=== PATIENT | female | born 1945 | race Caucasian/White ===

== ENCOUNTER → 2018-03-07 15:51 | Outpatient (CLI) | payer MEDICARE, OTHER, SELFPAY ==
[2018-03-07 14:45] VITALS: BMI 32.1
[2018-03-07 17:21] LABS: Absolute Lymphocyte Count 1.38 X10^3/ul (0.83-4.51); Absolute Neutrophil Count 4.4 X10^3/uL (2.0-7.7); Basophil# 0.01 X10^3/uL; Basophil% 0.2 % (0-1); Eosinophil# 0.13 X10^3/uL; Eosinophils% 2.1 % (0-5); Hematocrit 42.9 % (37-47); Hemoglobin 14.1 g/dl (12.0-15.0); Lymphocyte # 1.38 X10^3/ul (4.0); Lymphocyte % 21.8 % (19-41); Mean Corp Hgb Conc 32.9 g/gl (32-36); Mean Corpuscular Hgb 27.4 pg (27.0-32.0); Mean Corpuscular Volume 83.5 fL (81-99); Mean Platelet Vol. 10.7 fl (6.2-12.0); Monocyte# 0.43 X10^3/uL; Monocyte% 6.8 % (0-10); Neutrophil # 4.38 X10^3/uL (2.7-7.7); Neutrophil % 68.9 % (47-70); Platelet Count 173 K/mm3 (150-450); RBC Distribution Width CV 14.8 % (11.6-14.6); RBC Distribution Width SD 44.1 fl (35.1-43.9); Red Blood Count 5.14 M/mm3 (4.2-5.4); White Blood Count 6.3 K/mm3 (4.4-11.0)
[2018-03-07 17:41] LABS: BNP,B-Type NATRIURETIC PEPTIDE 130.1 pg/mL (0-100)
[2018-03-07 17:43] LABS: Anion Gap 6 (5-15); BUN 15 mg/dL (7-18); BUN/Creat Ratio 22.2 RATIO (10-20); Chloride 105 mmol/L (98-107); Cholesterol 192 mg/dL (200); Creatinine, Serum 0.68 mg/dL (0.55-1.02); EST Glomerular Filtration Rate 91 mL/min (>60); Est Glom Filt Rate - Afr Amer 110 mL/min (>60); Glucose 87 mg/dL (74-106); High Density Lipoprotein 54 mg/dL; Sodium Level 140 mmol/L (136-145); Thyroid Stim Hormone (TSH) 1.69 uIU/mL (0.358-3.74); Triglycerides 135 mg/dL; Very Low Density Lipoprotein 27 mg/dL (5-40)
[2018-03-07 17:46] LABS: POSITIVE COUNT NO; POSITIVE DIFFERENTIAL NO; POSITIVE MORPHOLOGY NO
[2018-03-10 11:57] LABS: Vitamin D 1,25-Dihydroxy 74.9 pg/mL (19.9-79.3)
--- OUTSIDE RECORDS SUMMARY | 2018-05-03 08:55 | XMS RPT_ITS ---
:1945 Author Organization [facility] Care Team Providers Name Role Phone GANTA, OLIVE Referring Unavailable GANTA, OLIVE Attending Unavailable NICK LOVE Referring Unavailable GANTA, OLIVE Referring Unavailable GANTA, OLIVE Referring Unavailable GANTA, OLIVE Attending Unavailable GANTA, OLIVE Referring Unavailable SAMMY BEJARANO ([facility]) Attending Unavailable GANTA, OLIVE Referring Unavailable FRANCESCO FERNÁNDEZ ([facility]) Attending Unavailable GANTA, OLIVE Referring Unavailable FRANCESCO FERNÁNDEZ ([facility]) Referring Unavailable Pippa Momin Attending Unavailable Josie Magana Attending Unavailable Ganta, Olive Referring Unavailable Josie Magana Attending Unavailable Josie Magana Referring Unavailable Ganta, Olive Primary Care Unavailable Josie Magana Attending Unavailable Josie Magana Referring Unavailable Ganta, Olive Primary Care Unavailable PROBLEMS PROBLEMS DATE TYPE CONDITION / CODE ATTENDING STATUS SOURCE 03/07/2018 Unknown R06.09 - Other forms Parag Magana of dyspnea / Josie Astudillo [facility] R06.09(ICD-10) Hospital Repository 03/07/2018 Unknown I25.10 - [place] Active [facility] Atherosclerotic heart Josie Astudillo [facility] disease of [facility] coronary artery Repository without angina pectoris / I25.10(ICD-10) 03/07/2018 Unknown I10 - Essential [place] Active [facility] (primary) [facility] hypertension / Hospital I10(ICD-10) Repository 03/07/2018 Unknown E78.5 - [place], Active [facility] Hyperlipidemia, Josie [facility] unspecified / Hospital E78.5(ICD-10) Repository 03/07/2018 Unknown R53.83 - Other Mag[place], Active [facility] fatigue / [facility] R53.83(ICD-10) Hospital Repository 03/07/2018 Unknown E55.9 - Vitamin D [place], Active [facility] deficiency, Josie [facility] unspecified / Hospital E55.9(ICD-10) Repository 03/07/2018 Unknown R06.00 - Dyspnea, [place], Active [facility] unspecified / [facility] R06.00(ICD-10) Hospital Repository 07/01/2017 Active Hypothyroidism, NA Active [facility] unspecified / [facility] E03.9(ICD-10) [place] Repository 11/01/2017 Active Other fatigue / NA Active [facility] R53.83(ICD-10) [facility] [place] Repository 04/29/2017 Active Encounter for NA Active [facility] screening mammogram [facility] for malignant [place] neoplasm of breast / Repository Z12.31(ICD-10) 04/27/2017 Active Bradycardia, NA Active [facility] unspecified / [facility] R00.1(ICD-10) [place] Repository 04/27/2017 Active Vitamin D deficiency, NA Active [facility] unspecified / [facility] E55.9(ICD-10) [place] Repository 04/27/2017 Active Other muscle spasm / NA Active [facility] M62.838(ICD-10) [facility] [place] Repository 04/20/2017 Active 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 72-year-old lady with a history of coronary artery disease, and shortness of breath. Patient status post coronary bypass surgery. Resting EKG demonstrates sinus bradycardia with a rate of 54 bpm normal intervals are noted resting blood pressure 170/80 mmHg. 0.4 mg of regadenoson was infused per usual protocol followed by rapid intravenous saline flush injection continuous EKG monitoring was performed. The patient maintained sinus rhythm throughout the recording. The maximum heart rate attained was 89 bpm which was 60% of maximum predicted heart rate the maximum workload was 1 metabolic equivalent. The resting blood pressure 170/80 with a final blood pressure 156/70 mmHg. Myocardial perfusion protocol. 10.8 mCi of technetium 99m sestamibi was injected at rest. 0.4 mg of regadenoson was infused per usual protocol peak infusion 30.1 mCi of technetium 99m sestamibi was injected stress images were obtained stress and rest images were reconstructed and compared in the short axis vertical long horizontal long axis. Gated images were also obtained Perfusion SPECT analysis: Review of the stress images demonstrate normal uptake of tracer noted in all areas of the myocardium the resting images similarly demonstrate normal uptake of tracer noted in all areas of the myocardium. No areas of reversibility are noted suggest ischemia no previous infarct is noted. Gated SPECT analysis: The gated ejection fraction is noted to be 74%. Conclusion: Normal pharmacologic myocardial perfusion stress test. Preserved ejection fraction. 03/15/181730 <Electronically signed by Nicholas Umana MD> Date Nicholas Umana MD CC: Olive Joyner MD; Josie Magana Date Dictated: 03/15/181727 Date Transcribed: 03/15/181727 Hostel Manager: CO Signed CARDIOLOGY VISIT Observed: 03/09/2018 Status: F Source: LI REPORT 7:31 AM [facility] REPOSITORY [facility] [address] [place] [address]. [address] [place] [address] OFFICE VISIT Date of Service: 03/07/18 MR#: [id number] Acct: [id number] Name: JOSELYN RODRIGUEZ Rep #: [id number] : 1945 Provider: Josie Magana Age/Sex: 72/F Location: [facility] Status: Signed HPI HPI Details: JOSELYN RODRIGUEZ, is a 72 F who presents to the office today for an urgent appointment. She does have a history of coronary artery disease with bypass surgery. She had an SOARES to the LAD, SVG to the first diagonal and second branches. She sts that she has had worsening SOB over the last month. She sts that she was SOB during the summer months but feels that it has gotten worse. She feels that this is similar to what she had when she had her bypass. She does have some heaviness. She does not have any chest pain. She does not feel stressed. She does have increase in fatigue. She also noted increase in leg fatigue with walking or doing steps. She does occasionally have palpitations. She does have positional dizziness. She does not have any edema. 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: No Accompanied by: None Is patient in pain?: No Allergies acetaminophen [From Tylenol] Allergy (Verified 03/07/18 14:51) Unknown codeine Allergy (Verified 03/07/18 14:51) Unknown progesterone Allergy (Verified 03/07/18 14:51) Unknown trazodone Allergy (Verified 03/07/18 14:51) Unknown Medications Levothyroxine [Synthroid] 75 mcg PO DAILY 04/23/15 [History Confirmed 03/07/18] Montelukast [Singulair] 10 mg PO DAILY 04/23/15 [History Confirmed 03/07/18] Multivit with Calcium,Iron,Min [Multiple Vitamins For Women] 1 ea PO DAILY 04/23/15 [History Confirmed 03/07/18] Omeprazole [Prilosec] 20 mg PO DAILY 04/23/15 [History Confirmed 03/07/18] albuterol sulfate HFA 90 mcg/actuation aerosol inhaler 2 puff INHALATION Q6H 05/17/17 [History Confirmed 03/07/18] aspirin 81 mg tablet,delayed release 81 mg PO QDAY 05/17/17 [History Confirmed 03/07/18] metoprolol succinate ER 50 mg tablet,extended release 24 hr 50 mg PO QDAY 08/15/17 [History Confirmed 03/07/18] sertraline 50 mg tablet 50 mg PO BID tab 08/15/17 [History Confirmed 03/07/18] zolpidem 5 mg tablet 5 mg PO QDAY tab 08/15/17 [History Confirmed 03/07/18] simvastatin 40 mg tablet 40 mg PO QHS #90 tab 11/30/17 [Rx Confirmed 03/07/18] Ejection fraction %: 55 to 59 PFSH Medical History Depression (Chronic) Asthma (Chronic) Hypothyroidism (Chronic) Hyperlipidemia (Chronic) Hypertension (Chronic) Atherosclerotic heart disease of morongo coronary artery without angina pectoris (Chronic) 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) Body mass index (BMI) of 32.0-32.9 in adult (Chronic) Carotid artery disease (Chronic) COPD (chronic obstructive pulmonary disease) (Chronic) EARL (obstructive sleep apnea) (Chronic) LEOS (dyspnea on exertion) (Chronic) Surgical History History of cholecystectomy (Chronic) Presence of aortocoronary bypass graft (Chronic) History of appendectomy (Resolved) History of hernia repair (Resolved) History of hysterectomy (Resolved) Family History Mother CAD (coronary artery disease) CVA (cerebral vascular accident) Father , Age 44 COPD (chronic obstructive pulmonary disease) Social History Smoking Status: Former smoker pack-years: 10 how long ago did patient quit smokin years ago second hand exposure: No alcohol intake: never substance use type: does not use caffeine: Yes Type: carbonated beverages Number of servings: 2 what type of physical activity do you participate in: none ROS Const Const: Positive for weakness and fatigue; negative for fever(s) or headache(s) Eyes Eyes: Negative for blind spots, loss of peripheral vision or transient loss of vision ENT ENT: Negative for headache(s), dizziness, tinnitus or Nosebleed/epistaxis Cardio Chest Pain: Yes Palpitations: Yes Edema: None Muscle aches with walking: Bilateral Resp Respiratory: Positive for SOB with activity and SOB at rest; negative for SOB orthopnea\SOB lying down or Cough GI GI: Negative nausea, vomiting, heartburn or vomiting blood/hematemesis : Negative for hematuria Musc Musc: Negative for muscle aches/ myalgia Neuro Neuro: Positive for weakness; negative for headache(s), dizziness, near syncope, syncope, lightheadedness or orthostatic symptoms Kamron Hematologic/Lymphatic: Negative for easy bleeding Endo Endo: Positive for fatigue Cardiology Exam Const Appearance: cooperative, no acute distress and well developed Orientation: alert, awake and oriented x3 Head Head: normocephalic and atraumatic Mouth: moist mucous membranes Eyes General: appearance normal, both eyes and all related structures Conjunctivae: conjunctivae normal Pupils: PERRL EOM: EOM intact bilaterally Neck Neck: normal visual inspection, no lymphadenopathy and no JVD Carotids: Negative bruit Neck Mass: Negative Neck mass Chest Chest inspection: normal inspection of the chest and symmetric chest movement Auscultation: Bilateral: Clear to Auscultation Cardio Palpation: normal PMI Rate: regular rate Rhythm: regular rhythm Heart sounds: S1 normal and S2 normal; negative rub, gallop or murmur GI GI: normal to inspection, soft, no hepatosplenomegaly and bowel sounds present; negative tender Neuro General: alert, awake, oriented x3, CN's II-XI intact bilaterally and moves all extremities Extremities Pulses: Normal: Right Posterior Tibial Pulse, Left Posterior Tibial Pulse, Right Radial Pulse, Left Radial Pulse Lower Extremity Edema: None: Bilateral Psych Psychological: normal affect Supplemental Info Heart cath 2016 demonstrated 1. Angiographically normal left main coronary artery. 2. Left anterior descending artery, which is noted to be totally occluded. 3. Left circumflex artery with no high-grade stenosis. 4. Dominant right coronary artery with [id number] disease. 5. Saphenous vein graft to the diagonal vessel, 1 and 2, which appeared to be patent. 6. Saphenous vein graft per second diagonal vessel, which is patent. 7. Left internal mammary artery to left anterior descending artery, which is patent with a large thoracic branch noted. 8. Preserved ejection fraction. Assessment AND Plan 1. Atherosclerosis of morongo coronary artery of morongo heart without angina pectoris I25.10 Plan - MIN [place] Patient does not have any symptoms of angina however she does have worsening shortness of breath. She has not needed to use any nitroglycerin. With to obtain a stress test to further evaluate this. She does not feel that she could walk on a treadmill. We will do a medication stress test. Orders Orders: 2. Essential hypertension I10 Plan - MIN [place] Blood pressure is slightly elevated today. Prior to making adjustments of medications would like her to continue to monitor this over the next few weeks. We will make adjustments if need be at her follow-up. Orders Orders: 3. Pure hypercholesterolemia E78.00; E78.0 Plan - MIN [place] Patient is due to have her lipids checked. Will obtain these in the near future and adjust accordingly. 4. LEOS (dyspnea on exertion) R06.09 Plan - MIN [place] With patient's worsening shortness of breath will obtain labs and stress test to further evaluate. Orders Orders: 5. Fatigue, unspecified type R53.83 Plan - MIN [place] We will obtain labs to further evaluate. Orders Orders: Plan Detail Other Orders Orders: Additional Comments - MIN [place] Would like to follow-up with patient closely. She will follow- up after her labs and stress test. The above patient was discussed with Dr. Umana, he agrees with plan of care. Thank you for allowing us to participate in patient's plan of care, if you have any questions please do not hesitate to call. This note was generated using a voice recognition system and there may be incorrect words, spelling or punctuation errors that were not noted when reviewing the office note prior to saving. 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 transplanted heart: morongo heart Essential hypertension I10 Hypertension type: essential hypertension Pure hypercholesterolemia E78.00; E78.0 Hyperlipidemia type: pure hypercholesterolemia LEOS (dyspnea on exertion) R06.09 Fatigue, unspecified type R53.83 Fatigue type: unspecified Coding Level of Care Code Off vis,est,level 4 Diagnoses Atherosclerosis of morongo coronary artery of morongo heart without angina pectoris I25.10 [place] vs. transplanted heart: morongo heart Essential hypertension I10 Hypertension type: essential hypertension Pure hypercholesterolemia E78.00; E78.0 Hyperlipidemia type: pure hypercholesterolemia LEOS (dyspnea on exertion) R06.09 Fatigue, unspecified type R53.83 Fatigue type: unspecified 03/07/18 1540 <Electronically signed by Josie Magana PA> Date Josie COPELAND 03/09/18 0731<Electronically signed by Nicholas Umana MD> Cosigner Signature: Date (if applicable) Nicholas Umana MD CC: Olive Joyner MD BNP,B-TYPE NATRIURETIC Collected: 03/07/2018 Status: F Source: LI PEPTIDE 4:06 PM [facility] REPOSITORY TYPE CODE TESTS RESULT OUT OF RANGE REFERENCE UNITS LAB L503.6620 0-100 pg/mL High B-TYPE 130.1 LORIE PEP Performed By: #### L503.6620 #### [facility] [address] [place], [address] BASIC METABOLIC Collected: 03/07/2018 Status: F Source: [place] PROFILE (BMP) 4:06 PM [facility] REPOSITORY TYPE CODE TESTS RESULT OUT OF RANGE REFERENCE UNITS LAB L501.0100 74-106 mg/dL Normal GLU 87 Result Comment: Please note revised GLUCOSE reference range effective 2017. LAB L501.1000 7-18 mg/dL Normal BUN 15 LAB L501.1100 0.55-1.02 mg/dL Normal CREAT,SERUM 0.68 Result Comment: The validity of the calculated GFR AND GFRAA in patients over 70 years has not been determined. Clinical correlation is essential. LAB L501.1110 >60 mL/min Normal EST GFR 91 Result Comment: Non- GFR Calc LAB L501.1115 >60 mL/min Normal EST GFR - AA 110 Result Comment: GFR Calc LAB L501.1300 10-20 RATIO High BUN/CRE 22.2 LAB L501.2200 8.5-10.1 mg/dL CA Normal 9.0 LAB L501.5300 136-145 mmol/L NA Normal 140 LAB L501.5600 3.5-5.1 mmol/L K Normal 4.0 LAB L501.5900 98-107 mmol/L CL Normal 105 LAB L501.6100 21.0-32.0 mmol/L Normal CO2 29.0 LAB L501.6200 5-15 Normal GAP 6 Performed By: #### L500.2500, L500.4100, L501.9520 #### [facility] [address] [place], [place], [id number] LIPID PROFILE Collected: 03/07/2018 Status: F Source: LI 4:06 PM [facility] REPOSITORY TYPE CODE TESTS RESULT OUT OF RANGE REFERENCE UNITS LAB L501.4900 200 mg/dL Normal CHOL 192 Result Comment: <200 mg/dL Desirable 200-240 mg/dL Borderline >240 mg/dL High Risk LAB L501.5000 mg/dL Normal TRIG 135 Result Comment: The drugs N-Acetylcysteine and Metamizole may falsely depress this assay. Serum Triglycerides Reference Interval Normal <150 mg/dL Borderline high 150 - 199 mg/dL High 200 - 499 mg/dL Very High > or = 500 mg/dL LAB L501.6400 mg/dL Normal HDL 54 Result Comment: The drugs N-Acetylcysteine and Metamizole may falsely depress this assay. Reference Range HDL <40 mg/dL Low HDL Cholesterol HDL >or= 60 mg/dL High HDL Cholesterol LAB L501.6500 0-130 mg/dL Normal LDL 111 LAB L501.6600 5-40 mg/dL Normal VLDL 27 Performed By: #### L500.2500, L500.4100, L501.9520 #### [facility] [address] [place], [place], [id number] THYROID STIM HORMONE Collected: 03/07/2018 Status: F Source: LI (TSH) 4:06 PM [facility] REPOSITORY TYPE CODE TESTS RESULT OUT OF RANGE REFERENCE UNITS LAB L501.9520 0.358-3.74 uIU/mL Normal TSH 1.69 Performed By: #### L500.2500, L500.4100, L501.9520 #### [facility] [address] [facility] [place], [place], [id number] CBC W/DIFF, AUTOMATED Collected: 03/07/2018 Status: F Source: LI 4:06 PM [facility] REPOSITORY TYPE CODE TESTS RESULT OUT OF RANGE REFERENCE UNITS LAB L100.1000 4.4-11.0 K/mm3 Normal WBC 6.3 LAB L100.1200 4.2-5.4 M/mm3 Normal RBC 5.14 LAB L100.1300 12.0-15.0 g/dl Normal HGB 14.1 LAB L100.1400 37-47 % Normal HCT 42.9 LAB L100.1500 81-99 fL Normal MCV 83.5 LAB L100.1600 27.0-32.0 pg Normal MCH 27.4 LAB L100.1700 32-36 g/gl Normal MCHC 32.9 LAB L100.1810 11.6-14.6 % High RDW CV 14.8 LAB L100.1820 35.1-43.9 fl High RDW SD 44.1 LAB L100.1900 150-450 K/mm3 Normal PLT 173 LAB L100.2000 6.2-12.0 fl Normal MPV 10.7 LAB L100.2100 47-70 % Normal NEUT% 68.9 LAB L100.2200 19-41 % Normal LY% 21.8 LAB L100.2300 0-10 % Normal MONO% 6.8 LAB L100.2400 0-5 % Normal EO% 2.1 LAB L100.2500 0-1 % Normal BASO% 0.2 LAB L100.2550 0.0-0.9 % Normal IM GRAN % 0.200 Result Comment: IG% - Immature Granulocytes (promyelocytes, myelocytes and metamyelocytes) > 1% indicates that a LEFT SHIFT is Present. LAB L100.2620 2.0-7.7 X10 3/uL Normal Absolute Neut 4.4 LAB L100.2720 0.83-4.51 X10 3/ul Normal Absolute Lymph 1.38 Performed By: #### L100.0100 #### [facility] [place], [address] VITAMIN D 1,25-DIHYDROXY Collected: 03/07/2018 Status: F Source: LI 4:06 PM [facility] REPOSITORY TYPE CODE TESTS RESULT OUT OF RANGE REFERENCE UNITS LAB L3300.0960 19.9-79.3 pg/mL Normal VITD 1,25 74.9 36265 Result Comment: Performed at: - [facility] [address] [id number] Supervisor Braiding: Lissett López MD, Phone: [phone] Performed By: #### L3300.0960 #### [facility] (refer to report for specific site) refer to report for address and phone number 12 LEAD EKG PERFORMED Observed: 03/07/2018 Status: F Source: LI BY [facility] 3:21 PM [facility] REPOSITORY [facility] [address] [place] [address] 12 Lead EKG performed by [facility] 03/07/18 1520 MR#: [id number] Acct: [id number] Name: JOSELYN RODRIGUEZ Rep #: [id number] : 1945 72 From: Josie COPELAND Attending Dr: Josie Magana Status: DEP AMB Ordering Dr: Josie Magana Date: 03/07/18 [place] [facility] [place] C Admitted: [facility]/12 Lead EKG performed by [facility] ECG Report Interpretation Sinus Bradycardia -First degree A-V block Oksana = 226- Nonspecific T-abnormality. ABNORMAL Electronically signed on 03/15/2018 at 16:45 by Nicholas Umana Software Version [id number] 03/15/18 1651 Date Josie COPELAND CC: Olive Joyner MD Date Dictated: 03/07/181519 Date Transcribed: 03/07/181519 Hostel Manager: USAMA Signed TSH Collected: 11/01/2017 Status: F Source: [place] 11:23 AM [facility] TYPE CODE TESTS RESULT OUT OF RANGE REFERENCE UNITS LAB TSH 0.400-5.500 uU/mL TSH 1.090 Performed By: #### TSH, VITD #### [facility] [address] [place], [place] [address] VITAMIN D 25 HYDROXY Collected: 11/01/2017 Status: F Source: [place] 11:23 AM [facility] REPOSITORY TYPE CODE TESTS RESULT OUT OF REFERENCE UNITS RANGE LAB VITD 31.0-80.0 ng/mL Low Vitamin D 25 21.9 Hydroxy Result Comment: Classification of 25 [place] Vitamin D status: Insufficiency/Moderate Deficiency: < or = 30 ng/mL Sufficiency/Optimal Levels: 31 to 80 ng/mL Toxicity: > 100 ng/mL Test performed by chemiluminescent immunoassay. Performed By: #### TSH, VITD #### [facility] [address] [place], [place] [address] PROGRESS Observed: 11/01/2017 Status: COMPLETED Source: [place] 10:17 AM [facility] REPOSITORY HNO ID: [id number] Author: Francesco Fernández Service: (none) Author Type: Nurse Practitioner Type: Progress Notes Filed: 11/01/2017 11:16 AM Note Text: CC: Patient presents with: Recheck: BP follow up HPI Joselyn Rodriguez is a 72 year old female who presents today for BP follow up. HTN: Ms. Rodriguez indicates that she is feeling well and denies any symptoms referable to elevated blood pressure. Specifically denies headache, chest pain, palpitations, dyspnea and peripheral edema. Patient denies any side effects of her medication(s) and is compliant with their regimen. She does not check BP's generally. Joselyn gets minimal exercise. She watches her diet for sodium, low fat and low cholesterol most of the time. She does enjoy her potato chips and she does eat outside of the house at least once per day, usually lunch. Last 3 Encounter BP Readings: Date: BP: 11/01/2017 136/82 10/18/2017 153/67[BP SOLEDAD AVERAGE[ 07/01/2017 158/74 Her only complaint today is worsening fatigue. States she takes Ambien for sleep at night which helps her fall asleep, but then she will get up in the morning and be ready for a nap shortly after waking. Positive hx of EARL, had Cpap but was unable to tolerate. Notes current exacerbation of depression as she continues to mourn the loss of her 13 year old dog whom she lost in June, however she indicates she is slowing doing better. REVIEW OF SYSTEMS General: no fevers, no chills, no night sweats, no recurrent infections, no change in appetite, and no significant changes in weight HEENT: no frequent or significant headaches, no changes in hearing, no visual changes, no nose bleeds, no sinus or nasal problems Neck: no lumps, no pain and no swelling Respiratory: no shortness of breath, no hemoptysis, Intermittent cough and wheezing with asthma exacerbations Cardiovascular: no chest pain, no chest pressure, no palpitations and Positive for: intermittent LLE edema Musculoskeletal: Negative for joint pain or swelling, back pain or muscle pain- Right hip pain resolved Neurologic: No headache, weakness, numbness, tingling, neck stiffness, tremor, vertigo, dizziness, memory loss, syncope. PAST MEDICAL HISTORY Diagnosis Date - Coronary artery disease - Cough - Depression - Depressive disorder, not elsewhere classified - Diarrhea - GERD (gastroesophageal reflux disease) - Hypertension - Snoring - Unspecified asthma(493.90) - Unspecified asthma(493.90) - Unspecified hypothyroidism Hypothyroidism PAST SURGICAL HISTORY Procedure Laterality Date - ANORECTAL MYOMECTOMY 01/02/1971 Myomectomy - CABG (3) VEIN GRAFTS AND ARTERIAL GRAFT(S) 2009 - COLONOSCOP W/ OR W/O [facility] SPEC 03/15/2006 Colonoscopy - HEART SURGERY HX - HYSTERECTOMY HX - LAP CHOLECYSTECT/CHOLANGIOGRAPHY 06/08/05 - PULMONARY FUNCTION TEST 09/24/2004 - REPAIR ING HERNIA,5+Y/O,REDUCIBL Left 05/01/1980 Hernia repair, inguinal - TONSILLECTOMY AND ADENOIDECTOMY HX ALLERGIES Levaquin [Levofloxacin]; Codeine; Niacin; Progesterone; Trazadone [Other]; Tylenol [Acetaminophen] MEDICATIONS sertraline (ZOLOFT) 100 mg tablet Take 2 tablets by mouth once daily. omeprazole (PRILOSEC) 20 mg capsule take 1 capsule by mouth once daily metoprolol tartrate, short acting, (LOPRESSOR) 25 mg tablet Take 1 tablet by mouth twice daily. zolpidem (AMBIEN) 5 mg tablet Take 1 tablet by mouth at bedtime as needed for up to 30 days. busPIRone (BUSPAR) 5 mg tablet Take 1 tablet by mouth three times daily. isosorbide mononitrate ER (IMDUR) 30 mg 24 hr tablet Take 1 tablet by mouth once daily. metoprolol succinate ER (TOPROL XL) 25 mg 24 hr tablet Take 1 tablet by mouth once daily. levothyroxine (SYNTHROID) 75 mcg tablet take 1 tablet by mouth once daily montelukast (SINGULAIR) 10 mg tablet take 1 tablet by mouth at bedtime hydroCHLOROthiazide (HYDRODIURIL, ESIDRIX) 12.5 mg tablet Take 12.5 mg by mouth once daily. Pt unsure of dosage lisinopril (ZESTRIL, PRINIVIL) 5 mg tablet Take 5 mg by mouth once daily. Pt unsure of dosage ergocalciferol, vitamin D2, (DRISDOL) 50,000 unit capsule take 1 capsule by mouth every week ON MONDAYS albuterol HFA (PROAIR HFA) 90 mcg/actuation inhaler Inhale 2 Puffs as instructed every 6 hours as needed. simvastatin (ZOCOR) 40 mg tablet Take 1 tablet by mouth daily at bedtime. aspirin, enteric coated 325 mg ORAL EC tablet Take 1/2 tablet daily. FAMILY HISTORY Problem Relation Age of Onset - Coronary Artery Disease Mother cabg x 4 - Stroke Mother - COPD Father - depression [OTHER] Brother - Stroke Maternal Grandfather - Heart Paternal Grandfather MS - Allergies Sister Social History Substance Use Topics - Smoking status: Former Smoker Packs/day: 0.50 Years: 18.00 Types: Cigarettes Quit date: 01/25/1981 - Smokeless tobacco: Never Used - Alcohol use Yes Comment: occassionally a glass of white wine PHYSICAL EXAM BP 136/82 Pulse (!) 56 Temp 37 ?C (98.6 ?F) (Temporal Artery) Resp 16 Wt 78.5 kg (173 lb) SpO2 97% BMI 32.16 kg/m? General Appearance: well appearing, in no acute distress, alert Pysch: mood and affect broad and appropriate Skin: Skin color, texture, turgor normal for age; Head: normocephalic, atraumatic Eyes: conjunctiva pink and moist, no icterus, sclera white, non-injected Lungs: Lungs clear to auscultation. No wheezing, rhonchi, rales Heart: RRR without murmur, gallop, or rubs. No ectopy Bilateral Lower Extremities: No deformities, edema, skin discoloration, clubbing or cyanosis. Good capillary refill. , Pulses: 2+ BLOOD PRESSURE CONTROLLED due on 1963 PNEUMOVAX AGE 65 AND OVER WITH 5YR LOOKBACK(1) due on 01/19/2012 DTAP,TDAP,TD(1 - Tdap) due on 06/23/2013 COLORECTAL CANCER SCREENING,SEE MODIFIER due on 03/15/2016 STATIN MED ADHERENCE due on 11/09/2017 INFLUENZA(1) due on 12/10/2017 LDL CHOLESTEROL due on 04/20/2018 MAMMOGRAM due on 04/29/2018 ANNUAL PCP TEAM CHRONIC DISEASE VISIT due on 07/01/2018 DIABETES SCREEN due on 04/20/2020 LIPID SCREEN due on 04/20/2022 BONE DENSITY Completed ADULT PREVNAR-13 Completed HEPATITIS C SCREENING Completed ASSESSMENT/PLAN: 1. Hypertension, unspecified type - ICD9: 401.9, ICD10: I10 (primary diagnosis) - good control - Continue current medication(s) - Encouraged dietary sodium restriction/DASH diet - Recommended regular aerobic exercise. - Recheck in 6 months, sooner should new symptoms or problems arise. - Goal of BP <140/90 - Recommended no refined sugar, low refined starch, healthy oil intake (olive oil), healthy protein (fish) along the lines of the Mediterranean diet. 2. Acquired hypothyroidism - ICD9: 244.9, ICD10: E03.9 - Instructed patient on importance of taking on an empty stomach either first thing in the morning or at bedtime. - check TSH today d/t increased fatigue - Follow up in 6 months - TSH BLD 3. Fatigue, unspecified type - ICD9: 780.79, ICD10: R53.83 - Consider inadequate synthroid dosing vs recurrence of vitamin D deficiency vs EARL vs situational depression vs medication side effects - Recommend dividing Zoloft dosing AM and PM, check Vitamin D and TSH today - Consider consult to sleep medicine for further evaluation/recommendations for EARL - VITAMIN D 25 HYDROXY 4. Vitamin D deficiency - ICD9: 268.9, ICD10: E55.9 - VITAMIN D 25 HYDROXY Francesco Fernández APRN.ZANJERO Prescription instructions reviewed with patient as applicable. Potential red flag symptoms discussed with the patient. Reviewed appropriate action plan to take if red flag symptoms occur. Patient agreeable to treatment plan. CNOV Observed: 11/01/2017 Status: COMPLETED Source: [place] 10:00 AM [facility] Office Visit ([facility]) JOSELYN RODRIGUEZ ([id number]) 1945 F Date Time Provider Department 11/01/17 10:00 AM FRANCESCO FERNÁNDEZ (ZANJERO) IN[facility] During your visit today, we recorded the following information about you: Temperature Pulse Respiration Blood pressure 98.6 degrees 56/minute 16/minute 136/82 Weight 78.5 kg Francesco Fernández APRN.CNP 11/01/2017 11:16 AM Signed CC: Patient presents with: Recheck: BP follow up HPI Joselyn Rodriguez is a 72 year old female who presents today for BP follow up. HTN: Ms. Rodriguez indicates that she is feeling well and denies any symptoms referable to elevated blood pressure. Specifically denies headache, chest pain, palpitations, dyspnea and peripheral edema. Patient denies any side effects of her medication(s) and is compliant with their regimen. She does not check BP's generally. Joselyn gets minimal exercise. She watches her diet for sodium, low fat and low cholesterol most of the time. She does enjoy her potato chips and she does eat outside of the house at least once per day, usually lunch. Last 3 Encounter BP Readings: Date: BP: 11/01/2017 136/82 10/18/2017 153/67[BP SOLED[facility] AVERAGE[ 07/01/2017 158/74 Her only complaint today is worsening fatigue. States she takes Ambien for sleep at night which helps her fall asleep, but then she will get up in the morning and be ready for a nap shortly after waking. Positive hx of EARL, had Cpap but was unable to tolerate. Notes current exacerbation of depression as she continues to mourn the loss of her 13 year old dog whom she lost in June, however she indicates she is slowing doing better. REVIEW OF SYSTEMS General: no fevers, no chills, no night sweats, no recurrent infections, no change in appetite, and no significant changes in weight HEENT: no frequent or significant headaches, no changes in hearing, no visual changes, no nose bleeds, no sinus or nasal problems Neck: no lumps, no pain and no swelling Respiratory: no shortness of breath, no hemoptysis, Intermittent cough and wheezing with asthma exacerbations Cardiovascular: no chest pain, no chest pressure, no palpitations and Positive for: intermittent LLE edema Musculoskeletal: Negative for joint pain or swelling, back pain or muscle pain- Right hip pain resolved Neurologic: No headache, weakness, numbness, tingling, neck stiffness, tremor, vertigo, dizziness, memory loss, syncope. PAST MEDICAL HISTORY Diagnosis Date - Coronary artery disease - Cough - Depression - Depressive disorder, not elsewhere classified - Diarrhea - GERD (gastroesophageal reflux disease) - Hypertension - Snoring - Unspecified asthma(493.90) - Unspecified asthma(493.90) - Unspecified hypothyroidism Hypothyroidism PAST SURGICAL HISTORY Procedure Laterality Date - ANORECTAL MYOMECTOMY 01/02/1971 Myomectomy - CABG (3) VEIN GRAFTS AND ARTERIAL GRAFT(S) 2009 - COLONOSCOP W/ OR W/O BRSH SPEC 03/15/2006 Colonoscopy - HEART SURGERY HX - HYSTERECTOMY HX - LAP CHOLECYSTECT/CHOLANGIOGRAPHY 06/08/05 - PULMONARY FUNCTION TEST 09/24/2004 - REPAIR ING HERNIA,5+Y/O,REDUCIBL Left 05/01/1980 Hernia repair, inguinal - TONSILLECTOMY AND ADENOIDECTOMY HX ALLERGIES Levaquin [Levofloxacin]; Codeine; Niacin; Progesterone; Trazadone [Other]; Tylenol [Acetaminophen] MEDICATIONS sertraline (ZOLOFT) 100 mg tablet Take 2 tablets by mouth once daily. omeprazole (PRILOSEC) 20 mg capsule take 1 capsule by mouth once daily metoprolol tartrate, short acting, (LOPRESSOR) 25 mg tablet Take 1 tablet by mouth twice daily. zolpidem (AMBIEN) 5 mg tablet Take 1 tablet by mouth at bedtime as needed for up to 30 days. busPIRone (BUSPAR) 5 mg tablet Take 1 tablet by mouth three times daily. isosorbide mononitrate ER (IMDUR) 30 mg 24 hr tablet Take 1 tablet by mouth once daily. metoprolol succinate ER (TOPROL XL) 25 mg 24 hr tablet Take 1 tablet by mouth once daily. levothyroxine (SYNTHROID) 75 mcg tablet take 1 tablet by mouth once daily montelukast (SINGULAIR) 10 mg tablet take 1 tablet by mouth at bedtime hydroCHLOROthiazide (HYDRODIURIL, ESIDRIX) 12.5 mg tablet Take 12.5 mg by mouth once daily. Pt unsure of dosage lisinopril (ZESTRIL, PRINIVIL) 5 mg tablet Take 5 mg by mouth once daily. Pt unsure of dosage ergocalciferol, vitamin D2, (DRISDOL) 50,000 unit capsule take 1 capsule by mouth every week ON MONDAYS albuterol HFA (PROAIR HFA) 90 mcg/actuation inhaler Inhale 2 Puffs as instructed every 6 hours as needed. simvastatin (ZOCOR) 40 mg tablet Take 1 tablet by mouth daily at bedtime. aspirin, enteric coated 325 mg ORAL EC tablet Take 1/2 tablet daily. FAMILY HISTORY Problem Relation Age of Onset - Coronary Artery Disease Mother cabg x 4 - Stroke Mother - COPD Father - depression [OTHER] Brother - Stroke Maternal Grandfather - Heart Paternal Grandfather MS - Allergies Sister Social History Substance Use Topics - Smoking status: Former Smoker Packs/day: 0.50 Years: 18.00 Types: Cigarettes Quit date: 01/25/1981 - Smokeless tobacco: Never Used - Alcohol use Yes Comment: occassionally a glass of white wine PHYSICAL EXAM BP 136/82 Pulse (!) 56 Temp 37 ?C (98.6 ?F) (Temporal Artery) Resp 16 Wt 78.5 kg (173 lb) SpO2 97% BMI 32.16 kg/m? General Appearance: well appearing, in no acute distress, alert Pysch: mood and affect broad and appropriate Skin: Skin color, texture, turgor normal for age; Head: normocephalic, atraumatic Eyes: conjunctiva pink and moist, no icterus, sclera white, non-injected Lungs: Lungs clear to auscultation. No wheezing, rhonchi, rales Heart: RRR without murmur, gallop, or rubs. No ectopy Bilateral Lower Extremities: No deformities, edema, skin discoloration, clubbing or cyanosis. Good capillary refill. , Pulses: 2+ BLOOD PRESSURE CONTROLLED due on 1963 PNEUMOVAX AGE 65 AND OVER WITH 5YR LOOKBACK(1) due on 01/19/2012 DTAP,TDAP,TD(1 - Tdap) due on 06/23/2013 COLORECTAL CANCER SCREENING,SEE MODIFIER due on 03/15/2016 STATIN MED ADHERENCE due on 11/09/2017 INFLUENZA(1) due on 12/10/2017 LDL CHOLESTEROL due on 04/20/2018 MAMMOGRAM due on 04/29/2018 ANNUAL PCP TEAM CHRONIC DISEASE VISIT due on 07/01/2018 DIABETES SCREEN due on 04/20/2020 LIPID SCREEN due on 04/20/2022 BONE DENSITY Completed ADULT PREVNAR-13 Completed HEPATITIS C SCREENING Completed ASSESSMENT/PLAN: 1. Hypertension, unspecified type - ICD9: 401.9, ICD10: I10 (primary diagnosis) - good control - Continue current medication(s) - Encouraged dietary sodium restriction/DASH diet - Recommended regular aerobic exercise. - Recheck in 6 months, sooner should new symptoms or problems arise. - Goal of BP <140/90 - Recommended no refined sugar, low refined starch, healthy oil intake (olive oil), healthy protein (fish) along the lines of the Mediterranean diet. 2. Acquired hypothyroidism - ICD9: 244.9, ICD10: E03.9 - Instructed patient on importance of taking on an empty stomach either first thing in the morning or at bedtime. - check TSH today d/t increased fatigue - Follow up in 6 months - TSH BLD 3. Fatigue, unspecified type - ICD9: 780.79, ICD10: R53.83 - Consider inadequate synthroid dosing vs recurrence of vitamin D deficiency vs EARL vs situational depression vs medication side effects - Recommend dividing Zoloft dosing AM and PM, check Vitamin D and TSH today - Consider consult to sleep medicine for further evaluation/recommendations for EARL - VITAMIN D 25 HYDROXY 4. Vitamin D deficiency - ICD9: 268.9, ICD10: E55.9 - VITAMIN D 25 HYDROXY Francesco Fernández APRN.SARKIS Prescription instructions reviewed with patient as applicable. Potential red flag symptoms discussed with the patient. Reviewed appropriate action plan to take if red flag symptoms occur. Patient agreeable to treatment plan. Francesco Fernández APRN.SARKIS 11/01/2017 10:50 AM Signed Okay to divide Zoloft dosing, once in the AM and once before bed to help with fatigue. Will recheck thyroid and vitamin D. Referring Provider: OLIVE JOYNER [[id number]] Allergies As of Date: 11/01/2017 Noted Allergy Reaction LEVAQUIN (LEVOFLOXACIN) 07/27/2005 7 - Swelling CODEINE 01/25/2005 9 - Itching NIACIN 05/05/2010 8 - GI Upset Comments: dyspepsia PROGESTERONE 01/25/2005 Comments: photosensative trazadone [Other] 01/25/2005 2 - Rash TYLENOL (ACETAMINOPHEN) 08/23/2005 8 - GI Upset Date Reviewed: 11/01/2017 Reviewed by: Sri Manuel Ma - Fully Assessed Reason for Visit: Recheck [92] Cmt: BP follow up Primary Visit Diagnosis:Hypertension, unspecified type [I10] Other Visit Diagnoses:Acquired hypothyroidism [E03.9] Fatigue, unspecified type [R53.83] Vitamin D deficiency [E55.9] Order(s):sertraline (ZOLOFT) 100 mg tabletTake 2 tablets by mouth once daily.Disp: 60 tabletRfl: 11 levothyroxine (SYNTHROID) 75 mcg tabletTake 1 tablet by mouth once daily.Disp: 90 tabletRfl: 11 TSH BLD [SQTSH] Order #: [id number] FUTURE VITAMIN D 25 HYDROXY [SQVITD] Order #: [id number] FUTURE Prescriptions as of 11/01/2017 Sig: SERTRALINE 100 MG TABLET Take 2 tablets by mouth once * LEVOTHYROXINE 75 MCG TABLET Take 1 tablet by mouth once d* OMEPRAZOLE 20 MG CAPSULE,MO* take 1 capsule by mouth once * METOPROLOL TARTRATE 25 MG TAB* Take 1 tablet by mouth twice * ZOLPIDEM 5 MG TABLET Take 1 tablet by mouth at bed* BUSPIRONE 5 MG TABLET Take 1 tablet by mouth three * Patient not taking: Reported on 10/18/2017 ISOSORBIDE MONONITRATE ER 30 * Take 1 tablet by mouth once d* METOPROLOL SUCCINATE ER 25 MG* Take 1 tablet by mouth once d* Patient not taking: Reported on 10/18/2017 MONTELUKAST 10 MG TABLET take 1 tablet by mouth at bed* HYDROCHLOROTHIAZIDE 12.5 MG T* Take 12.5 mg by mouth once da* LISINOPRIL 5 MG TABLET Take 5 mg by mouth once daily* ERGOCALCIFEROL (VITAMIN D2) 5* take 1 capsule by mouth every* Patient not taking: Reported on 10/18/2017 ALBUTEROL SULFATE HFA 90 MCG/* Inhale 2 Puffs as instructed * SIMVASTATIN 40 MG TABLET Take 1 tablet by mouth daily * * ASPIRIN 325 MG TABLET,DELAYED* Take 1/2 tablet daily. Problem List As Of Date 11/01/2017 Noted Resolved Episode of recurrent major depressive disorder * Acquired hypothyroidism [E03.9] More... ASTHMA UNSPECIFIED [J45.909] CHOLELITH W CHOLECYS NEC [K80.10] INVALID FOR* Diarrhea [R19.7] INVALID FOR*08/09/2014 INT HEMORRHOID W/O COMPL [K64.8] INVALID FOR* EXT HEMORRHOID W/O COMPL [K64.4] INVALID FOR* SEBORRHEIC KERATOSIS INFLAMED [L82.0] INVALID FOR* NEVUS BACK///BENIGN KERLINE SKIN TRUNK [D23.5] INVALID FOR* SEBORRHEIC KERATOSIS NOS [L82.1] INVALID FOR* SOLAR LENGINES///DYSCHROMIA OTHER [L81.9] INVALID FOR* CHR SOLAR SKIN DAMAGE NOS [L57.8] INVALID FOR* Mixed hyperlipidemia [E78.2] INVALID FOR* ASHD (arteriosclerotic heart disease) [I25.10] INVALID FOR* Chest pain [R07.9] INVALID FOR* S/P CABG (coronary artery bypass graft) [Z95.1] INVALID FOR* Class: Chronic Hx of CABG [Z95.1] INVALID FOR* Hypertension [I10] INVALID FOR* More... Dyspnea [R06.00] INVALID FOR* CAD (coronary artery disease) [I25.10] INVALID FOR* More... Insomnia [G47.00] INVALID FOR* Left tennis elbow [M77.12] INVALID FOR* Other instructions from your clinician: Okay to divide Zoloft dosing, once in the AM and once before bed to help with fatigue. Will recheck thyroid and vitamin D. Prescriptions ordered this encounter Disp Refills Start End SERTRALINE 100 MG TABLET 60 t* 11 11/01/2017 Route: ORAL Sig: Take 2 tablets by mouth once daily. LEVOTHYROXINE 75 MCG TABLET 90 t* 11 11/01/2017 Route: ORAL Sig: Take 1 tablet by mouth once daily. Medications Discontinued During This Encounter sertraline (ZOLOFT) 100 mg tablet 60 t* 0 10/31/2017 11/01/2017 Route: ORAL Sig: Take 2 tablets by mouth once daily. Disc: Reason for discontinue is not on file. levothyroxine (SYNTHROID) 75 mcg tab* 90 t* 1 11/17/2016 11/01/2017 Sig: take 1 tablet by mouth once daily Disc: Reason for discontinue is not on file. Encounter Status:Closed by FRANCESCO FERNÁNDEZ CNP on 11/01/17 PROGRESS Observed: 10/18/2017 Status: COMPLETED Source: [place] 11:54 AM [facility] RE[facility] HNO ID: [id number] Author: Sammy Bonner) [place] Service: (none) Author Type: Nurse Practitioner Type: Progress Notes Filed: 10/18/2017 2:11 PM Note Text: 10/18/2017 Patient presents with: Medication Follow-up SUBJECTIVE: This is a 72 year old that is here today for refill for ambian. She states that she has been on it since 1999. She has worked with psychologists and psychiatrists in the past because a lot of the reason seems to be mind racing at night not allowing her to sleep. She has tried multiple times to stop it and she is up the entire night with maybe a dozing off in the middle for a short time. She tries to do relaxing things, she gets out of the bed if she cannot sleep and tried to come back later, she does not watch TV in bed. She denies any negative SE. She states that she has been really struggling with the loss of her dog and caring for her brother. She lost her dog back in June. She does not have any children, so he was like a child to her. He was about 13 years old and he had kidney failure. She states that she does well if she keeps herself busy, but when she is home, it is difficult. She feels better when she is around other dogs and has tried to discuss this with her , but he is struggling with the idea of getting another dog because of the idea of getting attached and losing another one. She states that she has seen her psychiatrist and psychologist since the loss, but they told her that this is an understandable cause for an increase in the depression and did not think she should be followed closer. She states that it had been a few months since she saw them. She feels that the medications kept her stable until this point, so she does not really want to do anything new or make any changes. Her brother is mentally ill and has the mentality of a 13 year old. He has a history of alcohol abuse and marijuana use. She is his the only family local to help care for him. He has been in and out of his own apartments and nursing homes. He is currently in a care home and when he went there, the decision was that he would stay there this time. He is allowed to leave and lately she has been getting phone calls in the middle of the night saying that he never came back and he is not returning the lighters. This is causing her a lot of increased stress and she is not sure what else that she can do. She denies SI or HI. She enjoys knitting, spending time with family, being outdoors, and watching TV. She does admit to pain in right hip for several months, no injury, aleve helps. She is agreeable to scheduling a follow up appointment to discuss this matter. She is requesting that she receive some consistency in providers, she states that she has seen several people since Dr. Hardin retired and she feels that this increases her stress level as well. She feels that it may have contributed to her high BP today. She is taking medications as prescribed. She denies any STOREY, CP, SOB, weakness, lightheadedness, dizziness, vision changes. PAST MEDICAL HISTORY Diagnosis Date - Coronary artery disease - Cough - Depression - Depressive disorder, not elsewhere classified - Diarrhea - GERD (gastroesophageal reflux disease) - Hypertension - Snoring - Unspecified asthma(493.90) - Unspecified asthma(493.90) - Unspecified hypothyroidism Hypothyroidism ALLERGIES Levaquin [Levofloxacin]; Codeine; Niacin; Progesterone; Trazadone [Other]; Tylenol [Acetaminophen] MEDICATIONS Current Outpatient Prescriptions: metoprolol tartrate, short acting, (LOPRESSOR) 25 mg tablet Take 1 tablet by mouth twice daily. sertraline (ZOLOFT) 100 mg tablet Take 2 tablets by mouth once daily. levothyroxine (SYNTHROID) 75 mcg tablet take 1 tablet by mouth once daily omeprazole (PRILOSEC) 20 mg capsule Take 1 capsule by mouth once daily. montelukast (SINGULAIR) 10 mg tablet take 1 tablet by mouth at bedtime albuterol HFA (PROAIR HFA) 90 mcg/actuation inhaler Inhale 2 Puffs as instructed every 6 hours as needed. simvastatin (ZOCOR) 40 mg tablet Take 1 tablet by mouth daily at bedtime. aspirin, enteric coated 325 mg ORAL EC tablet Take 1/2 tablet daily. zolpidem (AMBIEN) 5 mg tablet Take 1 tablet by mouth at bedtime as needed for up to 30 days. busPIRone (BUSPAR) 5 mg tablet Take 1 tablet by mouth three times daily. (Patient not taking: Reported on 10/18/2017 ) isosorbide mononitrate ER (IMDUR) 30 mg 24 hr tablet Take 1 tablet by mouth once daily. metoprolol succinate ER (TOPROL XL) 25 mg 24 hr tablet Take 1 tablet by mouth once daily. (Patient not taking: Reported on 10/18/2017 ) hydroCHLOROthiazide (HYDRODIURIL, ESIDRIX) 12.5 mg tablet Take 12.5 mg by mouth once daily. Pt unsure of dosage lisinopril (ZESTRIL, PRINIVIL) 5 mg tablet Take 5 mg by mouth once daily. Pt unsure of dosage ergocalciferol, vitamin D2, (DRISDOL) 50,000 unit capsule take 1 capsule by mouth every week ON MONDAYS (Patient not taking: Reported on 10/18/2017) No current facility-administered medications for this visit. Medications and allergies reviewed by this provider. SOCIAL HISTORY Social History Marital status: Spouse name: Margret Years of education: Number of children: Occupational History Occupation Employer Comment retired [employer] Social History Main Topics Smoking status: Former Smoker Packs/day: 0.50 Years: 18.00 Types: Cigarettes Quit date: 01/25/1981 Smokeless tobacco: Never Used Alcohol use: Yes Comment: occassionally a glass of white wine Drug use: No Sexual activity: Yes Partners with: Male Other Topics Concern No BLOOD TRANSFUSIONS No CAFFEINE No OCCUPATIONAL EXPOSURE No HOBBY HAZARD No SLEEP CONCERN No STRESS CONCERN No WEIGHT CONCERN No DIET No BACK CARE No EXERCISE No BIKE HELMET No SEAT BELT No SELF EXAMS No REVIEW OF SYSTEMS see HPI OBJECTIVE: BP 153/67 (BP Site: Left Arm, BP Position: Sitting, BP Cuff Size: Large Adult) Pulse (!) 48 Temp 37.1 ?C (98.8 ?F) (Right Tympanic) Resp 16 Wt 79.4 kg (175 lb 1.9 oz) SpO2 97% BMI 32.55 kg/m? . Vital signs reviewed by this provider. PHYSICAL EXAMINATION: General appearance: Well appearing, alert, in no acute distress, well-hydrated, well nourished. Tearful. Skin: Skin color, texture, turgor normal, no suspicious rashes or lesions Lungs: Lungs clear to auscultation. No wheezing, rhonchi, rales Heart: RRR without murmur, gallop, or rubs. No ectopy Extremities: No deformities, edema, skin discoloration, clubbing or cyanosis. Good capillary refill. , Pulses: 2+ Neuro: Gait normal. Negative findings: speech normal, mental status intact Appearance: well dressed well groomed, tense posture, cooperative and pleasant Behavior: good eye contact Speech: fluent and coherent Mood: depressed and tearful Affect: appropriate Perceptions: none Thought process: goal directed Thought Content: normal Intelligence level: normal Insight: good Judgment: good ASSESSMENT/PLAN: 1. Depression, unspecified depression type - ICD9: 311, ICD10: F32.9 (primary diagnosis) - continue current medications - encouraged to do things that are enjoyable - encouraged to follow up with psychiatry and psychology - follow up in 2 weeks with Kieran Fernández or Dr. Joyner and encouraged to schedule follow ups in advance in order to continue with the consistent care 2. Other insomnia - ICD9: 780.52, ICD10: G47.09 - continue good sleep hygeine - ZOLPIDEM 5 MG TABLET - May want to consider referral to Dr. Roper for sleep psychiatry - recommend follow up with Dr. Joyner in 2-3 months 3. Hypertension, unspecified type - ICD9: 401.9, ICD10: I10 - poor control - Continue current medication(s) - Encouraged dietary sodium restriction/DASH diet - Recommended regular aerobic exercise. - Recommend home blood pressure monitoring, to bring results in on next visit - Recheck in 2 weeks, sooner should new symptoms or problems arise. ER if any red flag symptoms. - Reviewed risks of HTN and principles of treatment - Goal of BP <140/90 - Recommended no refined sugar, low refined starch, healthy oil intake (olive oil), healthy protein (fish) along the lines of the Mediterranean diet. Sammy Bejarano APRN.SARKIS The majority of the visit was spent counseling and/or coordinating care for the patient. Rqqm-ex-uern time was 30 minutes. [facility] checked and [facility]. All prescriptions have been APPROPRIATELY filled. No suspicious activity was identified. 10/18/2017 by Sammy Bejarano APRN.CNP PROGRESS Observed: 10/18/2017 Status: COMPLETED Source: [place] 10:51 AM [facility] HNO ID: [id number] Author: Jessica Segovia Ma Service: (none) Author Type: (none) Type: Progress Notes Filed: 10/18/2017 12:20 PM Note Text: BP Manual readin/76 Pulse: 57 LEFT arm LARGE cuff BP Soledad Average: 153/67 Pulse: 48 LEFT arm LARGE cuff 1. 146/70 Pulse: 49 2. 156/67 Pulse: 48 3. 139/69 Pulse: 48 4. 160/67 Pulse: 48 5. 152/62 Pulse: 47 6. 158/70 Pulse: 47 BP SOLEDAD AVERAGE: 153/67 Pulse: 48 CNOV Observed: 10/18/2017 Status: COMPLETED Source: [place] 10:20 AM [facility] Office Visit (FAMPWS) JOSELYN RODRIGUEZ ([id number]) 1945 F Date Time Provider Department 10/18/17 10:20 AM SAMMY BEJARANO (SARKIS) FAMPWS During your visit today, we recorded the following information about you: Temperature Pulse Respiration Blood pressure 98.8 degrees 48/minute 16/minute 153/67 Weight 79.4 kg Jessica Segovia Ma 10/18/2017 12:20 PM Signed BP Manual readin/76 Pulse: 57 LEFT arm LARGE cuff BP Soledad Average: 153/67 Pulse: 48 LEFT arm LARGE cuff 1. 146/70 Pulse: 49 2. 156/67 Pulse: 48 3. 139/69 Pulse: 48 4. 160/67 Pulse: 48 5. 152/62 Pulse: 47 6. 158/70 Pulse: 47 BP SOLEDAD AVERAGE: 153/ Pulse: 48 Sammy Bejarano APRN.ZANJERO 10/18/2017 2:11 PM Addendum 10/18/2017 Patient presents with: Medication Follow-up SUBJECTIVE: This is a 72 year old that is here today for refill for ambian. She states that she has been on it since 1999. She has worked with psychologists and psychiatrists in the past because a lot of the reason seems to be mind racing at night not allowing her to sleep. She has tried multiple times to stop it and she is up the entire night with maybe a dozing off in the middle for a short time. She tries to do relaxing things, she gets out of the bed if she cannot sleep and tried to come back later, she does not watch TV in bed. She denies any negative SE. She states that she has been really struggling with the loss of her dog and caring for her brother. She lost her dog back in June. She does not have any children, so he was like a child to her. He was about 13 years old and he had kidney failure. She states that she does well if she keeps herself busy, but when she is home, it is difficult. She feels better when she is around other dogs and has tried to discuss this with her , but he is struggling with the idea of getting another dog because of the idea of getting attached and losing another one. She states that she has seen her psychiatrist and psychologist since the loss, but they told her that this is an understandable cause for an increase in the depression and did not think she should be followed closer. She states that it had been a few months since she saw them. She feels that the medications kept her stable until this point, so she does not really want to do anything new or make any changes. Her brother is mentally ill and has the mentality of a 13 year old. He has a history of alcohol abuse and marijuana use. She is his the only family local to help care for him. He has been in and out of his own apartments and nursing homes. He is currently in a care home and when he went there, the decision was that he would stay there this time. He is allowed to leave and lately she has been getting phone calls in the middle of the night saying that he never came back and he is not returning the lighters. This is causing her a lot of increased stress and she is not sure what else that she can do. She denies SI or HI. She enjoys knitting, spending time with family, being outdoors, and watching TV. She does admit to pain in right hip for several months, no injury, aleve helps. She is agreeable to scheduling a follow up appointment to discuss this matter. She is requesting that she receive some consistency in providers, she states that she has seen several people since Dr. Hardin retired and she feels that this increases her stress level as well. She feels that it may have contributed to her high BP today. She is taking medications as prescribed. She denies any STOREY, CP, SOB, weakness, lightheadedness, dizziness, vision changes. PAST MEDICAL HISTORY Diagnosis Date - Coronary artery disease - Cough - Depression - Depressive disorder, not elsewhere classified - Diarrhea - GERD (gastroesophageal reflux disease) - Hypertension - Snoring - Unspecified asthma(493.90) - Unspecified asthma(493.90) - Unspecified hypothyroidism Hypothyroidism ALLERGIES Levaquin [Levofloxacin]; Codeine; Niacin; Progesterone; Trazadone [Other]; Tylenol [Acetaminophen] MEDICATIONS Current Outpatient Prescriptions: metoprolol tartrate, short acting, (LOPRESSOR) 25 mg tablet Take 1 tablet by mouth twice daily. sertraline (ZOLOFT) 100 mg tablet Take 2 tablets by mouth once daily. levothyroxine (SYNTHROID) 75 mcg tablet take 1 tablet by mouth once daily omeprazole (PRILOSEC) 20 mg capsule Take 1 capsule by mouth once daily. montelukast (SINGULAIR) 10 mg tablet take 1 tablet by mouth at bedtime albuterol HFA (PROAIR HFA) 90 mcg/actuation inhaler Inhale 2 Puffs as instructed every 6 hours as needed. simvastatin (ZOCOR) 40 mg tablet Take 1 tablet by mouth daily at bedtime. aspirin, enteric coated 325 mg ORAL EC tablet Take 1/2 tablet daily. zolpidem (AMBIEN) 5 mg tablet Take 1 tablet by mouth at bedtime as needed for up to 30 days. busPIRone (BUSPAR) 5 mg tablet Take 1 tablet by mouth three times daily. (Patient not taking: Reported on 10/18/2017 ) isosorbide mononitrate ER (IMDUR) 30 mg 24 hr tablet Take 1 tablet by mouth once daily. metoprolol succinate ER (TOPROL XL) 25 mg 24 hr tablet Take 1 tablet by mouth once daily. (Patient not taking: Reported on 10/18/2017 ) hydroCHLOROthiazide (HYDRODIURIL, ESIDRIX) 12.5 mg tablet Take 12.5 mg by mouth once daily. Pt unsure of dosage lisinopril (ZESTRIL, PRINIVIL) 5 mg tablet Take 5 mg by mouth once daily. Pt unsure of dosage ergocalciferol, vitamin D2, (DRISDOL) 50,000 unit capsule take 1 capsule by mouth every week ON MONDAYS (Patient not taking: Reported on 10/18/2017) No current facility-administered medications for this visit. Medications and allergies reviewed by this provider. SOCIAL HISTORY Social History Marital status: Spouse name: Margret Years of education: Number of children: Occupational History Occupation Employer Comment retired [employer] Social History Main Topics Smoking status: Former Smoker Packs/day: 0.50 Years: 18.00 Types: Cigarettes Quit date: 01/25/1981 Smokeless tobacco: Never Used Alcohol use: Yes Comment: occassionally a glass of white wine Drug use: No Sexual activity: Yes Partners with: Male Other Topics Concern No BLOOD TRANSFUSIONS No CAFFEINE No OCCUPATIONAL EXPOSURE No HOBBY HAZARD No SLEEP CONCERN No STRESS CONCERN No WEIGHT CONCERN No DIET No BACK CARE No EXERCISE No BIKE HELMET No SEAT BELT No SELF EXAMS No REVIEW OF SYSTEMS see HPI OBJECTIVE: BP 153/67 (BP Site: Left Arm, BP Position: Sitting, BP Cuff Size: Large Adult) Pulse (!) 48 Temp 37.1 ?C (98.8 ?F) (Right Tympanic) Resp 16 Wt 79.4 kg (175 lb 1.9 oz) SpO2 97% BMI 32.55 kg/m? . Vital signs reviewed by this provider. PHYSICAL EXAMINATION: General appearance: Well appearing, alert, in no acute distress, well-hydrated, well nourished. Tearful. Skin: Skin color, texture, turgor normal, no suspicious rashes or lesions Lungs: Lungs clear to auscultation. No wheezing, rhonchi, rales Heart: RRR without murmur, gallop, or rubs. No ectopy Extremities: No deformities, edema, skin discoloration, clubbing or cyanosis. Good capillary refill. , Pulses: 2+ Neuro: Gait normal. Negative findings: speech normal, mental status intact Appearance: well dressed well groomed, tense posture, cooperative and pleasant Behavior: good eye contact Speech: fluent and coherent Mood: depressed and tearful Affect: appropriate Perceptions: none Thought process: goal directed Thought Content: normal Intelligence level: normal Insight: good Judgment: good ASSESSMENT/PLAN: 1. Depression, unspecified depression type - ICD9: 311, ICD10: F32.9 (primary diagnosis) - continue current medications - encouraged to do things that are enjoyable - encouraged to follow up with psychiatry and psychology - follow up in 2 weeks with Kieran Fernández or Dr. Joyner and encouraged to schedule follow ups in advance in order to continue with the consistent care 2. Other insomnia - ICD9: 780.52, ICD10: G47.09 - continue good sleep hygeine - ZOLPIDEM 5 MG TABLET - May want to consider referral to Dr. Roper for sleep psychiatry - recommend follow up with Dr. Joyner in 2-3 months 3. Hypertension, unspecified type - ICD9: 401.9, ICD10: I10 - poor control - Continue current medication(s) - Encouraged dietary sodium restriction/DASH diet - Recommended regular aerobic exercise. - Recommend home blood pressure monitoring, to bring results in on next visit - Recheck in 2 weeks, sooner should new symptoms or problems arise. ER if any red flag symptoms. - Reviewed risks of HTN and principles of treatment - Goal of BP <140/90 - Recommended no refined sugar, low refined starch, healthy oil intake (olive oil), healthy protein (fish) along the lines of the Mediterranean diet. Sammy Bejarano APRN.ZANJERO The majority of the visit was spent counseling and/or coordinating care for the patient. [id number]-vk-eusd time was 30 minutes. PDMP website checked and validated. All prescriptions have been APPROPRIATELY filled. No suspicious activity was identified. 10/18/2017 by Sammy Bejarano APRN.ZANJERO Referring Provider: OLIVE JOYNER [[id number]] Allergies As of Date: 10/18/2017 Noted Allergy Reaction LEVAQUIN (LEVOFLOXACIN) 07/27/2005 7 - Swelling CODEINE 01/25/2005 9 - Itching NIACIN 05/05/2010 8 - GI Upset Comments: dyspepsia PROGESTERONE 01/25/2005 Comments: photosensative trazadone [Other] 01/25/2005 2 - Rash TYLENOL (ACETAMINOPHEN) 08/23/2005 8 - GI Upset Date Reviewed: 10/18/2017 Reviewed by: Jessica Segovia Ma - Fully Assessed Reason for Visit: Medication Follow-up [270] Primary Visit Diagnosis:Depression, unspecified depression type [F32.9] Other Visit Diagnoses:Other insomnia [G47.09] Hypertension, unspecified type [I10] Order(s):zolpidem (AMBIEN) 5 mg tabletTake 1 tablet by mouth at bedtime as needed for up to 30 days.Disp: 30 tabletRfl: 1 Prescriptions as of 10/18/2017 Sig: METOPROLOL TARTRATE 25 MG TAB* Take 1 tablet by mouth twice * SERTRALINE 100 MG TABLET Take 2 tablets by mouth once * LEVOTHYROXINE 75 MCG TABLET take 1 tablet by mouth once d* OMEPRAZOLE 20 MG CAPSULE,MO* Take 1 capsule by mouth once * MONTELUKAST 10 MG TABLET take 1 tablet by mouth at bed* ALBUTEROL SULFATE HFA 90 MCG/* Inhale 2 Puffs as instructed * SIMVASTATIN 40 MG TABLET Take 1 tablet by mouth daily * * ASPIRIN 325 MG TABLET,DELAYED* Take 1/2 tablet daily. ZOLPIDEM 5 MG TABLET Take 1 tablet by mouth at bed* BUSPIRONE 5 MG TABLET Take 1 tablet by mouth three * Patient not taking: Reported on 10/18/2017 ISOSORBIDE MONONITRATE ER 30 * Take 1 tablet by mouth once d* METOPROLOL SUCCINATE ER 25 MG* Take 1 tablet by mouth once d* Patient not taking: Reported on 10/18/2017 HYDROCHLOROTHIAZIDE 12.5 MG T* Take 12.5 mg by mouth once da* LISINOPRIL 5 MG TABLET Take 5 mg by mouth once daily* ERGOCALCIFEROL (VITAMIN D2) 5* take 1 capsule by mouth every* Patient not taking: Reported on 10/18/2017 Problem List As Of Date 10/18/2017 Noted Resolved Episode of recurrent major depressive disorder * Acquired hypothyroidism [E03.9] More... ASTHMA UNSPECIFIED [J45.909] CHOLELITH W CHOLECYS NEC [K80.10] INVALID FOR* Diarrhea [R19.7] INVALID FOR*08/09/2014 INT HEMORRHOID W/O COMPL [K64.8] INVALID FOR* EXT HEMORRHOID W/O COMPL [K64.4] INVALID FOR* SEBORRHEIC KERATOSIS INFLAMED [L82.0] INVALID FOR* NEVUS BACK///BENIGN KERLINE SKIN TRUNK [D23.5] INVALID FOR* SEBORRHEIC KERATOSIS NOS [L82.1] INVALID FOR* SOLAR LENGINES///DYSCHROMIA OTHER [L81.9] INVALID FOR* CHR SOLAR SKIN DAMAGE NOS [L57.8] INVALID FOR* Mixed hyperlipidemia [E78.2] INVALID FOR* ASHD (arteriosclerotic heart disease) [I25.10] INVALID FOR* Chest pain [R07.9] INVALID FOR* S/P CABG (coronary artery bypass graft) [Z95.1] INVALID FOR* Class: Chronic Hx of CABG [Z95.1] INVALID FOR* Hypertension [I10] INVALID FOR* More... Dyspnea [R06.00] INVALID FOR* CAD (coronary artery disease) [I25.10] INVALID FOR* More... Insomnia [G47.00] INVALID FOR* Left tennis elbow [M77.12] INVALID FOR* Prescriptions ordered this encounter Disp Refills Start End ZOLPIDEM 5 MG TABLET 30 t* 1 10/18/2017 11/17/2017 Class: Print RX Route: ORAL Sig: Take 1 tablet by mouth at bedtime as needed for up to 30 days. Medications Discontinued During This Encounter zolpidem (AMBIEN) 5 mg tablet 7 ta* 0 10/11/2017 10/18/2017 Class: Print RX Route: ORAL Sig: Take 1 tablet by mouth at bedtime as needed for up to 7 days. Disc: Reason for discontinue is not on file. Disposition: Return in about 2 weeks (around 11/01/2017) for hip pain and mood. Follow-up and Disposition History Recorded Encounter Status:Closed by SAMMY BEJARANO on 10/18/17 CNCO Observed: 08/25/2017 Status: COMPLETED Source: [place] 12:00 AM [facility] RE[facility] Letter Text Joselyn Rodriguez [facility] [address] 08/25/2017 [facility] #: [id number] Dear , Due to a change in the provider's schedule it has been necessary to reschedule your Appointment. Your original appointment was scheduled for 10/03/2017 at 10:40 AM with Olive Joyner M.D. Your new appointment is now scheduled on 10/11/2017 at 10:00 AM with Francesco Fernández. If this new appointment is not convenient for you, please contact our office at [phone]. Thank you for choosing the [facility] as your Healthcare Provider . Sincerely, Internal Medicine Appointment Office PROGRESS Observed: 07/01/2017 Status: COMPLETED Source: [place] 11:17 AM [facility] HNO ID: [id number] Author: Olive Joyner Service: (none) Author Type: Physician Type: Progress Notes Filed: 07/01/2017 5:19 PM Note Text: Reason for Visit Patient presents with: 2 month F/U Joselyn Rodriguez is a 72 year old female who presents here today for Above Complaints.. Health Maintenance PNEUMOVAX AGE 65 AND OVER WITH 5YR LOOKBACK(1) COLORECTAL CANCER SCREENING,SEE MODIFIER INFLUENZA(1) HPI Patient notes she has been through a lot this month. Her brother is mentally and physically ill, her dog is dying, they had it for 12 years. is not doing too well She tends to be bradycardic and notes severe fatigue not clear if her bradycardia is contributing to it, I had reduced the metoprolol but with all the stress she has not noted an issue. She is going to see lamp assembler in the near future. Sleeping well with the ambien lipids are normal, reviewed test results with patient Who takes medications regularly and has no side effects. No problem-specific Assessment AND Plan notes found for this encounter. PAST MEDICAL HISTORY Diagnosis Date - Coronary artery disease - Cough - Depression - Depressive disorder, not elsewhere classified - Diarrhea - GERD (gastroesophageal reflux disease) - Hypertension - Snoring - Unspecified asthma(493.90) - Unspecified asthma(493.90) - Unspecified hypothyroidism Hypothyroidism PAST SURGICAL HISTORY Procedure Laterality Date - ANORECTAL MYOMECTOMY 01/02/1971 Myomectomy - CABG (3) VEIN GRAFTS AND ARTERIAL GRAFT(S) 2009 - COLONOSCOP W/ OR W/O BRSH SPEC 03/15/2006 Colonoscopy - HEART SURGERY HX - HYSTERECTOMY HX - LAP CHOLECYSTECT/CHOLANGIOGRAPHY 06/08/05 - PULMONARY FUNCTION TEST 09/24/2004 - REPAIR ING HERNIA,5+Y/O,REDUCIBL Left 05/01/1980 Hernia repair, inguinal - TONSILLECTOMY AND ADENOIDECTOMY HX FAMILY HISTORY Problem Relation Age of Onset - Coronary Artery Disease Mother cabg x 4 - Stroke Mother - COPD Father - depression [OTHER] Brother - Stroke Maternal Grandfather - Heart Paternal Grandfather MS - Allergies Sister Social History Substance Use Topics - Smoking status: Former Smoker Packs/day: 0.50 Years: 18.00 Types: Cigarettes Quit date: 01/25/1981 - Smokeless tobacco: Never Used - Alcohol use Yes Comment: occassionally a glass of white wine Past medical history, appointments, medications, allergies reviewed. Pertinent Lab/Diagnostic Studies are reviewed and discussed today Current Outpatient Prescriptions: - zolpidem (AMBIEN) 5 mg tablet - isosorbide mononitrate ER (IMDUR) 30 mg 24 hr tablet - metoprolol succinate ER (TOPROL XL) 25 mg 24 hr tablet - sertraline (ZOLOFT) 100 mg tablet - levothyroxine (SYNTHROID) 75 mcg tablet - omeprazole (PRILOSEC) 20 mg capsule - montelukast (SINGULAIR) 10 mg tablet - hydroCHLOROthiazide (HYDRODIURIL, ESIDRIX) 12.5 mg tablet - lisinopril (ZESTRIL, PRINIVIL) 5 mg tablet - ergocalciferol, vitamin D2, (DRISDOL) 50,000 unit capsule - albuterol HFA (PROAIR HFA) 90 mcg/actuation inhaler - simvastatin (ZOCOR) 40 mg tablet - aspirin, enteric coated 325 mg ORAL EC tablet Review of Systems CONSTITUTIONAL: No fevers, chills night sweats, unintended weight loss CARDIOVASCULAR: No chest pain, dyspnea, palpitations, orthopnea, PND, ankle edema. PULM: No dyspnea, unexplained cough. GI: No dysphagia/odynophagia, problematic reflux, constipation, diarrhea, changes in stool habits, hematochezia, melena. : No new urinary complaints, including dysuria, gross hematuria or pyuria. NEURO: No new balance problems, peripheral weakness/paresthesias or numbness of concern. Physical Exam BP 148/68 (BP Site: Left Arm, BP Position: Sitting, BP Cuff Size: Regular Adult) Pulse 60 Resp 16 Wt 78 kg (172 lb) SpO2 98% BMI 31.97 kg/m2 General appearance: Well appearing, alert, in no acute distress, well nourished. Skin: Skin color, texture, turgor normal, no suspicious rashes or lesions Head: Normocephalic, no masses, lesions, tenderness or abnormalities Eyes: Anicteric sclera. Pupils are equally round and reactive to light. Extraocular movements are intact. Lungs: Lungs clear to auscultation. No wheezing, rhonchi, rales Heart: RRR without murmur, gallop, or rubs. ASSESSMENT/PLAN: 1. Stress and adjustment reaction - ICD9: 309.89, ICD10: F43.29 (primary diagnosis) She cried for a while in the office She has a psychologist and a psychiatrist. Patient involved in shared decision making for management of her medical issues. History and medications reviewed. Epic updated as needed Refills taken care of and meds adjusted as indicated after reviewed history, exam and labs. Health Maintenance reviewed. Updated record and/or ordered tests as recorded. She seems to have caregiver stress 2. Moderate episode of recurrent major depressive disorder (HCC) - ICD9: 296.32, ICD10: F33.1 Cont the zoloft add the buspar 3. S/P CABG (coronary artery bypass graft) - ICD9: V45.81, ICD10: Z95.1 Stable , see hpi 4. Other fatigue - ICD9: 780.79, ICD10: R53.83 Unclear etiology Overwhelming stress likely related 5. Mixed hyperlipidemia - ICD9: 272.2, ICD10: E78.2 - good control - Continue current medication. OLIVE JOYNER MD CNOV Observed: 07/01/2017 Status: COMPLETED Source: [place] 10:40 AM [facility] Office Visit (INTMWS) JOSELYN RODRIGUEZ ([id number]) 1945 F Date Time Provider Department 07/01/17 10:40 AM OLIVE JOYNER INTMWS During your visit today, we recorded the following information about you: Pulse Respiration Blood pressure Weight 60/minute 16/minute 158/74 78 kg OLIVE JOYNER MD 07/01/2017 5:19 PM Signed Reason for Visit Patient presents with: 2 month F/U Joselyn Rodriguez is a 72 year old female who presents here today for Above Complaints.. Health Maintenance PNEUMOVAX AGE 65 AND OVER WITH 5YR LOOKBACK(1) COLORECTAL CANCER SCREENING,SEE MODIFIER INFLUENZA(1) HPI Patient notes she has been through a lot this month. Her brother is mentally and physically ill, her dog is dying, they had it for 12 years. is not doing too well She tends to be bradycardic and notes severe fatigue not clear if her bradycardia is contributing to it, I had reduced the metoprolol but with all the stress she has not noted an issue. She is going to see lamp assembler in the near future. Sleeping well with the ambien lipids are normal, reviewed test results with patient Who takes medications regularly and has no side effects. No problem-specific Assessment ANDamp; Plan notes found for this encounter. PAST MEDICAL HISTORY Diagnosis Date - Coronary artery disease - Cough - Depression - Depressive disorder, not elsewhere classified - Diarrhea - GERD (gastroesophageal reflux disease) - Hypertension - Snoring - Unspecified asthma(493.90) - Unspecified asthma(493.90) - Unspecified hypothyroidism Hypothyroidism PAST SURGICAL HISTORY Procedure Laterality Date - ANORECTAL MYOMECTOMY 01/02/1971 Myomectomy - CABG (3) VEIN GRAFTS ANDamp; ARTERIAL GRAFT(S) 2009 - COLONOSCOP W/ OR W/O BRSH SPEC 03/15/2006 Colonoscopy - HEART SURGERY HX - HYSTERECTOMY HX - LAP CHOLECYSTECT/CHOLANGIOGRAPHY 06/08/05 - PULMONARY FUNCTION TEST 09/24/2004 - REPAIR ING HERNIA,5+Y/O,REDUCIBL Left 05/01/1980 Hernia repair, inguinal - TONSILLECTOMY AND ADENOIDECTOMY HX FAMILY HISTORY Problem Relation Age of Onset - Coronary Artery Disease Mother cabg x 4 - Stroke Mother - COPD Father - depression [OTHER] Brother - Stroke Maternal Grandfather - Heart Paternal Grandfather MS - Allergies Sister Social History Substance Use Topics - Smoking status: Former Smoker Packs/day: 0.50 Years: 18.00 Types: Cigarettes Quit date: 01/25/1981 - Smokeless tobacco: Never Used - Alcohol use Yes Comment: occassionally a glass of white wine Past medical history, appointments, medications, allergies reviewed. Pertinent Lab/Diagnostic Studies are reviewed and discussed today Current Outpatient Prescriptions: - zolpidem (AMBIEN) 5 mg tablet - isosorbide mononitrate ER (IMDUR) 30 mg 24 hr tablet - metoprolol succinate ER (TOPROL XL) 25 mg 24 hr tablet - sertraline (ZOLOFT) 100 mg tablet - levothyroxine (SYNTHROID) 75 mcg tablet - omeprazole (PRILOSEC) 20 mg capsule - montelukast (SINGULAIR) 10 mg tablet - hydroCHLOROthiazide (HYDRODIURIL, ESIDRIX) 12.5 mg tablet - lisinopril (ZESTRIL, PRINIVIL) 5 mg tablet - ergocalciferol, vitamin D2, (DRISDOL) 50,000 unit capsule - albuterol HFA (PROAIR HFA) 90 mcg/actuation inhaler - simvastatin (ZOCOR) 40 mg tablet - aspirin, enteric coated 325 mg ORAL EC tablet Review of Systems CONSTITUTIONAL: No fevers, chills night sweats, unintended weight loss CARDIOVASCULAR: No chest pain, dyspnea, palpitations, orthopnea, PND, ankle edema. PULM: No dyspnea, unexplained cough. GI: No dysphagia/odynophagia, problematic reflux, constipation, diarrhea, changes in stool habits, hematochezia, melena. : No new urinary complaints, including dysuria, gross hematuria or pyuria. NEURO: No new balance problems, peripheral weakness/paresthesias or numbness of concern. Physical Exam BP 148/68 (BP Site: Left Arm, BP Position: Sitting, BP Cuff Size: Regular Adult) Pulse 60 Resp 16 Wt 78 kg (172 lb) SpO2 98% BMI 31.97 kg/m2 General appearance: Well appearing, alert, in no acute distress, well nourished. Skin: Skin color, texture, turgor normal, no suspicious rashes or lesions Head: Normocephalic, no masses, lesions, tenderness or abnormalities Eyes: Anicteric sclera. Pupils are equally round and reactive to light. Extraocular movements are intact. Lungs: Lungs clear to auscultation. No wheezing, rhonchi, rales Heart: RRR without murmur, gallop, or rubs. ASSESSMENT/PLAN: 1. Stress and adjustment reaction - ICD9: 309.89, ICD10: F43.29 (primary diagnosis) She cried for a while in the office She has a psychologist and a psychiatrist. Patient involved in shared decision making for management of her medical issues. History and medications reviewed. Epic updated as needed Refills taken care of and meds adjusted as indicated after reviewed history, exam and labs. Health Maintenance reviewed. Updated record and/or ordered tests as recorded. She seems to have caregiver stress 2. Moderate episode of recurrent major depressive disorder (HCC) - ICD9: 296.32, ICD10: F33.1 Cont the zoloft add the buspar 3. S/P CABG (coronary artery bypass graft) - ICD9: V45.81, ICD10: Z95.1 Stable , see hpi 4. Other fatigue - ICD9: 780.79, ICD10: R53.83 Unclear etiology Overwhelming stress likely related 5. Mixed hyperlipidemia - ICD9: 272.2, ICD10: E78.2 - good control - Continue current medication. OLIVE JOYNER MD Referring Provider: OLIVE JOYNER [[id number]] Allergies As of Date: 07/01/2017 Noted Allergy Reaction LEVAQUIN (LEVOFLOXACIN) 07/27/2005 7 - Swelling CODEINE 01/25/2005 9 - Itching NIACIN 05/05/2010 8 - GI Upset Comments: dyspepsia PROGESTERONE 01/25/2005 Comments: photosensative TYLENOL (ACETAMINOPHEN) 08/23/2005 8 - GI Upset trazadone [Other] 01/25/2005 2 - Rash Date Reviewed: 07/01/2017 Reviewed by: Jessica Segovia Ma - Fully Assessed Reason for Visit: 2 month F/U [Other] Primary Visit Diagnosis:Stress and adjustment reaction [F43.29] Other Visit Diagnoses:Moderate episode of recurrent major depressive disorder (HCC) [F33.1] S/P CABG (coronary artery bypass graft) [Z95.1] Other fatigue [R53.83] Mixed hyperlipidemia [E78.2] Acquired hypothyroidism [E03.9] Order(s):busPIRone (BUSPAR) 5 mg tabletTake 1 tablet by mouth three times daily.Disp: 90 tabletRfl: 0 Prescriptions as of 07/01/2017 Sig: ZOLPIDEM 5 MG TABLET Take 1 tablet by mouth at bed* ISOSORBIDE MONONITRATE ER 30 * Take 1 tablet by mouth once d* METOPROLOL SUCCINATE ER 25 MG* Take 1 tablet by mouth once d* SERTRALINE 100 MG TABLET take 2 tablets by mouth daily LEVOTHYROXINE 75 MCG TABLET take 1 tablet by mouth once d* OMEPRAZOLE 20 MG CAPSULE,MO* Take 1 capsule by mouth once * MONTELUKAST 10 MG TABLET take 1 tablet by mouth at bed* HYDROCHLOROTHIAZIDE 12.5 MG T* Take 12.5 mg by mouth once da* LISINOPRIL 5 MG TABLET Take 5 mg by mouth once daily* ERGOCALCIFEROL (VITAMIN D2) 5* take 1 capsule by mouth every* ALBUTEROL SULFATE HFA 90 MCG/* Inhale 2 Puffs as instructed * SIMVASTATIN 40 MG TABLET Take 1 tablet by mouth daily * * ASPIRIN 325 MG TABLET,DELAYED* Take 1/2 tablet daily. BUSPIRONE 5 MG TABLET Take 1 tablet by mouth three * Medication notes this encounter ERGOCALCIFEROL (VITAMIN D2) 50,000 UNIT CAPSULE >> Jessica Segovia Ma 07/01/2017 10:50 AM >> JESSICA SEGOVIA MA TueJul 01, 2017 10:50 AM Not taking - unsure if script ran out Problem List As Of Date 07/01/2017 Noted Resolved Episode of recurrent major depressive disorder * Acquired hypothyroidism [E03.9] More... ASTHMA UNSPECIFIED [J45.909] CHOLELITH W CHOLECYS NEC [K80.10] INVALID FOR* Diarrhea [R19.7] INVALID FOR*08/09/2014 INT HEMORRHOID W/O COMPL [K64.8] INVALID FOR* EXT HEMORRHOID W/O COMPL [K64.4] INVALID FOR* SEBORRHEIC KERATOSIS INFLAMED [L82.0] INVALID FOR* NEVUS BACK///BENIGN KERLINE SKIN TRUNK [D23.5] INVALID FOR* SEBORRHEIC KERATOSIS NOS [L82.1] INVALID FOR* SOLAR LENGINES///DYSCHROMIA OTHER [L81.9] INVALID FOR* CHR SOLAR SKIN DAMAGE NOS [L57.8] INVALID FOR* Mixed hyperlipidemia [E78.2] INVALID FOR* ASHD (arteriosclerotic heart disease) [I25.10] INVALID FOR* Chest pain [R07.9] INVALID FOR* S/P CABG (coronary artery bypass graft) [Z95.1] INVALID FOR* Class: Chronic Hx of CABG [Z95.1] INVALID FOR* Hypertension [I10] INVALID FOR* More... Dyspnea [R06.00] INVALID FOR* CAD (coronary artery disease) [I25.10] INVALID FOR* More... Insomnia [G47.00] INVALID FOR* Left tennis elbow [M77.12] INVALID FOR* Prescriptions ordered this encounter Disp Refills Start End BUSPIRONE 5 MG TABLET 90 t* 0 07/01/2017 Route: ORAL Sig: Take 1 tablet by mouth three times daily. Encounter Status:Closed by OLIVE JOYNER MD on 07/01/17 [facility] Observed: 04/29/2017 Status: COMPLETED Source: [place] 4:01 PM [facility] REPOSITORY HNO ID: [id number] Author: Mammography Coordinator Service: (none) Author Type: Physician Type: Letter Filed: 05/02/2017 11:34 PM Note Text: April 29, 2017 PID: [id number] Joselyn Rodriguez [address] [place] [address] Dear Ms. Rodriguez, We are pleased to inform you that the results of your recent breast imaging exam on 04/29/2017 are normal. Early detection of cancer is very important. We also understand recommendations regarding breast cancer screening are controversial. Please discuss with your primary care provider which strategy is best for you and whether a mammogram is right for you. Your imaging studies and report will be kept on file at [facility] as part of your permanent medical record and are available for your continuing care. Thank you for allowing us to help in meeting your health care needs. Sincerely, Dr. Gilmore Interpreting Radiologist [facility] (Normal over 40) [facility] SCREENING Observed: 04/29/2017 Status: F Source: [place] 10:53 AM [facility] RE[facility] * * *Final Report* * * DATE OF EXAM: Apr 29 2017 10:53AM [facility] 0581 - [facility] SCREENING / PROCEDURE REASON: Encounter for screening mammogram for malignant neoplasm of breast * * * * Physician Interpretation * * * * RESULT: #[id number] - CY SCREENING BILATERAL DIGITAL SCREENING MAMMOGRAM WITH CAD: 04/29/2017 HISTORY: Screening Mammogram - patient reports NO breast symptoms /priors available for comparison. RESULT: TECHNIQUE: The study was acquired using full field digital technology and interpreted from soft copy. Current study was also evaluated with a Computer Aided Detection (CAD). Comparison is made to exams dated: 09/05/2014 mammogram - [facility], 08/19/2014 mammogram - [facility], and 03/15/2013 mammogram. There are scattered fibroglandular elements in both breasts. No significant masses, calcifications, or other findings are seen in either breast. There has been no significant interval change. IMPRESSION: NEGATIVE There is no mammographic evidence of malignancy.A 1 year screening mammogram is recommended. Eyal aviles/alessandro:04/29/2017 16:01:30 Real Estate Assessor: Ashly FIGUEROA(R)(M), [facility] letter sent: Normal over 40 Mammogram BI-RADS: 1 Negative Hostel Manager: Alessandro Transcribe Date/Time: Apr 29 2017 9:56A Dictated by: EYAL GILMORE MD This examination was interpreted and the report reviewed and electronically signed by: EYAL GILMORE MD on Apr 29 2017 4:01PM EST [id number] PROGRESS Observed: 04/29/2017 Status: COMPLETED Source: [place] 10:22 AM [facility] RE[facility] HNO ID: [id number] Author: Saba Figueroa Service: (none) Author Type: (none) Type: Progress Notes Filed: 04/29/2017 10:23 AM Note Text: Radiology Service Progress Note PATIENT NAME: Joselyn Rodriguez DATE OF SERVICE: April 29, 2017 TIME: 10:23 AM PATIENT IDENTITY VERIFICATION COMPLETED USING TWO (2) METHODS: Patient confirmed name verbally and Date of . PATIENT GENDER DATA: Female. status: : No status: NO. PATIENT RELEVANT IMPLANT DATA REVIEWED: Not Applicable RADIOLOGY DEPARTMENT: [facility] DATA: Not applicable SIGNED BY: Saba Martínez Rt April 29, 2017 10:23 AM MAGNESIUM Collected: 04/27/2017 Status: F Source: [place] 10:51 AM [facility] REPOSITORY TYPE CODE TESTS RESULT OUT OF REFERENCE UNITS RANGE LAB MG 1.7-2.3 mg/dL Magnesium 2.2 Performed By: #### MG1, TSH, 125VTD #### [facility] [employer] [address] [place], [place] [address] TSH Collected: 04/27/2017 Status: F Source: [place] 10:51 AM [facility] RE[facility] TYPE CODE TESTS RESULT OUT OF RANGE REFERENCE UNITS LAB TSH 0.400-5.500 uU/mL TSH 1.600 Performed By: #### MG1, TSH, 125VTD #### [facility] [employer] [address] [place], [place] [address] VITD, 1,25 DIHYDROXY Collected: 04/27/2017 Status: F Source: [place] 10:51 AM [facility] RE[facility] TYPE CODE TESTS RESULT OUT OF REFERENCE UNITS RANGE LAB 125D2 pg/mL 1,25 Dihydroxy VitD2 32.2 LAB 125D3 pg/mL 1,25 Dihydroxy VitD3 12.9 LAB [id number] 15.0-60.0 pg/mL Vit D,1,25 DiOH 45.1 Result Comment: This test was developed and its performance characteristics determined by [facility]'s [facility]ology [facility] Laboratory Medicine [place] [facility]). It has not been cleared or approved by the FDA. [facility] is regulated under CLIA as qualified to perform high-complexity testing. This test is used for clinical purposes. It should not be regarded as investigational or for research. Performed By: #### MG1, TSH, 125VTD #### [facility] [employer] [address] [place], [place] [address] PROGRESS Observed: 04/27/2017 Status: COMPLETED Source: [place] 9:46 AM [facility] REPOSITORY HNO ID: [id number] Author: Olive Joyner Service: (none) Author Type: Physician Type: Progress Notes Filed: 04/27/2017 11:56 AM Note Text: Reason for Visit Patient presents with: Establish Care: transfer care from Joselyn Rodriguez is a 71 year old female who presents here today for Above Complaints.. Health Maintenance PNEUMOVAX AGE 65 AND OVER WITH 5YR LOOKBACK(1) MAMMOGRAM COLORECTAL CANCER SCREENING,SEE MODIFIER INFLUENZA(1) HPI Has been tired and sob for 3 months, she notes that since she is on the toprol at 50. She just came from [place] where her brother in law was very sick, she was helping with her sister there to take care of him. She has been pushing her self to do things although she is very tired. CAD (coronary artery disease) She had SOARES, to the LAD, SVG to the first Diagnonal, and 2nd diagnonal braches- 2009, She had a repeat cath which for continued SOB, had a stress test which again was negative Hypertension BP is well controlled on current regimen of medicines which is tolerated well. No significant side effects Depression is well controlled on zoloft Gained weight has bradycardia, we need to check for thyroid PAST MEDICAL HISTORY Diagnosis Date - Coronary artery disease - Cough - Depression - Depressive disorder, not elsewhere classified - Diarrhea - GERD (gastroesophageal reflux disease) - Hypertension - Snoring - Unspecified asthma(493.90) - Unspecified asthma(493.90) - Unspecified hypothyroidism Hypothyroidism PAST SURGICAL HISTORY Procedure Laterality Date - ANORECTAL MYOMECTOMY 01/02/1971 Myomectomy - CABG (3) VEIN GRAFTS AND ARTERIAL GRAFT(S) 2009 - COLONOSCOP W/ OR W/O BRSH SPEC 03/15/2006 Colonoscopy - HEART SURGERY HX - HYSTERECTOMY HX - LAP CHOLECYSTECT/CHOLANGIOGRAPHY 06/08/05 - PULMONARY FUNCTION TEST 09/24/2004 - REPAIR ING HERNIA,5+Y/O,REDUCIBL Left 05/01/1980 Hernia repair, inguinal - TONSILLECTOMY AND ADENOIDECTOMY HX FAMILY HISTORY Problem Relation Age of Onset - Coronary Artery Disease Mother cabg x 4 - Stroke Mother - COPD Father - depression [OTHER] Brother - Stroke Maternal Grandfather - Heart Paternal Grandfather MS - Allergies Sister Social History Substance Use Topics - Smoking status: Former Smoker Packs/day: 0.50 Years: 18.00 Types: Cigarettes Quit date: 01/25/1981 - Smokeless tobacco: Never Used - Alcohol use Yes Comment: occassionally a glass of white wine Past medical history, appointments, medications, allergies reviewed. Pertinent Lab/Diagnostic Studies are reviewed and discussed today Current Outpatient Prescriptions: - zolpidem (AMBIEN) 5 mg tablet - sertraline (ZOLOFT) 100 mg tablet - levothyroxine (SYNTHROID) 75 mcg tablet - omeprazole (PRILOSEC) 20 mg capsule - montelukast (SINGULAIR) 10 mg tablet - ergocalciferol, vitamin D2, (DRISDOL) 50,000 unit capsule - simvastatin (ZOCOR) 40 mg tablet - aspirin, enteric coated 325 mg ORAL EC tablet - isosorbide mononitrate ER (IMDUR) 30 mg 24 hr tablet - metoprolol succinate ER (TOPROL XL) 25 mg 24 hr tablet - hydroCHLOROthiazide (HYDRODIURIL, ESIDRIX) 12.5 mg tablet - lisinopril (ZESTRIL, PRINIVIL) 5 mg tablet - albuterol HFA (PROAIR HFA) 90 mcg/actuation inhaler Review of Systems CONSTITUTIONAL: No fevers, chills night sweats, unintended weight loss CARDIOVASCULAR: No chest pain, dyspnea, palpitations, orthopnea, PND, ankle edema. PULM: No dyspnea, unexplained cough. GI: No dysphagia/odynophagia, problematic reflux, constipation, diarrhea, changes in stool habits, hematochezia, melena. : No new urinary complaints, including dysuria, gross hematuria or pyuria. NEURO: No new balance problems, peripheral weakness/paresthesias or numbness of concern. Physical Exam BP 126/72 (BP Site: Left Arm, BP Position: Sitting, BP Cuff Size: Regular Adult) Pulse (!) 50 Resp 12 Ht 156.2 cm (5' 1.5) Wt 77.6 kg (171 lb) SpO2 96% BMI 31.79 kg/m2 General appearance: patient was lying on the examining table... well nourished. Skin: Skin color, texture, turgor normal, no suspicious rashes or lesions Head: Normocephalic, no masses, lesions, tenderness or abnormalities Eyes: Anicteric sclera. Pupils are equally round and reactive to light. Extraocular movements are intact. Lungs: Lungs clear to auscultation. No wheezing, rhonchi, rales Heart: RRR without murmur, gallop, or rubs. Extremities: No deformities, edema, skin discoloration, clubbing or cyanosis. Good capillary refill. ASSESSMENT/PLAN: 1. Bradycardia - ICD9: 427.89, ICD10: R00.1 (primary diagnosis) Patient has first degree AV block. And bradycardia, she is getting her blood work done. - METOPROLOL SUCCINATE ER 25 MG TABLET,EXTENDED RELEASE 24 HR - ECG COMPLETE W INTERPRETATION - TSH BLD 2. Coronary artery disease involving other coronary artery bypass graft without angina pectoris - ICD9: 414.05, ICD10: I25.810 Stable with no chest pain but her sob is getting worse 3. Hypertension, unspecified type - ICD9: 401.9, ICD10: I10 - good control - Recommended regular aerobic exercise. - Recommend home blood pressure monitoring, to bring results in on next visit - Goal of BP <130/80 4. Vitamin D deficiency - ICD9: 268.9, ICD10: E55.9 - VITAMIN D1 25-DIHYDR 5. Muscle spasm - ICD9: 728.85, ICD10: M62.838 - MAGNESIUM BLD 6. Encounter for screening mammogram for breast cancer - ICD9: V76.12, ICD10: Z12.31 - Encouraged monthly BSE - Follow up for annual exam in one year. - CY SCREENING 7. Other fatigue - ICD9: 780.79, ICD10: R53.83 Check thyroid 8. First degree AV block - ICD9: 426.11, ICD10: I44.0 Faxing over her ekg to her lamp assembler to review as this is new for us as compared to 2010 and I dont have a newer ekg to compare this to. Spent more than 40 mins with the patient MD KENDAL WHITLOCK Observed: 04/27/2017 Status: COMPLETED Source: [place] 9:20 AM [facility] REPOSITORY Office Visit (INT[facility]WS) JOSELYN RODRIGUEZ ([id number]) 1945 F Date Time Provider Department 04/27/17 9:20 AM OLIVE JOYNER During your visit today, we recorded the following information about you: Pulse Respiration Blood pressure Weight 50/minute 12/minute 126/72 77.6 kg Height 1.562 m OLIVE JOYNER MD 04/27/2017 11:56 AM Signed Reason for Visit Patient presents with: Establish Care: transfer care from Joselyn Rodriguez is a 71 year old female who presents here today for Above Complaints.. Health Maintenance PNEUMOVAX AGE 65 AND OVER WITH 5YR LOOKBACK(1) MAMMOGRAM COLORECTAL CANCER SCREENING,SEE MODIFIER INFLUENZA(1) HPI Has been tired and sob for 3 months, she notes that since she is on the toprol at 50. She just came from [place] where her brother in law was very sick, she was helping with her sister there to take care of him. She has been pushing her self to do things although she is very tired. CAD (coronary artery disease) She had SOARES, to the LAD, SVG to the first Diagnonal, and 2nd diagnonal brach- 2009, She had a repeat cath which for continued SOB, had a stress test which again was negative Hypertension BP is well controlled on current regimen of medicines which is tolerated well. No significant side effects Depression is well controlled on zoloft Gained weight has bradycardia, we need to check for thyroid PAST MEDICAL HISTORY Diagnosis Date - Coronary artery disease - Cough - Depression - Depressive disorder, not elsewhere classified - Diarrhea - GERD (gastroesophageal reflux disease) - Hypertension - Snoring - Unspecified asthma(493.90) - Unspecified asthma(493.90) - Unspecified hypothyroidism Hypothyroidism PAST SURGICAL HISTORY Procedure Laterality Date - ANORECTAL MYOMECTOMY 01/02/1971 Myomectomy - CABG (3) VEIN GRAFTS ANDamp; ARTERIAL GRAFT(S) 2009 - COLONOSCOP W/ OR W/O BRSH SPEC 03/15/2006 Colonoscopy - HEART SURGERY HX - HYSTERECTOMY HX - LAP CHOLECYSTECT/CHOLANGIOGRAPHY 06/08/05 - PULMONARY FUNCTION TEST 09/24/2004 - REPAIR ING HERNIA,5+Y/O,REDUCIBL Left 05/01/1980 Hernia repair, inguinal - TONSILLECTOMY AND ADENOIDECTOMY HX FAMILY HISTORY Problem Relation Age of Onset - Coronary Artery Disease Mother cabg x 4 - Stroke Mother - COPD Father - depression [OTHER] Brother - Stroke Maternal Grandfather - Heart Paternal Grandfather MS - Allergies Sister Social History Substance Use Topics - Smoking status: Former Smoker Packs/day: 0.50 Years: 18.00 Types: Cigarettes Quit date: 01/25/1981 - Smokeless tobacco: Never Used - Alcohol use Yes Comment: occassionally a glass of white wine Past medical history, appointments, medications, allergies reviewed. Pertinent Lab/Diagnostic Studies are reviewed and discussed today Current Outpatient Prescriptions: - zolpidem (AMBIEN) 5 mg tablet - sertraline (ZOLOFT) 100 mg tablet - levothyroxine (SYNTHROID) 75 mcg tablet - omeprazole (PRILOSEC) 20 mg capsule - montelukast (SINGULAIR) 10 mg tablet - ergocalciferol, vitamin D2, (DRISDOL) 50,000 unit capsule - simvastatin (ZOCOR) 40 mg tablet - aspirin, enteric coated 325 mg ORAL EC tablet - isosorbide mononitrate ER (IMDUR) 30 mg 24 hr tablet - metoprolol succinate ER (TOPROL XL) 25 mg 24 hr tablet - hydroCHLOROthiazide (HYDRODIURIL, ESIDRIX) 12.5 mg tablet - lisinopril (ZESTRIL, PRINIVIL) 5 mg tablet - albuterol HFA (PROAIR HFA) 90 mcg/actuation inhaler Review of Systems CONSTITUTIONAL: No fevers, chills night sweats, unintended weight loss CARDIOVASCULAR: No chest pain, dyspnea, palpitations, orthopnea, PND, ankle edema. PULM: No dyspnea, unexplained cough. GI: No dysphagia/odynophagia, problematic reflux, constipation, diarrhea, changes in stool habits, hematochezia, melena. : No new urinary complaints, including dysuria, gross hematuria or pyuria. NEURO: No new balance problems, peripheral weakness/paresthesias or numbness of concern. Physical Exam BP 126/72 (BP Site: Left Arm, BP Position: Sitting, BP Cuff Size: Regular Adult) Pulse (!) 50 Resp 12 Ht 156.2 cm (5' 1.5ANDquot;) Wt 77.6 kg (171 lb) SpO2 96% BMI 31.79 kg/m2 General appearance: patient was lying on the examining table... well nourished. Skin: Skin color, texture, turgor normal, no suspicious rashes or lesions Head: Normocephalic, no masses, lesions, tenderness or abnormalities Eyes: Anicteric sclera. Pupils are equally round and reactive to light. Extraocular movements are intact. Lungs: Lungs clear to auscultation. No wheezing, rhonchi, rales Heart: RRR without murmur, gallop, or rubs. Extremities: No deformities, edema, skin discoloration, clubbing or cyanosis. Good capillary refill. ASSESSMENT/PLAN: 1. Bradycardia - ICD9: 427.89, ICD10: R00.1 (primary diagnosis) Patient has first degree AV block. And bradycardia, she is getting her blood work done. - METOPROLOL SUCCINATE ER 25 MG TABLET,EXTENDED RELEASE 24 HR - ECG COMPLETE W INTERPRETATION - TSH BLD 2. Coronary artery disease involving other coronary artery bypass graft without angina pectoris - ICD9: 414.05, ICD10: I25.810 Stable with no chest pain but her sob is getting worse 3. Hypertension, unspecified type - ICD9: 401.9, ICD10: I10 - good control - Recommended regular aerobic exercise. - Recommend home blood pressure monitoring, to bring results in on next visit - Goal of BP ANDlt;130/80 4. Vitamin D deficiency - ICD9: 268.9, ICD10: E55.9 - VITAMIN D1 25-DIHYDR 5. Muscle spasm - ICD9: 728.85, ICD10: M62.838 - MAGNESIUM BLD 6. Encounter for screening mammogram for breast cancer - ICD9: V76.12, ICD10: Z12.31 - Encouraged monthly BSE - Follow up for annual exam in one year. - CY SCREENING 7. Other fatigue - ICD9: 780.79, ICD10: R53.83 Check thyroid 8. First degree AV block - ICD9: 426.11, ICD10: I44.0 Faxing over her ekg to her lamp assembler to review as this is new for us as compared to 2010 and I dont have a newer ekg to compare this to. Spent more than 40 mins with the patient MD OLIVE WHITLOCK MD 04/27/2017 9:58 AM Written She had SOARES, to the LAD, SVG to the first Diagnonal, and 2nd diagnonal braches- 2009, She had a repeat cath which for continued SOB, had a stress test which again was negative OLIVE JOYNER MD 04/27/2017 9:58 AM Written BP is well controlled on current regimen of medicines which is tolerated well. No significant side effects Referring Provider: NICK LOVE [[id number]] Allergies As of Date: 04/27/2017 Noted Allergy Reaction LEVAQUIN (LEVOFLOXACIN) 07/27/2005 7 - Swelling CODEINE 01/25/2005 9 - Itching NIACIN 05/05/2010 8 - GI Upset Comments: dyspepsia PROGESTERONE 01/25/2005 Comments: photosensative TYLENOL (ACETAMINOPHEN) 08/23/2005 8 - GI Upset trazadone [Other] 01/25/2005 2 - Rash Date Reviewed: 04/27/2017 Reviewed by: Bridgett Watts LPN - Fully Assessed Reason for Visit: Establish Care [42] Cmt: transfer care from Primary Visit Diagnosis:Bradycardia [R00.1] Other Visit Diagnoses:Coronary artery disease involving other coronary artery bypass graft without angina pectoris [I25.810] Hypertension, unspecified type [I10] Vitamin D deficiency [E55.9] Muscle spasm [M62.838] Encounter for screening mammogram for breast cancer [Z12.31] Other fatigue [R53.83] First degree AV block [I44.0] Order(s):metoprolol succinate ER (TOPROL XL) 25 mg 24 hr tabletTake 1 tablet by mouth once daily.Disp: 30 tabletRfl: 2 ECG COMPLETE W INTERPRETATION [ECG01] Order #: [id number] FUTURE TSH BLD [SQTSH] Order #: [id number] FUTURE VITAMIN D1 25-DIHYDR [VELLD474] Order #: [id number] FUTURE MAGNESIUM BLD [SQMG1] Order #: [id number] FUTURE CY SCREENING [[id number]] Order #: [id number] FUTURE Prescriptions as of 04/27/2017 Sig: ZOLPIDEM 5 MG TABLET Take 1 tablet by mouth at bed* SERTRALINE 100 MG TABLET take 2 tablets by mouth daily LEVOTHYROXINE 75 MCG TABLET take 1 tablet by mouth once d* OMEPRAZOLE 20 MG CAPSULE,MO* Take 1 capsule by mouth once * MONTELUKAST 10 MG TABLET take 1 tablet by mouth at bed* ERGOCALCIFEROL (VITAMIN D2) 5* take 1 capsule by mouth every* SIMVASTATIN 40 MG TABLET Take 1 tablet by mouth daily * * ASPIRIN 325 MG TABLET,DELAYED* Take 1/2 tablet daily. ISOSORBIDE MONONITRATE ER 30 * Take 1 tablet by mouth once d* METOPROLOL SUCCINATE ER 25 MG* Take 1 tablet by mouth once d* HYDROCHLOROTHIAZIDE 12.5 MG T* Take 12.5 mg by mouth once da* LISINOPRIL 5 MG TABLET Take 5 mg by mouth once daily* ALBUTEROL SULFATE HFA 90 MCG/* Inhale 2 Puffs as instructed * Problem List As Of Date 04/27/2017 Noted Resolved DEPRESSIVE DISORDER NEC [F32.9] HYPOTHYROIDISM NOS [E03.9] More... ASTHMA UNSPECIFIED [J45.909] CHOLELITH W CHOLECYS NEC [K80.10] INVALID FOR* Diarrhea [R19.7] INVALID FOR*08/09/2014 INT HEMORRHOID W/O COMPL [K64.8] INVALID FOR* EXT HEMORRHOID W/O COMPL [K64.4] INVALID FOR* SEBORRHEIC KERATOSIS INFLAMED [L82.0] INVALID FOR* NEVUS BACK///BENIGN KERLINE SKIN TRUNK [D23.5] INVALID FOR* SEBORRHEIC KERATOSIS NOS [L82.1] INVALID FOR* SOLAR LENGINES///DYSCHROMIA OTHER [L81.9] INVALID FOR* CHR SOLAR SKIN DAMAGE NOS [L57.8] INVALID FOR* HYPERLIPIDEMIA NEC/NOS [E78.5] INVALID FOR* ASHD (arteriosclerotic heart disease) [I25.10] INVALID FOR* Chest pain [R07.9] INVALID FOR* CABG (coronary artery bypass graft) INVALID FOR* Class: Chronic Hx of CABG [Z95.1] INVALID FOR* Hypertension [I10] INVALID FOR* More... Dyspnea [R06.00] INVALID FOR* CAD (coronary artery disease) [I25.10] INVALID FOR* More... Insomnia [G47.00] INVALID FOR* Left tennis elbow [M77.12] INVALID FOR* Prescriptions ordered this encounter Disp Refills Start End METOPROLOL SUCCINATE ER 25 MG TABLET* 30 t* 2 04/27/2017 Route: ORAL Sig: Take 1 tablet by mouth once daily. Medications Discontinued During This Encounter metoprolol succinate ER (TOPROL XL) * 30 t* 04/27/2017 04/27/2017 Class: Historical Med Route: ORAL Sig: Take 1 tablet by mouth once daily. Disc: Reason for discontinue is not on file. Encounter Status:Closed by OLIVE JONYER MD on 04/27/17 BASIC METABOLIC PANL Collected: 04/20/2017 Status: F Source: [place] 1:03 PM [facility] RE[facility] TYPE CODE TESTS RESULT OUT OF REFERENCE UNITS RANGE LAB GLU 74-99 mg/dL Glucose 98 Result Comment: The [place] [employer] (ADA) provides guidance for cutoff values for fasting glucose and random glucose. The ADA defines fasting as no caloric intake for at least 8 hours. Fas ting plasma glucose results between 100 to 125 mg/dL indicate increased risk for diabetes (prediabetes). Fasting plasma glucose results greater than or equal to 126 mg/dL meet the criteria for diagnosis of diabetes. In the absence of unequivocal hyperglycemia, results should be confirmed by repeat testing. In a patient with classic symptoms of hyperglycemia or hyperglycemic crisis, random plasma glucose results greater than or equal to 200 mg/dL meet the criteria for diagnosis of diabetes. Reference: Standards of Medical Care in Diabetes 2016, [place] [employer]. Diabetes Care. 2016.39(Suppl 1). LAB BUN 7-21 mg/dL BUN 18 LAB CRET 0.58-0.96 mg/dL Creatinine 0.72 LAB NA 136-144 mmol/L Sodium 144 LAB K 3.7-5.1 mmol/L Potassium 4.6 LAB CL 97-105 mmol/L Chloride High 108 LAB CO2 22-30 mmol/L CO2 24 LAB AGAP 9-18 mmol/L Anion Gap 12 LAB CA 8.5-10.2 mg/dL Calcium, Total 8.8 LAB GFRAA eGFR- Amer. >60 LAB GFRNAA . eGFR-All Other Races >60 Result Comment: eGFR (Estimated GFR) Units of measure: mL/min/1.73 meters squared eGFR is derived from the reexpressed MDRD Study equation using the following parameters: serum creatinine, age, gender and race. The creatinine assay has been calibrated to be traceable to IDIL. An eGFR <60 mL/min/1.73m2 for >3 months is consistent with chronic kidney disease. Refer to KDOQI guidelines for clinical interpretation. In patients with unstable renal function, e.g. those with acute kidney injury, the eGFR may not accurately reflect actual GFR. Performed By: #### BMP, LIPB #### [facility] [employer] [address] [place], [place] [address] LIPID PANEL, BASIC Collected: 04/20/2017 Status: F Source: [place] 1:03 PM [facility] REPOS[facility]ORY TYPE CODE TESTS RESULT OUT OF REFERENCE UNITS RANGE LAB TRIGLY 30-149 mg/dL Triglyceride 115 LAB CHOL 100-199 mg/dL Cholesterol 190 LAB HDL >55 mg/dL Low HDL-Cholesterol 55 LAB VLDL 6-40 mg/dL VLDL Cholesterol 23 LAB LDL 60-129 mg/dL LDL-Cholesterol 112 LAB FT hrs Fasting Time 14 LAB TCHDL 1.00-5.00 TC:HDL Ratio 3.45 LAB LDLHDL 0.50-3.55 LDL:HDL Ratio 2.04 LAB NONHDL 90-159 mg/dL Non HDL Cholesterol 135 Performed By: #### BMP, LIPB #### [facility] [employer] [address] [place], [place] [address] CNPTOUTREACH Observed: 04/12/2017 Status: COMPLETED Source: [place] 12:00 AM [facility] REPOSIT[facility] Patient Outreach ([facility]) JOSELYN RODRIGUEZ ([id number]) 1945 F Date Time Provider Department 04/12/17 [facility] During your visit today, we recorded the following information about you: Allergies As of Date: 04/12/2017 Noted Allergy Reaction LEVAQUIN (LEVOFLOXACIN) 07/27/2005 7 - Swelling CODEINE 01/25/2005 9 - Itching NIACIN 05/05/2010 8 - GI Upset Comments: dyspepsia PROGESTERONE 01/25/2005 Comments: photosensative TYLENOL (ACETAMINOPHEN) 08/23/2005 8 - GI Upset trazadone [Other] 01/25/2005 2 - Rash Date Reviewed: 07/12/2016 Reviewed by: Ranjan ZhengRn) JEFFERY Jaimes - Fully Assessed Visit Diagnosis:Medication management [Z79.899] Order(s):BASIC METABOLIC PNL [SQBMP] Order #: [id number] FUTURE LIPID PANEL BASIC [SQLIPB] Order #: [id number] FUTURE Prescriptions as of 04/12/2017 Sig: X ZOLPIDEM 5 MG TABLET Take 1 tablet by mouth at bed* SERTRALINE 100 MG TABLET take 2 tablets by mouth daily LEVOTHYROXINE 75 MCG TABLET take 1 tablet by mouth once d* OMEPRAZOLE 20 MG CAPSULE,MO* Take 1 capsule by mouth once * MONTELUKAST 10 MG TABLET take 1 tablet by mouth at bed* HYDROCHLOROTHIAZIDE 12.5 MG T* Take 12.5 mg by mouth once da* LISINOPRIL 5 MG TABLET Take 5 mg by mouth once daily* ERGOCALCIFEROL (VITAMIN D2) 5* take 1 capsule by mouth every* ALBUTEROL SULFATE HFA 90 MCG/* Inhale 2 Puffs as instructed * SIMVASTATIN 40 MG TABLET Take 1 tablet by mouth daily * * ASPIRIN 325 MG TABLET,DELAYED* Take 1/2 tablet daily. Problem List As Of Date 04/12/2017 Noted Resolved DEPRESSIVE DISORDER NEC [F32.9] HYPOTHYROIDISM NOS [E03.9] More... ASTHMA UNSPECIFIED [J45.909] CHOLELITH W CHOLECYS NEC [K80.10] INVALID FOR* Diarrhea [R19.7] INVALID FOR*08/09/2014 INT HEMORRHOID W/O COMPL [K64.8] INVALID FOR* EXT HEMORRHOID W/O COMPL [K64.4] INVALID FOR* SEBORRHEIC KERATOSIS INFLAMED [L82.0] INVALID FOR* NEVUS BACK///BENIGN KERLINE SKIN TRUNK [D23.5] INVALID FOR* SEBORRHEIC KERATOSIS NOS [L82.1] INVALID FOR* SOLAR LENGINES///DYSCHROMIA OTHER [L81.9] INVALID FOR* CHR SOLAR SKIN DAMAGE NOS [L57.8] INVALID FOR* HYPERLIPIDEMIA NEC/NOS [E78.5] INVALID FOR* ASHD (arteriosclerotic heart disease) [I25.10] INVALID FOR* Chest pain [R07.9] INVALID FOR* CABG (coronary artery bypass graft) INVALID FOR* Class: Chronic Hx of CABG [Z95.1] INVALID FOR* Hypertension [I10] INVALID FOR* More... Dyspnea [R06.00] INVALID FOR* CAD (coronary artery disease) [I25.10] INVALID FOR* More... Insomnia [G47.00] INVALID FOR* Left tennis elbow [M77.12] INVALID FOR* Encounter Status:Closed by [employer], PRODUSER on 05/29/17 ALLERGIES ALLERGIES DATE TYPE / CODE NAME / CODE REACTION SEVERITY SOURCE Drug progesterone/F0060 Unknown Unknown [place] [facility] Allergy/989485782( 15733(RXNORM) [facility] Repository Drug codeine/[id number] Unknown Unknown [place] [facility] Allergy/491364707( (RXNORM) [facility] Repository Drug acetaminophen/F006 Unknown Unknown [place] Allergy/306829351( 000923(RXNORM) [facility] Hospital Repository Drug trazodone/[id number] Unknown Unknown [place] Allergy/562985402( 10(RXNORM) [facility] Hospital Repository DRUG NIACIN GI UPSET [place] 1 INGREDI/595196120( [facility] SNOMED [facility]) [place] Repository DRUG ACETAMINOPHEN GI UPSET [place] INGREDI/110883282( [facility] Main SNOMED CT) [place] Repository DRUG LEVOFLOXACIN SWELLING [place] 6 INGREDI/148960417( [facility] Main SNOMED CT) [place] Repository DRUG CODEINE ITCHING [place] INGREDI/211281298( [facility] Main SNOMED CT) [place] Repository DRUG PROGESTERONE [place] INGREDI/658448593( [facility] Main SNOMED CT) [place] Repository 10/17/200 Miscellaneous OTHER RASH [place] [facility] Allergy/782513902( Clinic Main SNOMED [facility]) [place] Repository ENCOUNTERS ENCOUNTERS ADMIT/DISCHARGE ACCOUNT ADMITTING ENCOUNTER LOCATION SOURCE NUMBER CLASS 03/15/2018 [id number] Ambulatory [facility] ing:[facility] Repository 03/07/2018 [id number] Ambulatory [facility] ing:LAB Repository 03/07/2018/03/07/20 [id number] Ambulatory [facility]:B [place] [facility] Repository 11/01/2017/11/02/19 [id number] Ambulatory [address] Repository 11/01/2017/11/03/19 [id number] Ambulatory [address] Repository 10/18/2017/10/20/19 [id number] Ambulatory [address] Repository 08/15/2017 [id number] Ambulatory BMSBuilding:[place] Repository 07/01/2017/07/02/19 [id number] Ambulatory [address] Repository 04/29/2017/04/29/19 [id number] Ambulatory [address] Repository 04/27/2017/04/27/19 [id number] Ambulatory [address] Repository 04/27/2017/04/27/19 [id number] Ambulatory [address] Repository 04/20/2017 [id number] Ambulatory [facility] Repository PAYERS PAYERS ENCOUNTER GUARANTOR PAYER SUBSCRIBER SOURCE 03/15/2018 MARGRET Mckeon Primary JOSELYN A Li [id number] OIL Insurance:MEDICARE LEACHDOB: [facility] [place], [place] A BPolicy Number: [id number] [address]Csq: [id number] Repository Date:2018-03-07 () 03/15/2018 Secondary JOSELYN A [place] Insurance:HUMANA LEACHDOB: [facility] [id number] Hospital Number: Repository [id number] Date:0747-98-01PT [address] [address]ZV: 03/15/2018 Tertiary NOT GIVENUNK Li Insurance:SELF PAY [facility] Number: Effective Repository Date:2018-03-07 03/07/2018 MARGRET Mckeon Primary JOSELYN A [place] [id number] OIL Insurance:MEDICARE LEACHDOB: [facility], PART A BPolicy Number: [id number] Valley Hospital [address]Cuc: [id number] Repository Date:2018-03-07 () 03/07/2018 Secondary JOSELYN A Li Insurance:HUMANA LEACHDOB: [facility] [id number] Hospital Number: Repository [id number] Date:[id number] [address] [address]LN: 03/07/2018 Tertiary NOT GIVENUNK [place] Insurance:SELF PAY [facility] Number: Effective Repository Date:2018-03-07 03/07/2018 Margret Mckeon Primary JOSELYN A Li [id number] Oil Insurance:MEDICARE LEACHDOB: [facility], PART A BPolicy Number: [id number] Valley Hospital [address]Vqp: [id number] Repository Date:2018-03-07 () 03/07/2018 Secondary JOSELYN A [place] Insurance:HUMANA LEACHDOB: [facility] [id number] Hospital Number: Repository [id number] Date:0104-93-79ZM [address] [place] [address]XM: 03/07/2018 Tertiary NOT GIVENUNK [place] Insurance:SELF PAY [facility] Number: Effective Repository Date:2018-03-07 08/15/2017 Margret Mckeon Primary JOSELYN A [place] [id number] Oil Insurance:MEDICARE LEACHDOB: [facility], PART A BPolicy Number: [id number] Valley Hospital [address]Zsr: [id number] Repository Date:2017-08-15 (HP) 08/15/2017 Secondary NOT GIVENUNK [place] Insurance:SELF PAY [facility] Number: Effective Repository Date:2017-08-15
== END ==
PROVIDERS: Family Provider Internal Medicine; PCP Internal Medicine; Referring Provider Physician Assistant Medical; Visit Provider Physician Assistant Medical
DX: E78.5 Hyperlipidemia, unspecified (principal); E55.9 Vitamin D deficiency, unspecified; I25.10 Atherosclerotic heart disease of native coronary artery without angina pectoris; I10 Essential (primary) hypertension; R06.09 Other forms of dyspnea; R53.83 Other fatigue
CPT/HCPCS: 36415; 80048; 80061; 82652; 83880; 84443; 85025

== ENCOUNTER → 2018-03-15 06:17 | Outpatient (CLI) | payer MEDICARE, OTHER, SELFPAY ==
[2018-03-07 14:45] VITALS: BMI 32.1
--- NOTE | 2018-03-15 17:28 | STRESSREP ---
Stress Test Report Pharmacologic myocardial perfusion stress test. 72-year-old lady with a history of coronary artery disease, and shortness of breath. Patient status post coronary bypass surgery. Resting EKG demonstrates sinus bradycardia with a rate of 54 bpm normal intervals are noted resting blood pressure 170/80 mmHg. 0.4 mg of regadenoson was infused per usual protocol followed by rapid intravenous saline flush injection continuous EKG monitoring was performed. The patient maintained sinus rhythm throughout the recording. The maximum heart rate attained was 89 bpm which was 60% of maximum predicted heart rate the maximum workload was 1 metabolic equivalent. The resting blood pressure 170/80 with a final blood pressure 156/70 mmHg. Myocardial perfusion protocol. 10.8 mCi of technetium 99m sestamibi was injected at rest. 0.4 mg of regadenoson was infused per usual protocol peak infusion 30.1 mCi of technetium 99m sestamibi was injected stress images were obtained stress and rest images were reconstructed and compared in the short axis vertical long horizontal long axis. Gated images were also obtained Perfusion SPECT analysis: Review of the stress images demonstrate normal uptake of tracer noted in all areas of the myocardium the resting images similarly demonstrate normal uptake of tracer noted in all areas of the myocardium. No areas of reversibility are noted suggest ischemia no previous infarct is noted. Gated SPECT analysis: The gated ejection fraction is noted to be 74%. Conclusion: Normal pharmacologic myocardial perfusion stress test. Preserved ejection fraction.
== END ==
PROVIDERS: Family Provider Internal Medicine; PCP Internal Medicine; Referring Provider Physician Assistant Medical; Visit Provider Physician Assistant Medical
DX: I25.10 Atherosclerotic heart disease of native coronary artery without angina pectoris (principal); I10 Essential (primary) hypertension; E78.5 Hyperlipidemia, unspecified; R06.09 Other forms of dyspnea; R53.83 Other fatigue
CPT/HCPCS: 78452; 93017; A9500; A4216; J2785

== ENCOUNTER 2019-01-13 19:29 | Inpatient (IN) | payer MEDICARE, OTHER, SELFPAY ==
[2018-08-30 10:02] VITALS: BMI 31.9
[2019-01-13] VITALS (14 sets, daily range): BP systolic 107–248; BP diastolic 64–88; PULSE 59–65; RESP 14–18; TEMP 36.6–37; O2SAT 96–100; BMI 33.3; BMI 32.3
--- NOTE | 2019-01-13 19:48 | EKG12_ITS ---
Test Reason : AM EKG Blood Pressure : / mmHG Vent. Rate : 055 BPM Atrial Rate : 055 BPM P-R Int : 252 ms QRS Dur : 084 ms QT Int : 478 ms P-R-T Axes : 062 027 110 degrees QTc Int : 457 ms Sinus bradycardia with 1st degree A-V block Left ventricular hypertrophy T- wave abnormality:consider LVH repolarization variant, medication effect, metabolic effet, myocardi al ischemia Abnormal ECG Confirmed by BRITTNEE THOMPSON, ONI ([id number]), restaurant expeditor ROSETTE NORIEGA ([id number]) on 01/17/2019 2:01:42 PM Referred By: DR OTOOLE Confirmed By:ONI BEAULIEU MD
--- NOTE | 2019-01-13 19:51 | RAD_ITS ---
STUDY: X-RAY CHEST REASON FOR EXAM: Female, 73 years old. Chest pain TECHNIQUE: Frontal view of the chest COMPARISON: 04/22/2015 FINDINGS: The lungs are clear. There are no pleural effusions. There is no pneumothorax. The heart is normal in size. The patient is status post sternotomy. The visualized osseous structures are within normal limits. RAD/Chest 1 View (Portable) IMPRESSION: No acute thoracic pathology. Electronically Signed: Adrian Barbour, at 20:20 EDT Tel , Service support ,
--- NOTE | 2019-01-13 19:53 | ED.DCSUM_ITS ---
History of Present Illness Chief Complaint: Chest Pain Informant: Patient Onset: Today Context: Sudden Onset Narrative: Patient is a 73-year-old female with history of hypertension, coronary artery disease?status post CABG x3 presenting with chest pain. Patient states she is been feeling unwell for the past few days and had some diarrhea. Today while she was waiting outside to be seated at [employer] she started feeling worse and then threw up. Shortly after throwing up she had chest pain. Patient states it is in her epigastric/sternal region and radiates to her back. The pain was quite intense so she came to the emergency room. Patient states she took her normal afternoon medications. She denies any associated diaphoresis with this. She states this feels different than when she had her CABG 9 years ago. Patient states she had a normal cardiac catheterization 2 years ago. Her clay grinder is Dr. Champion. Patient denies any other complaints at this time. She states the pain has been constant since it started. She denies any numbness or tingling in her extremities. She denies any abdominal pain. Past Medical History - Allergies and Home Meds Allergies/Adverse Reactions: Allergies acetaminophen [From Tylenol] Allergy (Verified 01/13/19 19:33) Unknown codeine Allergy (Verified 01/13/19 19:33) Unknown progesterone Allergy (Verified 01/13/19 19:33) Unknown trazodone Allergy (Verified 01/13/19 19:33) Unknown Prior records reviewed: Yes Past Medical History: - - Coronary artery disease, hypertension, hypothyroid, depression, COPD, EARL Surgical History: cholecystectomy, coronary bypass surgery Smoking Status: Former smoker Review of Systems All systems negative except as indicated General: Reports: Malaise Cardiovascular: Reports: Chest pain Gastrointestinal: Reports: Nausea, Vomiting Physical Exam Vital Signs/Narrative: Vital Signs Temp Pulse Resp BP Pulse Ox 01/13/19 19:30 98.6 F 65 14 248/88 H 98 01/13/19 19:29 64 Inital Vital Signs reviewed: Yes General: Well nourished, Well developed, No Acute Distress Head: Normocephalic, Atraumatic Eyes: Perrl, EOMI ENT: Moist mucous membranes, No rhinorrhea Neck: Supple, Nontender Cardiovascular: Regular rate, Regular rhythm, No murmurs, - - Equal pulses in all 4 extremities Respiratory: No distress, CTA bilaterally, Chest nontender, - - Crepitus not present in the chest wall Abdomen: Soft, Nontender, Nondistended, Normal bowel sounds Back: Nontender, Normal Inspection Extremities: Nontender, No edema Skin: Normal color, No rash Neurological: Alert, Oriented x3, Cranial nerves II-XII grossly intact, Normal Strength, Normal Sensation Psychological: Normal affect, Normal Mood Diagnostic/Tx/Re-eval Chest X-Ray - ED: 1 View, Read by ED Physician, Read by Radiologist, No Acute Disease Clinical Impression(s) from Imaging Studies Chest X-Ray 01/13/19 19:51 IMPRESSION: No acute thoracic pathology. Electronically Signed: Adrian Barbour at 20:20 EDT Tel , Service support , Chest CTA 01/13/19 20:40 IMPRESSION: Normal CTA chest examination, without a demonstrated pulmonary embolism or arterial dissection. No acute chest disease. Electronically Signed: Julio Vinson MD at 21:42 EDT , Service support , Laboratory Data 01/13/19 01/13/19 19:35 19:35 WBC 8.4 RBC 5.71 H Hgb 15.0 Hct 48.7 H MCV 85.3 MCH 26.3 L MCHC 30.8 L RDW Std Deviation 43.4 RDW Coeff of Elva 14.0 Plt Count 178 MPV 10.6 Immature Gran % (Auto) 0.400 Neut % (Auto) 74.6 H Lymph % (Auto) 16.5 L [place] % (Auto) 6.7 Eos % (Auto) 1.4 Baso % (Auto) 0.4 Absolute Neuts (auto) 6.3 Absolute Lymphs (auto) 1.39 Nucleated RBC % 0 Sodium 142 Potassium 3.8 Chloride 105 Carbon Dioxide 30.0 Anion Gap 7 BUN 14 Creatinine 0.85 Estim Creat Clear Calc 44.48 Est GFR (MDRD) Af Amer 84 Est GFR (MDRD) Non-Af 69 BUN/Creatinine Ratio 16.4 Glucose 95 Calcium 9.4 Troponin I 0.133 H - Rhythm Strip Rhythm Strip: Sinus Rhythm Rate: 65 Ectopy: None - EKG Initial EKG Interpretation: Sinus Rhythm, - - Sinus rhythm with first-degree AV block rate of 65 ID interval 230 QRS 78 QT/QTc 408/424 Normal axis T wave inversion in aVL which is more pronounced when compared to prior EKG from November 2010 Questionable l 0.[address] depression in aVF and V5-no reciprocal changes Follow-up EKG Interpretation: Sinus Bradycardia, - - Sinus bradycardia at a rate of 59 First- degree AV block with ID interval 240 Normal intervals No other change compared to prior EKG - Medical Decision Making She is evaluated for sudden onset of chest pain. It did start just after an episode of forceful retching. She is not having chest wall crepitus. Chest x- ray does not show any acute pathology. The pain is radiate to her back. Patient is given a full dose aspirin in the emergency room. She is then given lingual nitroglycerin x3. Patient's pain goes from a a 10 to a 5. On arrival patient's initial blood pressure was 248 systolic, on reevaluation it is now between 170-150 systolic. Patient is ordered Nitropaste. Her troponin is elevated. Patient does not have dynamic EKG changes consistent with a STEMI. I did discuss the case with cardiology on-call, Dr. Kim. He recommends giving the patient 300 mg of Plavix, 1 mg/kg Lovenox subcu twice daily as well as switching her to a nitro drip. This is ordered. Patient has a CTA of her chest ordered because of the radiation of pain to her back. This does not showed acute dissection or other Acute pathology. Patient is admitted to the hospitalist service for further cardiac evaluation. She has multiple risk factors including history of coronary artery disease and prior CABG. She is agreeable with this plan and stable at time of disposition. After the nitro drip patient's pain has improved to a 3 out of 10. ED Disposition - Plan for ED Patient: Disposition: Acute Care Hospital [facility] Diagnosis: Non-STEMI (non-ST elevated myocardial infarction)
[2019-01-13] MEDS: Aspirin 81 MG TAB.CHEW 324 MG PO (20:03)
[2019-01-13] MEDS: Nitroglycerin SL (ED/IMG/CATH) 0.4 MG TABLET SUBLINGUAL ×3 (20:03→20:15)
[2019-01-13 20:08] LABS: Absolute Lymphocyte Count 1.39 X10^3/uL (0.83-4.51); Absolute Neutrophil Count 6.3 X10^3/uL (2.0-7.7); Basophil# 0.03 X10^3/uL; Basophil% 0.4 % (0-1); Eosinophil# 0.12 X10^3/uL; Eosinophils% 1.4 % (0-5); Hematocrit 48.7 % (37-47); Lymphocyte # 1.39 X10^3/ul (4.0); Lymphocyte % 16.5 % (19-41); Mean Corp Hgb Conc 30.8 g/dL (32-36); Mean Corpuscular Hgb 26.3 pg (27.0-32.0); Mean Corpuscular Volume 85.3 fL (81-99); Mean Platelet Vol. 10.6 fl (6.2-12.0); Monocyte# 0.56 X10^3/uL; Monocyte% 6.7 % (0-10); NRBC Flagged by Analyzer 0 % (0-5); Neutrophil # 6.27 X10^3/uL (2.7-7.7); Neutrophil % 74.6 % (47-70); Platelet Count 178 K/mm3 (150-450); RBC Distribution Width SD 43.4 fl (35.1-43.9); Red Blood Count 5.71 M/mm3 (4.2-5.4); White Blood Count 8.4 K/mm3 (4.4-11.0)
[2019-01-13 20:13] LABS: Anion Gap 7 (5-15); BUN 14 mg/dL (7-18); BUN/Creat Ratio 16.4 RATIO (10-20); Calcium,Total 9.4 mg/dL (8.5-10.1); Chloride 105 mmol/L (98-107); Creatinine, Serum 0.85 mg/dL (0.55-1.02); EST Glomerular Filtration Rate 69 mL/min (>60); Est Glom Filt Rate - Afr Amer 84 mL/min (>60); Estimated Creatinine Clearance 44.48 ml/min; Glucose 95 mg/dL (74-106); Potassium 3.8 mmol/L (3.5-5.1); Sodium Level 142 mmol/L (136-145)
--- NOTE | 2019-01-13 20:40 | CT_ITS ---
STUDY: CTA CHEST REASON FOR EXAM: Female, 73 years old. Chest pain. LOOKING FOR DISSECTION RADIATION DOSAGE (If Supplied By Facility): CTDIvol = ( 10.91 ) mGy, DLP = ( 385.64 ) mGycm TECHNIQUE: The examination was performed with the intravenous administration of IV 100mL Isovue-370 100ML. Post-processing of the angiographic images was performed, with multiplanar reformation and 3D reconstruction. Individualized dose optimization techniques were used for this CT. COMPARISON: None. FINDINGS: Normal enhancement of the main pulmonary artery and right and left pulmonary arteries. Normal enhancement of the bilateral peripheral pulmonary arteries. There is no demonstrated pulmonary embolism. There is atherosclerotic calcification of the aortic arch with tortuosity. There is no demonstrated aortic dissection. Sternal cerclage wires and vascular clips are present from a prior sternotomy and coronary artery bypass graft procedure (CABG). Normal mediastinum. Normal hilar regions. Normal visualized trachea and bronchi. The lungs are well expanded. Normal pulmonary parenchyma. Normal pleura. Normal chest wall structures. Normal osseous structures. Normal visualized upper abdomen. CT/CTA Chest W/WO Contrast IMPRESSION: Normal CTA chest examination, without a demonstrated pulmonary embolism or arterial dissection. No acute chest disease. Electronically Signed: Julio Vinson MD at 21:42 EDT , Service support ,
--- NOTE | 2019-01-13 20:42 | EKG12_ITS ---
Test Reason : AM EKG Blood Pressure : / mmHG Vent. Rate : 064 BPM Atrial Rate : 064 BPM P-R Int : 246 ms QRS Dur : 082 ms QT Int : 440 ms P-R-T Axes : 059 028 112 degrees QTc Int : 453 ms Sinus rhythm with 1st degree A-V block Left ventricular hypertrophy ST/T wave abnormality: consider LVH Repolarization Variant; medication efffect, metabolism effect; my ocardial ischemia Abnormal ECG Confirmed by BRITTNEE THOMPSON, ONI ([id number]), purchasing expeditor ROSETTE NORIEGA ([id number]) on 01/17/2019 2:39:09 PM Referred By: DR GARCIA Confirmed By:ONI BEAULIEU MD
[2019-01-13] MEDS: Nitroglycerin Oint 1 INCH PACKET 0.5 INCH TRANSDERM. (20:58)
--- NOTE | 2019-01-13 21:53 | PCM.HP.STD ---
Problem List (1) Non-STEMI (non-ST elevated myocardial infarction) Status: Acute History of Present Illness Date of Admission: 01/13/19 Chief Complaint: CHEST PAIN The patient is a 73 year old F with a significant history of hypertension; GERD and depression; CAD status post three-vessel CAB with excruciating progressively worsening substernal chest pain radiated to her back. Her symptoms started 1 hour before presentation. Her symptoms started while getting ready to eat at [employer]. Associated with her symptoms is nausea and vomiting. She ended up not eating at [employer]. Her pain radiates to her back. Also she has an uncomfortable feeling in her right jaw. Her symptom was progressively getting worse. She denies any ameliorating or aggravating factors. At the emergency department she was started on nitroglycerin drip that help with her pain. Emergency department doctor discussed the case with coil strapper in. And patient was started on nitroglycerin drip as above. Also cardiology wanted patient to be on therapeutic dose of Lovenox twice daily and Plavix. Her troponin was found to be elevated and EKG showed ST depressions in lead V1 and V2 that was changed from previous. Two years ago she had a clean cath with Dr. pinon Past Medical History Past Medical History (Chronic Problems): Chronic Problems (Last Reviewed 01/14/19 @ 03:04 by Henrry Driver MD) History of cholecystectomy (Chronic) Depression (Chronic) Asthma (Chronic) Hypothyroidism (Chronic) Hyperlipidemia (Chronic) Hypertension (Chronic) Atherosclerotic heart disease of [place] coronary artery without angina pectoris (Chronic) Presence of aortocoronary bypass graft (Chronic) January 2010 CABG X 3 vessels: SOARES to LAD, SVG to first and second DX branches of the LAD Other alf (current) drug therapy (Chronic) Body mass index (BMI) of 32.0-32.9 in adult (Chronic) Carotid artery disease (Chronic) COPD (chronic obstructive pulmonary disease) (Chronic) EARL (obstructive sleep apnea) (Chronic) LEOS (dyspnea on exertion) (Chronic) Medical History: Medical History (Last Reviewed 01/14/19 @ 03:04 by Henrry Driver MD) Depression (Chronic) F32.9 Asthma (Chronic) J45.909 Hypothyroidism (Chronic) E03.9 Hyperlipidemia (Chronic) E78.5 Hypertension (Chronic) I10 Atherosclerotic heart disease of [place] coronary artery without angina pectoris (Chronic) I25.10 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 (Chronic) Z79.899 Body mass index (BMI) of 32.0-32.9 in adult (Chronic) Z68.32 Carotid artery disease (Chronic) I77.9 COPD (chronic obstructive pulmonary disease) (Chronic) J44.9 EARL (obstructive sleep apnea) (Chronic) G47.33 LEOS (dyspnea on exertion) (Chronic) R06.09 Allergies acetaminophen [From Tylenol] Allergy (Verified 01/13/19 19:33) Unknown codeine Allergy (Verified 01/13/19 19:33) Unknown progesterone Allergy (Verified 01/13/19:33) Unknown trazodone Allergy (Verified 01/13/19 19:33) Unknown Home Medications: Ambulatory Orders Medication Instructions Recorded Levothyroxine [Synthroid] 75 mcg PO DAILY 04/23/15 Montelukast [Singulair] 10 mg PO DAILY 04/23/15 Multivit with Calcium,Iron,Min 1 ea PO DAILY 04/23/15 [Multiple Vitamins For Women] Omeprazole [Prilosec] 20 mg PO DAILY 04/23/15 aspirin 81 mg tablet,delayed 81 mg PO QDAY 05/17/17 release sertraline 50 mg tablet 100 mg PO BID tab 08/15/17 zolpidem 5 mg tablet 5 mg PO QDAY tab 08/15/17 lisinopril 10 mg tablet 10 mg PO DAILY #90 tab 08/03/18 simvastatin 40 mg tablet 40 mg PO QHS #90 tab 08/30/18 Surgical History: Surgical History (Last Reviewed 01/14/19 @ 03:04 by Henrry Driver MD) History of cholecystectomy (Chronic) Z98.890, Z90.49 Presence of aortocoronary bypass graft (Chronic) Z95.09 January 2010 CABG X 3 vessels: SOARES to LAD, SVG to first and second DX branches of the LAD History of appendectomy Z90.49 History of hernia repair Z98.890, Z87.19 History of hysterectomy Z90.710 Surgical History: cholecystectomy, coronary bypass surgery Lives: Spouse/ Significant Other Smoking Status: Former smoker Alcohol: Occasional - *Family History Maternal Family History: Family History (Last Reviewed 01/14/19 @ 03:05 by Henrry Driver MD) Mother CAD (coronary artery disease) CVA (cerebral vascular accident) Father COPD (chronic obstructive pulmonary disease) Review of Systems Constitutional: Denies: Chills, Fever, Weight Change HEENT: Denies: Head Aches, Sinus Congestion, Sinus Drainage Cardiovascular: Reports: Chest Pain. Denies: Palpitations Respiratory: Denies: Cough, Shortness of breath at rest, Sputum production Gastrointestinal: Reports: Nausea, Vomiting. Denies: Abdominal Pain Genitourinary: Denies: Dysuria Musculoskeletal: Reports: Back Pain. Denies: Joint Pain, Joint Tenderness Skin: Denies: Rash, Wounds Neurological: Denies: Numbness, Tingling, Focal weakness Psychiatric: Denies: Anxiety, Depression, Homicidal Ideations, Suicidal Ideations Hematologic/ Lymphatic: Denies: Easy Bruising, Easy Bleeding VTE Information - Inpt Only VTE Present on Admission: No VTE Mechan Device Prophylaxis: None VTE Pharm Prophylaxis ordered?: No Reason prophylaxis not ordered:: Treatment Not Indicated - Therapeutic Lovenox for non-STEMI. Patient Problems: Active and Suspected Problems (Last Reviewed 01/14/19 @ 03:04 by Henrry Driver MD) Non-STEMI (non-ST elevated myocardial infarction) (Acute) - Physical Exam General: Alert, Oriented x3, Cooperative HEENT: Atraumatic, PERRLA, EOMI, Normocephalic Neck: Supple, No JVD, Negative Carotid Bruits Lungs: Clear to auscultation, Normal air movement Cardiovascular: Regular rate, No murmurs Abdomen: Bowel Sounds Present, Soft, Non Tender Extremities: No edema, Capillary Refill Less than 3 Seconds Skin: No rashes, No breakdown Musculoskeletal: No Tenderness to Palpation of Joints or Extremities Neurological: Cranial nerves II-XII grossly intact Psych/Mental Status: Normal Affect, Appropriate Vital Signs Temp Pulse Resp BP Pulse Ox 98.6 F 60 14 157/70 H 99 01/13/19 19:30 01/13/19 21:00 01/13/19 21:00 01/13/19 21:00 01/13/19 21:00 Oxygen Flow Rate (L/min) 2 Oxygen Delivery Method Nasal Cannula Weight: 80 kg Body Mass Index (BMI) 33.3 Laboratory Tests Past 24 Hrs 01/13/19 01/13/19 19:35 19:35 WBC 8.4 RBC 5.71 H Hgb 15.0 Hct 48.7 H MCV 85.3 MCH 26.3 L MCHC 30.8 L RDW Std Deviation 43.4 RDW Coeff of Elva 14.0 Plt Count 178 MPV 10.6 Immature Gran % (Auto) 0.400 Neut % (Auto) 74.6 H Lymph % (Auto) 16.5 L [place] % (Auto) 6.7 Eos % (Auto) 1.4 Baso % (Auto) 0.4 Absolute Neuts (auto) 6.3 Absolute Lymphs (auto) 1.39 Nucleated RBC % 0 Sodium 142 Potassium 3.8 Chloride 105 Carbon Dioxide 30.0 Anion Gap 7 BUN 14 Creatinine 0.85 Estim Creat Clear Calc 44.48 Est GFR (MDRD) Af Amer 84 Est GFR (MDRD) Non-Af 69 BUN/Creatinine Ratio 16.4 Glucose 95 Calcium 9.4 Troponin I 0.133 H Assessment/Plan All Active Problems (Last Reviewed 01/14/19 @ 03:04 by Henrry Driver MD) Non-STEMI (non-ST elevated myocardial infarction) (Acute) The patient is a 73 year old F with a significant history of hypertension; GERD and depression; CAD status post three-vessel CAB with excruciating progressively worsening substernal chest pain; elevated troponin and EKG changes consistent with non-ST elevation MT. NSTEMI Place on a monitored bed and step down at PCU Because patient reported chest pain radiates to her back CTPA was done. CTPA was unremarkable. EKG independently reviewed confirms sinus rhythm with T wave inversion in leads V1 and V2. Review of old records show that this is a new change. On home ASA 81 mg p.o. daily; continued Nitroglycerin patch was placed at the emergency department and later patient was started on nitroglycerin drip. Blood per coil strapper recommendations detailed by emergency department doctor will continue patient on nitroglycerin drip. We will continue patient on Plavix. Patient received first loading dose at the emergency department. We will continue patient on therapeutic Lovenox twice daily patient received first Lovenox dose in the emergency department. Morphine as needed for pain We will check lipid panel. Statin: Home simvastatin. Will change to atorvastatin. Serial cardiac enzymes. First enzyme was elevated at the emergency department. Serial cardiac enzymes aspirin noted to be rising. Stat EKG as needed for chest pain Vidalpril continued Cardiology consult. Hypertension On presentation blood pressure was not within goal Patient will be started on nitroglycerin drip because of NSTEMI. Continue home lisinopril. Trend blood pressure and adjust blood pressure medications. Hypothyroidism resume Synthroid continued GERD Prilosec continue Depression/anxiety Sertraline continued DVT prophylaxis Not indicated since patient is receiving therapeutic dose of Lovenox for her NSTEM Code Visit Inpatient E&M: 23366 Init Hosp L3
[2019-01-13] MEDS: Clopidogrel Bisulfate 300 MG Tablet PO (21:54)
[2019-01-13] MEDS: Enoxaparin 80 MG/0.8 ML Syringe SC (21:54)
[2019-01-13] MEDS: Nitroglycerin Infusion 250 ML 3 MG CONT INF (21:54)
--- NOTE | 2019-01-13 23:32 | EKG12_ITS ---
Test Reason : CP Blood Pressure : / mmHG Vent. Rate : 059 BPM Atrial Rate : 059 BPM P-R Int : 244 ms QRS Dur : 086 ms QT Int : 444 ms P-R-T Axes : 042 033 102 degrees QTc Int : 439 ms Sinus bradycardia with 1st degree A-V block Left ventricular hypertrophy T-wave abnormality: conside LVH repolarization variant; medication effect, metabolic effect, myocardi al ischemia Abnormal ECG Confirmed by BRITTNEE THOMPSON, ONI ([id number]), tape editor ROSETTE NORIEGA ([id number]) on 01/17/2019 2:05:45 PM Referred By: DR OTOOLE Confirmed By:ONI BEAULIEU MD
--- NOTE | 2019-01-13 23:34 | NURSING ---
PATIENT COMPLAINING OF CHEST PAIN, STATES 3/10, RESPIRATORY IN ROOM GETTING EKG AT THIS TIME.
[2019-01-14] VITALS (33 sets, daily range): BP systolic 100–159; BP diastolic 43–87; PULSE 54–72; RESP 12–18; TEMP 36.6–37.6; O2SAT 94–100
[2019-01-14] MEDS: Atorvastatin Calcium 40 MG Tablet PO (00:14)
[2019-01-14] MEDS: Zolpidem Tartrate 5 MG Tablet PO ×2 (00:14→20:50)
[2019-01-14] MEDS: Ibuprofen 400 MG Tablet PO (03:34)
[2019-01-14] MEDS: 0.9% NaCl Peripheral Flush Adult/Peds IV ×6 (03:48→21:35)
[2019-01-14] MEDS: Ondansetron 4 MG/2 ML Vial IV (03:48)
[2019-01-14] MEDS: Morphine 2 MG/ML Syringe IV ×4 (03:55→20:51)
--- NOTE | 2019-01-14 05:55 | EKG12_ITS ---
Test Reason : CP Blood Pressure : / mmHG Vent. Rate : 065 BPM Atrial Rate : 065 BPM P-R Int : 230 ms QRS Dur : 078 ms QT Int : 408 ms P-R-T Axes : 079 022 095 degrees QTc Int : 424 ms Sinus rhythm with 1st degree A-V block Left ventricular hypertrophy with repolarization abnormality Abnormal ECG Confirmed by PANKAJ THOMPSON, POORNIMA ([id number]), copy editor SONNY DUMONT ([id number]) on 01/24/2019 9:17:26 A M Referred By: GEMMA Confirmed By:ROLF LIRA MD
[2019-01-14] MEDS: Levothyroxine 75 MCG Tablet PO (06:05)
--- NOTE | 2019-01-14 07:56 | PCM.PN.HOSP ---
Patient Problems: Active and Suspected Problems (Last Reviewed 01/14/19 @ 03:04 by Henrry Driver MD) Non-STEMI (non-ST elevated myocardial infarction) (Acute) Non-STEMI (non-ST elevated myocardial infarction) (Acute) Subjective: Patient was seen and examined. Denied any more chest pain. Has mild headache. Denies dizziness or palpitation. No acute events overnight. Vitals/I&O's: Vital Signs Temp Pulse Resp BP Pulse Ox 98 F 60 14 114/57 L 98 01/14/19 06:00 01/14/19 07:05 01/14/19 07:00 01/14/19 07:00 01/14/19 07:40 Oxygen Flow Rate (L/min) 2 Oxygen Delivery Method Nasal Cannula Weight: 77.6 kg Body Mass Index (BMI) 32.3 Intake and Output for Last 24 Hours 01/12/19 01/13/19 01/14/19 23:59 23:59 23:59 Intake Total 9.10 / 9.10 66.00 / 66.00 Balance 9.10 / 9.10 66.00 / 66.00 General: Alert, Oriented x3, Cooperative, No apparent distress HEENT: Atraumatic, PERRLA, EOMI, Normocephalic Oral: Moist Mucosa Neck: Supple Lungs: Clear to auscultation, Normal air movement Cardiovascular: Regular rate, Regular Rhythm, Normal S1, Normal S2, No murmurs Abdomen: Bowel Sounds Present, Soft, Non Tender, Non-Distended, No Hepato-splenomegaly Extremities: No edema Skin: No rashes, No breakdown Musculoskeletal: No Tenderness to Palpation of Joints or Extremities Lymphatic: No Cervical, Supraclavicular, or Inguinal Adenopathy Neurological: Cranial nerves II-XII grossly intact, Neuro grossly intact Psych/Mental Status: Normal Affect, Appropriate Laboratory Results 01/13/19 19:35: WBC 8.4, RBC 5.71 H, Hgb 15.0, Hct 48.7 H, MCV 85.3, MCH 26.3 L, MCHC 30.8 L, RDW Std Deviation 43.4, RDW Coeff of Elva 14.0, Plt Count 178, MPV 10.6, Immature Gran % (Auto) 0.400, Neut % (Auto) 74.6 H, Lymph % (Auto) 16.5 L, [place] % (Auto) 6.7, Eos % (Auto) 1.4, Baso % (Auto) 0.4, Absolute Neuts (auto) 6.3, Absolute Lymphs (auto) 1.39, Nucleated RBC % 0 01/13/19 19:35: Sodium 142, Potassium 3.8, Chloride 105, Carbon Dioxide 30.0, Anion Gap 7, BUN 14, Creatinine 0.85, Estim Creat Clear Calc 44.48, Est GFR (MDRD) Af Amer 84, Est GFR (MDRD) Non-Af 69, BUN/Creatinine Ratio 16.4, Glucose 95, Calcium 9.4, Troponin I 0.133 H 01/13/19 23:51: Troponin I 2.320 H* 01/14/19 03:00: Triglycerides Pending, Cholesterol Pending, LDL Cholesterol Pending, VLDL Cholesterol Pending, HDL Cholesterol Pending 01/14/19 03:00: Troponin I Pending 01/14/19 05:27: Troponin I Pending Current Medications Aspirin (Ecotrin) 81 mg PO DAILY@0800 [facility] Atorvastatin Calcium (Lipitor) 40 mg PO QHS [facility] Last Admin: 01/14/19 00:14 Dose: 40 mg Documented by: Clopidogrel Bisulfate (Plavix) 75 mg PO DAILY [facility] Dextrose (D50w Syringe) 0 gm IV X1 PRN; Protocol PRN Reason: Hypoglycemia Enoxaparin Sodium (Lovenox) 80 mg SC Q12 [facility] Glucagon () 1 mg IM .X1 PRN PRN Reason: Hypoglycemia Nitroglycerin/Dextrose () 250 mls @ 3 mls/hr CONT INF .[id number] [facility]; Protocol Last Titration: 01/14/19 07:00 Dose: 15 mcg/min, 9 mls/hr Documented by: Sodium Chloride () 250 mls @ 15 mls/hr IV .[id number] PRN PRN Reason: SALINE FLUSH Ibuprofen (Motrin) 400 mg PO X1 ONE Stop: 01/14/19 03:06 Last Admin: 01/14/19 03:34 Dose: 400 mg Documented by: Levothyroxine Sodium (Synthroid) 75 mcg PO DAILY@0600 [facility] Last Admin: 01/14/19 06:05 Dose: 75 mcg Documented by: Lisinopril (Zestril) 10 mg PO DAILY [facility] Montelukast Sodium (Singulair) 10 mg PO DAILY LANIE Morphine Sulfate () 2 mg IV Q3H PRN PRN PRN Reason: Severe Pain (-01/18) Last Admin: 01/14/19 03:55 Dose: 2 mg Documented by: Multivitamins/Minerals (Multivitamin With Minerals) 1 tablet PO DAILYCM LANIE Ondansetron HCl (Zofran) 4 mg IV Q8H PRN PRN PRN Reason: NAUSEA/VOMITING Last Admin: 01/14/19 03:48 Dose: 4 mg Documented by: Pantoprazole Sodium (Protonix) 20 mg PO DAILY LANIE Sertraline HCl (Zoloft) 100 mg PO BID LANIE Sodium Chloride () 5 - 15 ml IV UD PRN PRN Reason: SALINE FLUSH Last Admin: 01/14/19 03:56 Dose: 15 ml Documented by: Zolpidem Tartrate (Ambien (Generic)) 5 mg PO HS LANIE Last Admin: 01/14/19 00:14 Dose: 5 mg Documented by: Medical Necessity - Tobacco Use Smoking Status: Former smoker Assessment/Plan All Active Problems (Last Reviewed 01/14/19 @ 03:04 by Henrry Driver MD) Non-STEMI (non-ST elevated myocardial infarction) (Acute) Non-STEMI (non-ST elevated myocardial infarction) (Acute) 83-year-old female with past medical history of hypertension, CAD status post CABG was admitted with chest pain and found to be in NSTEMI 1. Acute NSTEMI, SHENG 5, score in a patient with CAD status post CABG history, EKG shows no acute ST changes Troponins appear to be trending down, continue nitro drip On Aspirin, Plavix, statin, lisinopril 2. Hypertension, controlled, continue home lisinopril 3. Anxiety/depression, Zoloft 4. Hypothyroidism, on Synthroid 5. GERD on PPI 6. DVT PPx- Lovenox SC Code Visit Inpatient E&M: 92231 Subs Hosp L2
[2019-01-14 07:57] LABS: Cholesterol 167 mg/dL (200); High Density Lipoprotein 49 mg/dL; Triglycerides 178 mg/dL; Very Low Density Lipoprotein 36 mg/dL (5-40)
--- NOTE | 2019-01-14 08:08 | ECHOD_ITS ---
Reason For Study: CP Procedure This was a 2D Doppler, Color Flow transthoracic echocardiogram. Exam performed portable in patient room. Left Ventricle Normal size and thickness. The estimated ejection fraction is 65 %. Stage 1 diastolic dysfunction. No regional wall motion abnormalities noted. Right Ventricle Normal size and thickness. Normal systolic function. Atria Normal left atrium. Normal right atrium. Normal atrial septum. Mitral Valve The mitral valve is structurally normal. No prolapse or stenosis seen. Trivial mitral valve insufficiency. Tricuspid Valve Normal tricuspid valve. Trivial tricuspid valve insufficiency. Unable to estimate RV systolic pressure due to insufficient tricuspid regurgitant envelope. Aortic Valve Normal aortic valve. Trisinus/trileaflet aortic valve. Pulmonic Valve Normal pulmonic valve. Great Vessels Normal aortic root. Normal arch. Normal inferior vena cava. Inferior vena cava collapse with sniff. Pericardium/Pleural No pericardial effusion. MMode/2D Measurements & Calculations LVIDd: 4.5 cm IVSd: 1.3 cm LA dimension: 3.8 cm LVIDs: 2.6 cm LVPWd: 1.00 cm FS: 42.1 % LAV(MOD-bp): 54.4 ml LA A4 area: 18.4 cm2 RA A4 area: 12.3 cm2 LAV(MOD-bp) Indexed: 30.8 ml/m2 LAV(MOD-sp2): 51.9 ml LAV(MOD-sp4): 54.3 ml Time Measurements MV dec time: 0.31 sec Doppler Measurements & Calculations MV E max matt: 102.7 cm/sec Lat Peak E' Matt: 10.1 cm/sec Med Peak E' Matt: 5.9 cm/sec MV A max matt: 97.2 cm/sec E/E' lat: 10.1 E/E' med: 17.5 MV E/A: 1.1 MV V2 max: 98.2 cm/sec MV P1/2t max matt: 96.3 cm/sec Ao V2 max: 158.9 cm/sec MV max P.9 mmHg MV P1/2t: 104.8 msec Ao max P.1 mmHg MV V2 mean: 59.3 cm/sec MV dec slope: 269.1 cm/sec2 Ao V2 mean: 103.8 cm/sec MV mean P.6 mmHg MVA(P1/2t): 2.1 cm2 Ao mean P.9 mmHg MV V2 VTI: 37.7 cm Ao V2 VTI: 29.9 cm LV V1 max: 115.9 cm/sec PA V2 max: 102.1 cm/sec LV V1 max P.4 mmHg LV V1 mean P.6 mmHg LV V1 mean: 75.0 cm/sec LV V1 VTI: 24.0 cm Interpretation Summary The estimated ejection fraction is 65 %. Stage 1 diastolic dysfunction. Trivial mitral valve insufficiency. Trivial tricuspid valve insufficiency. Unable to estimate RV systolic pressure due to insufficient tricuspid regurgitant envelope. Comapred to echo report dated 11/04/2014, LV function has increased from 55% to 65% and MR/TR have gone from mild to trivial. Ordering Physician: Matt Kim Referring Physician: Olive Julien Performed By: Sebastian Martel RCS
--- NOTE | 2019-01-14 08:29 | OT ---
Provided handout of BUE TE For pt to perform while in hospital and upon dc to maintain BUE strength. Pt demo and verbalizes understanding of education.
[2019-01-14] MEDS: Aspirin E.C. 81 MG Tablet PO (08:51)
[2019-01-14] MEDS: Enoxaparin 80 MG/0.8 ML Syringe SC ×2 (08:51→20:51)
[2019-01-14] MEDS: Montelukast 10 MG Tablet PO (08:52)
[2019-01-14] MEDS: Lisinopril 10 MG Tablet PO (08:52)
[2019-01-14] MEDS: Multivitamins,Ther W-Minerals Tablet 1 TABLET PO (08:52)
[2019-01-14] MEDS: Pantoprazole Sodium 20 MG Tablet PO (08:52)
[2019-01-14] MEDS: Clopidogrel Bisulfate 75 MG Tablet PO (08:52)
[2019-01-14] MEDS: Sertraline 100 MG Tablet PO ×2 (08:52→20:51)
--- NOTE | 2019-01-14 09:20 | PCM.CONS.C ---
Problem List (1) Non-STEMI (non-ST elevated myocardial infarction) Status: Acute (2) Hyperlipidemia Status: Chronic Qualifiers: Hyperlipidemia type: pure hypercholesterolemia Qualified Code(s): E78.00 - Pure hypercholesterolemia, unspecified; E78.0 - Pure hypercholesterolemia (3) Hypertension Status: Chronic Qualifiers: Hypertension type: essential hypertension Qualified Code(s): I10 - Essential (primary) hypertension (4) Atherosclerotic heart disease of [place] coronary artery without angina pectoris Status: Chronic Qualifiers: [place] vs. transplanted heart: [place] heart Qualified Code(s): I25.10 - Atherosclerotic heart disease of [place] coronary artery without angina pectoris (5) Presence of aortocoronary bypass graft Status: Chronic Comment: January 2010 CABG X 3 vessels: SOARES to LAD, SVG to first and second DX branches of the LAD (6) LEOS (dyspnea on exertion) Status: Chronic (7) Non-STEMI (non-ST elevated myocardial infarction) Status: Acute Reason for Consult Date of Consultation: 01/14/19 Reason for Consultation: Unstable angina, dyspnea on exertion, non-STEMI, abnormal EKG, hypertension, hyperlipidemia History of Present Illness: The patient is a 73 year old F, patient of Dr. Umana's, nondiabetic, previous smoker who quit around 40 years ago after a [id number]-rgfm smoking history, with alleged asthma versus COPD, hypertension, coronary artery disease status post three-vessel bypass surgery by Dr. Marte at [facility] in 2009. At that time she received a SOARES to the LAD, and a sequential saphenous vein graft to the diagonal branches. Repeat catheterization in 2016 here was to hospital but Dr. Umana demonstrated widely patent SOARES to her LAD, and saphenous vein graft to diagonal 1 and diagonal #2. At that time she had about a 40% mid left circumflex stenosis, and a 60% distal posterior lateral branch stenosis of her non-bypassed dominant right coronary artery. LV function was normal. The patient denies any recent stress test or changes to her medications. She reports that over the last month she has had progressively worsening fatigue, tiredness, dyspnea on exertion and shortness of breath with less and less activity. Last evening around 6 PM the patient and her went to a local [employer], but before they could be seated the patient became profoundly nauseated and had to throw up in the bushes outside the restaurant. Subsequent to that she developed severe substernal chest achiness, and came to [facility] ER. In the ER an EKG was performed which showed normal sinus rhythm/sinus bradycardia with new anterolateral T wave inversion and ST segment depression. Her blood pressure was quite elevated at 248/80, and she was given 3 sublingual nitroglycerin and nitroglycerin paste was applied. Her initial troponin was 0.133, and increased to maximum of 2.32 and is trending downwards. She has had no further chest pain overnight. She denies any changes to her medications, running out of her medications, or omissions of her medications. She denied any recent exertional anginal symptoms, fevers, chills. On further history her chest pain was described as a severe ache, which radiated to her back, and up into her right upper jaw area with associated shortness of breath and dyspnea. She is uncertain whether this was similar to her previous angina prior to her bypass surgery. She is currently resting comfortably. The patient was treated with baby aspirin, loaded with 300 mg of Plavix, placed on subcu Lovenox, and placed on nitroglycerin drip. Her blood pressure has normalized and she is had no further anginal symptoms. [] Past Medical History Allergies/Adverse Reactions: Allergies acetaminophen [From Tylenol] Allergy (Verified 01/13/19 19:33) Unknown codeine Allergy (Verified 01/13/19 19:33) Unknown progesterone Allergy (Verified 01/13/19 19:33) Unknown trazodone Allergy (Verified 01/13/19 19:33) Unknown Home Medications: Ambulatory Orders Medication Instructions Recorded Levothyroxine [Synthroid] 75 mcg PO DAILY 04/23/15 Montelukast [Singulair] 10 mg PO DAILY 04/23/15 Multivit with Calcium,Iron,Min 1 ea PO DAILY 04/23/15 [Multiple Vitamins For Women] Omeprazole [Prilosec] 20 mg PO DAILY 04/23/15 aspirin 81 mg tablet,delayed 81 mg PO QDAY 05/17/17 release sertraline 50 mg tablet 100 mg PO BID tab 08/15/17 zolpidem 5 mg tablet 5 mg PO QDAY tab 08/15/17 lisinopril 10 mg tablet 10 mg PO DAILY #90 tab 08/03/18 simvastatin 40 mg tablet 40 mg PO QHS #90 tab 08/30/18 Past Medical History (Chronic Problems): Chronic Problems (Last Reviewed 01/14/19 @ 03:04 by Henrry Driver MD) History of cholecystectomy (Chronic) Depression (Chronic) Asthma (Chronic) Hypothyroidism (Chronic) Hyperlipidemia (Chronic) Hypertension (Chronic) Atherosclerotic heart disease of [place] coronary artery without angina pectoris (Chronic) Presence of aortocoronary bypass graft (Chronic) January 2010 CABG X 3 vessels: SOARES to LAD, SVG to first and second DX branches of the LAD Other usp (current) drug therapy (Chronic) Body mass index (BMI) of 32.0-32.9 in adult (Chronic) Carotid artery disease (Chronic) COPD (chronic obstructive pulmonary disease) (Chronic) EARL (obstructive sleep apnea) (Chronic) LEOS (dyspnea on exertion) (Chronic) Surgical History: cholecystectomy, coronary bypass surgery - *Family History Maternal Family History: Family History (Last Reviewed 01/14/19 @ 03:05 by Henrry Driver MD) Mother CAD (coronary artery disease) CVA (cerebral vascular accident) Father COPD (chronic obstructive pulmonary disease) Lives: Spouse/ Significant Other Smoking Status: Former smoker Alcohol: Occasional Review of Systems - Review of Systems General: Denies: Fever, Night Sweats, Fatigue Cardiovascular: Reports: Chest Discomfort, Chest Discomfort at Rest, Chest Tightness, Chest Heaviness, Shortness of Breath, Shortness of Breath at Rest. Denies: Orthopnea, PND, Peripheral Edema, Palpitations, Lightheadedness, Dizziness, Near Syncope, Syncope Respiratory: Denies: Cough, Sputum Production, Hemoptysis Gastrointestinal: Denies: Hematemesis, Hematochezia, Melena Genitourinary: Denies: Dysuria, Hematuria Skin: Denies: Rash Subjectve: Patient resting comfortably, no acute acute distress, no chest pain. Telemetry negative. Objective: Vital Signs Temp Pulse Resp BP Pulse Ox 98 F 61 16 126/64 H 96 01/14/19 06:00 01/14/19 08:00 01/14/19 08:00 01/14/19 08:00 01/14/19 08:00 Oxygen Flow Rate (L/min) 2 Oxygen Delivery Method Nasal Cannula Weight: 171 lb 1.259 oz Body Mass Index (BMI) 32.3 Intake and Output for Last 24 Hours 01/12/19 01/13/19 01/14/19 23:59 23:59 23:59 Intake Total 9.10 / 9.10 75.00 / 75.00 Balance 9.10 / 9.10 75.00 / 75.00 General: Awake, Alert, Oriented x 3 HEENT: PERRL, EOMI, Sclera Non Icteric Neck: Supple, Good ROM, No Lymph Node Enlargement Lungs: Clear to auscultation Cardiovascular: Regular Rhythm, Normal S1, Normal S2, No Murmurs, No Rubs, No Gallops Vascular: No Carotid Bruits, Normal Femoral Pulses, Normal Radial Pulses, Normal Dorsalis Pedal Pulse, Normal Posterior Tibial Pulses Abdomen: Bowel Sounds Present, Soft, Non Tender, No HSM, No Organomegaly Extremities: No Cyanosis, No Clubbing, No edema Neurological: No Focal Motor or Sensory Deficit 01/13/19 19:35: WBC 8.4, RBC 5.71 H, Hgb 15.0, Hct 48.7 H, MCV 85.3, MCH 26.3 L, MCHC 30.8 L, Plt Count 178, MPV 10.6, Immature Gran % (Auto) 0.400, Neut % (Auto) 74.6 H, Lymph % (Auto) 16.5 L, Holt % (Auto) 6.7, Eos % (Auto) 1.4, Baso % (Auto) 0.4, Absolute Neuts (auto) 6.3, Nucleated RBC % 0 01/13/19 19:35: Sodium 142, Potassium 3.8, Chloride 105, Carbon Dioxide 30.0, Anion Gap 7, BUN 14, Creatinine 0.85, Est GFR (MDRD) Af Amer 84, Est GFR (MDRD) Non-Af 69, BUN/Creatinine Ratio 16.4, Glucose 95, Calcium 9.4, Troponin I 0.133 H 01/13/19 23:51: Troponin I 2.320 H* 01/14/19 03:00: Triglycerides 178, Cholesterol 167, LDL Cholesterol 82, VLDL Cholesterol 36, HDL Cholesterol 49 01/14/19 03:00: Troponin I 1.730 H* 01/14/19 05:27: Troponin I 1.290 H* Rhythm: EKG: EKG this morning showed normal sinus rhythm with resolution of the anterolateral T wave inversion and ST segment changes. ECHO: Pending Stress Test: Cardiac Cath: Pending PCI: CT Surgery: Holter monitor: EPS: PPM: CXR: Chest CT Scan: Assessment/Plan 1. Coronary artery disease: The patient presents with a combination of hypertensive emergency, chest pain, nausea, vomiting, dynamic EKG changes consistent with lateral ischemia, abnormal troponins superimposed on known coronary disease and previous bypass surgery approximately 9 years ago. At this point I recommend continuing the patient on baby aspirin 81 mg a day, Plavix 75 mg daily, IV nitroglycerin to avoid recurrent hypertensive induced anginal symptoms, subcu Lovenox per protocol and that she undergo a 2D echo with Doppler to document her LV function particularly of the inferolateral wall. In addition I recommend that she have a relook coronary angiogram and define her coronary anatomy and check the patency of her bypass grafts. I reviewed the films this morning prior to seeing the patient, and believe she may have had progression of her coronary disease in her left circumflex and/or her middle part of her posterior lateral branch. The risks/benefits of the procedure were thoroughly explained the patient including specific attention to lack of on-site surgical back-up, and informed consent was obtained. 2. Hyperlipidemia: Her LDL and HDL cholesterol are fairly well-controlled but not completely optimized. Her LDL is 82 and HDL is 49. Recommend increasing her Lipitor to 80 mg p.o. daily. 3. Hypertension: Patient states that her blood pressure is fairly well controlled and she just saw her PCP on Tuesday and was told that her blood pressure was in the 120s. Nonetheless the patient came in with significant hypertension which may have exacerbated her condition. Recommend increasing her lisinopril to 20 mg p.o. daily. She is not on beta-blockers but is bradycardic so would hold on beta-blockers at this time. 4. Hypothyroidism: Recommend obtaining a TSH and T4 if not already done so. 5. Thank you very much for the opportunity to participate in the cardiac care of the patient. Consultation time took place between 830 and 9 AM. Code Visit Inpatient E&M: 77857 Init Hosp L2
[2019-01-14 10:21] LABS: T4 Total, Thyroxin 9.1 ug/dL (4.8-13.9)
[2019-01-14 10:22] LABS: Thyroid Stim Hormone (TSH) 1.07 uIU/mL (0.358-3.74)
[2019-01-14] MEDS: Lisinopril 20 MG Tablet PO (11:42)
[2019-01-14] MEDS: Atorvastatin Calcium 80 MG Tablet PO (20:53)
[2019-01-15] VITALS (44 sets, daily range): BP systolic 102–157; BP diastolic 33–97; PULSE 57–86; RESP 12–17; TEMP 36.6–37.7; O2SAT 92–100; BMI 32.3
[2019-01-15] MEDS: Nitroglycerin Infusion 250 ML 9 MG CONT INF (02:14)
[2019-01-15 05:16] LABS: Hemoglobin 11.7 g/dL (12.0-15.0); Mean Corpuscular Volume 85.4 fL (81-99)
[2019-01-15 05:29] LABS: International Normalized Ratio 1.2; Prothrombin Time (Protime)PT. 14.5 SECONDS (11.7-14.9)
[2019-01-15 05:32] LABS: Hematocrit 37.3 % (37-47); Mean Corp Hgb Conc 31.4 g/dL (32-36); Mean Corpuscular Hgb 26.8 pg (27.0-32.0); RBC Distribution Width CV 14.3 % (11.6-14.6); RBC Distribution Width SD 44.9 fl (35.1-43.9); Red Blood Count 4.37 M/mm3 (4.2-5.4)
[2019-01-15 05:33] LABS: Mean Platelet Vol. 10.3 fl (6.2-12.0); POSITIVE COUNT NO; Platelet Count 140 K/mm3 (150-450)
[2019-01-15 05:36] LABS: Anion Gap 8 (5-15); BUN 15 mg/dL (7-18); BUN/Creat Ratio 19.7 RATIO (10-20); Calcium,Total 8.3 mg/dL (8.5-10.1); Chloride 107 mmol/L (98-107); Creatinine, Serum 0.76 mg/dL (0.55-1.02); EST Glomerular Filtration Rate 79 mL/min (>60); Est Glom Filt Rate - Afr Amer 96 mL/min (>60); Estimated Creatinine Clearance 37.81 ml/min; Glucose 106 mg/dL (74-106); Potassium 3.9 mmol/L (3.5-5.1); Sodium Level 142 mmol/L (136-145)
--- NOTE | 2019-01-15 05:55 | EKG12_ITS ---
Test Reason : REPEAT CP Blood Pressure : / mmHG Vent. Rate : 059 BPM Atrial Rate : 059 BPM P-R Int : 240 ms QRS Dur : 078 ms QT Int : 446 ms P-R-T Axes : 058 025 100 degrees QTc Int : 441 ms Sinus bradycardia with 1st degree A-V block Left ventricular hypertrophy with repolarization abnormality Abnormal ECG Confirmed by PANKAJ THOMPSON, POORNIMA ([id number]), map editor SONNY DUMONT ([id number]) on 01/24/2019 9:17:48 A M Referred By: LISHA Confirmed By:ROLF LIRA MD
[2019-01-15] MEDS: Levothyroxine 75 MCG Tablet PO (06:20)
[2019-01-15] MEDS: Aspirin E.C. 81 MG Tablet PO (06:20)
[2019-01-15] MEDS: Lisinopril 20 MG Tablet PO ×2 (06:20→21:25)
[2019-01-15] MEDS: 0.9% Normal Saline 1,000 ML 15 ML IV (06:21)
[2019-01-15] MEDS: Clopidogrel Bisulfate 75 MG Tablet PO (06:21)
[2019-01-15] MEDS: DiphenhydrAMINE 25 MG Capsule 50 MG PO (09:07)
--- NOTE | 2019-01-15 10:27 | NURSING ---
dr bloom asks that the nitro drip currently infusing at 15 mcg/min infuse for at least 6 hours from now 1030 to ensure groin healing
[2019-01-15 10:36] LABS: ACT Activated Clotting Time 213 sec (74-137)
--- NOTE | 2019-01-15 10:51 | CL.I_ITS ---
Patient Name: NERIS MCGOVERN Study Date: 01/15/2019 Performing: Matt Kim MD Ht: 61 inches 155 cm : 1945 Wt: 172.2 lbs 78 kg Age: 73 Gender: female BSA: 1.77 PROCEDURE(S) PERFORMED HA47-LPT/COR/LV/CABG UG12-ANG W OR WO PTCA, SINGLE CORONARY ARTERY CLINICAL PROFILE AND CO-MORBIDITIES Patient presents with NSTEMI for urgent cardiac cath Indications: ACS > 24 hrs, New Onset Angina <= 2 months, Stable Known CAD Heart Failure: None Stress/Imaging Stress/Image Study Performed: No Angina Classification Anginal Classification w/in 2 Weeks: CCS III CAD Presentations: Unstable angina. Non-STEMI. Symptom onset Date/Time: 01/13/2019 Time Not Avail able Comorbidities/Risk Factors: Hypertension Dyslipidemia Diabetes Mellitus: Diabetes Therapy: Oral Prior CABG CONCLUSIONS Double vessel CAD of the LAD, PL branch of RCA (unbypassed). Normal LV size, wall motion,and systolic function Non obstructive coronary arteries Successful PTCA/CRUZITO proximal 2nd RPL branch of RCA with a 2.5 x 16 Promus Synergy, post dilated with a 2.5 x 8 NC Balloon throughout, 75%-->0%, no dissection. Pt had identical anginal symptoms during ba lloon/stent deployment which resolved after PCI. RECOMMENDATIONS Referred for immediate PCI Highly recommend quitting all tobacco products Follow up with primary finished cigar maker Risk factor modification ASA Indefinitley Plavix for at least 12 months Routine post interventional care Refer for Outpatient Cardiac Rehab Manual sheath removal per protocol Follow up with Dr. Umana Medical management of mid LCX/OM as this appears to be improved over previous cath in 2016, and <50% stenosed. If pt continues to have exertional CP after optimized medical therapy and/or evidence of l ateral ischemia on stress testing, would consider PCI of LCX/OM. Successful Mynx Control of RFA. DESCRIPTION OF PROCEDURE The patient arrived to the procedure lab. The risks and benefits of the procedure as well as a full d escription of our services here and lack of surgical backup were fully explained to the patient and/o r their significant other prior to the catheterization. The Timeout was completed, verifying the price ect patient and procedure. The patient's procedural site was prepped and draped in the usual fashion. Local anesthetic was given subcutaneously to right groin region with Lidocaine 2%. Using a modified Seldinger technique, arterial access was obtained via the right femoral artery, a 4Fr sheath was inse rted. Left Coronary Artery selective angiography was performed in multiple views using a 4 Fr. JL5 c atheter. Right Coronary Artery selective angiography was then performed in multiple views using a 4 F r. 3DRC catheter. Saphenous Vein graft to the DIAG 1 selective angiography was performed in multiple views using a 4 Fr. 3DRC catheter. Saphenous Vein graft to the DIAG 2 selective angiography was performed in multiple views using a 4 Fr. 3DRC catheter. Left internal mammary artery graft to the LAD selective angiography was performed in multiple views using a 4 Fr. 3DRC catheter. Left Ventriculography was performed in SHAIKH projection using a 4 Fr. Pigtail catheter. LV to AO pullba ck pressures were then recordedThe images were reviewed and options discussed. A decision was then ma de to proceed with an Intervention, IVUS or other adjunct procedure. Arterial sheath was exchanged for a 6fr 55cm sheath HS II Guide catheter was inserted and engaged into the RCA. BMW Guide wire was advanced to the RPL. Emerge 2.00x12 Balloon catheter was inserted. PTCA balloon inflated at 10 atms for 30 secs. Angiogram performed post balloon dilatation. Synergy 2. 50x16 Drug Eluting stent was inserted. Angiogram performed post stent deployment. Emerge 2.50x8 Ballo on catheter was inserted. PTCA balloon inflated at 14 atms for 8 secs. PTCA balloon inflated at 15 at ms for 10 secs. PTCA balloon inflated at 14 atms for 9 secs. PTCA balloon inflated at 14 atms for 9 s ecs. Angiogram performed post balloon dilatation. Arterial sheath was exchanged for a 6 Fr Sheath. Co ntrast was injected through the sheath and the Right Iliac and Femoral artery were assessed for possi ble closure device. The arterial sheath was pulled and a Mynx closure device was deployed for hemost asis CORONARY ANGIOGRAPHY DOMINANCE: Right Dominant LEFT HEART ASSESSMENT Left Ventricular Ejection Fraction: by LV Gram 65 % Normal Left Ventricular systolic function LVEDP: 18 mmHg Normal LV wall motion LEFT MAIN: Angiographically normal LEFT ANTERIOR DESCENDING ARTERY: PROX LAD: 85 % Stenosis CIRCUMFLEX ARTERY: MID CIRC: Moderate luminal irregularities up to 50% RIGHT CORONARY ARTERY: PROX RCA: Non-obstructive MID RCA: Non-obstructive DISTAL RCA: Moderate luminal irregularities up to 50% RT PLV: 75 % Stenosis RT PDA: Ostial - Mild luminal irregularities less than 30% GRAFTS: SOARES graft to the LAD is patent with large, unclipped accessory branch Saphenous Vein graft to the 1st Diagonal is patent Saphenous Vein graft to the 2nd Diagonal is patent INTERVENTION INFORMATION LESION SITE: RPL (2nd) Lesion Complexity: Non-High/Non-C, lesion at bifurcation: No, thrombus present: No, lesion length: 16 mm, culprit lesion: Yes Pre Stenosis: 75 % Pre intervention SHENG flow: 3 PROCEDURE: Drug Eluting Stent with pre and post dilatation Post Stenosis: 0 % Post intervention SHENG flow: 3 Lesion Devices: Sierra .014 BMW Parks Straight 190cm Rayshawn Sci EMERGE MR 2.00x12 BALLOON Medtronic 6 Fr HSII 100cm Guide Catheter Rayshawn Sci Synergy MR CRUZITO 2.50x16 Rayshawn Sci NC EMERGE MR 2.50x08 BALLOON COMPLICATIONS No Complications PROCEDURE MEDICATIONS Versed 1 mg IV Versed 1 mg IV Fentanyl 25 mcg IV Oxygen: 2 L/min via nasal cannula Heparin 6000 unit(s) IV 01/15/2019 10:07:40 Nitro glycerin 25mg / 250ml D5W @ 15mcg infusing from PCU 01/15/2019 09:48:28 Nitro 200 mcg IC 01/15/2019 10:08:48 IV Bolus: .9 NaCl 200 ml total 01/15/2019 10:07:47 SUMMARY OF HEMODYNAMIC DATA Time AIR REST ECG 09:45:13 AO 130/42 (73) SA 09:55:40 LV 140/-10, 20 10:05:01 LV 135/-11, 18 10:05:08 LVp 143/-7, 18 10:05:13 AOp 147/46 (83) 10:05:18 Signed By Matt Kim MD On 01/15/2019 10:50:36 Matt Kim MD
[2019-01-15] MEDS: 0.9% Normal Saline 1,000 ML 150 ML IV (11:20)
--- NOTE | 2019-01-15 11:20 | NURSING ---
Arrived from [employer], Nitro drip maintained for BP control per Dr. Kim, Groin site benign, Patient denies CP.
[2019-01-15] MEDS: Carvedilol 3.125 MG TABLET PO ×2 (12:28→21:25)
[2019-01-15] MEDS: Morphine 2 MG/ML Syringe IV (12:55)
--- NOTE | 2019-01-15 14:06 | CRPHASE1_ITS ---
Patient Communication Former Patient:: Phase I PHII Cardiac Rehab Discussed with Patient:: Yes Guide to Cardiac Rehab Given to Patient:: Yes Cardiac Rehab Facility Choice List Given to Patient:: Yes - [facility] Choice Program [facility] CR PHII:: Communication Given to CR, Refer to [facility] Guitar Maker Hand:: Matt Kim PCP:: Olive Julien Phase II Cardiac Rehab:: Yes Sessions:: 36 sessions - 3 days/wk, 12 weeks Phase I Charge:: Level I - Education Risk Factors/Lifestyle Smoking Status: Former smoker Hx Hypertension: Yes Hx Metabolic Disorders: Yes Hx Dyslipidemia: Yes Hx Obesity: Yes Height: 5 ft 1 in Weight:: 171 lb BMI: 32.3 Post-Menopausal: Yes Stress: Recent Family History: Family History (Last Reviewed 01/14/19 @ 03:05 by Henrry Driver MD) Mother CAD (coronary artery disease) CVA (cerebral vascular accident) Father COPD (chronic obstructive pulmonary disease) Family History: COPD, Heart Disease, Stroke Past Cardiac Illness: Coronary Artery Bypass Graft Laboratory Values: Cardiac Rehab Phase I Labs Triglycerides 178 mg/dL (-199) 01/14/19 03:00 Cholesterol 167 mg/dL (200) 01/14/19 03:00 LDL Cholesterol 82 mg/dL (0-130) 01/14/19 03:00 HDL Cholesterol 49 mg/dL (40-) 01/14/19 03:00 Phase I Education Given On:: [place], Nutrition, Antiplatelet medication Issues Affecting Care:: None Knowledge of Condition:: Yes Learning Preferences: Verbal, Written, Audio/Visual, Demonstration Medical/Surgical History VA:: Yes - NSTEMI CAD:: Yes Hypertension:: Yes Dyslipidemia:: Yes Thyroid:: Yes - Hypothyroidism Depression:: Yes Other Medical/Surgical Issues:: EARL CABG: Yes Discharge/Home/Social Eval Marital Status: Patient Lives With:: spouse Cardiac Rehabilitation Info Cardiac Rehabilitation Program Information: Cardiac Rehabilitation is important for patients like you who are recovering from a heart problem. Cardiac rehabilitation programs are recognized as integral to the continued care of the patient with coronary heart disease. The cardiac rehabilitation program is designed to optimize a patient's physical, psychological, and social functioning. Health emergency care attendant work in cardiac rehabilitation programs and assist you with getting the treatments you need to get stronger and healthier - like exercise, healthy eating habits, and medications. Cardiac rehabilitation has been show to help people with heart problems live longer and have better life enjoyment than people who do not go to cardiac rehabilitation. Please contact the Cardiac Rehabilitation Program at [facility] at in two weeks if you have not heard from them.
--- NOTE | 2019-01-15 14:11 | CRPH1.INSTRU ---
General Education CAD and cardiac anatomy and function:: Patient communicates acknowledgment, Needs reinforcement Explanation of diagnoses and procedures:: Patient communicates acknowledgment, Needs reinforcement Sign/Symptoms of SC:: Patient communicates acknowledgment, Needs reinforcement Antiplatelet therapy: Patient communicates acknowledgment, Needs reinforcement Proper use of NTG-SL: Patient communicates acknowledgment, Needs reinforcement Emergency procedures and activation of EMS: Patient communicates acknowledgment, Needs reinforcement Compliance of all prescribed medications: Patient communicates acknowledgment, Needs reinforcement Smoking Patient Nicotine/Smoking Risk Factors Are:: Non-smoker Recommendations Include:: Previous smoker; encourage continued cessation Nicotine/Smoking Response Code:: Patient communicates acknowledgment, Patient returns demonstration Dyslipidemia Patient Dyslipidemia Risk Factors Are:: Total Cholesterol, Triglycerides, HDL, LDL Recommendations Include:: Lipid profile provided, Reviewed NCEP/ATP guidelines, Therapeutic Lifestyle Change dietary guidelines Dyslipidemia Response Code:: Patient communicates acknowledgment, Needs reinforcement Overweight/Obesity Patient Overweight/Obesity Risk Factors Are:: Obesity - > or = 30 Recommendations Include:: Weight loss of 5-10%, Reduced calorie diet, Exercise 5-7 times/week Overweight/Obesity:: Patient communicates acknowledgment, Needs reinforcement Hypertension Recommendations Include:: Maintain BP <130/85, DASH dietary guidelines, Decrease/maintain normal body weight, Moderation of ETOH Hypertension:: Patient communicates acknowledgment, Needs reinforcement Heart Disease Patient Heart Disease Risk Factors Are:: Family history of heart disease < 65 years old, Previous cardiac event Recommendations Include:: Educated family members of their risk, Educated family members of importance of prevention of heart disease Heart Disease Response Code:: Patient communicates acknowledgment, Needs reinforcement Diabetes Patient Diabetes Risk Factors Are:: No documented hx of diabetes Diabetes:: Not instructed Metabolic Syndrome Patient Metabolic Syndrome Risk Factors Are [3 of 5]:: Waist circumference > 35 [female] or 40 [male], High triglyceride >150, Hypertension, Low HDL <40 [male] or < 50 [female] Recommendations Include:: Reinforce compliance to risk factor modifications, Encouraged follow-up with Primary Care Physician Metabolic Syndrome Response Code:: Patient communicates acknowledgment, Needs reinforcement Sedentary Patient Sedentary Risk Factors Are:: Lack of regular exercise Recommendations Include:: Aerobic exercise 5-7 times/week for 20-30 minutes continuously, Benefits of regular exercise, Discussed home walking program, Monitored Outpatient Cardiac Rehab Sedentary Response Code:: Patient communicates acknowledgment, Needs reinforcement Stress Recommendations Include:: Identification of stressors, and assessment of coping skills, Stress management techniques Stress Response Code:: Patient communicates acknowledgment, Needs reinforcement
[2019-01-15] MEDS: Sertraline 100 MG Tablet PO ×2 (14:52→21:25)
[2019-01-15] MEDS: Pantoprazole Sodium 20 MG Tablet PO (14:52)
[2019-01-15] MEDS: Multivitamins,Ther W-Minerals Tablet 1 TABLET PO (14:52)
[2019-01-15] MEDS: Montelukast 10 MG Tablet PO (14:53)
[2019-01-15] MEDS: Naproxen 375 MG Tablet PO (15:15)
--- NOTE | 2019-01-15 15:51 | CASEMGMT ---
RN CM Assessment Introduced role of RN CM to patient.? Patient resting, easily aroused with verbal stimuli. Patient is alert, oriented and able?to participate in RN CM Assessment. ?Care providers, pharmacy, and demographics verified. Presentation: CP. H/o CABG x3 Admit Dx: NSTEMI Re-Admit: No Barriers/Issues: Patient supposed to have hip surgery later this month. Lack of support system as family all live out of town. Patient hoping to get stronger and recover before her 's surgery. PCP: Olive Julien Specialists: Cardio- Dr Umana Preferred Pharmacy: [facility] Insurance: [employer], [email or web address] Commercial Rx Benefit:?Yes, [employer] ?LNOK: Mookie Rodriguez LW/HPOA: Not sure if or what she has done and needs to check at home, denies offered information or services this admission. Aware can come as an Outpatient to complete. Living Arrangements:? Lives with her in a [place] home, [place] is in the basement but has two driveways and can access home from the back with 1 step to enter. ADL?s: Independent with ambulation and ADLs Transportation: Both patient and drive DME: None HHC: Past had a nurse once for Med recon-does not remember agency name SNF: None Goal: Home and does not think will have any needs. Denies any issues/concerns/or questions with DC planning. States after last surgery had Outpatient PT with [facility] and if still feeling weak would like Outpatient PT through [facility]. DC PLAN: Home with possible Outpatient PT. ESTIVEN [place]
--- NOTE | 2019-01-15 19:09 | PN_ITS ---
Patient Problems: Active and Suspected Problems (Last Updated 01/15/19 @ 15:47 by Ashley Dent) Non-STEMI (non-ST elevated myocardial infarction) (Acute 01/14/19) Subjective: The patient is a 73-year-old female with a past medical history of depression, asthma, hypothyroidism, hyperlipidemia, hypertension, CAD, history of CABG x3 vessels in 2009, obesity, carotid artery disease, COPD, EARL and GERD who presented to the ED at [facility] on 01/13/2019 complaining of chest pain. The chest pain started at rest is associated with nausea and vomiting. Had pain in the right jaw and also pain in her back. EKG showed ST segment depression in lead V1 and lead V2 that was new. Troponin was increased at 0.133 and the patient was admitted to a monitored bed on PCU and started on a nitroglycerin infusion and therapeutic Lovenox and she was given a loading dose of Plavix. The troponin peaked at 2.32 then began to decline. She was seen in consultation by Dr. Matt Kim from cardiology recommended an echocardiogram and a cardiac catheterization. Patient was agreeable and she was taken for cardiac catheterization on 01/15/2019. Left main was angiographically normal. The proximal LAD had an 85% stenosis the SOARES graft to the LAD was patent. The mid circumflex artery had 50% stenosis, the proximal RCA was nonobstructive in the mid RCA was nonobstructive. The distal RCA had moderate luminal irregularities up to 50% and the right PLV had a 75% stenosis. Saphenous vein graft to the first diagonal and second diagonal were patent. She had angioplasty of the RPL and a CRUZITO was placed. Post procedure she was sent to the ICU. She denied CP post procedure and her only complaint was back pain. She received 2 mg of morphine sulfate IV which relieved her headache but did not touch her back pain. She normally takes Naprosyn at home and she was given 1 dose of 375 mg. All events of the past 24 hours of been reviewed. BMP is unremarkable today and the CBC shows a mildly decreased platelet count at 140,000 which is likely secondary to Lovenox. The hemoglobin is 11.7, down from 15 at admission and this is likely secondary to hydration. - Physical Exam General: Alert, Oriented x3, Cooperative, No apparent distress, - - Lying flat in bed with a sandbag on her right groin. HEENT: Atraumatic, PERRLA, EOMI, Normocephalic Oral: Moist Mucosa Neck: Supple, No JVD, Negative Carotid Bruits, Trachea Midline Lungs: Clear to auscultation Cardiovascular: Regular rate, Regular Rhythm, Normal S1, Normal S2, No murmurs, No rub noted, No Gallop Abdomen: Bowel Sounds Present, Soft, Non Tender, Non-Distended Extremities: No edema Skin: No rashes Neurological: Cranial nerves II-XII grossly intact, Neuro grossly intact Psych/Mental Status: Appropriate Vital Signs Temp Pulse Resp BP Pulse Ox 98.6 F 66 16 135/41 H 96 01/15/19 16:00 01/15/19 18:00 01/15/19 18:00 01/15/19 18:00 01/15/19 18:00 Oxygen Flow Rate (L/min) 2 Oxygen Delivery Method Room Air Weight: 171 lb Body Mass Index (BMI) 32.3 Intake and Output for Last 24 Hours 01/13/19 01/14/19 01/15/19 23:59 23:59 23:59 Intake Total 9.10 / 9.10 890.00 / 899.00 1715.50 / 1715.50 Output Total 300 / 300 Balance 9.10 / 9.10 890.00 / 899.00 1415.50 / 1415.50 Laboratory Tests Past 24 Hrs 01/15/19 01/15/19 01/15/19 05:04 05:04 05:04 WBC 8.0 RBC 4.37 Hgb 11.7 L Hct 37.3 MCV 85.4 MCH 26.8 L MCHC 31.4 L RDW Std Deviation 44.9 H RDW Coeff of Elva 14.3 Plt Count 140 L MPV 10.3 PT 14.5 INR 1.2 Activated Clotting Time Sodium 142 Potassium 3.9 Chloride 107 Carbon Dioxide 27.0 Anion Gap 8 BUN 15 Creatinine 0.76 Estim Creat Clear Calc 37.81 Est GFR (MDRD) Af Amer 96 Est GFR (MDRD) Non-Af 79 BUN/Creatinine Ratio 19.7 Glucose 106 Calcium 8.3 L 01/15/19 10:24 WBC RBC Hgb Hct MCV MCH MCHC RDW Std Deviation RDW Coeff of Elva Plt Count MPV PT INR Activated Clotting Time 213 H Sodium Potassium Chloride Carbon Dioxide Anion Gap BUN Creatinine Estim Creat Clear Calc Est GFR (MDRD) Af Amer Est GFR (MDRD) Non-Af BUN/Creatinine Ratio Glucose Calcium Medical Necessity - Tobacco Use Smoking Status: Former smoker Assessment/Plan All Active Problems (Last Updated 01/15/19 @ 15:47 by Ashley Dent) Non-STEMI (non-ST elevated myocardial infarction) (Acute 01/14/19) H/O coronary artery bypass surgery (Resolved 01/2010) History of coronary artery stent placement (Resolved 01/15/19) Impressions 1. NSTEMI -continue aspirin, high intensity statin, Coreg, Plavix and lisinopril. Simvastatin was discontinued and the patient has been started on Lipitor 80 mg p.o. nightly. 2. Coronary artery disease with patent SOARES to the LAD and patent saphenous vein graft to diagonal #1 and diagonal #2. Status post PTCA/CRUZITO to the RPL today. 3. Mild thrombocytopenia-suspect secondary to Lovenox 4. Hypertension/anxiety/depression/hypothyroidism/GERD/obesity - continue home medications. Probable DC in the AM if no adverse events overnight Code Visit Inpatient E&M: 89469 Subs Hosp L2
[2019-01-15] MEDS: Atorvastatin Calcium 80 MG Tablet PO (21:25)
[2019-01-15] MEDS: Zolpidem Tartrate 5 MG Tablet PO (21:29)
[2019-01-16] VITALS (12 sets, daily range): BP systolic 112–148; BP diastolic 44–102; PULSE 56–67; RESP 13–18; TEMP 36.4–38.2; O2SAT 92–99
[2019-01-16 04:08] LABS: Hematocrit 37.2 % (37-47); Hemoglobin 11.5 g/dL (12.0-15.0); Mean Corp Hgb Conc 30.9 g/dL (32-36); Mean Corpuscular Hgb 26.4 pg (27.0-32.0); Mean Corpuscular Volume 85.5 fL (81-99); Mean Platelet Vol. 10.9 fl (6.2-12.0); Platelet Count 121 K/mm3 (150-450); RBC Distribution Width CV 14.2 % (11.6-14.6); RBC Distribution Width SD 44.5 fl (35.1-43.9); Red Blood Count 4.35 M/mm3 (4.2-5.4); White Blood Count 7.5 K/mm3 (4.4-11.0)
[2019-01-16 04:22] LABS: ALB/GLOB Ratio 0.9 RATIO (0.9-2.4); AST(SGOT) 17 U/L (15-37); Alanine Aminotransfer ALT/SGPT 23 U/L (13-56); Albumin, Serum 2.9 g/dL (3.2-5.0); Alkaline Phosphatase 66 U/L (45-117); Anion Gap 5 (5-15); BUN 10 mg/dL (7-18); Chloride 110 mmol/L (98-107); Creatinine, Serum 0.66 mg/dL (0.55-1.02); EST Glomerular Filtration Rate 92 mL/min (>60); Est Glom Filt Rate - Afr Amer 112 mL/min (>60); Estimated Creatinine Clearance 37.81 ml/min; Globulin 3.3 g/dL (2.2-4.2); Glucose 97 mg/dL (74-106); Potassium 3.7 mmol/L (3.5-5.1); Protein, Total 6.2 g/dL (6.4-8.2); Sodium Level 145 mmol/L (136-145)
[2019-01-16] MEDS: Levothyroxine 75 MCG Tablet PO (06:59)
--- NOTE | 2019-01-16 07:53 | PCM.PN.BLA ---
Progress Note Patient is scheduled for an office appointment with Dr. Umana on 02/14/2019 at 9:30 AM.
[2019-01-16] MEDS: Sertraline 100 MG Tablet PO (08:12)
[2019-01-16] MEDS: Multivitamins,Ther W-Minerals Tablet 1 TABLET PO (08:12)
[2019-01-16] MEDS: Aspirin E.C. 81 MG Tablet PO (08:13)
[2019-01-16] MEDS: Clopidogrel Bisulfate 75 MG Tablet PO (08:13)
[2019-01-16] MEDS: Carvedilol 3.125 MG TABLET PO (08:13)
[2019-01-16] MEDS: Pantoprazole Sodium 20 MG Tablet PO (08:13)
[2019-01-16] MEDS: Montelukast 10 MG Tablet PO (08:13)
[2019-01-16] MEDS: Lisinopril 20 MG Tablet PO (08:15)
--- NOTE | 2019-01-16 08:55 | PN.CARD_ITS ---
Subjectve: Patient doing very well this morning. No 24-hour events. Chest pain is completely resolved and the patient feels much better. Right groin is clean/ dry/intact without evidence of thrills, bruits or hematoma. There is some slight tenderness but no ecchymosis or hematoma. Telemetry is negative. EKG shows normal sinus rhythm, no acute changes. Hemoglobin and creatinine are within nominal limits. Objective: Vital Signs Temp Pulse Resp BP Pulse Ox 97.6 F L 62 13 133/65 H 99 01/16/19 08:11 01/16/19 08:11 01/16/19 08:11 01/16/19 08:11 01/16/19 08:11 Oxygen Flow Rate (L/min) 2 Oxygen Delivery Method Room Air Weight: 171 lb Body Mass Index (BMI) 32.3 Intake and Output for Last 24 Hours 01/14/19 01/15/19 01/16/19 23:59 23:59 23:59 Intake Total 890.00 / 899.00 1715.50 / 1955.50 360 / 360 Output Total 300 / 300 Balance 890.00 / 899.00 1415.50 / 1655.50 360 / 360 General: Awake, Alert, Oriented x 3 HEENT: PERRL, EOMI, Sclera Non Icteric Neck: Supple, Good ROM, No Lymph Node Enlargement Lungs: Clear to auscultation Cardiovascular: Regular Rhythm, Normal S1, Normal S2, No Murmurs, No Rubs, No Gallops Vascular: No Carotid Bruits, Normal Femoral Pulses, Normal Radial Pulses, Normal Dorsalis Pedal Pulse, Normal Posterior Tibial Pulses Abdomen: Bowel Sounds Present, Soft, Non Tender, No HSM, No Organomegaly Extremities: No Cyanosis, No Clubbing, No edema Neurological: No Focal Motor or Sensory Deficit 01/16/19 03:55: WBC 7.5, RBC 4.35, Hgb 11.5 L, Hct 37.2, MCV 85.5, MCH 26.4 L, MCHC 30.9 L, Plt Count 121 L, MPV 10.9 01/16/19 03:55: Sodium 145, Potassium 3.7, Chloride 110 H, Carbon Dioxide 30.0, Anion Gap 5, BUN 10, Creatinine 0.66, Est GFR (MDRD) Af Amer 112, Est GFR (MDRD) Non-Af 92, BUN/Creatinine Ratio 15.0, Glucose 97, Calcium 8.0 L, Total Bilirubin 0.60 Rhythm: EKG: ECHO: Stress Test: Cardiac Cath: PCI: CT Surgery: Holter monitor: EPS: PPM: CXR: Chest CT Scan: Medical Necessity - Tobacco Use Smoking Status: Former smoker Assessment/Plan 1. Coronary artery disease: The patient presents with a combination of hypertensive emergency, chest pain, nausea, vomiting, dynamic EKG changes consistent with lateral ischemia, abnormal troponins superimposed on known coronary disease and previous bypass surgery approximately 9 years ago. Patient underwent relook coronary angiogram which discovered progression of her proximal posterior lateral branch #2 coronary occlusive disease. Her left circumflex essentially gave way to a small obtuse marginal branch, which had at most a 50% stenosis in it. Patient underwent successful angioplasty and drug- eluting stenting to her posterior lateral branch #2 receiving a 2.5X 16 Promus stent with an excellent result. The patient had identical chest pain symptoms during balloon inflation so this most likely was the culprit artery. No additional angioplasty was performed of her nonobstructive left circumflex/obtuse marginal disease. Her grafts were all patent as well. Overnight she has done very well, and feels much better. Recommend continuing baby aspirin and Plavix for life given the age of her bypass grafts. Should the patient have continued exertional anginal symptoms I have a low threshold for angioplasty of her left circumflex/obtuse marginal but only after evaluation with a stress test. Her graph patient may be discharged home and follow-up with going forward. She will be enrolled in cardiac rehab. 2. Hyperlipidemia: Her LDL and HDL cholesterol are fairly well-controlled but not completely optimized. Her LDL is 82 and HDL is 49. Recommend increasing her Lipitor to 80 mg p.o. daily. P lipids in 6 weeks time. 3. Hypertension: Patient states that her blood pressure is fairly well controlled and she just saw her PCP on Tuesday and was told that her blood pressure was in the 120s. Nonetheless the patient came in with significant hypertension which may have exacerbated her condition. Recommend increasing her lisinopril to 20 mg p.o. daily. She is not on beta-blockers but is bradycardic so would hold on beta-blockers at this time. 4. Hypothyroidism: Recommend obtaining a TSH and T4 if not already done so. 5. Thank you very much for the opportunity to participate in the cardiac care of the patient. Patient may be discharged home. Code Visit Inpatient E&M: 63958 Subs Hosp L2
--- NOTE | 2019-01-16 09:18 | PCM.DC ---
- Discharge Diagnoses Current Active Problems: Current Active and Chronic Problems (Last Updated 01/15/19 @ 15:47 by Ashley Dent) Non-STEMI (non-ST elevated myocardial infarction) (Acute 01/14/19) Essential (primary) hypertension (Chronic) You will use the following diet at home:: Cardiac Your food should be the consistency of: Regular Your liquids should be the consistency of: Regular/Thin Discharge Activity: - - Start a walking program and work up to walking 30 minutes a day. No hills for now, only walk on flat surfaces until cardiac rehab tells you it is OK to increase your activity. May resume sexual activity in: 10-14 days Lifting Restrictions: no more than 5 lbs Call your doctor if your incision/area has: Continuous Slow Oozing, Sudden Increased Bleeding, Increased Pain/ Swelling, Increased Redness, Foul Smelling Discharge, Swelling at the incision site Call your doctor if you observe: Fever of 101 or Higher, Shortness of breath, Dizziness, Fainting spells, Swelling in the ankles, Chest pain Remove Dressing in (days):: 1 - may shower after the bandage is removed on 01/17/19 Instructions: What Is Angina?, Fast-Acting Nitroglycerin Additional Instructions: I faxed your prescriptions to [facility] so they should be ready for you when you get there. Make sure to take all the medications as directed. If you think you are having a reaction to one of the meds DO NOT STOP it.......call the cardiology office and tell them the symptoms you are having and they will tell you what to do. You can take your aspirin any time of the day but should take it about the same time every day. If you develop nausea, vomiting, pain in your stomach or your stool turns black call your PCP or the cardiology office for advice on what to do. I recommend you see your PCP in the next 5-7 days to check your BP and Heart rate and to order lab to check the kidney function, potassium and magnesium. I will send a copy of your discharge summary to Dr. Julien so she will know what happened while you were in the hospital. TAke care of yourself! It was a pleasure meeting you and I would be happy to care for you anytime you are in the hospital. Pending Tests on Discharge: none Allergies/Adverse Reactions: Allergies acetaminophen [From Tylenol] Allergy (Verified 01/13/19 19:33) Unknown codeine Allergy (Verified 01/13/19 19:33) Unknown progesterone Allergy (Verified 01/13/19 19:33) Unknown trazodone Allergy (Verified 01/13/19 19:33) Unknown Medications to take at Discharge Levothyroxine [Synthroid] 75 mcg PO DAILY 04/23/15 Montelukast [Singulair] 10 mg PO DAILY 04/23/15 Multivit with Calcium,Iron,Min [Multiple Vitamins For Women] 1 ea PO DAILY 04/23/15 Omeprazole [Prilosec] 20 mg PO DAILY 04/23/15 aspirin 81 mg tablet,delayed release 81 mg PO QDAY 05/17/17 sertraline 50 mg tablet 100 mg PO BID tab 08/15/17 zolpidem 5 mg tablet 5 mg PO QDAY tab 08/15/17 Atorvastatin Calcium [Lipitor] 80 mg PO QHS #30 tab 01/16/19 Carvedilol [Coreg (Beta Linwood)] 3.125 mg PO BID #60 tab 01/16/19 Clopidogrel Bisulfate [Plavix] 75 mg PO DAILY #30 tab 01/16/19 Lisinopril [Zestril] 20 mg PO BID #60 tab 01/16/19 Nitroglycerin 0.4 mg SL UD PRN #1 bottle 01/16/19 The following prescriptions were given: Carvedilol [Coreg (Beta [place]wood)] 3.125 mg PO BID #60 tab Transmission Status: Pending to [address] Atorvastatin Calcium [Lipitor] 80 mg PO QHS #30 tab Transmission Status: Pending to [address] Nitroglycerin 0.4 mg SL UD PRN #1 bottle PRN Reason: chest pain Transmission Status: Pending to [address] Clopidogrel Bisulfate [Plavix] 75 mg PO DAILY #30 tab Transmission Status: Sent to [address] Lisinopril [Zestril] 20 mg PO BID #60 tab Transmission Status: Sent to [address] Orders to be completed after discharge: Phase II, Outpatient Cardiac Rehab Location: None Selected Primary Care Physician: Olive Julien MD [Primary Care Provider] - Please follow up with your Primary Care Physician in: 5-7 days Test Results: Test results from this visit will be discussed in further detail at your follow-up appointment, if applicable. Please Follow Up With: Nicholas Umana MD When: 02/14 at 0930 Proposed Discharge Date: 01/16/19
--- NOTE | 2019-01-16 09:34 | DS.PCM_ITS ---
Discharge Date and Diagnosis Date of Admission: 01/13/19 Date of Discharge: 01/16/19 - Primary Discharge Diagnosis Active and Suspected Problems (Last Updated 01/15/19 @ 15:47 by Ashley Dent) Non-STEMI (non-ST elevated myocardial infarction) (Acute 01/14/19) History of coronary artery stent placement (Acute 01/15/19) CRUZITO proximal 2nd RPL branch of RCA with a 2.5 x 16 Promus Synergy 01/15/[address] Kim Thrombocytopenia (Acute) - Secondary Discharge Diagnosis Chronic Problems (Last Updated 01/15/19 @ 15:47 by Ashley Dent) Obesity (BMI 30.0-34.9) (Chronic) GERD (gastroesophageal reflux disease) (Chronic) Anxiety and depression (Chronic) Atherosclerotic heart disease of [place] coronary artery without angina pectoris (Chronic) CABG X 3: SOARES to LAD, SVG to D1, SVG-D2 01/2010; CRUZITO proximal 2nd RPL branch of RCA with a 2.5 x 16 Promus Synergy 01/15/19 H/O coronary artery bypass surgery (Chronic 01/2010) CABG X 3: SOARES to LAD, SVG to D1, SVG-D2 01/2010 Essential (primary) hypertension (Chronic) Hyperlipidemia (Chronic) EARL (obstructive sleep apnea) (Chronic) COPD (chronic obstructive pulmonary disease) (Chronic) LEOS (dyspnea on exertion) (Chronic) Hospital Course and Treatment Imaging Results: Clinical Impression(s) from Imaging Studies Chest X-Ray 01/13/19 19:51 IMPRESSION: No acute thoracic pathology. Electronically Signed: Adrian Barbour at 20:20 EDT Tel , Service support , Chest CTA 01/13/19 20:40 IMPRESSION: Normal CTA chest examination, without a demonstrated pulmonary embolism or arterial dissection. No acute chest disease. Electronically Signed: Julio Vinson MD at 21:42 EDT , Service support , Laboratory Results - last 24 hr 01/15/19 01/16/19 01/16/19 10:24 03:55 03:55 WBC 7.5 RBC 4.35 Hgb 11.5 L Hct 37.2 MCV 85.5 MCH 26.4 L MCHC 30.9 L RDW Std Deviation 44.5 H RDW Coeff of Elva 14.2 Plt Count 121 L MPV 10.9 Activated Clotting Time 213 H Sodium 145 Potassium 3.7 Chloride 110 H Carbon Dioxide 30.0 Anion Gap 5 BUN 10 Creatinine 0.66 Estim Creat Clear Calc 37.81 Est GFR (MDRD) Af Amer 112 Est GFR (MDRD) Non-Af 92 BUN/Creatinine Ratio 15.0 Glucose 97 Calcium 8.0 L Magnesium Total Bilirubin 0.60 AST 17 ALT 23 Alkaline Phosphatase 66 Total Protein 6.2 L Albumin 2.9 L Globulin 3.3 Albumin/Globulin Ratio 0.9 01/16/19 03:55 WBC RBC Hgb Hct MCV MCH MCHC RDW Std Deviation RDW Coeff of Elva Plt Count MPV Activated Clotting Time Sodium Potassium Chloride Carbon Dioxide Anion Gap BUN Creatinine Estim Creat Clear Calc Est GFR (MDRD) Af Amer Est GFR (MDRD) Non-Af BUN/Creatinine Ratio Glucose Calcium Magnesium 2.0 Total Bilirubin AST ALT Alkaline Phosphatase Total Protein Albumin Globulin Albumin/[facility]: None Procedures: Cardiac catheterization - CORONARY ANGIOGRAPHY DOMINANCE: Right Dominant LEFT HEART ASSESSMENT Left Ventricular Ejection Fraction: by LV Gram 65 % Normal Left Ventricular systolic function LVEDP: 18 mmHg Normal LV wall motion LEFT MAIN: Angiographically normal LEFT ANTERIOR DESCENDING ARTERY: PROX LAD: 85 % Stenosis CIRCUMFLEX ARTERY: MID CIRC: Moderate luminal irregularities up to 50% RIGHT CORONARY ARTERY: PROX RCA: Non- obstructive MID RCA: Non-obstructive DISTAL RCA: Moderate luminal irregulariti es up to 50% RT PLV: 75 % Stenosis RT PDA: Ostial - Mild luminal irregularities less than 30% GRAFTS: SOARES graft to the LAD is patent with large, unclipped accessory branch Saphenous Vein graft to the 1st Diagonal is patent Saphenous Vein graft to the 2nd Diagonal is patent INTERVENTION INFORMATION LESION SITE: RPL (2nd) Lesion Complexity: Non-High/Non-C, lesion at bifurcation: No, thrombus present: No, lesion length: 16 mm, culprit lesion: Yes Pre Stenosis: 75 % Pre intervention SHENG flow: 3 PROCEDURE: Drug Eluting Stent with pre and post dilatation Post Stenosis: 0 % Post intervention SHENG flow: 3 Lesion Devices: Sierra .014 BMW Alsey Straight 190cm Rayshawn Sci EMERGE MR 2.00x12 BALLOON Medtronic 6 Fr HSII 100cm Guide Catheter Rayshawn Sci Synergy MR CRUZITO 2.50x16 Rayshawn Sci NC EMERGE MR 2.50x08 BALLOON Summary of Care Provided: The patient is a 73-year-old female with a past medical history of depression, asthma, hypothyroidism, hyperlipidemia, hypertension, CAD, history of CABG x3 vessels in 2010, obesity, carotid artery disease, COPD, EARL and GERD who presented to the ED at [facility] on 01/13/2019 complaining of chest pain. The chest pain started at rest is associated with nausea and vomiting. Had pain in the right jaw and also pain in her back. EKG showed ST segment depression in lead V1 and lead V2 that was new. Troponin was increased at 0.133 and the patient was admitted to a monitored bed on PCU and started on a nitroglycerin infusion and therapeutic Lovenox and she was given a loading dose of Plavix. The troponin peaked at 2.32 then began to decline. She was seen in consultation by Dr. Matt Kim from cardiology recommended an echocardiogram and a cardiac catheterization. Patient was agreeable and she was taken for cardiac catheterization on 01/15/2019. Left main was angiographically normal. The proximal LAD had an 85% stenosis the SOARES graft to the LAD was patent. The mid circumflex artery had 50% stenosis, the proximal RCA was nonobstructive in the mid RCA was nonobstructive. The distal RCA had moderate luminal irregularities up to 50% and the right PLV had a 75% stenosis. Saphenous vein graft to the first diagonal and second diagonal were patent. She had angioplasty of the RPL and a CRUZITO was placed. Post procedure she was sent to the ICU. Overnight she had no significant ectopy on telemetry. Denied chest pain the following morning. The right groin was clean/dry/intact without evidence of thrills, bruits or hematoma. KG showed normal sinus rhythm with no acute changes. JING globin was stable at 11.5. She was seen by cardiac rehab and will be enrolled in cardiac rehab. She will follow-up with Dr. Umana on 02/14/2019 at 09 30. She was instructed to follow-up with Dr. Julien in 5 to 7 days. Prescriptions were given for carvedilol 3.125 mg twice daily, atorvastatin 80 mg nightly, sublingual nitroglycerin as needed, Plavix 75 mg daily and lisinopril 20 mg twice daily. PHYSICAL EXAM: GENERAL: alert, oriented X 3, Cooperative, NAD ORAL: moist mucosa, no mucosal lesions NECK: No JVD, supple, trachea midline, negative carotid bruits, trachea midline LUNGS: CTA, symmetric chest expansion HEART: RRR, Normal S1 and S2, no rub, no gallop, no murmur ABDOMEN: soft, NT, ND, BS present, no guarding with palpation EXTREMITIES: no edema, no cyanosis, no calf tenderness SKIN: No rashes, no breakdown NEUROLOGIC: no focal neurologic deficits PSYCH: appropriate, normal affect, pleasant This note was generated with [employer] dictation software. It may contain incorrect words, spelling, and punctuation that were not noted in checking the note before signing. - Physical Exam Vital Signs Temp Pulse Resp BP Pulse Ox 97.6 F L 62 13 133/65 H 99 01/16/19 08:11 01/16/19 08:11 01/16/19 08:11 01/16/19 08:11 01/16/19 08:11 Oxygen Flow Rate (L/min) 2 Oxygen Delivery Method Room Air Weight: 171 lb Body Mass Index (BMI) 32.3 Intake and Output for Last 24 Hours 01/14/19 01/15/19 01/16/19 23:59 23:59 23:59 Intake Total 890.00 / 899.00 1715.50 / 1955.50 360 / 360 Output Total 300 / 300 Balance 890.00 / 899.00 1415.50 / 1655.50 360 / 360 Laboratory Tests Past 24 Hrs 01/15/19 01/16/19 01/16/19 10:24 03:55 03:55 WBC 7.5 RBC 4.35 Hgb 11.5 L Hct 37.2 MCV 85.5 MCH 26.4 L MCHC 30.9 L RDW Std Deviation 44.5 H RDW Coeff of Elva 14.2 Plt Count 121 L MPV 10.9 Activated Clotting Time 213 H Sodium 145 Potassium 3.7 Chloride 110 H Carbon Dioxide 30.0 Anion Gap 5 BUN 10 Creatinine 0.66 Estim Creat Clear Calc 37.81 Est GFR (MDRD) Af Amer 112 Est GFR (MDRD) Non-Af 92 BUN/Creatinine Ratio 15.0 Glucose 97 Calcium 8.0 L Magnesium Total Bilirubin 0.60 AST 17 ALT 23 Alkaline Phosphatase 66 Total Protein 6.2 L Albumin 2.9 L Globulin 3.3 Albumin/Globulin Ratio 0.9 01/16/19 03:55 WBC RBC Hgb Hct MCV MCH MCHC RDW Std Deviation RDW Coeff of Elva Plt Count MPV Activated Clotting Time Sodium Potassium Chloride Carbon Dioxide Anion Gap BUN Creatinine Estim Creat Clear Calc Est GFR (MDRD) Af Amer Est GFR (MDRD) Non-Af BUN/Creatinine Ratio Glucose Calcium Magnesium 2.0 Total Bilirubin AST ALT Alkaline Phosphatase Total Protein Albumin Globulin Albumin/Globulin Ratio Discharge Activity: - - Start a walking program and work up to walking 30 minutes a day. No hills for now, only walk on flat surfaces until cardiac rehab tells you it is OK to increase your activity. May resume sexual activity in: 10-14 days Call your doctor if your incision/area has: Continuous Slow Oozing, Sudden Increased Bleeding, Increased Pain/ Swelling, Increased Redness, Foul Smelling Discharge, Swelling at the incision site Call your doctor if you observe: Fever of 101 or Higher, Shortness of breath, Dizziness, Fainting spells, Swelling in the ankles, Chest pain Remove Dressing in (days):: 1 - may shower after the bandage is removed on 01/17/19 Home Medications: Medications to take at Discharge Levothyroxine [Synthroid] 75 mcg PO DAILY 04/23/15 Montelukast [Singulair] 10 mg PO DAILY 04/23/15 Multivit with Calcium,Iron,Min [Multiple Vitamins For Women] 1 ea PO DAILY 04/23/15 Omeprazole [Prilosec] 20 mg PO DAILY 04/23/15 aspirin 81 mg tablet,delayed release 81 mg PO QDAY 05/17/17 sertraline 50 mg tablet 100 mg PO BID tab 08/15/17 zolpidem 5 mg tablet 5 mg PO QDAY tab 08/15/17 Atorvastatin Calcium [Lipitor] 80 mg PO QHS #30 tab 01/16/19 Carvedilol [Coreg (Beta Linwood)] 3.125 mg PO BID #60 tab 01/16/19 Clopidogrel Bisulfate [Plavix] 75 mg PO DAILY #30 tab 01/16/19 Lisinopril [Zestril] 20 mg PO BID #60 tab 10/08/19 Nitroglycerin 0.4 mg SL UD PRN #1 bottle 01/16/19 Following Prescrptions Were Given to Patient: Carvedilol [Coreg (Beta Linwood)] 3.125 mg PO BID #60 tab Transmission Status: Received by HEENA [address] [place] [address] Atorvastatin Calcium [Lipitor] 80 mg PO QHS #30 tab Transmission Status: Received by ADITYA CHOWDARY[address] [place] [address] Nitroglycerin 0.4 mg SL UD PRN #1 bottle PRN Reason: chest pain Transmission Status: [facility] [place] [address] Clopidogrel Bisulfate [Plavix] 75 mg PO DAILY #30 tab Transmission Status: [facility] [place] [address] Lisinopril [Zestril] 20 mg PO BID #60 tab Transmission Status: [facility] [place] [address] Other Amb Orders: Phase II, Outpatient Cardiac Rehab Location: None Selected Primary Care Physician: Olive Julien MD [Primary Care Provider] - Please follow up with your Primary Care Physician in: 5-7 days Please Follow Up With: Nicholas Umana MD When: 02/14 at 0930 Patient Instructions: What Is Angina?, Fast-Acting Nitroglycerin Medical Necessity - Tobacco Use Smoking Status: Former smoker Tobacco Use: Non-smoker Meaningful Use Info Meaningful Use Diagnoses (Choose all that apply): AMI - AMI Aspirin given w/in 24hrs of arrival?: Yes ASA at discharge?: Yes Statins at discharge?: Yes Munir/ARB at discharge?: Yes Beta Linwood at discharge?: Yes Done w/ Acute PR measure.: Yes Documented LVEF (%): 65 Code Visit Inpatient E&M: 60287 Disch Hosp
--- NOTE | 2019-01-17 16:00 | CASEMGMT ---
Case Management DC F/u Call: DC Date: 01/16/19 DC Diagnosis: Thrombocytopenia (Acute), Non-STEMI (non-ST elevated myocardial infarction) (Acute 01/14/19), History of coronary artery stent placement (Acute 01/15/19), CRUZITO proximal 2nd RPL branch of RCA with a 2.5 x 16 Promus Synergy 01/15/19 DC Disposition: Home Lace/Strata: 02/11 Called patient number listed in demographics, answered. This technical document writer introduced self and role. Patient states that she is doing fine and is tired. States went to a hair appointment today and has been resting. Confirmed is taking her medications and Plavix, denies questions/concerns/ or issues with ACI, medications or f/u. States that her pcp has walk in on Tuesday afternoons and plans to f/u this Tuesday. Confirmed with patient f/u with Dr Umana on 02/14/19. Patient Dtr to come and assist on 01/28/19 as her will have surgery on 01/29/19. Patient states that her bilt thighs are hurting, this technical document writer educated on monitoring closely for any swelling, SOB or s/s and if develops then to seek immediate medical treatment. Thanked patient for receiving care here at [facility] and ended conversation. China Dockery RNCM
== END 2019-01-16 10:40 | disposition home or self-care (01) | DRG 247 ==
LOC: ED 19:58 → PCU 23:39 → ICU 01-15 10:51
PROVIDERS: Internal Medicine Cardiovascular Disease; Admitting Provider Hospitalist; Emergency Provider Emergency Medicine; Family Provider Internal Medicine; PCP Internal Medicine; Visit Provider Internal Medicine
DX: I21.4 Non-ST elevation (NSTEMI) myocardial infarction (principal); I16.1 Hypertensive emergency; I10 Essential (primary) hypertension; E03.9 Hypothyroidism, unspecified; E78.5 Hyperlipidemia, unspecified; K21.9 Gastro-esophageal reflux disease without esophagitis; D69.6 Thrombocytopenia, unspecified; J44.9 Chronic obstructive pulmonary disease, unspecified; Z87.891 Personal history of nicotine dependence; Z79.82 Long term (current) use of aspirin; Z95.1 Presence of aortocoronary bypass graft; F32.9 Major depressive disorder, single episode, unspecified; F41.9 Anxiety disorder, unspecified
CPT/HCPCS: 36415; 71045; 71275; 80048; 80053; 80061; 83735; 84436; 84443; 84484; 85025; 85027; 85347; 85610; 92928; 93005; 93306; 93459; 97162; 97165; 99152; 99153; 99283; C1760; J7030; Q9957; Q9967; A4216; C1725; C1769; C1874; C1887; C1894; C9600; J2405

== ENCOUNTER → 2019-01-23 08:53 | Outpatient (CLI) | payer MEDICARE, OTHER, SELFPAY ==
[2019-01-13 23:03] VITALS: BMI 32.3
[2019-01-15 14:11] VITALS: BMI 32.3
--- NOTE | 2019-01-23 09:20 | PCM.CR.ITP ---
General Information - General Information Admitting Diagnosis: NSTEMI 01/14/2019, PCI W/CORONARY STENT PLACEMENT - Education/Goals Barriers to Learning: Vision Impairment - READING GLASSES Individual Counseling: Initial Assessment: Abnormal Cholesterol Levels, High Blood Pressure Cardiac Rehabilitation Goals: 1. Maintain the individual as the primary focus of care. 2. To improve the patient's quality of life. 3. Identification of cardiac risk factors and provide cardiac risk factor management. 4. Enhance the psychosocial status of the patient. 5. Reconditioning enough to allow the patient to resume customary activities. 6. Control symptoms of cardiac disease Scale for measuring improvement of personal goals: Enter appropriate number in Comments. 2 = Unchanged. 3 = Slightly Better. 4 = Moderate Improvement. 5 = Met my Goal Personal Goals: Initial Assessment: Improve management of stress and emotions, Improve energy level, Participate in home exercise program, Get back to work, or to resume activities faster, Improve knowledge of cardiac disease, Improve muscle strength and endurance, Improve diet and eating habits (eat healthier), Control risk factors (learn risk factor modification) Exercise - Initial Assessment - Visit Date of Eval: 01/23/19 Session #:: 0 - EVALUATION & ASSESSMENT; STARTING CR ON - Stages of Change Stages of Change:: Action - Stress Test EKG: SINUS BRADYCARDIA W/ 1ST DEGREE AV BLOCK - Physician Prescribed Exercise Modalities: Treadmill, Airdyne, NuStep Frequency (days/week): 3x/week for 12 weeks [36 sessions] Duration (Minutes):: 30-45 MIN Intensity: 60-80% age predicted maximum heart rate reserve - ECHO LVEF 65% 01/15/2019 METs - Progression: 0.5-1.0 MET, RPE 11-14 WEEK: 2.5 Target Heart Rate:: 96-124 - Hypertension Do any of the following apply?: Yes, Medication, Diet Resting Blood Pressure:: 132/64 - Intervention Home Exercise/Activity Goal:: Moderate Exercise 30 min/day x 5 days/wk - Education Goals:: Warm-up, RPE GRAY Scale, S/S, Safe Exercise, Self-Monitoring - Exercise Program Goals Exercise Program Goals: Aerobic Activity >30 min Nutrition - Initial Assessment - Program Goals Nutrition Program Goals: LDL <70. Total Cholesterol <200. HDL >45. Triglycerides <150. HgbA1C <7%. BMI <25 - Visit Date of Assessment:: 01/23/19 - Stages of Change Stages of Change:: Action - Lipids Total Cholesterol (mg/dL) Goal = less than 200 mg/dL: 167 - 01/14/2019 HDL Cholesterol (mg/dL) Goal = less than 45 mg/dL: 49 LDL Cholesterol (mg/dL) Goal = less than 70 mg/dL: 82 Triglycerides (mg/dL) Goal = less than 150 mg/dL: 178 - Diabetes Diabetes:: No - Weight Management Height: 5 ft 1 in Weight:: 171 lb Body Fat %:: 32.3 - Intervention Referral to dietitian:: Yes - REFERRED FOR WHY WEIGHT PROGRAM Referral to Diabetic Clinic:: No - Education Gave educational materials for:: Healthy eating Tobacco - Initial Assessment - Program Goals Tobacco Program Goals: Complete smoking cessation. Attend education classes. Improve Knowledge Test score - Stage of Change Stages of Change:: Action - Learning Barriers Learning Barriers: Vision - READING GLASSES, Ready to Learn - Family Support Do you have family support?: Yes - Tobacco Use Tobacco Use: Non-smoker Do you use smokeless tobacco?: No - Intervention Smoking Cessation Referral:: No Individual Education/Counseling:: No Education Schedule Given:: Yes - Education Attended class for:: Treating Heart Disease, How The Heart Works, What it means to have Heart Disease, How Coronary Artery Disease is Diagnosed, Heart Procedures, What Heart Medications Do, Risk Factors & Modifications, Living an Active Life, Nutrition, Emotions & Heart Disease, Stress Management & Relaxation, Sleep Disorders & Heart Disease Psychosocial - Initial Assess - Target Goals Target Goals: Assess presence or absence of depression. Using a valid screening tool, maximizes coping skills. Positive support system - Stages of Change Stages of Change:: Action - Psychosocial Test Tool Used:: HANDS Depression Questionnaire - Intervention PS - Interventions: Yes Attend Stress Management Classes, Yes Uses Stress Management Skills - LEARNED IN [facility], No Referral to Mental Health, No Referral to [facility] Case Management, No Referral to Physician - Education Gave educational materials for:: Coping techniques, Signs & symptoms of depression, Stress management, Relaxation techniques - Patient/Program Goal Preventative Medication(s):: Aspirin, MARILOU inhibitor, Clopidogrel, Beta wolfgang, Statin/lipid - Assistive Devices Assistive Devices:: None Fall Risk Assessed:: Yes Patient Health Questionnaire 30-Day Re-eval Assessment 1. Little interest or pleasure in doing things: Several days 2. Feeling down, depressed, or hopeless: Several days 3. Trouble falling or staying asleep, or sleeping too much: Nearly every day 4. Feeling tired or having little energy: Nearly every day 5. Poor appetite or overeating: Nearly every day 6. Feeling bad about yourself -- or that you are a failure or have let yourself or your family down: More than half the days 7. Trouble concentrating on things, such as reading the newspaper or watching television: Not at all 8. Moving or speaking so slowly that other people could have noticed. Or the opposite - being so fidgety or restless that you have been moving around a lot more than usual: Several days 9. Thoughts that you would be better off , or of hurting yourself in some way: Not at all Total Score: 14 JAYDEN-Q SV Test - Statements CAD is a disease of the arteries in the heart: I Don't Know Examples of risk factors for heart disease: True Angina is chest pain or discomfort: True The benefits of resistance training include: True Eating more meat and dairy products: False Anti-platelet medications such as aspirin are important: True The only effective way to manage stress: False An exercise warm-up slowly increases heart rate: True Prepared, processed foods usually have high sodium: True Depression is common after a heart attack: True The statin medications lower cholesterol: True To control blood pressure, lower the amount of sodium: True If someone gets chest discomfort during walking: False Transfats are partially hydrogenated vegetable oils: True Sleep apnea that is not treated increases the risk: False To control cholesterol, one should become a vegetarian: False Someone knows if he/she is exercising at the right level: True Diabetes cannot be prevented with exercise & health eating: False Stress is a large risk for heart attack: True A diet that can help lower blood pressure is rich in: True - Total Score Total Correct Responses: 19 Self-Efficacy 30-Day Re-eval Assessment We would like to know how confident you are in doing certain activities. Please select your confidence level for:: Select your confidence level for the following using the scale 1-10 where 1 is not at all confident and 10 is totally confident. Your score is the average of all 6 responses. Fatigue: How confident are you that you can keep the fatigue caused by your disease from interfering with the things you want to do? Select Number: 3 Physical Discomfort or Pain: How confident are you that you can keep the physical discomfort or pain of your disease from interfering with the things you want to do? Select Number: 3 Emotional Distress: How confident are you that you can keep the emotional distress caused by your disease from interfering with the things you want to do? Select Number: 5 Other Symptoms or Health Problems: How confident are you that you can keep other symptoms or health problems from interfering with the things you want to do? Select Number: 3 Different Tasks and Activities: How confident are you that you can do the different tasks and activities needed to manage your health condition so as to reduce your need to see a doctor? Select Number: 7 Medication: How confident are you that you can do things other than just taking medication to reduce how much your illness affects your everyday life? Select Number: 7 Total Score:: 4 Nutrition Survey - Nutrition Survey Instructions Scoring Instructions: Scoring is as follows: Yes = 1 points. No = 0 point. Patient score that is >/=12 is considered to be at potential nutritional risk and could benefit from a referral to a registered dietitian. - Nutrition Survey Initial Have you lost >10 lbs over the past 2 months without trying?: No Are you following a special diet at home for diabetes, low fat, or low salt?: Yes Are you interested in meeting with a dietitian for help understanding your diet?: Yes Do you eat less than 3 meals a day?: No Do you eat fatty meats (beltre, sausage, ribs, etc), fried foods, desserts, large amounts of salad dressings, margarine, butter, or cheese most days?: No Do you have food allergies? [Enter types in comment field]: No Do you eat in restaurants more than 3 times a week?: Yes Do you season food with salt, seasoning salt, or garlic salt?: No Do you used canned, boxed, frozen meals, or soups, seasoning packets?: Yes Total Score:: 4
--- NOTE | 2019-01-23 09:29 | PCM.CR.HP2 ---
CR - History & Physical - General Arrival date:: 01/23/19 Arrival time:: 08:50 Date of Referral:: 01/15/19 Date of CR Evaluation:: 01/23/19 Referring Physician: DR. EVAN MENA Primary Diagnosis: NSTEMI, PCI W/COORNARY STENT PLACEMENT - History of Present Cardiac Event Onset Date: Enter Onset Date of cardiac illnesses in Comment field below Acute Myocardial Infarction within 12 months:: Yes - 01/15/2019 Coronary Artery Bypass Graft:: Yes - 2009 PTCA or coronary stenting:: Yes - 01/15/2019 Heart Failure EF <35%:: No - LVEF 65% PER RECENT ECHOCARDIOGRAM Type of Symptoms:: CHEST PAIN Interventions with present event:: HEART CATH W/ PCI INTERVENTION Were there any complications?: NONE - Medications Home Medications: Ambulatory Orders Medication Instructions Recorded Levothyroxine [Synthroid] 75 mcg PO DAILY 04/23/15 Montelukast [Singulair] 10 mg PO DAILY 04/23/15 Multivit with Calcium,Iron,Min 1 ea PO DAILY 04/23/15 [Multiple Vitamins For Women] Omeprazole [Prilosec] 20 mg PO DAILY 04/23/15 aspirin 81 mg tablet,delayed 81 mg PO QDAY 05/17/17 release sertraline 50 mg tablet 100 mg PO BID tab 08/15/17 zolpidem 5 mg tablet 5 mg PO QDAY tab 08/15/17 Atorvastatin Calcium [Lipitor] 80 mg PO QHS #30 tab 01/16/19 Carvedilol [Coreg (Beta Linwood)] 3.125 mg PO BID #60 tab 01/16/19 Clopidogrel Bisulfate [Plavix] 75 mg PO DAILY #30 tab 01/16/19 Lisinopril [Zestril] 20 mg PO BID #60 tab 01/16/19 Nitroglycerin 0.4 mg SL UD PRN #1 bottle 01/16/19 - Allergies Allergies/Adverse Reactions: Allergies acetaminophen [From Tylenol] Allergy (Verified 01/13/19 19:33) Unknown codeine Allergy (Verified 01/13/19 19:33) Unknown progesterone Allergy (Verified 01/13/19 19:33) Unknown trazodone Allergy (Verified 01/13/19 19:33) Unknown - Sleep Disorder Evaluation Hx of Sleep Apnea: Yes Do you snore loudly (louder than talking or can be heard through closed doors)?: Yes Do you often feel tired/ fatigued/ sleepy during daytime?: Yes Has anyone observed you stop breathing during sleep?: Yes History of Hypertension (for STOP score): Yes - PATINET PREVIOUSLY DIAGNOSED WITH EARL AND HAS HOME CPAP ONLY UISED FOR 4 MONTHS THEN QUIT USING DUE TO INTERUPPTED SLEEP. 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) I25.10 CABG X 3: SOARES to LAD, SVG to D1, SVG-D2 01/2010; CRUZITO proximal 2nd RPL branch of RCA with a 2.5 x 16 Promus Synergy 01/15/19 Non-STEMI (non-ST elevated myocardial infarction) (Resolved) Onset Date: 01/14/19 I21.4 Essential (primary) hypertension (Chronic) I10 Hyperlipidemia (Chronic) E78.5 Anxiety and depression F41.9, F32.9 Asthma J45.909 Body mass index (BMI) of 32.0-32.9 in adult Z68.32 COPD (chronic obstructive pulmonary disease) J44.9 Carotid artery disease I77.9 Depression F32.9 GERD (gastroesophageal reflux disease) K21.9 Hypothyroidism E03.9 EARL (obstructive sleep apnea) G47.33 Obesity (BMI 30.0-34.9) E66.9 Thrombocytopenia D69.6 LEOS (dyspnea on exertion) (Resolved) R06.09 - Past Surgical History Surgical History: Past Surgical History (Last Updated 01/22/19 @ 07:23 by Ashley Dent) H/O coronary artery bypass surgery (Chronic) Onset Date: 01/2010 Z95.1 CABG X 3: SOARES to LAD, SVG to D1, SVG-D2 01/2010 History of coronary artery stent placement (Resolved) Onset Date: 01/15/19 Z95.5 CRUZITO proximal 2nd RPL branch of RCA with a 2.5 x 16 Promus Synergy 01/15/19 History of appendectomy Z90.49 History of cholecystectomy Z98.890, Z90.49 History of hernia repair Z98.890, Z87.19 History of hysterectomy Z90.710 Surgical History: cholecystectomy, coronary bypass surgery - Family History Summary Family History: Family History (Last Reviewed 01/14/19 @ 03:05 by Henrry Driver MD) Mother CAD (coronary artery disease) CVA (cerebral vascular accident) Father , Age 44 COPD (chronic obstructive pulmonary disease) Social History - Smoking History Smoking Status: Former smoker Years Smokin Packs Smoked per Day: 1 Hx Smoking Cessation Date: QUIT 35 YEARS AGO Hx Tobacco Use: Yes Hx Smoking Exposure: No - Alcohol Use Alcohol Usage: Yes - VERY LITTLE COUPLE OF TIMES PER YEAR. - Substance Abuse Hx Substance Use: No - Occupation Occupation (List type of work in comments):: Retired - Hobbies, Recreation, Social Activities Hobbies: Sewing, Reading, Watch TV, Other - READING, WRITING, KNITTING, TRAVEL Recreational Activities: I am able to engage in a few activities - AFRAID TO TRAVEL RIGHT NOW. Social Environment - Status Marital Status: - Current Living Arrangements Living Environment:: Spouse - Children How many children do you have?: 1 Do any of your children live nearby?: No - [place] - Safety Do you feel safe in your surroundings?: Yes - Assistance Do you need any assistance at home?: NONE Review of Systems - Review of Systems Hints: Right click = Denies (Slash). Left click = Reports ([place]) Review of Present Symptoms: Reports: Shortness of Breath with Exertion, Dizziness/Lightheadedness - LITTLE BIT, ESPECIALLY IF STAND UP OT FAST, BUT IT IS GETTING BETTER., Fatigue, Heart Arrhythmia/Irregularities - 1ST DEGREE AV BLOCK, Appetite - Special Diet - 1800 CALORIE INTAKE CARDIAC DIET., Sleep - Normal. Denies: Shortness of Breath at Rest, Angina, Appetite - Normal - LITTLE BIT SCARED OF EATING, NOT REALLY EATING LIKE I SHOULD BE., Sexual Changes - Pain Is Patient Pain Free?: Yes Pain Location: none Pain Level: 0/10 Risk Factor Assessment - Chief Complaint Chief Complaint: PATIENT PRESENTS TO CR REHAB TODAY FOR EVALUATION FOLLWOING RECENT NSTEMI AND PPCI INTERVENTION ON 01/15/2019, SHSE HAS PPREVIOUS HISTORY OF HEART DISEASE WITH A PREVIOUS UT AND CABG IN 2009. SHE ASLO HAS A HISTORY OF COPD AND EARL. - Vital Signs Temperature: 97.8 F Respiratory Rate: 14 Pulse Ox: 95 Blood Pressure: 132/64 - Pulse Pulse Rate: 68 Pulse Rhythm: Regular - Hypertension Blood Pressure Sitting - Right Arm: 132/64 - 2009 - Stress Stress: Recent - Blood Cholesterol/Lipids Total Cholesterol (mg/dL) Goal = less than 200 mg/dL: 167 - 01/16/2019 HDL Cholesterol (mg/dL) Goal = less than 40 mg/dL: 49 LDL Cholesterol (mg/dL) Goal = less than 70 mg/dL: 82 Triglycerides (mg/dL) Goal = less than 150 mg/dL: 178 - Diabetes Diabetic History: Type II - WAS TOLD RECENTLY WAS A BORDERLINE DIABETIC TYPE II - Obesity Height: 5 ft 1 in Weight:: 171 lb Weight in Pounds: 171.0 lbs Weight Source: [facility] Body Mass Index (BMI): 32.3 Nutritional Referral for Obesity: Yes - Physical Inactivity Physical Inactivity: None - Risk Stratification Risk Guidelines: Lowest Risk: Risk Factor for Smoking, Risk Factor for Dyslipidemia, Risk Factor for Diabetes, Risk Factor for Depression - DIAGNOSED DEPRESSION ON MEDICATIONS FOR IT., Moderate Risk: Risk Factor for Hypertension, Risk Factor for Depression, Highest Risk: Risk Factor for Obesity, Risk Factor for Sedentary Lifestyle - For Smoking Smoking Risk Guidelines: Smoking Low Risk: None or quit greater than 6 months ago. Smoking Moderate Risk: Smoker or quit 6 months or less ago. Smoking High Risk: Smoker - For Dyslipidemia Dyslipidemia Risk Guidelines: Low Risk: Moderate Risk: High Risk: 15-25% fat 25.1-29% fat >/= 30% fat. <7% sat fat 7-9% sat fat >9% sat fat. <150 mg chol 150-299 mg chol >/= 300 mg chol. LDL <100 LDL 100-129 LDL >/= 130. Chol/HDL ratio <5.0 Chol/HDL ratio 5.0-6.0 Chol/HDL ratio >6.0. Triglycerides <100 Triglycerides 100-149 Triglycerides >/= 150 - For Diabetes Mellitus Diabetes Risk Guidelines: Diabetes Low Risk: HgA1c <6.5% and/or FBG <120. Diabetes Moderate Risk: HgA1c 6.6-7.9% and/or FBG 120-180. Diabetes High Risk: HgA1c >/= 8% and/or FBG >180 - For Obesity/Overweight Obesity/Overweight Risk Guidelines: Obesity Low Risk: BMI <25.0. Obesity Moderate Risk: BMI 25-29.9. Obesity High Risk: BMI >/= 30.0 - For Hypertension Hypertension Risk Guidelines: Hypertension Low Risk: Systolic <120 and Diastolic <80. Hypertension Moderate Risk: Systolic 120-139 and Diastolic 80-89. Hypertension High Risk: Systolic >/= 140 and Diastolic >/= 90 - For Sedentary Lifestyle Sedentary Lifestyle Risk Guidelines: Sedentary Lifestyle Low Risk: >/= 1,500 kcal/week. Sedentary Lifestyle Moderate Risk: 700-1,499 kcal/week. Sedentary Lifestyle High Risk: < 700 kcal/week - For Depression Depression Risk Guidelines: Depression Low Risk: Not clinically depressed. Depression Moderate Risk: Mildly depressed. Depression High Risk: Clinically depressed - Family History Family History: Family History (Last Reviewed 01/14/19 @ 03:05 by Henrry Driver MD) Mother CAD (coronary artery disease) CVA (cerebral vascular accident) Father COPD (chronic obstructive pulmonary disease) Motivation - Motivation to Participate On a scale of 1 to 10, how prepared are you to commit to attending program?: 10 What do you see as barriers to successfully being able to complete the program?: HAVING HIP REPLACEMENT SURGERY ON 01/29 What do you see as the benefits of succesfully completing the program? In other words, what do you hope to get out of participating in the program?: STRENGHT BUILT UP AND GET BACK TO REGULAR ACTIVITY. Are there issues you are dealing with that will interfere with completing the program?: HAVING HIP SURGERY ON Tuesday01/29/2019. Do you have a spouse or signficant other, family or friends who will help support you to complete the program?: YES, DAUGHTER COMING HOME TO HELP
[2019-01-23 09:49] VITALS: BP 132/64; PULSE 68; RESP 14; TEMP 36.6; O2SAT 95; BMI 32.3
[2019-01-23 10:02] VITALS: BP 132/64
== END ==
PROVIDERS: Family Provider Internal Medicine; PCP Internal Medicine; Referring Provider Internal Medicine Cardiovascular Disease; Visit Provider Internal Medicine Cardiovascular Disease
DX: Z95.5 Presence of coronary angioplasty implant and graft (principal); E78.5 Hyperlipidemia, unspecified; E03.9 Hypothyroidism, unspecified; G47.33 Obstructive sleep apnea (adult) (pediatric); K21.9 Gastro-esophageal reflux disease without esophagitis; E66.9 Obesity, unspecified; Z95.1 Presence of aortocoronary bypass graft

== ENCOUNTER 2019-02-02 06:24 | Outpatient (RCR) | payer MEDICARE, OTHER, SELFPAY ==
[2019-01-15 14:11] VITALS: BMI 32.3
[2019-01-23 09:49] VITALS: BMI 32.3
== END 2019-02-08 23:59 ==
LOC: CR 06:24
PROVIDERS: Family Provider Internal Medicine; PCP Internal Medicine; Referring Provider Internal Medicine Cardiovascular Disease; Visit Provider Internal Medicine Cardiovascular Disease
DX: I21.4 Non-ST elevation (NSTEMI) myocardial infarction (principal); Z95.5 Presence of coronary angioplasty implant and graft; Z95.1 Presence of aortocoronary bypass graft; I25.10 Atherosclerotic heart disease of native coronary artery without angina pectoris
CPT/HCPCS: 93798

== ENCOUNTER → 2019-02-23 09:45 | Outpatient (CLI) | payer MEDICARE, OTHER, SELFPAY ==
[2019-01-15 14:11] VITALS: BMI 32.3
[2019-02-14 08:40] VITALS: BMI 31.5
[2019-02-23 10:54] LABS: Anion Gap 10 (5-15); BUN 15 mg/dL (7-18); BUN/Creat Ratio 17.7 RATIO (10-20); Calcium,Total 8.8 mg/dL (8.5-10.1); Chloride 110 mmol/L (98-107); Creatinine, Serum 0.85 mg/dL (0.55-1.02); EST Glomerular Filtration Rate 70 mL/min (>60); Est Glom Filt Rate - Afr Amer 84 mL/min (>60); Glucose 90 mg/dL (74-106); Potassium 4.3 mmol/L (3.5-5.1); Sodium Level 144 mmol/L (136-145)
== END ==
PROVIDERS: Family Provider Internal Medicine; PCP Internal Medicine; Referring Provider Internal Medicine Cardiovascular Disease; Visit Provider Internal Medicine Cardiovascular Disease
DX: I10 Essential (primary) hypertension (principal); Z79.899 Other long term (current) drug therapy
CPT/HCPCS: 36415; 80048

== ENCOUNTER 2019-03-07 09:15 | Outpatient (RCR) | payer MEDICARE, OTHER, SELFPAY ==
[2019-01-15 14:11] VITALS: BMI 32.3
[2019-01-23 09:49] VITALS: BMI 32.3
--- NOTE | 2019-02-21 06:55 | CR.ITP_ITS ---
Exercise - 30-day Assessment - Visit Date of Eval: 02/21/19 Session #:: 4 - PATIENT HAS MISSED 5 SCHEDULED SESSIONS DUE TO SURGERY ADN OTHER HEALTH RELATED ISSUES. - Stages of Change Stages of Change:: Action - Physician Prescribed Exercise Modalities: Treadmill, Airdyne, NuStep Frequency (days/week): 3 Duration (Minutes):: 30-45 Intensity: 60-80% age predicted maximum heart rate reserve METs - Progression: 0.5-1.0 MET, RPE 11-14 WEEK: 3.5 RPE 11-12 INCREASE FROM 2.5 METs Target Heart Rate:: 96-124 MAX HR 77 - Hypertension Resting Blood Pressure:: 128/62 Peak Exercise Blood Pressure:: 160/58 Medication Changes:: Yes - PATIENT SENT TO MATT RN FOR MEDICATION INSTRUCTION AND ADJUSTMENT. - Intervention Home Exercise/Activity Goal:: Moderate Exercise 30 min/day x 5 days/wk - Education Goals:: Warm-up, RPE GRAY Scale, S/S, Safe Exercise, Self-Monitoring - Exercise Program Goals Exercise Program Goals: Aerobic Activity >30 min Nutrition - 30-Day Assessment - Program Goals Nutrition Program Goals: LDL <70. Total Cholesterol <200. HDL >45. Triglycerides <150. HgbA1C <7%. BMI <25 - Visit Date of Eval: 02/21/19 - Stages of Change Stages of Change:: Action - Lipids Has the patient seen the dietitian?: No - Diabetes Diabetes:: No - Weight Management Weight:: 171 lb - UNCHANGED - Intervention Referral to dietitian:: No - Education Attended class for:: Healthy eating Tobacco - Initial Assessment - Program Goals Tobacco Program Goals: Complete smoking cessation. Attend education classes. Improve Knowledge Test score - Learning Barriers Learning Barriers: Vision - READING GLASSES, Ready to Learn Tobacco - 30-Day Assessment - Program Goals Tobacco Program Goals: Complete smoking cessation. Attend education classes. Improve Knowledge Test score - Stage of Change Stages of Change:: Action - Learning Barriers Learning Barriers: Participates in education - Family Support Do you have family support?: No - NOW HAS [employer] FOR ASSISTANCE AT HOME W/. - Tobacco Use Tobacco Use: Non-smoker Do you use smokeless tobacco?: No - Intervention Smoking Cessation Referral:: No Individual Education/Counseling:: No Education Schedule Given:: Yes - Education Attended class for:: Emotions & Heart Disease, Stress Management & Relaxation, Sleep Disorders & Heart Disease Psychosocial - Initial Assess - Target Goals Target Goals: Assess presence or absence of depression. Using a valid screening tool, maximizes coping skills. Positive support system - Psychosocial Test Tool Used:: HANDS Depression Questionnaire - Assistive Devices Fall Risk Assessed:: Yes Psychosocial - 30-Day Assess - Target Goals Target Goals: Assess presence or absence of depression. Using a valid screening tool, maximizes coping skills. Positive support system - Stages of Change Stages of Change:: Action - Psychosocial Test Tool Used:: HANDS Depression Questionnaire - Intervention PS - Interventions: Yes Attend Stress Management Classes, Yes Uses Stress Management Skills - REINFORCED IMPORTANCE OF STRESS MANAGEMENT SKILLS., No Referral to Mental Health, No Referral to [facility] Case Management, No Referral to Physician - Education Attended classes for:: Coping techniques, Signs & symptoms of depression, Stress management, Relaxation techniques - Patient/Program Goal Preventative Medication(s):: Aspirin, MARILOU inhibitor, Clopidogrel, Beta wolfgang, Statin/lipid - PATIENT REEDUCATED BY MATT RN ON MEDICATIONS AND DOSAGES. - Assistive Devices Assistive Devices:: None Fall Risk Assessed:: Yes Patient Health Questionnaire 30-Day Re-eval Assessment 1. Little interest or pleasure in doing things: Several days 2. Feeling down, depressed, or hopeless: Several days 3. Trouble falling or staying asleep, or sleeping too much: Nearly every day 4. Feeling tired or having little energy: Nearly every day 5. Poor appetite or overeating: Nearly every day 6. Feeling bad about yourself -- or that you are a failure or have let yourself or your family down: More than half the days 7. Trouble concentrating on things, such as reading the newspaper or watching television: Not at all 8. Moving or speaking so slowly that other people could have noticed. Or the opposite - being so fidgety or restless that you have been moving around a lot more than usual: Several days 9. Thoughts that you would be better off , or of hurting yourself in some way: Not at all - PATIENT COULD BENEFIT FROM BEHAVIORAL HEALTH COUNSELING SERVICES IN DEALING WITH EMOTIONS AND STRESS. Total Score: 14 Self-Efficacy 30-Day Re-eval Assessment We would like to know how confident you are in doing certain activities. Please select your confidence level for:: Select your confidence level for the following using the scale 1-10 where 1 is not at all confident and 10 is totally confident. Your score is the average of all 6 responses. Fatigue: How confident are you that you can keep the fatigue caused by your disease from interfering with the things you want to do? Select Number: 4 Physical Discomfort or Pain: How confident are you that you can keep the physical discomfort or pain of your disease from interfering with the things you want to do? Select Number: 4 Emotional Distress: How confident are you that you can keep the emotional distress caused by your disease from interfering with the things you want to do? Select Number: 6 Other Symptoms or Health Problems: How confident are you that you can keep other symptoms or health problems from interfering with the things you want to do? Select Number: 3 Different Tasks and Activities: How confident are you that you can do the different tasks and activities needed to manage your health condition so as to reduce your need to see a doctor? Select Number: 7 Medication: How confident are you that you can do things other than just taking medication to reduce how much your illness affects your everyday life? Select Number: 8 Total Score:: 5
[2019-02-21 07:02] VITALS: BP 128/62; BP 160/58
== END 2019-03-10 23:59 ==
LOC: CR 09:15
PROVIDERS: Family Provider Internal Medicine; PCP Internal Medicine; Referring Provider Internal Medicine Cardiovascular Disease; Visit Provider Internal Medicine Cardiovascular Disease
DX: I21.4 Non-ST elevation (NSTEMI) myocardial infarction (principal); Z95.5 Presence of coronary angioplasty implant and graft; Z95.1 Presence of aortocoronary bypass graft; I25.10 Atherosclerotic heart disease of native coronary artery without angina pectoris; I10 Essential (primary) hypertension; Z79.899 Other long term (current) drug therapy
CPT/HCPCS: 36415; 80048; 93798

== ENCOUNTER 2019-03-19 09:15 | Outpatient (RCR) | payer MEDICARE, OTHER, SELFPAY ==
[2019-01-15 14:11] VITALS: BMI 32.3
[2019-02-14 08:40] VITALS: BMI 31.5
[2019-03-11 01:03] VITALS: BP 128/62; BP 160/58
--- NOTE | 2019-03-23 08:45 | PCM.CR.ITP ---
General Information - General Information Admitting Diagnosis: Z95.5 - Education/Goals Cardiac Rehabilitation Goals: 1. Maintain the individual as the primary focus of care. 2. To improve the patient's quality of life. 3. Identification of cardiac risk factors and provide cardiac risk factor management. 4. Enhance the psychosocial status of the patient. 5. Reconditioning enough to allow the patient to resume customary activities. 6. Control symptoms of cardiac disease Scale for measuring improvement of personal goals: Enter appropriate number in Comments. 2 = Unchanged. 3 = Slightly Better. 4 = Moderate Improvement. 5 = Met my Goal Exercise - 60-Day Assessment - Visit Date of Eval: 03/23/19 Session #:: 8 - Pt has missed mutiple sessions due to Sx and other health issues. - Stages of Change Stages of Change:: Action - Physician Prescribed Exercise Modalities: Treadmill, Rower, NuStep Frequency (days/week): 3 Duration (Minutes):: 30-45 Intensity: 60-80% age predicted maximum heart rate reserve METs - Progression: 0.5-1.0 MET, RPE 11-14 WEEK: 4.5 Target Heart Rate:: 96-124 Max HR 78 - Hypertension Resting Blood Pressure:: 142/68 Peak Exercise Blood Pressure:: 156/60 - Intervention Home Exercise/Activity Goal:: Moderate Exercise 30 min/day x 5 days/wk - Education Goals:: Warm-up, RPE GRAY Scale, S/S, Safe Exercise, Self-Monitoring - Exercise Program Goals Exercise Program Goals: Aerobic Activity >30 min, B/P <130/80 Nutrition - 60-Day Assessment - Program Goals Nutrition Program Goals: LDL <70. Total Cholesterol <200. HDL >45. Triglycerides <150. HgbA1C <7%. BMI <25 - Visit Date of Eval: 03/23/19 - Stages of Change Stages of Change:: Action - Lipids Has the patient seen the dietitian?: No - Diabetes Diabetes:: No - Weight Management Weight:: 76.204 kg - Intervention Referral to dietitian:: No Referral to Diabetic Clinic:: No Will attend diet classes:: Yes - Education Attended class for:: Signs & symptoms of hypoglycemia, Signs & symptoms of hyperglycemia, Relate diabetes to coronary artery disease, Healthy eating Tobacco - Initial Assessment - Program Goals Tobacco Program Goals: Complete smoking cessation. Attend education classes. Improve Knowledge Test score - Learning Barriers Learning Barriers: Vision - READING GLASSES, Ready to Learn Tobacco - 60-Day Assessment - Program Goals Tobacco Program Goals: Complete smoking cessation. Attend education classes. Improve Knowledge Test score - Stage of Change Stages of Change:: Action - Learning Barriers Learning Barriers: Participates in education - Family Support Do you have family support?: Yes - Tobacco Use Tobacco Use: Non-smoker Do you use smokeless tobacco?: No - Intervention Smoking Cessation Referral:: No Individual Education/Counseling:: No Education Schedule Given:: Yes - Education Attended class for:: Treating Heart Disease, How The Heart Works, What it means to have Heart Disease, How Coronary Artery Disease is Diagnosed, Heart Procedures Psychosocial - Initial Assess - Target Goals Target Goals: Assess presence or absence of depression. Using a valid screening tool, maximizes coping skills. Positive support system - Psychosocial Test Tool Used:: HANDS Depression Questionnaire - Assistive Devices Fall Risk Assessed:: Yes Psychosocial - 60-Day Assess - Target Goals Target Goals: Assess presence or absence of depression. Using a valid screening tool, maximizes coping skills. Positive support system - Stages of Change Stages of Change:: Action - Psychosocial Test Tool Used:: HANDS Depression Questionnaire - Intervention PS - Interventions: Yes Attend Stress Management Classes, Yes Uses Stress Management Skills, No Referral to Mental Health, No Referral to [facility] Case Management, No Referral to Physician - Education Attended classes for:: Coping techniques, Signs & symptoms of depression, Stress management, Relaxation techniques - Assistive Devices Assistive Devices:: None Fall Risk Assessed:: Yes Patient Health Questionnaire 60-Day Re-eval Assessment 1. Little interest or pleasure in doing things: Several days 2. Feeling down, depressed, or hopeless: Several days 3. Trouble falling or staying asleep, or sleeping too much: Nearly every day 4. Feeling tired or having little energy: Nearly every day 5. Poor appetite or overeating: Nearly every day 6. Feeling bad about yourself -- or that you are a failure or have let yourself or your family down: More than half the days 7. Trouble concentrating on things, such as reading the newspaper or watching television: Not at all 8. Moving or speaking so slowly that other people could have noticed. Or the opposite - being so fidgety or restless that you have been moving around a lot more than usual: Not at all 9. Thoughts that you would be better off , or of hurting yourself in some way: Not at all How difficult have these problems made it for you to do your work, take care of things at home, or get along with other people?: Not difficult at all Total Score: 13 Self-Efficacy 60-Day Re-eval Assessment We would like to know how confident you are in doing certain activities. Please select your confidence level for:: Select your confidence level for the following using the scale 1-10 where 1 is not at all confident and 10 is totally confident. Your score is the average of all 6 responses. Fatigue: How confident are you that you can keep the fatigue caused by your disease from interfering with the things you want to do? Select Number: 4 Physical Discomfort or Pain: How confident are you that you can keep the physical discomfort or pain of your disease from interfering with the things you want to do? Select Number: 4 Emotional Distress: How confident are you that you can keep the emotional distress caused by your disease from interfering with the things you want to do? Select Number: 6 Other Symptoms or Health Problems: How confident are you that you can keep other symptoms or health problems from interfering with the things you want to do? Select Number: 3 Different Tasks and Activities: How confident are you that you can do the different tasks and activities needed to manage your health condition so as to reduce your need to see a doctor? Select Number: 7 Medication: How confident are you that you can do things other than just taking medication to reduce how much your illness affects your everyday life? Select Number: 8 Total Score:: 5
[2019-03-23 08:51] VITALS: BP 142/68; BP 156/60
== END 2019-04-10 23:59 ==
LOC: CR 09:15
PROVIDERS: Family Provider Internal Medicine; PCP Internal Medicine; Referring Provider Internal Medicine Cardiovascular Disease; Visit Provider Internal Medicine Cardiovascular Disease
DX: I21.4 Non-ST elevation (NSTEMI) myocardial infarction (principal); I25.10 Atherosclerotic heart disease of native coronary artery without angina pectoris; Z95.5 Presence of coronary angioplasty implant and graft; Z95.1 Presence of aortocoronary bypass graft
CPT/HCPCS: 93798

== ENCOUNTER → 2019-04-19 11:46 | Outpatient (CLI) | payer MEDICARE, OTHER, SELFPAY ==
[2019-01-15 14:11] VITALS: BMI 32.3
[2019-04-19 10:10] VITALS: BMI 31.5
[2019-04-19 12:53] LABS: T4 Total, Thyroxin 11.8 ug/dL (4.8-13.9); Thyroid Stim Hormone (TSH) 1.11 uIU/mL (0.358-3.74)
== END ==
PROVIDERS: Family Provider Internal Medicine; PCP Internal Medicine; Referring Provider Internal Medicine Cardiovascular Disease; Visit Provider Internal Medicine Cardiovascular Disease
DX: E78.00 Pure hypercholesterolemia, unspecified (principal)
CPT/HCPCS: 36415; 84436; 84443

== ENCOUNTER → 2019-09-11 06:51 | Outpatient (CLI) | payer MEDICARE, OTHER, SELFPAY ==
[2019-01-15 14:11] VITALS: BMI 32.3
[2019-08-29 08:44] VITALS: BMI 31.2
--- NOTE | 2019-09-11 12:25 | STRESSREP_ITS ---
Stress Test Report Pharmacologic myocardial perfusion stress test. 74-year-old lady with a history of chest pain. Stress protocol: Resting EKG demonstrates sinus bradycardia with a rate of 54 bpm normal intervals are noted resting blood pressures 142/62. 0.4 mg of regadenoson was infused per usual protocol followed by Intravenous saline flush injection co ntinuous EKG monitoring was performed. The maximum heart rate attained was noted to be 68 bpm which was 46% of maximum predicted heart rate the maximum workload was 1 metabolic equivalent. At rest there were no ST or T wave changes noted to suggest abnormal flow reserve at peak infusion nonspecific ST-T wave changes were noted. No clinical angina was noted. Myocardial perfusion protocol. 12.0 mCi of technetium 99m sestamibi was injected at rest. 0.4 mg of regadenoson was infused per usual protocol. A peak infusion 36.0 mCi of technetium 99m sestamibi was injected stress images were obtained stress and rest images were reconstructed in comparing the short axis vertical long horizontal long axis. Gated images were also obtained per Perfusion SPECT analysis: Review of the stress images demonstrate normal uptake of tracer noted in all areas of the myocardium. The resting images similar demonstrate normal uptake of tracer noted in all areas of the myocardium. No areas of reversibility are noted to suggest ischemia. Gated SPECT analysis: The gated ejection fraction is 76%. Conclusion: Normal pharmacologic myocardial perfusion stress test. Preserved ejection fraction.
== END ==
PROVIDERS: PCP Internal Medicine; Referring Provider Internal Medicine Cardiovascular Disease; Visit Provider Internal Medicine Cardiovascular Disease
DX: Z95.1 Presence of aortocoronary bypass graft (principal)
CPT/HCPCS: 78452; 93017; A9500; A4216; J2785

== ENCOUNTER 2020-02-18 07:51 | Day surgery (SDC) | payer MEDICARE, OTHER, SELFPAY ==
[2019-01-15 14:11] VITALS: BMI 32.3
[2020-02-15 13:13] VITALS: BMI 31.1
--- NOTE | 2020-02-15 14:15 | RAD_ITS ---
STUDY: X-RAY CHEST REASON FOR EXAM: Female, 74 years old. Increased dyspnea and fatigue. History of hypertension and prior CABG procedure. TECHNIQUE: PA and lateral views of the chest. COMPARISON: 01/13/2019. FINDINGS: The lungs are clear and expanded. There is no demonstrated pleural abnormality. . 3. The heart is normal in size. Normal mediastinum and satya. Normal visualized pulmonary arteries. Normal visualized aortic arch and descending thoracic aorta. There is demineralization of the osseous structures. There is degenerative osteoarthritis of the bilateral shoulders. There is no demonstrated abnormality of the visualized soft tissue structures of the upper abdomen. RAD/Chest PA and Lateral IMPRESSION: No acute cardiopulmonary disease. There is no major interval change. Electronically Signed: Beni Garcia DO at 17:16 EST Tel [phone], Service support ,
[2020-02-15 15:54] LABS: Absolute Lymphocyte Count 2.31 X10^3/uL (0.83-4.51); Basophil# 0.04 X10^3/uL; Basophil% 0.4 % (0-1); Eosinophil# 0.13 X10^3/uL; Eosinophils% 1.4 % (0-5); Hematocrit 45.8 % (37-47); Hemoglobin 14.5 g/dL (12.0-15.0); Lymphocyte # 2.31 X10^3/ul (4.0); Lymphocyte % 25.2 % (19-41); Mean Corp Hgb Conc 31.7 g/dL (32-36); Mean Corpuscular Hgb 26.6 pg (27.0-32.0); Mean Corpuscular Volume 83.9 fL (81-99); Mean Platelet Vol. 10.7 fl (6.2-12.0); Monocyte% 7.6 % (0-10); NRBC Flagged by Analyzer 0 % (0-5); Neutrophil # 5.97 X10^3/uL (2.7-7.7); Neutrophil % 65.2 % (47-70); Platelet Count 277 K/mm3 (150-450); RBC Distribution Width CV 14.7 % (11.6-14.6); RBC Distribution Width SD 44.6 fl (35.1-43.9); Red Blood Count 5.46 M/mm3 (4.2-5.4); White Blood Count 9.2 K/mm3 (4.4-11.0)
[2020-02-15 16:12] LABS: Prothrombin Time (Protime)PT. 12.8 SECONDS (11.7-14.9)
[2020-02-15 16:13] LABS: Partial Thromboplast Time 30.8 Seconds (24.1-36.2)
[2020-02-15 16:16] LABS: Anion Gap 7 (5-15); BUN 25 mg/dL (7-18); Calcium,Total 9.7 mg/dL (8.5-10.1); Chloride 109 mmol/L (98-107); EST Glomerular Filtration Rate 58 mL/min (>60); Est Glom Filt Rate - Afr Amer 70 mL/min (>60); Glucose 89 mg/dL (74-106); Potassium 3.3 mmol/L (3.5-5.1); Sodium Level 143 mmol/L (136-145)
--- NOTE | 2020-02-18 05:53 | HP_ITS ---
HPI HPI History of Present Illness Surgical H&P: Yes Details: NERIS MCGOVERN, is a 74 F who presents to the office today for an urgent appointment for chest pain. She does have a history of coronary artery disease with bypass surgery in 2009. She had an SOARES to the LAD, SVG to the first diagonal and second branches. She also has a history of drug-eluting stent to her proximal 2nd RPL branch of RCA on 01/15/2019, hypertension, and hyperlipidemia. Pt sts that on Tuesday she had left arm pain that was similar to what she had prior to her heart surgery. She does not have any chest pain/heaviness/tightness. She does have some neck pain. She does have SOB, it is difficult for her to tell me if this is worse than before. She does note that she is fatigued but also notes that she may be depressed. She does not have any palpitations. She does not have any lightheadedness/dizziness. 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 Accompanied by: None Is patient in pain?: Yes Allergies acetaminophen [From Tylenol] Allergy (Verified 02/15/20 13:05) Unknown codeine Allergy (Verified 02/15/20 13:05) Unknown progesterone Allergy (Verified 02/15/20 13:05) Unknown trazodone Allergy (Verified 02/15/20 13:05) Unknown atorvastatin Adverse Reaction (Verified 02/15/20 13:05) weakness Medications Nitroglycerin 0.4 mg SL UD PRN #1 bottle 01/16/19 [Rx Confirmed 02/15/20] aspirin 81 mg tablet,delayed release 81 mg PO QDAY #90 tab 02/14/19 [Rx Confirmed 02/15/20] cholecalciferol (vitamin D3) 1,250 mcg (50,000 unit) capsule 50,000 unit PO QWEEK #45 cap 02/14/19 [Rx Confirmed 02/15/20] clopidogrel 75 mg tablet 75 mg PO DAILY 02/14/19 [History Confirmed 02/15/20] levothyroxine 75 mcg tablet 75 mcg PO DAILY #90 tab 02/14/19 [Rx Confirmed 02/15/20] montelukast 10 mg tablet 10 mg PO QPM #90 tab 02/14/19 [Rx Confirmed 02/15/20] losartan 50 mg tablet 50 mg PO BID #60 tab 06/04/19 [Rx Confirmed 02/15/20] coklgohjamys-Cx-dpwn-minerals tab PO 08/29/19 [History Confirmed 02/15/20] sertraline 100 mg tablet 200 mg PO BID tab 08/29/19 [History Confirmed 02/15/20] zolpidem 6.25 mg tablet,extended release,multiphase 6.25 mg PO QHS 08/29/19 [History Confirmed 02/15/20] hydrochlorothiazide 25 mg tablet 25 mg PO DAILY #90 tab 09/12/19 [Rx Confirmed 02/15/20] amlodipine 5 mg tablet 5 mg PO DAILY 02/15/20 [History Confirmed 02/15/20] [facility] Medical History Asthma (Chronic) Atherosclerotic heart disease of [place] coronary artery without angina pectoris (Chronic) Non-STEMI (non-ST elevated myocardial infarction) (Resolved 01/14/19) Essential (primary) hypertension (Chronic) Hyperlipidemia (Chronic) Anxiety and depression (Chronic) Body mass index (BMI) of 32.0-32.9 in adult (Chronic) COPD (chronic obstructive pulmonary disease) (Chronic) Carotid artery disease (Chronic) Depression (Chronic) GERD (gastroesophageal reflux disease) (Chronic) Hypothyroidism (Chronic) EARL (obstructive sleep apnea) (Chronic) Obesity (BMI 30.0-34.9) (Chronic) Thrombocytopenia (Chronic) LEOS (dyspnea on exertion) (Resolved) Surgical History H/O coronary artery bypass surgery (Chronic 01/2010) History of coronary artery stent placement (Resolved 01/15/19) History of appendectomy (Resolved) History of cholecystectomy (Resolved) History of hernia repair (Resolved) History of hysterectomy (Resolved) Family History Mother CAD (coronary artery disease) CVA (cerebral vascular accident) Father , Age 44 COPD (chronic obstructive pulmonary disease) Social History (Updated 02/15/20 @ 14:08 by Josie COPELAND, PA) Smoking Status: Former smoker pack-years: 10 how long ago did patient quit smokin years ago second hand exposure: No alcohol intake: never substance use type: does not use caffeine: Yes Type: carbonated beverages Number of servings: 2 what type of physical activity do you participate in: none ROS Const Const: Positive for fatigue; negative for weakness, fever(s) or headache(s) Eyes Eyes: Negative for blind spots, loss of peripheral vision or transient loss of vision ENT ENT: Negative for headache(s), dizziness, tinnitus or Nosebleed/epistaxis Cardio Chest Pain: Yes Palpitations: No Edema: None Muscle aches with walking: None Resp Respiratory: Positive for SOB with activity; negative for SOB at rest, SOB orthopnea\SOB lying down or Cough GI GI: Negative nausea, vomiting, heartburn or vomiting blood/hematemesis : Negative for hematuria Musc Musc: Negative for muscle aches/ myalgia Neuro Neuro: Negative for dizziness, lightheadedness, near syncope, syncope, orthostatic symptoms, headache(s) or weakness Kamron Hematologic/Lymphatic: Negative for easy bleeding Endo Endo: Positive for fatigue Cardiology Exam Const Appearance: cooperative, no acute distress and well developed Orientation: alert, awake and oriented x3 Head Head: normocephalic and atraumatic Mouth: moist mucous membranes Eyes General: appearance normal, both eyes and all related structures Conjunctivae: conjunctivae normal Pupils: PERRL EOM: EOM intact bilaterally Neck Neck: normal visual inspection, no lymphadenopathy and no JVD Carotids: Negative bruit Neck Mass: Negative Neck mass Chest Chest inspection: normal inspection of the chest and symmetric chest movement Auscultation: Bilateral: Clear to Auscultation Cardio Palpation: normal PMI Rate: regular rate Rhythm: regular rhythm Heart sounds: S1 normal and S2 normal; negative rub, gallop or murmur GI GI: normal to inspection, soft, no hepatosplenomegaly and bowel sounds present; negative tender Neuro General: alert, awake, oriented x3, CN's II-XI intact bilaterally and moves all extremities Extremities Pulses: Normal: Right Posterior Tibial Pulse, Left Posterior Tibial Pulse, Right Radial Pulse, Left Radial Pulse Lower Extremity Edema: None: Bilateral Psych Psychological: normal affect Assessment & Plan 1. Coronary artery disease with angina pectoris I25.119 Plan Patient's arm discomfort was similar to what she had prior to her recent myocardial infarction and bypass surgery. She recently had a stress test in September 2019 that was negative for ischemia. This was done for increased shortness of breath and fatigue. With her recent stress test, continued shortness of breath and now her arm discomfort that radiates up to her neck would like to proceed with a diagnostic heart catheterization to further assess. For now she will continue with aggressive medical management. Further recommendations to be made after diagnostic heart catheterization. Patient Instructions Your heart cath is scheduled for 02/17, your procedure will be at 09. Nothing to eat or drink after midnight. 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 Essential hypertension I10 Plan Blood pressure is well controlled on current medications, we do not recommend any changes at this time. Orders Orders: Left Heart Cath w/Grafts Today Basic Metabolic Profile (BMP) Today Partial Thromboplast Time Today Prothrombin Time w/INR Today CBC W/Diff, Automated Today Chest PA and Lateral Today 3. Pure hypercholesterolemia E78.00 Plan Patient is currently not on any statins due to weakness. After heart catheterization will need to revisit this to further assess whether or not she should be on Zetia or Repatha. 4. Fatigue, unspecified type R53.83 Plan With her fatigue and shortness of breath as mentioned above would like to proceed with a diagnostic heart catheterization. Orders Orders: Left Heart Cath w/Grafts Today Basic Metabolic Profile (BMP) Today Partial Thromboplast Time Today Prothrombin Time w/INR Today CBC W/Diff, Automated Today Chest PA and Lateral Today Plan Detail Other Orders Orders: 12 Lead EKG performed by BMS Today I25.10, Z95.1, Z95.5 Left Heart Cath w/Grafts Today E78.5, R06.00 Basic Metabolic Profile (BMP) Today E78.5, R06.00 Partial Thromboplast Time Today E78.5, I21.4, R06.00 Prothrombin Time w/INR Today E78.5, I25.10, R06.00 CBC W/Diff, Automated Today E78.5, J45.909, R06.00 Chest PA and Lateral Today E78.5, R06.00 Follow Up 02/15/20 (keep as is) Coding Level of Care Code Off vis,est,level 4 Diagnoses Coronary artery disease with angina pectoris I25.119 Essential hypertension I10 Pure hypercholesterolemia E78.00 ??Hyperlipidemia type: pure hypercholesterolemia Fatigue, unspecified type R53.83 ??Fatigue type: unspecified Coding Level of Care Code Off vis,est,level 4 Diagnoses Coronary artery disease with angina pectoris I25.119 Essential hypertension I10 Pure hypercholesterolemia E78.00 ??Hyperlipidemia type: pure hypercholesterolemia Fatigue, unspecified type R53.83 ??Fatigue type: unspecified Supplemental Info Supplemental Information Stress test from 09/2019: Normal pharmacologic myocardial perfusion stress test. Preserved ejection fraction. Heart catheterization from 01/15/2019: CONCLUSIONS Double vessel CAD of the LAD, PL branch of RCA (unbypassed). Normal LV size, wall motion,and systolic function Non obstructive coronary arteries Successful PTCA/CRUZITO proximal 2nd RPL branch of RCA with a 2.5 x 16 Promus Synergy, post dilated with a 2.5 x 8 NC Balloon throughout, 75%-->0%, no dissection. Pt had identical anginal symptoms during balloon/stent deployment which resolved after PCI. RECOMMENDATIONS Referred for immediate PCI Highly recommend quitting all tobacco products Follow up with primary integration aide Risk factor modification ASA Indefinitley Plavix for at least 12 months Routine post interventional care Refer for Outpatient Cardiac Rehab Manual sheath removal per protocol Follow up with Dr. Umana Medical management of mid LCX/OM as this appears to be improved over previous cath in 2016, and <50% stenosed. If pt continues to have exertional CP after optimized medical therapy and/or evidence of lateral ischemia on stress testing, would consider PCI of LCX/OM. Successful Mynx Control of RFA. CORONARY ANGIOGRAPHY DOMINANCE: Right Dominant LEFT HEART ASSESSMENT Left Ventricular Ejection Fraction: by LV Gram 65 % Normal Left Ventricular systolic function LVEDP: 18 mmHg Normal LV wall motion LEFT MAIN: Angiographically normal LEFT ANTERIOR DESCENDING ARTERY: PROX LAD: 85 % Stenosis CIRCUMFLEX ARTERY: MID CIRC: Moderate luminal irregularities up to 50% RIGHT CORONARY ARTERY: PROX RCA: Non-obstructive MID RCA: Non-obstructive DISTAL RCA: Moderate luminal irregularities up to 50% RT PLV: 75 % Stenosis RT PDA: Ostial - Mild luminal irregularities less than 30% GRAFTS: SOARES graft to the LAD is patent with large, unclipped accessory branch Saphenous Vein graft to the 1st Diagonal is patent Saphenous Vein graft to the 2nd Diagonal is patent Echocardiogram from 01/14/2019: Interpretation Summary The estimated ejection fraction is 65 %. Stage 1 diastolic dysfunction. Trivial mitral valve insufficiency. Trivial tricuspid valve insufficiency. Unable to estimate RV systolic pressure due to insufficient tricuspid regurgitant envelope. Comapred to echo report dated 11/04/2014, LV function has increased from 55% to 65% and MR/TR have gone from mild to trivial. Diagnostics Electrocardiogram 02/15/20 Stress Test Nuclear Medicine 09/11/19 Stress Test 09/11/19 COVID (Procedure Consent) Procedure Criteria Procedure Criteria: Yes Elective The surgeon/proceduralist and patient have discussed in detail the risk of exposure to and/or potential harm posed by the COVID-19 virus with having a surgery/procedure at this time versus the risk of? delaying the surgery/procedure. It is not possible to know either the risk of delaying the surgery or procedure or chance of getting an infection with perfect accuracy, but a joint decision was made between the patient and the surgeon/proceduralist ?to proceed at this time with the scheduled surgery/procedure as indicated on the consent form.
[2020-02-18 07:03] VITALS: BMI 31.1
--- NOTE | 2020-02-18 10:40 | CL.D_ITS ---
Patient Name: NERIS MCGOVERN Study Date: 02/18/2020 Performing: Nicholas Umana MD Ht: 61.02 inches 155 cm : 1945 Wt: 165.35 lbs 75 kg Age: 74 Gender: female BSA: 1.74 PROCEDURE(S) PERFORMED QI70-PZC/COR/CABG CLINICAL PROFILE AND INDICATIONS Indications: Suspected CAD Heart Failure: None Stress/Imaging Date: 02/04/2020Stress Test with SPECT MPI: Negative CAD Presentations: Stable angina. CONCLUSIONS Patent RCA stent from 2018, patent SVG to Diag and Circ. Competitive flow to LAD RECOMMENDATIONS Medical therapy DESCRIPTION OF PROCEDURE The patient arrived to the procedure lab. The risks and benefits of the procedure as well as a full d escription of our services here and current unavailability of surgical backup were fully explained to the patient and/or their significant other prior to the catheterization. The Timeout was completed, verifying the correct patient and procedure. The patient's procedural site was prepped and draped in the usual fashion. Local anesthetic was given subcutaneously to right radial region with Lidocaine 2% . Using a modified Seldinger technique, arterial access was obtained via the right radial artery, a 6 Fr sheath was inserted. Right Coronary Artery selective angiography was then performed in multiple v iews using a 5 Fr. 4.0 [place] catheter. Saphenous Vein graft to the DIAG 1 and DIAG 2 selective angio graphy was performed in multiple views using a 5 Fr. 4.0 [place] catheter. Left Coronary Artery selecti ve angiography was performed in multiple views using a 5 Fr. 4.0 [place] catheter.The arterial sheath was pulled and a TR Band was applied for hemostasis w/12ml air CORONARY ANGIOGRAPHY DOMINANCE: Right Dominant LEFT HEART ASSESSMENT Left Ventricular Ejection Fraction: by Echo 55 % LEFT MAIN: Angiographically normal LEFT ANTERIOR DESCENDING ARTERY: PROX LAD: is occluded CIRCUMFLEX ARTERY: No significant disease noted RIGHT CORONARY ARTERY: RT PLV: Previously placed stent is patent RT PDA: Ostial - 50 % Stenosis GRAFTS: Saphenous Vein graft to the 1st Diagonal is patent Saphenous Vein graft to the 2nd OM is patent COMPLICATIONS No Complications PROCEDURE MEDICATIONS Versed 1 mg IV Fentanyl 50 mcg IV Versed 1 mg IV Fentanyl 25 mcg IV Plavix 75 mg PO 02/18/2020 08:17:17 SUMMARY OF HEMODYNAMIC DATA Time AIR REST ECG 08:14:59 AO 120/53 (77) SA 10:18:41 AO 125/63 (91) 10:21:26 Signed By Nicholas Umana MD On 02/18/2020 10:39:48 Nicholas Umana MD
== END 2020-02-18 13:00 | disposition home or self-care (01) ==
LOC: CLSP 07:52
PROVIDERS: Physician Assistant Medical; PCP Internal Medicine; Referring Provider Internal Medicine Cardiovascular Disease; Visit Provider Internal Medicine Cardiovascular Disease
DX: I25.118 Atherosclerotic heart disease of native coronary artery with other forms of angina pectoris (principal); I10 Essential (primary) hypertension; E78.5 Hyperlipidemia, unspecified; G47.33 Obstructive sleep apnea (adult) (pediatric); K21.9 Gastro-esophageal reflux disease without esophagitis; E03.9 Hypothyroidism, unspecified; F41.9 Anxiety disorder, unspecified; F32.9 Major depressive disorder, single episode, unspecified; J44.9 Chronic obstructive pulmonary disease, unspecified; I25.2 Old myocardial infarction; E66.9 Obesity, unspecified; Z79.899 Other long term (current) drug therapy; Z95.5 Presence of coronary angioplasty implant and graft; Z79.02 Long term (current) use of antithrombotics/antiplatelets; Z68.31 Body mass index [BMI] 31.0-31.9, adult; Z79.82 Long term (current) use of aspirin; Z87.891 Personal history of nicotine dependence; Z95.1 Presence of aortocoronary bypass graft; D69.6 Thrombocytopenia, unspecified
CPT/HCPCS: 36415; 71046; 80048; 85025; 85610; 85730; 93455; 99152; 99153; J7040; Q9967; C1769; C1894

== ENCOUNTER 2020-06-12 17:08 | Outpatient (RCR) | payer MEDICARE, OTHER, SELFPAY ==
[2019-01-15 14:11] VITALS: BMI 32.3
[2020-06-12] MEDS: COVID-19 VACC, MRNA(PFIZER)/PF 30 MCG/0.3 ML SYRINGE IM (11:02)
[2020-07-03] MEDS: COVID-19 VACC, MRNA(PFIZER)/PF 30 MCG/0.3 ML SYRINGE IM (11:11)
== END 2020-06-12 23:59 ==
LOC: IMMUN 17:08
PROVIDERS: PCP Internal Medicine; Visit Provider Family Medicine
DX: Z23 Encounter for immunization (principal)
CPT/HCPCS: 0001A; 0002A; 91300

== ENCOUNTER → 2020-07-23 14:43 | Outpatient (CLI) | payer MEDICARE, OTHER, SELFPAY ==
[2019-01-15 14:11] VITALS: BMI 32.3
[2020-07-23 14:01] VITALS: BMI 32.5
[2020-07-23 16:19] LABS: Hematocrit 40.9 % (37-47); Hemoglobin 12.9 g/dL (12.0-15.0)
[2020-07-23 16:45] LABS: BNP,B-Type NATRIURETIC PEPTIDE 153.9 pg/mL (0-100)
[2020-07-23 16:56] LABS: Anion Gap 5 (5-15); BUN 15 mg/dL (7-18); Chloride 109 mmol/L (98-107); Creatinine, Serum 0.88 mg/dL (0.55-1.02); EST Glomerular Filtration Rate 66 mL/min (>60); Est Glom Filt Rate - Afr Amer 80 mL/min (>60); Glucose 89 mg/dL (74-106); Potassium 3.6 mmol/L (3.5-5.1); Sodium Level 141 mmol/L (136-145)
== END ==
PROVIDERS: PCP Internal Medicine; Referring Provider Physician Assistant Medical; Visit Provider Physician Assistant Medical
DX: R06.00 Dyspnea, unspecified (principal); I25.10 Atherosclerotic heart disease of native coronary artery without angina pectoris; E78.00 Pure hypercholesterolemia, unspecified; I10 Essential (primary) hypertension
CPT/HCPCS: 36415; 80048; 83880; 85014; 85018

== ENCOUNTER → 2020-08-01 09:28 | Outpatient (CLI) | payer MEDICARE, OTHER, SELFPAY ==
[2019-01-15 14:11] VITALS: BMI 32.3
[2020-07-23 14:01] VITALS: BMI 32.5
--- NOTE | 2020-08-02 09:56 | PFT ---
INTRODUCTION: The patient is a 75-year-old female that presents for pulmonary function studies secondary to a diagnosis of dyspnea on exertion. Respiratory therapy reports good patient effort. Bronchodilators were used during testing. INTERPRETATION: Forced expiration spirometry demonstrates the presence of a mild large airways obstructive ventilatory defect. There was no significant response to aerosolized bronchodilators. Spirograms are of good quality and plateau normally. Body plethysmography was performed and revealed a decreased TLC to 3.21 L, 75% of predicted, indicative of a mild restrictive ventilatory impairment. Diffusing capacity by single breath CO is within normal limits. IMPRESSION: Irreversible mild mixed ventilatory defect with preserved diffusing capacity.
== END ==
PROVIDERS: PCP Internal Medicine; Referring Provider Physician Assistant Medical; Visit Provider Physician Assistant Medical
DX: I25.10 Atherosclerotic heart disease of native coronary artery without angina pectoris (principal); E78.00 Pure hypercholesterolemia, unspecified; I10 Essential (primary) hypertension; R06.00 Dyspnea, unspecified
CPT/HCPCS: 94060; 94726; 94729

== ENCOUNTER → 2020-08-11 10:08 | Outpatient (CLI) | payer MEDICARE, OTHER, SELFPAY ==
[2019-01-15 14:11] VITALS: BMI 32.3
[2020-07-23 14:01] VITALS: BMI 32.5
--- NOTE | 2020-08-11 10:10 | ECHOD_ITS ---
Reason For Study: Dyspnea/SOB Procedure This was a 2D Doppler, Color Flow transthoracic echocardiogram. Exam performed in department. Left Ventricle Normal LV size. Left ventricular systolic function is normal. The estimated ejection fraction is 65 %. Normal diastology for age. No regional wall motion abnormalities noted. Right Ventricle Normal RV size. Normal systolic function. Atria Normal left atrium. Normal right atrium. Mitral Valve Normal mitral valve. Mild (1+) mitral valve insufficiency. Tricuspid Valve Normal tricuspid valve. Mild tricuspid valve insufficiency. Pulmonary artery systolic pressure is 38 mmHg. Aortic Valve Trisinus/trileaflet aortic valve. Pulmonic Valve Normal pulmonic valve. Great Vessels Normal aortic root. The pulmonary artery is normal size. Normal inferior vena cava. Pericardium/Pleural No pericardial effusion. MMode/2D Measurements & Calculations LVIDd: 3.8 cm IVSd: 1.3 cm Ao root diam: 2.9 cm LVIDs: 2.0 cm LVPWd: 1.2 cm RVDd: 2.9 cm FS: 46.8 % LAV(MOD-bp): 48.7 ml LVAd ap4: 19.7 cm2 SV(MOD-sp4): 33.0 ml LAV(MOD-bp) Indexed: 27.6 ml/m2 LVLd ap4: 7.2 cm LAV(MOD-sp2): 49.6 ml EDV(MOD-sp4): 47.1 ml LAV(MOD-sp4): 48.4 ml EDV(sp4-el): 46.0 ml LVAs ap4: 10.1 cm2 LVLs ap4: 6.2 cm ESV(MOD-sp4): 14.0 ml ESV(sp4-el): 14.0 ml EF(MOD-sp4): 70.2 % EF(sp4-el): 69.5 % SV(sp4-el): 31.9 ml LA A4 area: 17.3 cm2 LA dimension(2D): 4.3 cm RA A4 area: 10.5 cm2 Doppler Measurements & Calculations MV E max matt: 90.8 cm/sec Lat Peak E' Matt: 9.9 cm/sec Med Peak E' Matt: 6.5 cm/sec MV A max matt: 89.3 cm/sec E/E' lat: 9.2 E/E' med: 13.9 MV E/A: 1.0 Ao V2 max: 164.6 cm/sec LV V1 max: 122.4 cm/sec PA V2 max: 143.5 cm/sec Ao max P.8 mmHg LV V1 max P.0 mmHg Ao V2 mean: 107.2 cm/sec Ao mean P.1 mmHg Ao V2 VTI: 37.2 cm TR max matt: 291.7 cm/sec TR max P.0 mmHg ECHO/Echo Complete Interpretation Summary Normal LV size. Left ventricular systolic function is normal. The estimated ejection fraction is 65 %. Pulmonary artery systolic pressure is 38 mmHg. Structurally normal valves. Ordering Physician: Josie Magana Referring Physician: Olive Julien Performed By: Charisma Biswas, TG, RVT
== END ==
PROVIDERS: PCP Internal Medicine; Referring Provider Physician Assistant Medical; Visit Provider Physician Assistant Medical
DX: I25.10 Atherosclerotic heart disease of native coronary artery without angina pectoris (principal); E78.00 Pure hypercholesterolemia, unspecified; I10 Essential (primary) hypertension; R06.00 Dyspnea, unspecified; R06.02 Shortness of breath
CPT/HCPCS: 93306

== ENCOUNTER → 2020-08-27 15:18 | Outpatient (CLI) | payer MEDICARE, OTHER, SELFPAY ==
[2019-01-15 14:11] VITALS: BMI 32.3
[2020-08-27 06:09] VITALS: BMI 31.7
--- NOTE | 2020-08-27 15:23 | RAD_ITS ---
EXAM: XR CHEST, 2 VIEWS : 1945 CLINICAL INDICATION: Concern for pleural effusion vs. fibrosis TECHNIQUE: Frontal and lateral views of the chest. This report was created using [employer] report generation technology. COMPARISON: 02/15/2020 FINDINGS: LUNGS AND PLEURAL SPACES: Unremarkable. No consolidation or edema. No pneumothorax. No effusion. HEART: Unremarkable. Cardiac silhouette not enlarged. MEDIASTINUM: Central airways and mediastinal contour are unremarkable. BONES/JOINTS: Unremarkable. SOFT TISSUES: Unremarkable. RAD/Chest PA and Lateral IMPRESSION: No radiographic evidence of acute cardiopulmonary disease. at 1614 Reported and signed by: Ignacio Lamas MD Electronically Signed: Ignacio Lamas MD at 16:13 EDT Tel , Service support ,
== END ==
PROVIDERS: PCP Internal Medicine; Referring Provider Internal Medicine Critical Care Medicine; Visit Provider Internal Medicine Critical Care Medicine
DX: R06.00 Dyspnea, unspecified (principal)
CPT/HCPCS: 71046

== ENCOUNTER → 2020-09-09 12:30 | Outpatient (CLI) | payer MEDICARE, OTHER, SELFPAY ==
[2019-01-15 14:11] VITALS: BMI 32.3
[2020-08-27 06:09] VITALS: BMI 31.7
[2020-09-09 12:57] VITALS: PULSE 57; PULSE 60; PULSE 62; PULSE 64; PULSE 71; PULSE 74; PULSE 75; PULSE 79; O2SAT 95; O2SAT 96; O2SAT 97
--- NOTE | 2020-09-10 08:48 | PCM.PSN.6M ---
PSN 6 Minute Walk Test 6 Minute Walk Test 6 Minute Walk Test: 6 Minute Walk Test PSN:6-Minute Walk Test Start: 09/09/20 12:56 Freq: Status: Active Protocol: RESP.6MINW Document 09/09/20 12:57 COUNT INCLUDES THE [facility] (Rec: 09/09/20 13:00 COUNT INCLUDES THE [facility] [id number]) 6 Minute Walk Test Date Performed 09/09/20 Time Performed 12:30 Height 5 ft 2 in Weight: 168 lb Weight in Pounds 168.[address]: Don Cannon Assistive device used: None Pre-test Oxygen Delivery Method Room Air Pulse Ox (%) 96 Pulse Rate (60-100 beats/min) 57 L Dyspnea Jorge Scale (0-10) 3 Reported Symptoms Increased Work of Breathing 1st minute Oxygen Delivery Method Room Air Pulse Ox (%) 95 Pulse Rate (60-100 beats/min) 60 Dyspnea Jorge Scale (0-10) 3 Number of Rests Taken 0 Reported Symptoms Increased Work of Breathing 2nd minute Oxygen Delivery Method Room Air Pulse Ox (%) 95 Pulse Rate (60-100 beats/min) 64 Dyspnea Jorge Scale (0-10) 4 Number of Rests Taken 0 Reported Symptoms Increased Work of Breathing 3rd minute Oxygen Delivery Method Room Air Pulse Ox (%) 95 Pulse Rate (60-100 beats/min) 71 Dyspnea Jorge Scale (0-10) 5 Number of Rests Taken 0 Reported Symptoms Increased Work of Breathing 4th minute Oxygen Delivery Method Room Air Pulse Ox (%) 95 Pulse Rate (60-100 beats/min) 74 Dyspnea Jorge Scale (0-10) 5 Number of Rests Taken 0 Reported Symptoms Increased Work of Breathing 5th minute Oxygen Delivery Method Room Air Pulse Ox (%) 96 Pulse Rate (60-100 beats/min) 75 Dyspnea Jorge Scale (0-10) 5 Number of Rests Taken 0 Reported Symptoms Increased Work of Breathing 6th minute Oxygen Delivery Method Room Air Pulse Ox (%) 96 Pulse Rate (60-100 beats/min) 79 Dyspnea Jorge Scale (0-10) 5 Number of Rests Taken 0 Reported Symptoms Increased Work of Breathing Post-test Oxygen Delivery Method Room Air Pulse Ox (%) 97 Pulse Rate (60-100 beats/min) 62 Dyspnea Jorge Scale (0-10) 3 Reported Symptoms Increased Work of Breathing Full Laps Walked 16 Partial Lap, Number of Tiles Walked 23 Total Distance Walked (ft) 967 Interpretation Interpretation: The patient ambulated 967 feet over the course of 6 minutes beginning on room air without assistive devices or breaks. Pretesting oxygen saturation was noted to be 96% on room air. With ambulation, the leeanne oxygen saturation was 95%. There was no significant exertional oxygen desaturation. Recommendations Recommendations: There is no indication for the use of supplemental oxygen at this time.
== END ==
PROVIDERS: PCP Internal Medicine; Referring Provider Internal Medicine Critical Care Medicine; Visit Provider Internal Medicine Critical Care Medicine
DX: R06.00 Dyspnea, unspecified (principal)
CPT/HCPCS: 94618

== ENCOUNTER → 2020-12-09 12:12 | Outpatient (CLI) | payer MEDICARE, OTHER, SELFPAY ==
[2019-01-15 14:11] VITALS: BMI 32.3
[2020-12-09 14:16] LABS: BNP,B-Type NATRIURETIC PEPTIDE 64.8 pg/mL (0-100)
[2020-12-09 14:17] LABS: Anion Gap 7 (5-15); BUN 22 mg/dL (7-18); BUN/Creat Ratio 27.6 RATIO (10-20); Calcium,Total 8.8 mg/dL (8.5-10.1); Chloride 108 mmol/L (98-107); EST Glomerular Filtration Rate 75 mL/min (>60); Est Glom Filt Rate - Afr Amer 90 mL/min (>60); Glucose 126 mg/dL (74-106); Sodium Level 143 mmol/L (136-145)
== END ==
PROVIDERS: PCP Internal Medicine; Referring Provider Nurse Practitioner Acute Care; Visit Provider Nurse Practitioner Acute Care
DX: R06.00 Dyspnea, unspecified (principal)
CPT/HCPCS: 36415; 80048; 83880

== ENCOUNTER → 2020-12-12 07:18 | Outpatient (CLI) | payer MEDICARE, OTHER, SELFPAY ==
[2019-01-15 14:11] VITALS: BMI 32.3
--- NOTE | 2020-12-12 07:23 | CT_ITS ---
INDICATION: dyspnea EXAMINATION: CT CHEST WITHOUT CONTRAST - CT Chest W/O Contrast Injection TECHNIQUE: Helically acquired images were obtained of the chest. A radiation dose optimization technique was used for this scan. IV Contrast dosage and agent: None. COMPARISON: 01/13/2019. FINDINGS: LUNGS, PLEURA AND LARGE AIRWAYS: Mild thickening of the bronchial norris is visualized, emphysematous changes visualized in bilateral lung mcgill with mild interstitial prominence visualized along the pleural reflections, calcified granuloma visualized in the posterior lateral right upper lobe, no evidence of parenchymal lung nodules or masses. No evidence of pneumothorax or pleural effusion. THYROID: No thyroid lesions. HEART AND PERICARDIUM: Heart size is normal. No pericardial effusion. VESSELS: Thoracic aorta is not dilated. MEDIASTINUM AND DEBBIE: There is a soft tissue density visualized along the anterior aspect of the upper trachea to the right of the midline inferior to the epiglottis, best visualized on axial series 2 image 11 this could represent a prominent lymph node or mass would recommend further evaluation with contrast-enhanced CT scan of the neck for optimal evaluation. No mediastinal or hilar adenopathy. Esophagus is unremarkable. No hiatal hernia. UPPER ABDOMEN: Small type I hiatus hernia is seen, no acute pathology. BONES: Straightening of the alignment of the columns of the thoracic spine visualized, multilevel degenerative endplate changes seen, no acute osseous abnormality seen. No suspicious lytic or blastic abnormality. CT/Chest without Contrast IMPRESSION: Emphysematous changes in bilateral lung mcgill with no evidence of acute cardiopulmonary disease seen. Upper pretracheal soft tissue density suboptimally evaluated recommend further evaluation with a contrast enhanced CT scan of the neck. This was not seen on the prior study. Small type I hiatus hernia. Electronically Signed: Joseph Wilkins MD at 10:24 EDT Tel , Service support ,
== END ==
PROVIDERS: PCP Internal Medicine; Referring Provider Nurse Practitioner Acute Care; Visit Provider Nurse Practitioner Acute Care
DX: R06.00 Dyspnea, unspecified (principal)
CPT/HCPCS: 71250

== ENCOUNTER → 2020-12-31 07:27 | Outpatient (CLI) | payer MEDICARE, OTHER, SELFPAY ==
[2019-01-15 14:11] VITALS: BMI 32.3
--- NOTE | 2020-12-31 07:30 | CT_ITS ---
STUDY: CT SOFT TISSUE NECK WITH CONTRAST REASON FOR EXAM: Female, 75 years old. RIGHT NECK MASS. Chronic shortness of breath. RADIATION DOSAGE (If Supplied By Facility): CTDIvol = ( 16.35 ) mGy, DLP = ( 469.52 ) mGycm TECHNIQUE: The patient was scanned in a multi-detector CT scanner. High resolution transaxial imaging was performed following intravenous administration of IV 75mL Isovue-370. Sagittal and coronal images were reconstructed. Individualized dose optimization techniques were used for this CT. COMPARISON: None. FINDINGS: The patient is status post prior CABG. Normal bilateral parotid glands. Normal bilateral casino porter spaces. Normal bilateral parapharyngeal spaces. Normal bilateral carotid spaces. Normal bilateral sublingual and submandibular glands and spaces. Normal visualized nasopharynx. Normal retropharyngeal space. Normal perivertebral space. Normal visualized bilateral faucial tonsils. The visualized tongue, tongue base and oropharynx are normal. The visualized cervical lymph nodes (levels I-) are within normal size limits, and maintain normal morphology. There is no demonstrated solid or cystic mass lesion. There is no abnormal contrast enhancement. Normal epiglottis, bilateral vallecula and hypopharynx. The pre-epiglottic and paraglottic adipose spaces are normal. Normal visualized bilateral piriform sinuses, aryepiglottic folds, vocal cords, and arytenoid-cricoid articulations. Normal subglottic trachea. There is heterogeneous appearance of the thyroid gland. This is suggestive of goiter as change. There is evidence of a substernal extension of the inferior aspect of the left lobe of the thyroid. There is a 1.4 cm x 1.2 cm hypodense nodule in the inferior pole of the left lobe of the thyroid gland. Correlation with ultrasound is recommended for further evaluation. Normal visualized pulmonary apices. Normal visualized paranasal sinuses. There is multilevel degenerative changes of the cervical spine. CT/Soft Tissue Neck WITH Contrast IMPRESSION: Heterogeneous appearance of the thyroid gland with a substernal extension of the left lobe with evidence of a 1.4 cm x 1.2 cm hypodense nodule in the inferior pole of the left lobe. Correlation with ultrasound is recommended for further evaluation. Electronically Signed: Trip Weinberg MD at 13:16 EDT , Service support ,
== END ==
PROVIDERS: PCP Internal Medicine; Referring Provider Otolaryngology; Visit Provider Otolaryngology
DX: R22.1 Localized swelling, mass and lump, neck (principal)
CPT/HCPCS: 70491; Q9967

== ENCOUNTER → 2021-01-07 11:44 | Outpatient (CLI) | payer MEDICARE, OTHER, SELFPAY ==
[2019-01-15 14:11] VITALS: BMI 32.3
--- NOTE | 2021-01-07 11:51 | US_ITS ---
STUDY: THYROID ULTRASOUND REASON FOR EXAM: Female, 75 years old. THYROID NODULE TECHNIQUE: Ultrasound evaluation of the thyroid was performed with real-time and static larose-scale imaging. COMPARISON: 12/31/2020 CT of the neck FINDINGS: RIGHT LOBE: The right lobe of the thyroid gland measures 4.4 x 1.7 x 1.3 cm. There is a heterogeneous echotexture. 1.6 x 1.4 x 1 cm lower pole isoechoic solid nodule with DOPPLER flow. 1 x 1 x 0.8 cm upper pole predominantly cystic nodule. 6 x 7 x 4 mm mid thyroid isoechoic solid nodule. LEFT LOBE: The left lobe of the thyroid gland measures 3 x 1 x 1.1 cm. There is a heterogeneous echotexture. There are 3 cystic nodules, the largest of which measures up to 7 mm. ISTHMUS: The isthmus measures 3 mm. 1.5 x 1.8 x 1.6 cm mixed cystic and solid nodule with internal DOPPLER flow. US/Thyroid IMPRESSION: 1.6 cm right lower thyroid lobe TI RADS 3 nodule. Follow-up ultrasound in one year. Electronically Signed: Aram Burrell MD at 4:18 EDT Tel , Service support ,
== END ==
PROVIDERS: PCP Internal Medicine; Referring Provider Otolaryngology; Visit Provider Otolaryngology
DX: E04.1 Nontoxic single thyroid nodule (principal)
CPT/HCPCS: 76536

== ENCOUNTER 2021-02-03 14:01 | Emergency (ER) | payer MEDICARE, OTHER, SELFPAY ==
[2019-01-15 14:11] VITALS: BMI 32.3
[2021-02-03 14:02] VITALS: BP 157/74; PULSE 70; RESP 20; TEMP 36.9; O2SAT 95; BMI 30.2
[2021-02-03 14:03] VITALS: BP 164/64; PULSE 63; RESP 20; TEMP 38.1; O2SAT 95
[2021-02-03 14:11] VITALS: BP 164/64; PULSE 63; TEMP 38.1; O2SAT 95
[2021-02-03 14:14] VITALS: O2SAT 96
--- NOTE | 2021-02-03 14:50 | EX.ED.VIS.UR ---
HPI HPI - URI History of Present Illness Chief Complaint: Shortness of Breath Informant: patient Onset/Context/Timing Onset: Days Context: Gradual Onset Timing: Continuous Current Severity: Mild Maximum Severity: Mild Associated Symptoms Associated Symptoms: Positive for Nasal Congestion, Headache, Myalgias, Shortness of Breath and Nonproductive cough; Negative for Sinus Pressure, Nausea, Vomiting, Diarrhea, Chest Pain, Hemoptysis and Productive Cough Narrative Narrative: 75-year-old female history of prior triple bypass, TX and stent on Plavix. States that her tested positive Tuesday for Covid. She was vaccinated earlier this year with the Pfizer vaccine x2. Since she started coming down with symptoms primarily Tuesday evening. She has a cough and fever. Mild shortness of breath. And muscle aches. She denies vomiting or diarrhea. Prior similar symptoms: No Recent Illness/Hospitalization: No ROS ROS ED ROS Narrative Cough. Shortness of breath. Fever. Muscle aches. Review of Systems ROS Unobtainable: Denies due to encephalopathy Constitutional Constitutional ED: Reports fever(s); Denies chills or subjective Eyes Eyes: Denies change in vision ENT ENT ED: Reports rhinorrhea; Denies ear pain or sore throat Cardiovascular Cardiovascular: Denies chest pain or palpitations Respiratory/Chest Respiratory/Chest: Reports cough and dyspnea; Denies dyspnea on exertion or sputum Gastrointestinal Gastrointestinal: Denies abdominal pain, diarrhea, nausea or vomiting Genitourinary Genitourinary ED: Denies dysuria or hematuria Musculoskeletal Musculoskeletal: Reports myalgias Integumentary Denies abscess or rash Neurologic Neurologic: Reports headache(s) Psychiatric Psychiatric: Denies depression Endocrine Endocrinology: Denies polyuria Hematologic/Lymphatic Hematologic/Lymphatic: Denies easy bruising Allergic/Immunologic Allergic/Immunologic ED: Denies urticaria PFSH FOR[facility]LY [facility], [facility] Medical History Anxiety and depression Asthma Atherosclerotic heart disease of [place] coronary artery without angina pectoris Body mass index (BMI) of 32.0-32.9 in adult Carotid artery disease COPD (chronic obstructive pulmonary disease) Depression LEOS (dyspnea on exertion) Essential (primary) hypertension GERD (gastroesophageal reflux disease) Hyperlipidemia Hypothyroidism Non-STEMI (non-ST elevated myocardial infarction) (01/14/19) Obesity (BMI 30.0-34.9) EARL (obstructive sleep apnea) Thrombocytopenia Home Medications nitroglycerin 0.4 mg SL UD PRN #1 bottle 01/16/19 [Rx Last Taken Unknown] aspirin 81 mg tablet,delayed release 81 mg PO QDAY #90 tab 02/14/19 [Rx Last Taken 02/18/20] cholecalciferol (vitamin D3) 1,250 mcg (50,000 unit) capsule 50,000 unit PO QWEEK #45 cap 02/14/19 [Rx Last Taken Unknown] levothyroxine 75 mcg tablet 75 mcg PO DAILY #90 tab 02/14/19 [Rx Last Taken 02/18/20] montelukast 10 mg tablet 10 mg PO QPM #90 tab 02/14/19 [Rx Last Taken Unknown] biwmjqxplqsu-Rs-fmxs-minerals 1 tab PO DAILY 08/29/19 [History Last Taken Unknown] sertraline 100 mg tablet 200 mg PO BID tab 08/29/19 [History Last Taken Unknown] zolpidem 6.25 mg tablet,extended release,multiphase 6.25 mg PO QHS 08/29/19 [History Last Taken Unknown] potassium chloride 10 mEq capsule,extended release 10 meq PO DAILY #30 cap 02/16/20 [Rx Last Taken 02/18/20] clopidogrel 75 mg tablet 75 mg PO DAILY #90 tab 04/21/20 [Rx Last Taken Unknown] amlodipine 5 mg tablet See Rx Instructions .ROUTE .COMPLEX #90 tablet 05/12/20 [Rx Last Taken Unknown] losartan 50 mg tablet See Rx Instructions .ROUTE .COMPLEX #180 tab 05/12/20 [Rx Last Taken Unknown] lisinopril 20 mg tablet 20 mg PO BID 07/23/20 [History Last Taken Unknown] hydrochlorothiazide 25 mg tablet See Rx Instructions .ROUTE .COMPLEX #90 tab 09/01/20 [Rx Last Taken Unknown] potassium chloride 20 mEq tablet,extended release 20 meq PO DAILY #7 tab 12/09/20 [Rx Last Taken Unknown] dexamethasone [Decadron] 6 mg PO DAILY #7 tab 02/03/21 [Rx Last Taken Unknown] Allergy/AdvReac Type Severity Reaction Status Date / Time acetaminophen [From Tylenol] Allergy Unknown Verified 12/18/20 09:26 codeine Allergy Unknown Verified 12/18/20 09:26 progesterone Allergy Unknown Verified 12/18/20 09:26 trazodone Allergy Unknown Verified 12/18/20 09:26 atorvastatin AdvReac weakness Verified 12/18/20 09:26 Family History Mother CAD (coronary artery disease) CVA (cerebral vascular accident) Father , Age 44 COPD (chronic obstructive pulmonary disease) Surgical History H/O coronary artery bypass surgery (01/2010) History of appendectomy History of cholecystectomy History of coronary artery stent placement (01/15/19) History of hernia repair History of hysterectomy History of left heart catheterization (02/18/20) Social History Smoking Status: Former smoker pack-years: 10 how long ago did patient quit smokin years ago second hand exposure: No alcohol intake: never substance use type: does not use caffeine: Yes Type: carbonated beverages Number of servings: 2 what type of physical activity do you participate in: none EXAM Physical Exam Narrative Exam Narrative: 75-year-old female no acute distress. Vital signs stable afebrile. Pulse ox 95% on room air no signs of hypoxia. HEENT exam unremarkable. Neck nontender no lymphadenopathy. Lungs clear to auscultation bilaterally. Heart regular rhythm no murmur. Abdomen soft nontender. Moving all 4 extremities. Back nontender. No edema of the lower extremities. Neurologically awake and alert with no focal motor deficits. Const Vital Signs: 02/03/21 14:02 02/03/21 14:03 02/03/21 14:11 Temperature 98.5 F 100.6 F H 100.6 F H Temperature Source Temporal Temporal Temporal Pulse Rate 70 63 63 Respiratory Rate 20 H 20 H Respiratory Effort Respiratory Depth Respiratory Pattern Blood Pressure 157/74 H 164/64 H 164/64 H Blood Pressure Mean 101 97 97 Pulse Ox 95 95 95 Oxygen Delivery Method Room Air Room Air Room Air 02/03/21 14:14 Temperature Temperature Source Pulse Rate Respiratory Rate Respiratory Effort Normal Non-Labored Respiratory Depth Normal Respiratory Pattern Normal Blood Pressure Blood Pressure Mean Pulse Ox Oxygen Delivery Method Room Air Positive well nourished and well developed; Negative for obese, cachectic or contractures General Appearance ED: well developed and NAD; Negative for cachectic, contractures, cyanotic, diaphoretic or pallor Nutritional Appearance: Negative for cachectic or obese HEENT Reports moist mucous membranes normocephalic and atraumatic; Negative for scalp tenderness Face and Sinus: Negative for sinus tenderness, maxillary instability or facial tenderness External Ear: external ears normal Eyes PERRL and EOMs intact bilaterally GI non-tender, non-distended and no masses Inspection: Negative for abdominal distention Auscultation: normoactive bowel sounds Palpation: soft; Negative for tender or guarding Back/Spine no CVA tenderness; Negative for normal ROM General Back: Negative for CVA tenderness Extremity normal to inspection and full ROM General Extremety ED: Negative for cyanosis or tenderness General Extremity: Negative for cyanosis Neuro oriented x3 and CN's II-XII intact bilaterally Sensorium / Orientation: alert, oriented to person, oriented to place, oriented to time and orientation impaired; Negative for lethargic or stuporous Motor Exam: strength 5/5 throughout; Negative for general weakness or strength abnormal Psych mental status grossly normal Skin General Skin Exam: Negative for jaundice or pallor Lesions: no lesions Rashes: no rashes MDM MDM MDM Narrative Medical decision making narrative: Older female clinically looks well. Most likely has Covid. Her tested positive last week. She has been vaccinated. I will obtain a chest x-ray and Covid test. She will be given ibuprofen. She states Tylenol makes her nauseated. She has a low-grade fever. Patient doing well on repeat exam 3:46 PM. She and I went over test results. Should be quarantine for 10 days from onset of symptoms. Started on Decadron daily. First dose given in the ER. Lab Data Attestation: I reviewed the patient's lab results. Lab results narrative: Rapid Covid antigen positive. Radiography Diagnostic Testing: Clinical Impression(s) from Imaging Studies Chest X-Ray 02/03/21 15:15 IMPRESSION: No acute abnormality is seen. Electronically Signed: Trip Weinberg MD at 15:40 EDT , Service support , Portable chest x-ray 1 view interpreted by myself shows no acute abnormality. Normal cardiac silhouette. Prior sternotomy with sternal wires. Also read by the radiologist. Discharge Plan Triage Chief Complaint: Shortness of Breath ED Provider: Al Marcial Dx/Rx/DC Orders Clinical Impression: COVID-19, H/O coronary artery bypass surgery Instructions: Human Coronaviruses Prescriptions: New dexamethasone [Decadron] 6 mg tablet 6 mg PO DAILY Qty: 7 RF: 0 No Action aspirin [Adult Aspirin Regimen] 81 mg tablet,delayed release (DR/EC) 81 mg PO QDAY Qty: 90 RF: 5 levothyroxine 75 mcg tablet 75 mcg PO DAILY Qty: 90 RF: 3 montelukast [Singulair] 10 mg tablet 10 mg PO QPM Qty: 90 RF: 3 sertraline 100 mg tablet 200 mg PO BID RF: 0 zolpidem [Ambien CR] 6.25 mg tablet,ext release multiphase 6.25 mg PO QHS RF: 0 Multiple Vitamin, Womens Tablet 1 tab PO DAILY RF: 0 lisinopril 20 mg tablet 20 mg PO BID RF: 0 nitroglycerin 0.4 MG tablet, sublingual 0.4 mg SL UD PRN (Reason: chest pain) Qty: 1 RF: 0 cholecalciferol (vitamin D3) 50,000 unit capsule 50,000 unit PO QWEEK Qty: 45 RF: 3 potassium chloride 10 mEq capsule, extended release 10 meq PO DAILY Qty: 30 RF: 6 clopidogrel 75 mg tablet 75 mg PO DAILY Qty: 90 RF: 3 losartan 50 mg tablet See Rx Instructions .ROUTE .COMPLEX Qty: 180 RF: 3 amlodipine 5 mg tablet See Rx Instructions .ROUTE .COMPLEX Qty: 90 RF: 3 hydrochlorothiazide 25 mg tablet See Rx Instructions .ROUTE .COMPLEX Qty: 90 RF: 3 potassium chloride 20 mEq tablet extended release 20 meq PO DAILY Qty: 7 RF: 0 Other Ambulatory Orders: COVID Outpatient Monoclonal Antibody Referral (Routine) Timeframe: 1 Day Facility: [facility] - Location: [facility] Ordered By: Dr. Al Marcial Primary Care Provider: Olive Julien Referrals: Olive Julien MD [Primary Care Provider] - 1 Week if not improving Activity Restrictions/Additional Instructions: Plenty of fluids and rest. Daily Decadron which is a steroid which will help decrease inflammation in your lungs. Follow-up with your doctor if not improving or return if a lot worse. Hospital will call you and discuss the possibility of monoclonal antibody therapy. Disposition Disposition: Home, Self Care
[2021-02-03] MEDS: Ibuprofen 200 MG Tablet 400 MG PO (15:04)
--- NOTE | 2021-02-03 15:15 | RAD_ITS ---
STUDY: X-RAY CHEST REASON FOR EXAM: Female, 75 years old. Cough TECHNIQUE: Single AP portable view of the chest. COMPARISON: Comparison is made with prior study dated 08/27/2020. FINDINGS: The lungs are clear and expanded. There is no demonstrated pleural abnormality. Sternal cerclage wires and vascular clips are present from a prior sternotomy and coronary artery bypass graft procedure (CABG). Normal mediastinum and satya. Normal visualized pulmonary arteries. There is atherosclerotic calcification of the aortic arch with tortuosity. Normal visualized thoracic spine. Normal visualized ribs, clavicles, and shoulders. There is no demonstrated abnormality of the visualized soft tissue structures of the upper abdomen. RAD/Chest 1 View (Portable) IMPRESSION: No acute abnormality is seen. Electronically Signed: Trip Weinberg MD at 15:40 EDT , Service support ,
[2021-02-03] MEDS: dexAMETHasone 4 MG Tablet 6 MG PO (15:25)
[2021-02-03 16:11] VITALS: BP 154/87; PULSE 90; RESP 18; O2SAT 95
== END 2021-02-03 16:13 | disposition home or self-care (01) ==
PROVIDERS: Emergency Provider Emergency Medicine; PCP Internal Medicine
DX: U07.1 COVID-19 (principal); I25.10 Atherosclerotic heart disease of native coronary artery without angina pectoris; Z87.891 Personal history of nicotine dependence; Z95.1 Presence of aortocoronary bypass graft
CPT/HCPCS: 71045; 87426; 99283; A4216

== ENCOUNTER 2021-02-05 17:04 | Outpatient (CLI) | payer MEDICARE, OTHER, SELFPAY ==
[2019-01-15 14:11] VITALS: BMI 32.3
[2021-02-05 17:24] VITALS: BP 138/61; PULSE 52; RESP 16; TEMP 36.6; O2SAT 97; BMI 30.2
[2021-02-05] MEDS: 0.9% Saline Lock 10 ML Syringe IV (17:24)
[2021-02-05 18:15] VITALS: BP 134/53; PULSE 53; RESP 16; TEMP 36.8; O2SAT 98
[2021-02-05 19:21] VITALS: BP 149/59; PULSE 55; RESP 16; TEMP 36.9; O2SAT 100
== END 2021-02-05 19:24 | disposition home or self-care (01) ==
LOC: MS3OUT 17:04 → MS3 17:05
PROVIDERS: PCP Internal Medicine; Referring Provider Nurse Practitioner Adult Health; Visit Provider Nurse Practitioner Adult Health
DX: Z23 Encounter for immunization (principal); U07.1 COVID-19
CPT/HCPCS: J7050; M0245; Q0245; A4216

== ENCOUNTER → 2021-02-17 17:16 | Outpatient (CLI) | payer MEDICARE, OTHER, SELFPAY ==
[2019-01-15 14:11] VITALS: BMI 32.3
== END ==
PROVIDERS: PCP Internal Medicine; Visit Provider Urology
DX: N30.00 Acute cystitis without hematuria (principal)
CPT/HCPCS: 87077; 87086; 87088; 87186

== ENCOUNTER 2021-04-16 14:55 | Outpatient (CLI) | payer MEDICARE, OTHER, SELFPAY ==
[2019-01-15 14:11] VITALS: BMI 32.3
[2021-04-16 16:10] LABS: Anion Gap 10 (5-15); BUN 19 mg/dL (7-18); BUN/Creat Ratio 17.9 RATIO (10-20); Calcium,Total 9.1 mg/dL (8.5-10.1); Chloride 106 mmol/L (98-107); Creatinine, Serum 1.06 mg/dL (0.55-1.02); EST Glomerular Filtration Rate 54 mL/min (>60); Est Glom Filt Rate - Afr Amer 65 mL/min (>60); Glucose 126 mg/dL (74-106); Sodium Level 143 mmol/L (136-145)
[2021-04-16 16:11] LABS: BNP,B-Type NATRIURETIC PEPTIDE 67.1 pg/mL (0-100)
== END 2021-04-16 23:59 | disposition short-term general hospital (02) ==
LOC: LAB 14:58
PROVIDERS: PCP Internal Medicine; Referring Provider Internal Medicine Cardiovascular Disease; Visit Provider Internal Medicine Cardiovascular Disease
DX: R06.00 Dyspnea, unspecified (principal); I25.2 Old myocardial infarction; Z95.1 Presence of aortocoronary bypass graft
CPT/HCPCS: 36415; 80048; 83880

== ENCOUNTER 2021-04-23 16:59 | Outpatient (CLI) | payer MEDICARE, OTHER, SELFPAY ==
[2019-01-15 14:11] VITALS: BMI 32.3
--- NOTE | 2021-04-23 17:12 | CT_ITS ---
EXAM: CT Angiography Chest Without and With Intravenous Contrast CLINICAL INDICATION: 75 years old, Female; dyspnea TECHNIQUE: Helically acquired angiography images were obtained of the chest without and with intravenous contrast. This CT exam was performed using one or more of the following dose reduction techniques: automated exposure control, adjustment of the mA and/or kV according to patient size, and/or use of iterative reconstruction technique. This report was created using [employer] report generation technology. MIP reconstructed images were created and reviewed. CONTRAST: IV 100mL Isovue-370 COMPARISON: None. FINDINGS: Pulmonary arteries: Unremarkable. Normal in caliber. No pulmonary embolism. Aorta: Atherosclerotic disease. Normal in caliber. No evidence of dissection. Great vessels of aortic arch: Unremarkable. Normal in caliber. No evidence of dissection. Lungs and pleural spaces: Unremarkable. No mass. No consolidation or edema. No pleural effusion or thickening. No pneumothorax. Heart: Unremarkable. Heart size is normal. No pericardial effusion. No signs of right heart strain, ratio of right ventricle to left ventricle measures less than 1. Mediastinum: Unremarkable. No mediastinal or hilar adenopathy. Esophagus is unremarkable. No hiatal hernia. Thyroid: Unremarkable. No thyroid lesions. Bones/joints: Median sternotomy. No suspicious lytic or blastic abnormality. CT/CTA Chest W/WO Contrast IMPRESSION: No pulmonary embolism. Electronically Signed: Roni Juarez MD at 23:57 EST Tel , Service support ,
== END 2021-04-23 23:59 | disposition short-term general hospital (02) ==
LOC: CT 17:00
PROVIDERS: PCP Internal Medicine; Visit Provider Internal Medicine Cardiovascular Disease
DX: U07.1 COVID-19 (principal); R06.00 Dyspnea, unspecified
CPT/HCPCS: 71275; Q9967

== ENCOUNTER → 2021-09-22 | Outpatient (CLI) | payer MEDICARE, OTHER, SELFPAY ==
[2019-01-15 14:11] VITALS: BMI 32.3
--- NOTE | 2021-09-22 12:25 | RAD_ITS ---
EXAM: XR CHEST, 2 VIEWS CLINICAL INDICATION: shortness of breath TECHNIQUE: Frontal and lateral views of the chest. This report was created using [employer] report generation technology. COMPARISON: 02/03/2021 FINDINGS: LUNGS AND PLEURAL SPACES: Unremarkable. No consolidation or edema. No pneumothorax. No effusion. HEART: Unremarkable. Cardiac silhouette not enlarged. MEDIASTINUM: Central airways and mediastinal contour are unremarkable. BONES/JOINTS: Unremarkable. SOFT TISSUES: Unremarkable. RAD/Chest PA and Lateral IMPRESSION: No radiographic evidence of acute cardiopulmonary disease. Electronically Signed: Ignacio Lamas MD at 17:02 EDT ,
[2021-09-22 12:45] LABS: Hematocrit 40.4 % (37-47); Mean Corp Hgb Conc 32.2 g/dL (32-36); Mean Corpuscular Hgb 26.6 pg (27.0-32.0); Mean Corpuscular Volume 82.8 fL (81-99); Mean Platelet Vol. 10.4 fl (6.2-12.0); Platelet Count 203 K/mm3 (150-450); RBC Distribution Width SD 45.4 fl (35.1-43.9); Red Blood Count 4.88 M/mm3 (4.2-5.4); White Blood Count 6.1 K/mm3 (4.4-11.0)
[2021-09-22 13:22] LABS: Anion Gap 5 (5-15); BUN 21 mg/dL (7-18); BUN/Creat Ratio 20.6 RATIO (10-20); Calcium,Total 9.3 mg/dL (8.5-10.1); Chloride 107 mmol/L (98-107); Creatinine, Serum 1.02 mg/dL (0.55-1.02); EST Glomerular Filtration Rate 56 mL/min (>60); Est Glom Filt Rate - Afr Amer 68 mL/min (>60); Glucose 102 mg/dL (74-106); Potassium 3.8 mmol/L (3.5-5.1); Sodium Level 138 mmol/L (136-145)
== END | disposition home or self-care (01) ==
PROVIDERS: PCP Internal Medicine; Referring Provider Nurse Practitioner Acute Care; Visit Provider Nurse Practitioner Acute Care
DX: R06.02 Shortness of breath (principal)
CPT/HCPCS: 36415; 71046; 80048; 83880; 85027

== ENCOUNTER → 2021-10-22 | Outpatient (CLI) | payer MEDICARE, OTHER, SELFPAY ==
[2019-01-15 14:11] VITALS: BMI 32.3
--- NOTE | 2021-10-22 13:59 | ECHOD_ITS ---
Reason For Study: DYSPNEA Procedure This was a 2D Doppler, Color Flow transthoracic echocardiogram. Exam performed in department. Left Ventricle Normal LV size. Left ventricular systolic function is normal. The estimated ejection fraction is 65 %. Stage 1 diastolic dysfunction. No regional wall motion abnormalities noted. Right Ventricle Normal RV size. Normal systolic function. Atria Normal left atrium. Normal right atrium. Mitral Valve Normal mitral valve. Tricuspid Valve Normal tricuspid valve. Mild tricuspid valve insufficiency. Pulmonary artery systolic pressure is 33 mmHg. Aortic Valve Normal aortic valve. Trisinus/trileaflet aortic valve. Pulmonic Valve Normal pulmonic valve. Great Vessels Normal aortic root. The pulmonary artery is normal size. Normal inferior vena cava. Pericardium/Pleural No pericardial effusion. MMode/2D Measurements & Calculations LVIDd: 4.9 cm IVSd: 0.92 cm Ao root diam: 3.0 cm LVIDs: 3.0 cm LVPWd: 0.65 cm RVDd: 3.6 cm FS: 38.4 % LAV(MOD-bp): 35.0 ml LVAd ap4: 23.1 cm2 SV(MOD-sp4): 42.0 ml LAV(MOD-bp) Indexed: 19.7 ml/m2 LVLd ap4: 7.6 cm LAV(MOD-sp2): 29.5 ml EDV(MOD-sp4): 56.9 ml LAV(MOD-sp4): 37.2 ml EDV(sp4-el): 59.2 ml LVAs ap4: 10.6 cm2 LVLs ap4: 6.3 cm ESV(MOD-sp4): 14.9 ml ESV(sp4-el): 15.2 ml EF(MOD-sp4): 73.8 % EF(sp4-el): 74.3 % SV(sp4-el): 44.0 ml LA A4 area: 15.8 cm2 LA dimension(2D): 3.6 cm RA A4 area: 10.3 cm2 Time Measurements MV dec time: 0.26 sec Doppler Measurements & Calculations MV E max matt: 74.9 cm/sec Lat Peak E' Matt: 11.2 cm/sec Med Peak E' Matt: 6.4 cm/sec MV A max matt: 80.4 cm/sec E/E' lat: 6.7 E/E' med: 11.7 MV E/A: 0.93 Ao V2 max: 138.9 cm/sec LV V1 max: 104.9 cm/sec MV dec slope: 284.7 cm/sec2 Ao max P.7 mmHg LV V1 max P.4 mmHg Ao V2 mean: 92.6 cm/sec LV V1 mean P.5 mmHg Ao mean P.0 mmHg LV V1 mean: 74.3 cm/sec Ao V2 VTI: 35.8 cm LV V1 VTI: 28.3 cm PA V2 max: 95.0 cm/sec TR max matt: 273.8 cm/sec PA V2 mean: 67.3 cm/sec TR max P.0 mmHg ECHO/Echo Complete Interpretation Summary Normal LV size. Left ventricular systolic function is normal. The estimated ejection fraction is 65 %. Stage 1 diastolic dysfunction. Pulmonary artery systolic pressure is 33 mmHg. Ordering Physician: Nicholas Umana Performed By: Vidhya Morales RCS
== END | disposition home or self-care (01) ==
LOC: CVS 13:53
PROVIDERS: PCP Internal Medicine; Visit Provider Internal Medicine Cardiovascular Disease
DX: G47.33 Obstructive sleep apnea (adult) (pediatric) (principal); R06.00 Dyspnea, unspecified; R06.02 Shortness of breath
CPT/HCPCS: 93306

== ENCOUNTER 2021-12-09 12:30 | Emergency (ER) | payer MEDICARE, OTHER, SELFPAY ==
[2019-01-15 14:11] VITALS: BMI 32.3
[2021-12-09 12:31] VITALS: BP 159/82; PULSE 58; RESP 16; TEMP 36.4; O2SAT 97; BMI 30.9
--- NOTE | 2021-12-09 12:35 | CT_ITS ---
STUDY: CT BRAIN WITHOUT CONTRAST REASON FOR EXAM: Female, 76 years old. HEAD INJURY RADIATION DOSAGE (If Supplied By Facility): CTDIvol = ( 44.99 ) mGy, DLP = ( 779.24 ) mGycm TECHNIQUE: Transaxial CT imaging of the brain was performed without administration of intravenous contrast material. Individualized dose optimization techniques were used for this CT. COMPARISON: No relevant priors. FINDINGS: Normal soft tissue structures. Normal calvarium. There is mild cerebral atrophy with widening of the extra-axial spaces and ventricular dilatation. Normal white matter tracts of the cerebral hemispheres. Normal basal ganglia and thalami. Normal brainstem. Normal cerebellum. There is no intracranial hemorrhage. There are no findings of an acute ischemic infarction. Atherosclerotic plaque formation of the cavernous portions internal carotid arteries bilaterally. Normal visualized paranasal sinuses. CT/Brain/Head without Contrast IMPRESSION: Chronic involutional changes of the brain. Electronically Signed: Trip Weinberg MD at 13:01 EDT ,
--- NOTE | 2021-12-09 12:35 | RAD_ITS ---
STUDY: X-RAY - RIGHT HAND REASON FOR EXAM: Female, 76 years old. Pain at the base of the fifth metacarpal following a fall. TECHNIQUE: 3 view(s) of the hand. COMPARISON: None. FINDINGS: Normal radiocarpal articulation. Normal distal radioulnar joint. Normal visualized carpal bones. Normal carpal articulations Normal carpometacarpal articulation of the thumb. Normal second through fifth carpometacarpal joints. I suspect a nondisplaced fracture at the base of the fifth metacarpal. Normal metacarpophalangeal joint of the thumb. Normal interphalangeal joint of the thumb. Normal proximal and distal phalanges of the thumb. Normal metacarpophalangeal joints of the second through fifth fingers. Normal proximal and distal interphalangeal joints of the second through fifth fingers. Normal phalanges of the second through fifth fingers. Soft tissue swelling. RAD/Hand Min 3 Views IMPRESSION: I suspect a nondisplaced fracture at the base of the fifth metacarpal with overlying soft tissue swelling. Electronically Signed: Trip Weinberg MD at 13:03 EDT ,
[2021-12-09 13:24] VITALS: O2SAT 99
--- NOTE | 2021-12-09 13:49 | EDS_ITS ---
HPI HPI - Fall History of Present Illness Chief Complaint: Fall Detail of Chief Complaint: Hit head and injured right hand Informant: patient and spouse/S.O. Occured/Mechanism Occurred: Today and Hours Mechanism/Context: Yes same level fall and Yes trip Usually ambulates: Without assistance Pain/Injury Pain Location: head and upper extremity Quality of Pain: Sharp Current Severity: Mild Maximum Severity: Mild Associated Symptoms Associated Symptoms: Negative for Parasthesias, Weakness, Loss of function, Inability to ambulate, Loss of consciousness or Amnesia Narrative Narrative: Seven 6-year-old female history of CAD with cardiac stents and CABG. She is on Plavix. She was going into Tuesday she tripped and fell on the sidewalk striking her right forehead and her right hand complaining of pain at the base of her fifth metacarpal. No LOC. She denies any neck pain or other complaints. No significant headache. No vomiting. Prior similar symptoms: No Recent Illness/Hospitalization: No PFSH PFSH Medical History Anxiety and depression Asthma Atherosclerotic heart disease of [place] coronary artery without angina pectoris Body mass index (BMI) of 32.0-32.9 in adult Carotid artery disease COPD (chronic obstructive pulmonary disease) COVID-19 (02/03/21) Depression LEOS (dyspnea on exertion) Essential (primary) hypertension GERD (gastroesophageal reflux disease) Hyperlipidemia Hypothyroidism Mass of soft tissue of neck Non-STEMI (non-ST elevated myocardial infarction) (01/14/19) Obesity (BMI 30.0-34.9) EARL (obstructive sleep apnea) Thrombocytopenia Home Medications aspirin 81 mg tablet,delayed release (Adult Aspirin Regimen) 81 mg PO QDAY #90 tabs 02/14/19 [Rx Last Taken 02/18/20] levothyroxine 75 mcg tablet 75 mcg PO DAILY #90 tabs 02/14/19 [Rx Last Taken 02/18/20] zolpidem 6.25 mg tablet,extended release,multiphase (Ambien CR) 6.25 mg PO QHS 08/29/19 [History Last Taken Unknown] clopidogrel 75 mg tablet 75 mg PO DAILY #90 tabs 04/21/20 [Rx Last Taken Unknown] amlodipine 5 mg tablet See Rx Instructions .Route .COMPLEX #90 tabs 06/01/21 [Rx Last Taken Unknown] ergocalciferol (vitamin D2) 1,250 mcg (50,000 unit) capsule 1,250 mcg PO .2XWEEK 09/29/21 [History Last Taken Unknown] hydrochlorothiazide 12.5 mg capsule 12.5 mg PO DAILY 09/29/21 [History Last Taken Unknown] losartan 50 mg tablet 50 mg PO BID #180 tabs 09/29/21 [Rx Last Taken Unknown] nitroglycerin 0.4 mg sublingual tablet 0.4 mg sublingual Q5-15M PRN chest pain #25 BOTTLES 09/29/21 [Rx Last Taken Unknown] pantoprazole 40 mg tablet,delayed release 40 mg PO DAILY 09/29/21 [History Last Taken Unknown] sertraline 100 mg tablet 200 mg PO DAILY 09/29/21 [History Last Taken Unknown] Allergy/AdvReac Type Severity Reaction Status Date / Time acetaminophen [From Tylenol] Allergy Unknown Verified 12/09/21 12:33 codeine Allergy Unknown Verified 12/09/21 12:33 progesterone Allergy Unknown Verified 12/09/21 12:33 trazodone Allergy Unknown Verified 12/09/21 12:33 atorvastatin AdvReac weakness Verified 12/09/21 12:33 Family History Mother CAD (coronary artery disease) CVA (cerebral vascular accident) Father , Age 44 COPD (chronic obstructive pulmonary disease) Surgical History H/O coronary artery bypass surgery (01/2010) History of appendectomy History of cholecystectomy History of coronary artery stent placement (01/15/19) History of hernia repair History of hysterectomy History of left heart catheterization (02/18/20) Social History Smoking Status: Former smoker pack-years: 10 how long ago did patient quit smokin years ago second hand exposure: No alcohol intake: never substance use type: does not use caffeine: Yes Type: carbonated beverages Number of servings: 2 what type of physical activity do you participate in: none ROS ROS ED ROS Narrative No recent illness. Review of Systems ROS Unobtainable: Denies due to encephalopathy Constitutional Constitutional ED: Denies chills or fever(s) Eyes Eyes: Denies blurry vision ENT ENT ED: Denies ear pain Cardiovascular Cardiovascular: Denies chest pain Respiratory/Chest Respiratory/Chest: Denies cough Gastrointestinal Gastrointestinal: Denies abdominal pain Genitourinary Genitourinary ED: Denies dysuria Musculoskeletal Musculoskeletal: Denies arthralgias Integumentary Denies abscess Neurologic Neurologic: Denies headache(s) Psychiatric Psychiatric: Denies anxiety Endocrine Endocrinology: Denies polydipsia Hematologic/Lymphatic Hematologic/Lymphatic: Denies easy bleeding Allergic/Immunologic Allergic/Immunologic ED: Denies mouth swelling or tongue swelling EXAM Physical Exam Narrative Exam Narrative: [id number] female no acute distress. Vital signs are stable afebrile. H EENT exam shows a quarter sized contusion hematoma to right forehead. No laceration. No bleeding. Pupils round reactive light. Scalp otherwise nontender. C-spine trachea and nontender. Back nontender spine nontender. Lungs clear to auscultation. Heart regular rhythm no murmur. Rate about 60. Chest wall nontender. Ribs nontender. Abdomen soft nontender. Pelvic girdle intact. Moving all 4 extremities. Neurovascular intact. Equal symmetrical lip cutter strength. Dorsi plantarflexion intact. Her right hand at the base of fifth metacarpal she has some mild tenderness. Neurologically she is awake and alert with no focal motor deficits. GCS of 15. Const Vital Signs: 12/09/21 12:31 12/09/21 13:24 Temperature 97.6 F L Temperature Source Temporal Pulse Rate 58 L Respiratory Rate 16 Respiratory Effort Normal Non-Labored Respiratory Depth Normal Respiratory Pattern Normal Blood Pressure 159/82 H Blood Pressure Mean 107 Pulse Ox 97 99 Oxygen Delivery Method Room Air Room Air Positive well nourished and well developed; Negative for obese, cachectic, contractures or unkempt General Appearance ED: well developed and NAD; Negative for unkempt, cachectic or contractures Nutritional Appearance: Negative for cachectic or obese HEENT Reports normocephalic HEENT Narrative: Right forehead hematoma. trauma, contusion, hematoma and tenderness Eyes PERRL and EOMs intact bilaterally General Eye ED: Negative for pale conjunctiva or scleral icterus Neck full ROM, no lymphadenopathy and supple General: Negative for tenderness Chest Wall inspection of chest normal and palpation of chest normal Resp normal respiratory effort, no retractions and clear to auscultation bilaterally Effort and Inspection: Negative for pain with movement Auscultation: Negative for rales, rhonchi, wheezes or diminished lung sounds Cardio regular rate, regular rhythm, S1 normal heart sound, S2 normal heart sound and no murmurs Rate: Negative for bradycardia Rhythm: Negative for abnormal rhythm Bruits: Negative for other GI non-tender, non-distended and no masses Inspection: Negative for abdominal distention Auscultation: normoactive bowel sounds Palpation: soft; Negative for guarding Back/Spine no CVA tenderness General Back: Negative for CVA tenderness, erythema, ecchymosis, swelling or tenderness Cervical Spine: Negative for cervical spine tenderness Thoracic Spine / Upper Back: Negative for ROM limited, pain with ROM or thoracic spinal tenderness Lumbar Spine / Lower Back: Negative for lumbar spinal tenderness or paraspinal muscle tenderness Neuro oriented x3, CN's II-XII intact bilaterally, moves all extremities and no focal motor deficits Judy Coma Scale: document GCS findings Spontaneous Obeys Commands Oriented 15 Sensorium / Orientation: alert, oriented to person, oriented to place and oriented to time; Negative for orientation impaired, confused, lethargic, stuporous or other Motor Exam: strength 5/5 throughout Psych Appearance: Negative for unkempt Skin Lesions: no lesions Rashes: no rashes Trauma: Negative for abrasion or laceration MDM MDM MDM Narrative Medical decision making narrative: 36-year-old female tripped and fell on the sidewalk. Has a closed head injury on the right she is on Plavix we CAT scan it shows no acute intracranial bleed. As read by the radiologist reviewed by me. She also injured her right hand when she fell asleep she has a nondisplaced fracture of the base of the fifth or small metacarpal. She will be placed in a ulnar gutter splint and follow-up with orthopedics. Tylenol for pain. Head injury instructions. Radiography Diagnostic Testing: Clinical Impression(s) from Imaging Studies Brain CT 12/09/21 12:35 IMPRESSION: Chronic involutional changes of the brain. Electronically Signed: Trip Weinberg MD at 13:01 EDT , Hand X-Ray 12/09/21 12:35 IMPRESSION: I suspect a nondisplaced fracture at the base of the fifth metacarpal with overlying soft tissue swelling. Electronically Signed: Trip Weinberg MD at 13:03 EDT , Right hand x-ray 3 views read by my self and the radiologist shows what appears to be a nondisplaced fracture of the base of the fifth or small finger metacarpal. Soft tissue swelling. Procedures Upper Extremity Splints Upper Extremity Splint: Orthoglass and Ulnar gutter Splint Fabrication: Fabricated Location: Right Discharge Plan Triage Chief Complaint: Fall ED Provider: Al Marcial Dx/Rx/DC Orders Clinical Impression: Fall, Head injury, Traumatic hematoma of forehead, Fracture of metacarpal Instructions: ED Closed Hand Fracture (Adult), ED Head Injury (Adult) Prescriptions: No Action aspirin [Adult Aspirin Regimen] 81 mg tablet,delayed release (DR/EC) 81 mg PO QDAY Qty: 90 5RF levothyroxine 75 mcg tablet 75 mcg PO DAILY Qty: 90 3RF sertraline 100 mg tablet 200 mg PO DAILY zolpidem [Ambien CR] 6.25 mg tablet,ext release multiphase 6.25 mg PO QHS pantoprazole 40 mg tablet,delayed release (DR/EC) 40 mg PO DAILY hydrochlorothiazide 12.5 mg capsule 12.5 mg PO DAILY Label Comments: take 1 capsule by mouth once daily ergocalciferol (vitamin D2) 1,250 mcg (50,000 unit) capsule 1,250 mcg PO .2XWEEK nitroglycerin 0.4 mg tablet, sublingual 0.4 mg SL Q5-15M PRN (Reason: chest pain) Qty: 25 6RF Rx Instructions: as directed DO NOT EXCEED 3 TABLETS losartan 50 mg tablet 50 mg PO BID Qty: 180 3RF clopidogrel 75 mg tablet 75 mg PO DAILY Qty: 90 3RF amlodipine 5 mg tablet See Rx Instructions .ROUTE .COMPLEX Qty: 90 3RF Dose Instruction: take 1 tablet by mouth once daily Rx Instructions: take 1 tablet by mouth once daily Primary Care Provider: Olive Julien Referrals: Olive Julien MD [Primary Care Provider] - Juan Alberto Hameed DO [Med Staff - Active Staff] - As soon as possible Activity Restrictions/Additional Instructions: Return if severe headache, not acting right or intractable vomiting. I would hold your next dose of Plavix then restarted normally. You also have a break of the metacarpal of the small finger in your hand. You have been placed in an ulnar gutter splint. That is to remain on to follow-up with orthopedics. Ice your forehead. Ice and elevate your hand to decrease pain and swelling. Tylenol for pain. Call and follow-up with the orthopedic doctor for your hand. Disposition Disposition: Home, Self Care
[2021-12-09 13:57] VITALS: RESP 16
== END 2021-12-09 14:25 | disposition home or self-care (01) ==
PROVIDERS: Emergency Provider Emergency Medicine; PCP Internal Medicine; Visit Provider Emergency Medicine
DX: S00.83XA Contusion of other part of head, initial encounter (principal); S62.306A Unspecified fracture of fifth metacarpal bone, right hand, initial encounter for closed fracture; I25.10 Atherosclerotic heart disease of native coronary artery without angina pectoris; I10 Essential (primary) hypertension; I25.2 Old myocardial infarction; F32.A Depression, unspecified; F41.9 Anxiety disorder, unspecified; G47.33 Obstructive sleep apnea (adult) (pediatric); E03.9 Hypothyroidism, unspecified; Z87.891 Personal history of nicotine dependence; Z86.16 Personal history of COVID-19; Z79.82 Long term (current) use of aspirin; Z79.899 Other long term (current) drug therapy; W18.30XA Fall on same level, unspecified, initial encounter; Z95.1 Presence of aortocoronary bypass graft; Z95.5 Presence of coronary angioplasty implant and graft; Z79.01 Long term (current) use of anticoagulants
CPT/HCPCS: 70450; 73130; 99282

== ENCOUNTER → 2022-02-10 | Outpatient (CLI) | payer MEDICARE, OTHER, SELFPAY ==
[2019-01-15 14:11] VITALS: BMI 32.3
[2022-02-10] MEDS: Methacholine Chloride 18 ml neb kit INHALATION (13:02)
--- NOTE | 2022-02-12 10:09 | BRONCHALL ---
Bronchoprovocation Challenge Bronchoprovocation Challenge Bronchoprovocation Challenge: INTRODUCTION: The patient is a 76-year-old female that presents for a methacholine challenge secondary to a diagnosis of dyspnea. The respiratory therapist reported good patient effort and reproducible results. INTERPRETATION: Initial spirometry did not show any large airways obstructive ventilatory impairment with preserved airflows throughout. The patient was then given progressively increasing doses of methacholine in a standardized fashion. At no point during testing did the patient's FEV1 drop to the threshold criteria to be considered a positive test. IMPRESSION: Negative methacholine inhalation challenge.
== END | disposition home or self-care (01) ==
LOC: PSN 12:55
PROVIDERS: PCP Internal Medicine
DX: R06.02 Shortness of breath (principal)
CPT/HCPCS: 94070; 95070

== ENCOUNTER 2022-05-16 15:50 | Inpatient (IN) | payer MEDICARE, OTHER, SELFPAY ==
[2019-01-15 14:11] VITALS: BMI 32.3
[2022-05-16] VITALS (10 sets, daily range): BP systolic 109–156; BP diastolic 45–87; PULSE 60–67; RESP 14–25; TEMP 36.6–36.9; O2SAT 93–100; BMI 28.9; BMI 29.1
--- NOTE | 2022-05-16 15:58 | EKG12_ITS ---
Test Reason : CP Blood Pressure : / mmHG Vent. Rate : 067 BPM Atrial Rate : 067 BPM P-R Int : 230 ms QRS Dur : 084 ms QT Int : 404 ms P-R-T Axes : 053 037 087 degrees QTc Int : 426 ms Sinus rhythm with 1st degree A-V block Minimal voltage criteria for LVH, may be normal variant ( Sokolow-Bedoya ) Nonspecific ST and T wave abnormality Abnormal ECG Confirmed by RAJESH THOMPSON, EVAN ([id number]), editor continuity and script SONNY DUMONT ([id number]) on 05/17/2022 1:08:40 PM Referred By: LAUREL Confirmed By:EVAN MENA MD
--- NOTE | 2022-05-16 16:00 | EDS_ITS ---
HPI <MIN Howell - Last Filed: 05/16/22 19:32> History of Present Illness Chief Complaint: Chest Pain Narrative Narrative: 77-year-old female with PMH of HTN, HLD, CAD presents with chest pain. She was going shopping and had just walked into the store when she became nauseous and vomited once and then developed midsternal chest pressure and pain. The pain is still present at 8 out of 10. There is no radiation to her jaw or arm. She states it feels like her prior [facility]. She is a patient of Dr. Umana and had a CABG in 2010 and 1 cardiac stent in 2019. She quit smoking 35 years ago. She reports over the last few months having dyspnea on exertion and generalized weakness but no chest pains. PFSH <MIN Howell - Last Filed: 05/16/22 19:32> [facility] Medical History Anxiety and depression Asthma Atherosclerotic heart disease of [place] coronary artery without angina pectoris Body mass index (BMI) of 32.0-32.9 in adult Carotid artery disease COPD (chronic obstructive pulmonary disease) COVID-19 (02/03/21) Depression LEOS (dyspnea on exertion) Essential (primary) hypertension GERD (gastroesophageal reflux disease) Hyperlipidemia Hypothyroidism Mass of soft tissue of neck Non-STEMI (non-ST elevated myocardial infarction) (01/14/19) Obesity (BMI 30.0-34.9) EARL (obstructive sleep apnea) Thrombocytopenia Home Medications aspirin 81 mg tablet,delayed release (Adult Aspirin Regimen) 81 mg PO QDAY #90 tabs 02/14/19 [Rx Last Taken 02/18/20] levothyroxine 75 mcg tablet 75 mcg PO DAILY #90 tabs 02/14/19 [Rx Last Taken 02/18/20] zolpidem 6.25 mg tablet,extended release,multiphase (Ambien CR) 6.25 mg PO QHS 08/29/19 [History Last Taken Unknown] clopidogrel 75 mg tablet 75 mg PO DAILY #90 tabs 04/21/20 [Rx Last Taken Unknown] amlodipine 5 mg tablet See Rx Instructions .Route .COMPLEX #90 tabs 06/01/21 [Rx Last Taken Unknown] ergocalciferol (vitamin D2) 1,250 mcg (50,000 unit) capsule 1,250 mcg PO .2XWEEK 09/29/21 [History Last Taken Unknown] hydrochlorothiazide 12.5 mg capsule 12.5 mg PO DAILY 09/29/21 [History Last Taken Unknown] losartan 50 mg tablet 50 mg PO BID #180 tabs 09/29/21 [Rx Last Taken Unknown] nitroglycerin 0.4 mg sublingual tablet 0.4 mg sublingual Q5-15M PRN chest pain #25 BOTTLES 09/29/21 [Rx Last Taken Unknown] pantoprazole 40 mg tablet,delayed release 40 mg PO DAILY 09/29/21 [History Last Taken Unknown] sertraline 100 mg tablet 200 mg PO QHS 09/29/21 [History Last Taken Unknown] Allergy/AdvReac Type Severity Reaction Status Date / Time acetaminophen [From Tylenol] Allergy Unknown Verified 05/16/22 15:53 codeine Allergy Unknown Verified 05/16/22 15:53 progesterone Allergy Unknown Verified 05/16/22 15:53 trazodone Allergy Unknown Verified 05/16/22 15:53 atorvastatin AdvReac weakness Verified 05/16/22 15:53 Family History Mother CAD (coronary artery disease) CVA (cerebral vascular accident) Father , Age 44 COPD (chronic obstructive pulmonary disease) Surgical History H/O coronary artery bypass surgery (01/2010) History of appendectomy History of cholecystectomy History of coronary artery stent placement (01/15/19) History of hernia repair History of hysterectomy History of left heart catheterization (02/18/20) Social History Smoking Status: Former smoker pack-years: 10 how long ago did patient quit smokin years ago second hand exposure: No alcohol intake: never substance use type: does not use caffeine: Yes Type: carbonated beverages Number of servings: 2 what type of physical activity do you participate in: none ROS <MIN Howell - Last Filed: 05/16/22 19:32> ROS ED ROS Narrative Constitutional: Negative for fever, chills, malaise. CVS: Positive for chest pain. Negative for palpitations, syncope. Respiratory: Negative for shortness of breath. GI: Positive for nausea, vomiting. Negative for abdominal pain. Neuro: Negative for headache. Skin: Negative for rash, abscess, or wound. Musc: Negative for joint pain, swelling, trauma. EXAM <MIN Howell - Last Filed: 05/16/22 19:32> Physical Exam Narrative Exam Narrative: CONST: Patient appears uncomfortable but nontoxic. NECK: Normal inspection. No JVD. RESP: No respiratory distress, CTAB. CVS: Regular rate and rhythm, no murmur, no gallop. ABD: Soft and nontender, no guarding or rebound, nondistended. SKIN: Color normal, no rash, warm, dry, intact. EXTREMITIES: Normal appearance, no pedal edema. NEURO: Oriented x4. PSYCH: Normal affect. Const Vital Signs: 05/16/22 15:51 05/16/22 16:00 05/16/22 16:01 Temperature 97.9 F Temperature Source Temporal Pulse Rate 65 Respiratory Rate 14 Respiratory Effort Normal Respiratory Pattern Normal Blood Pressure Blood Pressure Mean Pulse Ox 97 97 Oxygen Delivery Method Room Air Nasal Cannula Oxygen Flow Rate (L/min) 2 05/16/22 16:01 05/16/22 16:08 05/16/22 16:29 Temperature Temperature Source Pulse Rate 60 60 60 Respiratory Rate Respiratory Effort Respiratory Pattern Blood Pressure 156/66 H 156/66 H 130/87 H Blood Pressure Mean 96 Pulse Ox 100 Oxygen Delivery Method Nasal Cannula Oxygen Flow Rate (L/min) 2 05/16/22 17:18 05/16/22 18:52 Temperature Temperature Source Pulse Rate 62 67 Respiratory Rate 16 18 Respiratory Effort Respiratory Pattern Blood Pressure 150/57 H 139/48 H Blood Pressure Mean 88 78 Pulse Ox 97 100 Oxygen Delivery Method Room Air Room Air Oxygen Flow Rate (L/min) <Dr. Rolando Albarran MD - Last Filed: 05/16/22 19:16> Physical Exam Const Vital Signs: 05/16/22 15:51 05/16/22 16:00 05/16/22 16:01 Temperature 97.9 F Temperature Source Temporal Pulse Rate 65 Respiratory Rate 14 Respiratory Effort Normal Respiratory Pattern Normal Blood Pressure Blood Pressure Mean Pulse Ox 97 97 Oxygen Delivery Method Room Air Nasal Cannula Oxygen Flow Rate (L/min) 2 05/16/22 16:01 05/16/22 16:08 05/16/22 16:29 Temperature Temperature Source Pulse Rate 60 60 60 Respiratory Rate Respiratory Effort Respiratory Pattern Blood Pressure 156/66 H 156/66 H 130/87 H Blood Pressure Mean 96 Pulse Ox 100 Oxygen Delivery Method Nasal Cannula Oxygen Flow Rate (L/min) 2 05/16/22 17:18 05/16/22 18:52 Temperature Temperature Source Pulse Rate 62 67 Respiratory Rate 16 18 Respiratory Effort Respiratory Pattern Blood Pressure 150/57 H 139/48 H Blood Pressure Mean 88 78 Pulse Ox 97 100 Oxygen Delivery Method Room Air Room Air Oxygen Flow Rate (L/min) <MIN Howell - Last Filed: 05/16/22 19:32> Heart Score History: Highly Suspicious ECG: Significant ST-Depression Age: >/= 65 years Risk Factors: >/= 3 Risk Factors or History of CAD Score: 8 <Dr. Rolando Albarran MD - Last Filed: 05/16/22 19:16> Heart Score Troponin: </= Normal Limit Score: 8 MDM <MIN Howell - Last Filed: 05/16/22 19:32> MDM MDM Narrative Medical decision making narrative: Patient presents with chest pain and nausea and vomiting. She has significant cardiac history with CABG and 1 stent. She appears uncomfortable. Vital signs are unremarkable. Heart is regular with no murmurs. Lungs clear. No lower extremity edema present. EKG is sinus rhythm with subtle ST depressions in V4 through V6 which appear new. Differential includes unstable angina vs NSTEMI. Labs were ordered. Patient was ordered aspirin, Zofran, and nitro but shortly after taking these vomited. CBC and BMP are unremarkable. Patient had improvement in her chest pressure after nitro x2. Initial troponin is 12 and delta increased to 216 consistent with an NSTEMI. Case was discussed with the oracle engineer and patient was started on heparin. Case discussed with the hospitalist for admission. Lab Data Attestation: I reviewed the patient's lab results. Labs: Laboratory Results - last 24 hr 05/16/22 05/16/22 05/16/22 15:30 15:50 15:50 WBC 6.8 RBC 5.74 H Hgb 14.8 Hct 47.0 MCV 81.9 MCH 25.8 L MCHC 31.5 L RDW Std Deviation 49.1 H RDW Coeff of Elva 16.7 H Plt Count 223 MPV 10.5 Immature Gran % (Auto) 0.100 Neut % (Auto) 72.8 H Lymph % (Auto) 21.2 [place] % (Auto) 4.6 Eos % (Auto) 1.0 Baso % (Auto) 0.3 Absolute Neuts (auto) 5.0 Absolute Lymphs (auto) 1.44 Nucleated RBC % 0 PT 13.0 INR 1.0 APTT 32.7 Sodium 144 Potassium 4.4 Chloride 107 Carbon Dioxide 28.0 Anion Gap 9 BUN 21 H Creatinine 1.02 Estim Creat Clear Calc 36.53 Est GFR (MDRD) Af Amer 68 Est GFR (MDRD) Non-Af 56 L BUN/Creatinine Ratio 20.6 H Glucose 109 H Calcium 10.3 H Troponin I High Sens 12 05/16/22 18:15 WBC RBC Hgb Hct MCV MCH MCHC RDW Std Deviation RDW Coeff of Elva Plt Count MPV Immature Gran % (Auto) Neut % (Auto) Lymph % (Auto) [place] % (Auto) Eos % (Auto) Baso % (Auto) Absolute Neuts (auto) Absolute Lymphs (auto) Nucleated RBC % PT INR APTT Sodium Potassium Chloride Carbon Dioxide Anion Gap BUN Creatinine Estim Creat Clear Calc Est GFR (MDRD) Af Amer Est GFR (MDRD) Non-Af BUN/Creatinine Ratio Glucose Calcium Troponin I High Sens 216 H* Radiography Diagnostic Testing: Clinical Impression(s) from Imaging Studies Chest X-Ray 05/16/22 16:15 IMPRESSION: No acute cardiopulmonary abnormality. Electronically Signed: Juan Alberto Thayer MD at 16:35 EST , ED attending interpretation of 1 view chest x-rayshows normal heart size, no acute infiltrate, edema, or effusion. EKG Initial EKG: Attestation: I personally reviewed and interpreted this EKG as follows: Interpretation: Sinus Rhythm Comments: EKG is sinus rhythm at [address] depression in V4 through V6 Prior EKG tracings: available for review Prior: Unchanged <Dr. Rolando Albarran MD - Last Filed: 05/16/22 19:16> [facility] Lab Data Labs: Laboratory Results - last 24 hr 05/16/22 05/16/22 05/16/22 15:30 15:50 15:50 WBC 6.8 RBC 5.74 H Hgb 14.8 Hct 47.0 MCV 81.9 MCH 25.8 L MCHC 31.5 L RDW Std Deviation 49.1 H RDW Coeff of Elva 16.7 H Plt Count 223 MPV 10.5 Immature Gran % (Auto) 0.100 Neut % (Auto) 72.8 H Lymph % (Auto) 21.2 [place] % (Auto) 4.6 Eos % (Auto) 1.0 Baso % (Auto) 0.3 Absolute Neuts (auto) 5.0 Absolute Lymphs (auto) 1.44 Nucleated RBC % 0 PT 13.0 INR 1.0 APTT 32.7 Sodium 144 Potassium 4.4 Chloride 107 Carbon Dioxide 28.0 Anion Gap 9 BUN 21 H Creatinine 1.02 Estim Creat Clear Calc 36.53 Est GFR (MDRD) Af Amer 68 Est GFR (MDRD) Non-Af 56 L BUN/Creatinine Ratio 20.6 H Glucose 109 H Calcium 10.3 H Troponin I High Sens 12 05/16/22 18:15 WBC RBC Hgb Hct MCV MCH MCHC RDW Std Deviation RDW Coeff of Elva Plt Count MPV Immature Gran % (Auto) Neut % (Auto) Lymph % (Auto) [place] % (Auto) Eos % (Auto) Baso % (Auto) Absolute Neuts (auto) Absolute Lymphs (auto) Nucleated RBC % PT INR APTT Sodium Potassium Chloride Carbon Dioxide Anion Gap BUN Creatinine Estim Creat Clear Calc Est GFR (MDRD) Af Amer Est GFR (MDRD) Non-Af BUN/Creatinine Ratio Glucose Calcium Troponin I High Sens 216 H* Radiography Diagnostic Testing: Clinical Impression(s) from Imaging Studies Chest X-Ray 05/16/22 16:15 IMPRESSION: No acute cardiopulmonary abnormality. Electronically Signed: Juan Alberto Thayer MD at 16:35 EST , EKG Initial EKG: Attestation: I personally reviewed and interpreted this EKG as follows: Follow-up EKG: Attestation: I personally reviewed and interpreted this EKG as follows: Interpretation: Sinus Rhythm and No Acute Injury Pattern Comments: Persistent mild ST depressions inferolaterally, improved. No ST elevation. Treatment and Re-Evaluation Narrative: Seen and evaluated independently and in conjunction with physician judicial assistant. Agree with notes above unless documented otherwise. Compared to prior EKGs, patient has very subtle [address] depressions in leads II and aVF, as well as V4-V6. There are no ST elevations to suggest a STEMI anywhere. Patient's symptoms are concerning. Furthermore, these are symptoms that she had with a heart attack requiring a stent in the past. Her first set of enzymes are negative, and after nitroglycerin, her blood pressure remained stable and her chest discomfort is gone, she still has some discomfort in her back but she is more comfortable. EKG was repeated at that point. It appears to be may be slightly improved, definitely not worse. Her second troponin returned elevated. On reevaluation the patient is comfortable her pain is resolved and her vital signs are normal. Discussed with Dr. Mancia, who agrees with admission, heparin drip, further evaluation. Discussed with hospitalist Dr. Turner. Discharge Plan Dx/Rx/DC Orders Clinical Impression: Acute non-ST elevation myocardial infarction (NSTEMI) Disposition Disposition: Acute Care Hospital [facility]
[2022-05-16] MEDS: Aspirin 81 MG TAB.CHEW 324 MG PO (16:05)
[2022-05-16] MEDS: Ondansetron ODT 4 MG Tablet PO (16:05)
[2022-05-16] MEDS: Nitroglycerin SL (ED/IMG/CATH) 0.4 MG TABLET SL ×2 (16:08→16:29)
--- NOTE | 2022-05-16 16:15 | RAD_ITS ---
EXAM: XR CHEST, 1 VIEW CLINICAL INDICATION: chest pain TECHNIQUE: Frontal view of the chest. This report was created using [employer] report generation technology. COMPARISON: 04/24/2021. FINDINGS: LUNGS AND PLEURAL SPACES: Unremarkable. No consolidation or edema. No pneumothorax. No effusion. HEART: Unremarkable. Cardiac silhouette not enlarged. MEDIASTINUM: Central airways and mediastinal contour are unremarkable. BONES/JOINTS: Sternal wires. SOFT TISSUES: Unremarkable. RAD/Chest 1 View (Portable) IMPRESSION: No acute cardiopulmonary abnormality. Electronically Signed: Juan Alberto Thayer MD at 16:35 EST ,
[2022-05-16] MEDS: Ondansetron 4 MG/2 ML Vial IV (16:22)
[2022-05-16 16:30] LABS: Anion Gap 9 (5-15); BUN 21 mg/dL (7-18); BUN/Creat Ratio 20.6 RATIO (10-20); Calcium,Total 10.3 mg/dL (8.5-10.1); Chloride 107 mmol/L (98-107); Creatinine, Serum 1.02 mg/dL (0.55-1.02); EST Glomerular Filtration Rate 56 mL/min (>60); Est Glom Filt Rate - Afr Amer 68 mL/min (>60); Estimated Creatinine Clearance 36.53 ml/min; Glucose 109 mg/dL (74-106); Potassium 4.4 mmol/L (3.5-5.1); Sodium Level 144 mmol/L (136-145); Troponin-I HS (w/2H Reflex) 12 pg/mL (3.0-54.0)
[2022-05-16 16:31] LABS: Absolute Lymphocyte Count 1.44 X10^3/uL (0.83-4.51); Basophil# 0.02 X10^3/uL; Basophil% 0.3 % (0-1); Eosinophil# 0.07 X10^3/uL; Hemoglobin 14.8 g/dL (12.0-15.0); Lymphocyte # 1.44 X10^3/ul (0.83-4.51); Lymphocyte % 21.2 % (19-41); Mean Corp Hgb Conc 31.5 g/dL (32-36); Mean Corpuscular Hgb 25.8 pg (27.0-32.0); Mean Corpuscular Volume 81.9 fL (81-99); Mean Platelet Vol. 10.5 fl (6.2-12.0); Monocyte# 0.31 X10^3/uL; Monocyte% 4.6 % (0-10); NRBC Flagged by Analyzer 0 % (0-5); Neutrophil # 4.95 X10^3/uL (2.7-7.7); Neutrophil % 72.8 % (47-70); Platelet Count 223 K/mm3 (150-450); RBC Distribution Width CV 16.7 % (11.6-14.6); RBC Distribution Width SD 49.1 fl (35.1-43.9); Red Blood Count 5.74 M/mm3 (4.2-5.4); White Blood Count 6.8 K/mm3 (4.4-11.0)
[2022-05-16] MEDS: 0.9% Normal Saline 1,000 ML 999 ML IV (16:37)
--- NOTE | 2022-05-16 17:25 | EKG12_ITS ---
Test Reason : REPEAT Blood Pressure : / mmHG Vent. Rate : 064 BPM Atrial Rate : 064 BPM P-R Int : 264 ms QRS Dur : 088 ms QT Int : 442 ms P-R-T Axes : 061 042 111 degrees QTc Int : 455 ms Sinus rhythm with 1st degree A-V block Left ventricular hypertrophy with repolarization abnormality ( Sokolow-Bedoya ) Abnormal ECG Confirmed by RAJESH THOMPSON, EVAN ([id number]), supervising editor news reel SONNY DUMONT ([id number]) on 05/17/2022 1:08:56 PM Referred By: Confirmed By:EVAN MENA MD
[2022-05-16 18:03] LABS: Reflex Troponin-HS? (from REC) Y
[2022-05-16 19:01] LABS: Troponin-I HS 216 pg/mL (3.0-54.0)
[2022-05-16 19:27] LABS: Partial Thromboplast Time 32.7 Seconds (24.1-36.2)
[2022-05-16] MEDS: Heparin Injection (Vial) 5,000 UNIT/ML VIAL 4000 UNIT IV (19:30)
[2022-05-16] MEDS: HEPARIN/D5w 25,000 UNITS 25,000 UNITS/250 ML IV.SOLN. 9 UNITS CONT INF (19:33)
--- NOTE | 2022-05-16 19:34 | HP.PCM.HOS_ITS ---
[facility] - General General Date of Service: 05/16/22 Chief Complaint: Chest pain HPI Narrative NERIS MCGOVERN, is a 77 F who presents with going into a store today where she started left-sided chest pain as well as nausea. Patient received a bag in the store because she felt that she did vomit and she did vomit twice there and then once again in her car. Patient was also having shortness of breath and presented to the emergency room. Patient states that the chest pain radiated to her back. In the emergency room, her troponins went up to 216. Patient was started on a heparin drip and cardiology was contacted. Patient states that this feels similar to her prior myocardial infarction's. Currently, the patient is chest pain-free. Patient did receive a nitroglycerin, morphine and Zofran in the emergency room as well as 3 and 24 mg of aspirin. [facility] Medical History Anxiety and depression Asthma Atherosclerotic heart disease of [place] coronary artery without angina pectoris Body mass index (BMI) of 32.0-32.9 in adult Carotid artery disease COPD (chronic obstructive pulmonary disease) COVID-19 (02/03/21) Depression LEOS (dyspnea on exertion) Essential (primary) hypertension GERD (gastroesophageal reflux disease) Hyperlipidemia Hypothyroidism Mass of soft tissue of neck Non-STEMI (non-ST elevated myocardial infarction) (01/14/19) Obesity (BMI 30.0-34.9) EARL (obstructive sleep apnea) Thrombocytopenia Home Medications aspirin 81 mg tablet,delayed release (Adult Aspirin Regimen) 81 mg PO QDAY #90 tabs 02/14/19 [Rx Last Taken 02/18/20] levothyroxine 75 mcg tablet 75 mcg PO DAILY #90 tabs 02/14/19 [Rx Last Taken 02/18/20] zolpidem 6.25 mg tablet,extended release,multiphase (Ambien CR) 6.25 mg PO QHS 08/29/19 [History Last Taken Unknown] clopidogrel 75 mg tablet 75 mg PO DAILY #90 tabs 04/21/20 [Rx Last Taken Unknown] amlodipine 5 mg tablet See Rx Instructions .Route .COMPLEX #90 tabs 06/01/21 [Rx Last Taken Unknown] ergocalciferol (vitamin D2) 1,250 mcg (50,000 unit) capsule 1,250 mcg PO .2XWEEK 09/29/21 [History Last Taken Unknown] hydrochlorothiazide 12.5 mg capsule 12.5 mg PO DAILY 09/29/21 [History Last Taken Unknown] losartan 50 mg tablet 50 mg PO BID #180 tabs 09/29/21 [Rx Last Taken Unknown] nitroglycerin 0.4 mg sublingual tablet 0.4 mg sublingual Q5-15M PRN chest pain #25 BOTTLES 09/29/21 [Rx Last Taken Unknown] pantoprazole 40 mg tablet,delayed release 40 mg PO DAILY 09/29/21 [History Last Taken Unknown] sertraline 100 mg tablet 200 mg PO QHS 09/29/21 [History Last Taken Unknown] Allergy/AdvReac Type Severity Reaction Status Date / Time acetaminophen [From Tylenol] Allergy Unknown Verified 05/16/22 15:53 codeine Allergy Unknown Verified 05/16/22 15:53 progesterone Allergy Unknown Verified 05/16/22 15:53 trazodone Allergy Unknown Verified 05/16/22 15:53 atorvastatin AdvReac weakness Verified 05/16/22 15:53 Family History Mother CAD (coronary artery disease) CVA (cerebral vascular accident) Father , Age 44 COPD (chronic obstructive pulmonary disease) Surgical History H/O coronary artery bypass surgery (01/2010) History of appendectomy History of cholecystectomy History of coronary artery stent placement (01/15/19) History of hernia repair History of hysterectomy History of left heart catheterization (02/18/20) Social History Smoking Status: Former smoker pack-years: 10 how long ago did patient quit smokin years ago second hand exposure: No alcohol intake: never substance use type: does not use caffeine: Yes Type: carbonated beverages Number of servings: 2 what type of physical activity do you participate in: none ROS ROS Narrative Patient has been generally weak over weeks and has a stair lift now at home. Did have a fall relatively recently where she caught her foot on a curb and hit her head. Weakness seems to have accelerated since then. All review of systems were negative except as mentioned above in the history of present illness and the other review of systems. Vital Signs Vital Signs Vital Signs: 05/16/22 15:51 05/16/22 16:00 05/16/22 16:01 Temperature 36.6 C Temperature Source Temporal Pulse Rate 65 Respiratory Rate 14 Respiratory Effort Normal Respiratory Pattern Normal Blood Pressure Blood Pressure Mean Pulse Ox 97 97 Oxygen Delivery Method Room Air Nasal Cannula Oxygen Flow Rate (L/min) 2 05/16/22 16:01 05/16/22 16:08 05/16/22 16:29 Temperature Temperature Source Pulse Rate 60 60 60 Respiratory Rate Respiratory Effort Respiratory Pattern Blood Pressure 156/66 H 156/66 H 130/87 H Blood Pressure Mean 96 Pulse Ox 100 Oxygen Delivery Method Nasal Cannula Oxygen Flow Rate (L/min) 2 05/16/22 17:18 05/16/22 18:52 Temperature Temperature Source Pulse Rate 62 67 Respiratory Rate 16 18 Respiratory Effort Respiratory Pattern Blood Pressure 150/57 H 139/48 H Blood Pressure Mean 88 78 Pulse Ox 97 100 Oxygen Delivery Method Room Air Room Air Oxygen Flow Rate (L/min) Weight Weight: 71.8 kg Body Mass Index (BMI) 28.9 Physical Exam Narrative - Physical Exam General: Alert, Oriented x3, Cooperative. Lying on her side. Awake and alert. HEENT: Atraumatic, PERRLA, EOMI, Normocephalic Oral: Moist Mucosa, No Gingival or Mucosal Lesions/ Ulcerations Neck: Supple, No JVD, Negative Carotid Bruits Lungs: Clear to auscultation, Normal air movement Cardiovascular: Regular rate, Normal S1, Normal S2, No murmurs Abdomen: Bowel Sounds Present, Soft, Non Tender, Non-Distended, No Hepato- splenomegaly Extremities: No clubbing, No cyanosis, No edema, Capillary Refill Less than 3 Seconds Skin: No rashes, No breakdown Musculoskeletal: No Tenderness to Palpation of Joints or Extremities Neurological: Neuro grossly intact Psych/Mental Status: Normal Affect, Appropriate Results Lab / Micro Data Attestation: I reviewed the patient's lab results. Result Diagrams: 05/16/22 15:50 05/16/22 15:50 Labs: Laboratory Results - last 24 hr 05/16/22 15:30: PT 13.0, INR 1.0, APTT 32.7 05/16/22 15:50: WBC 6.8, RBC 5.74 H, Hgb 14.8, Hct 47.0, MCV 81.9, MCH 25.8 L, MCHC 31.5 L, RDW Std Deviation 49.1 H, RDW Coeff of Elva 16.7 H, Plt Count 223, MPV 10.5, Immature Gran % (Auto) 0.100, Neut % (Auto) 72.8 H, Lymph % (Auto) 21.2, [place] % (Auto) 4.6, Eos % (Auto) 1.0, Baso % (Auto) 0.3, Absolute Neuts (auto) 5.0, Absolute Lymphs (auto) 1.44, Nucleated RBC % 0 05/16/22 15:50: Sodium 144, Potassium 4.4, Chloride 107, Carbon Dioxide 28.0, Anion Gap 9, BUN 21 H, Creatinine 1.02, Estim Creat Clear Calc 36.53, Est GFR (MDRD) Af Amer 68, Est GFR (MDRD) Non-Af 56 L, BUN/Creatinine Ratio 20.6 H, Glucose 109 H, Calcium 10.3 H, Troponin I High Sens 12 05/16/22 18:15: Troponin I High Sens 216 H* EKG Initial EKG: Attestation: I personally reviewed and interpreted this EKG as follows: Prior EKG tracings: available for review EKG Rhythm Intrepretation: Sinus Rhythm (ST depressions in the lateral leads) Radiology Impression Chest X-Ray 05/16/22 16:15 IMPRESSION: No acute cardiopulmonary abnormality. Electronically Signed: Juan Alberto Thayer MD at 16:35 EST , Assessment & Plan Assessment/Plan (1) Acute non-ST elevation myocardial infarction (NSTEMI): PLAN: Unclear if type I versus type II event Plan is to continue with aspirin, clopidogrel. Patient has been started on heparin drip in the emergency room and will continue on the floor. Check 2D echocardiogram Cardiology consultation as patient may require another left heart catheterization PLAN: Plan Chronic medical conditions * Hypertension: Stable. Continue with amlodipine, HCTZ and losartan * Hypothyroidism: Continue with levothyroxine * Depression: Continue with sertraline VTE prophylaxis: Not indicated as patient is already on anticoagulation with heparin drip. Charges/Coding Visit Charges Inpatient E&M: 28703 Init Hosp L3
--- NOTE | 2022-05-16 20:30 | ECHOD_ITS ---
Version 2 Reason For Study: NSTEMI Procedure This was a 2D Doppler, Color Flow transthoracic echocardiogram. Echo done with patient supine s/p Cath. Exam performed portable in patient room. Left Ventricle Normal LV size. Sigmoid septum. Left ventricular systolic function is normal. The estimated ejection fraction is 60 %. No regional wall motion abnormalities noted. Right Ventricle Normal RV size. Normal systolic function. Atria Normal left atrium. Normal right atrium. Mitral Valve Normal mitral valve. Mild (1+) eccentric mitral valve insufficiency. Tricuspid Valve Normal tricuspid valve. Mild tricuspid valve insufficiency. Pulmonary artery systolic pressure is 24 mmHg. Aortic Valve Trisinus/trileaflet aortic valve. Pulmonic Valve Normal pulmonic valve. Great Vessels Normal aortic root. The pulmonary artery is normal size. Normal inferior vena cava. Pericardium/Pleural No pericardial effusion. MMode/2D Measurements & Calculations LVIDd: 4.1 cm IVSd: 1.6 cm LA dimension: 3.6 cm LVIDs: 2.6 cm LVPWd: 0.93 cm FS: 36.5 % LAV(MOD-bp): 48.6 ml LA A4 area: 19.0 cm2 RA A4 area: 12.4 cm2 LAV(MOD-bp) Indexed: 28.7 ml/m2 LAV(MOD-sp2): 38.1 ml LAV(MOD-sp4): 51.4 ml Time Measurements MV dec time: 0.26 sec Doppler Measurements & Calculations MV E max matt: 87.7 cm/sec Lat Peak E' Matt: 10.0 cm/sec Med Peak E' Matt: 6.7 cm/sec MV A max matt: 72.0 cm/sec E/E' lat: 8.8 E/E' med: 13.1 MV E/A: 1.2 MV V2 max: 106.4 cm/sec MV P1/2t max matt: 107.9 cm/sec Ao V2 max: 139.0 cm/sec MV max P.5 mmHg MV P1/2t: 97.0 msec Ao max P.7 mmHg MV V2 mean: 54.4 cm/sec MV dec slope: 325.9 cm/sec2 MV mean P.5 mmHg MVA(P1/2t): 2.3 cm2 MV V2 VTI: 44.0 cm LV V1 max: 107.5 cm/sec PA V2 max: 102.7 cm/sec TR max matt: 229.9 cm/sec LV V1 max P.6 mmHg PA V2 mean: 68.6 cm/sec TR max P.1 mmHg ECHO/Echo Complete Interpretation Summary Normal LV size. Left ventricular systolic function is normal. The estimated ejection fraction is 60 %. Pulmonary artery systolic pressure is 24 mmHg. Mild (1+) eccentric mitral valve insufficiency. Structurally normal valves. Ordering Physician: Kevin Turner Referring Physician: Olive Julien Performed By: Sebastian Martel RCS
--- NOTE | 2022-05-16 20:30 | EKG12_ITS ---
Test Reason : AM EKG Blood Pressure : / mmHG Vent. Rate : 051 BPM Atrial Rate : 051 BPM P-R Int : 266 ms QRS Dur : 088 ms QT Int : 478 ms P-R-T Axes : 051 026 129 degrees QTc Int : 440 ms Sinus bradycardia with 1st degree A-V block Left ventricular hypertrophy with repolarization abnormality ( Sokolow-Bedoya ) Abnormal ECG When compared with ECG of 16-MAY-2022 20:52, MANUAL COMPARISON REQUIRED, DATA IS UNCONFIRMED Confirmed by RAJESH THOMPSON, EVAN ([id number]), medical transcription editor SONNY DUMONT ([id number]) on 05/18/2022 9:05:41 AM Referred By: Confirmed By:EVAN MENA MD
[2022-05-16] MEDS: Sertraline 100 MG Tablet 200 MG PO (22:46)
[2022-05-16] MEDS: Zolpidem Tartrate 5 MG Tablet PO (22:46)
[2022-05-16] MEDS: Clopidogrel Bisulfate 75 MG Tablet PO (22:47)
[2022-05-16 22:54] LABS: Troponin-I HS 652 pg/mL (3.0-54.0)
[2022-05-16] MEDS: Pantoprazole Sodium 40 MG Tablet PO (23:28)
[2022-05-16] MEDS: oxyCODONE 5 MG Tablet PO (23:31)
[2022-05-17] VITALS (12 sets, daily range): BP systolic 99–121; BP diastolic 42–56; PULSE 48–53; RESP 16–18; TEMP 36.6–36.8; O2SAT 93–100
[2022-05-17 02:15] LABS: Partial Thromboplast Time 66.7 Seconds (24.1-36.2)
[2022-05-17] MEDS: Levothyroxine 75 MCG Tablet PO (05:45)
[2022-05-17] MEDS: Aspirin E.C. 81 MG Tablet PO (05:45)
--- NOTE | 2022-05-17 05:55 | EKG12_ITS ---
Test Reason : ADMIT EKG Blood Pressure : / mmHG Vent. Rate : 065 BPM Atrial Rate : 065 BPM P-R Int : 252 ms QRS Dur : 080 ms QT Int : 426 ms P-R-T Axes : 049 043 107 degrees QTc Int : 443 ms Sinus rhythm with 1st degree A-V block Minimal voltage criteria for LVH, may be normal variant ( Sokolow-Bedoya ) Nonspecific ST and T wave abnormality Abnormal ECG When compared with ECG of 16-MAY-2022 17:39, MANUAL COMPARISON REQUIRED, DATA IS UNCONFIRMED Confirmed by RAJESH THOMPSON, EVAN ([id number]), editor city SONNY DUMONT ([id number]) on 05/18/2022 9:06:31 AM Referred By: Confirmed By:EVAN MENA MD
--- NOTE | 2022-05-17 07:33 | CON.PCM.CA_ITS ---
Assessment & Plan Assessment/Plan (1) Acute non-ST elevation myocardial infarction (NSTEMI): PLAN: She presents with a non-ST elevation myocardial infarction. My recommendation at this time would be to continue her current medication and proceed with a left heart catheterization. Risk benefits alternatives of been explained to her she understands and agrees to proceed. Addendum: Cardiac catheterization demonstrated the following: Normal left main coronary artery. Left anterior descending artery with high-grade mid segment stenosis. Left internal mammary artery to the left anterior descending artery which is patent with a side branch which is not completely clipped off. Left circumflex artery with no high-grade stenosis. Right coronary artery previously stented with patent and ostium to the posterior descending artery with 50% stenosis. Saphenous vein graft to the diagonal branch which is patent. Saphenous vein graft obtuse marginal branch which is patent. Preserved left ventricular systolic function. Based on the above angiographic findings we will continue to optimize medical therapy. (2) H/O coronary artery bypass surgery: PLAN: She has a history of coronary artery bypass surgery. She appears to be doing well at this time I would not recommend that we make any changes. (3) History of coronary artery stent placement: PLAN: She is status post previous angioplasty and stenting of the posterolateral vessel of the right coronary artery. This vessel was patent 2 years ago. We will need to reevaluate this (4) Essential (primary) hypertension: PLAN: Her blood pressure is under fair control. However we will need to optimize this. (5) Hyperlipidemia: QUALIFIERS: Hyperlipidemia type: pure hypercholesterolemia Qualified Code(s): E78.00 - Pure hypercholesterolemia, unspecified PLAN: She does have a history of hyperlipidemia. We will continue with aggressive risk factor modification. (6) Dyspnea on minimal exertion: PLAN: She has had some dyspnea with minimal exertion. There is a concern as to whether this is an anginal equivalent. HPI Consult Data Date of Consult: 05/17/22 HPI Narrative HPI Narrative: NERIS MCGOVERN, is a 77 F who presents with chest discomfort nausea and vomiting and noted to have abnormal cardiac enzyme pattern.? She does have a history of coronary artery disease with bypass surgery in 2009.? She had an SOARES to the LAD, SVG to the first diagonal and second obtuse marginal branches.? She also has a history of drug-eluting stent to her proximal 2nd RPL branch of RCA on 01/15/2019, hypertension, and hyperlipidemia.? She presented again in 2019 and underwent a repeat cardiac catheterization which demonstrated a right dominant circulation, preserved ejection fraction of 55%, proximal LAD occluded, left circumflex artery with no significant disease, right coronary artery with previously placed stents patent, and the saphenous vein graft to the first diagonal branch as well as the second obtuse marginal branch which were patent.? Medical therapy was recommended.? The SOARES to the LAD was previously noted to be patent to the year before.? She has continued to be short of breath has seen the oracle fusion middleware developer and still has no answers.? She was seen in the office last September complaining of shortness of breath with minimal activity and was evaluated with a normal natruretic peptide level, and normal echocardiogram, and a CAT scan of her chest which did not demonstrate any abnormalities. She was also not noted t o be anemic. She was asked to come back in March but she did not present. She now comes back with the following. EKG demonstrated sinus rhythm with a right bundle branch block pattern. No acute changes were noted. Cardiac enzymes were noted to be abnormal. [facility] Medical History Anxiety and depression Asthma Atherosclerotic heart disease of [place] coronary artery without angina pectoris Body mass index (BMI) of 32.0-32.9 in adult Carotid artery disease COPD (chronic obstructive pulmonary disease) Coronary artery disease COVID-19 (02/03/21) Depression LEOS (dyspnea on exertion) Essential (primary) hypertension Former smoker GERD (gastroesophageal reflux disease) Hyperlipidemia Hypothyroidism Mass of soft tissue of neck Myocardial infarct Non-STEMI (non-ST elevated myocardial infarction) (01/14/19) Obesity (BMI 30.0-34.9) EARL (obstructive sleep apnea) Thrombocytopenia Home Medications aspirin 81 mg tablet,delayed release (Adult Aspirin Regimen) 81 mg PO QDAY #90 tabs 02/14/19 [Rx Last Taken 02/18/20] zolpidem 6.25 mg tablet,extended release,multiphase (Ambien CR) 6.25 mg PO QHS Check with primary doctor 08/29/19 [History Last Taken Unknown] clopidogrel 75 mg tablet 75 mg PO DAILY #90 tabs 04/21/20 [Rx Last Taken Unknown ] amlodipine 5 mg tablet See Rx Instructions .Route .COMPLEX #90 tabs 06/01/21 [Rx Last Taken Unknown] ergocalciferol (vitamin D2) 1,250 mcg (50,000 unit) capsule 1,250 mcg PO .2XWEEK Check with primary doctor 09/29/21 [History Last Taken 05/14/22] hydrochlorothiazide 12.5 mg capsule 12.5 mg PO DAILY Check with primary doctor 09/29/21 [History Last Taken Unknown] losartan 50 mg tablet 50 mg PO BID #180 tabs 09/29/21 [Rx Last Taken Unknown] nitroglycerin 0.4 mg sublingual tablet 0.4 mg sublingual Q5-15M PRN chest pain #25 BOTTLES 09/29/21 [Rx Last Taken Unknown] pantoprazole 40 mg tablet,delayed release 40 mg PO DAILY Check with primary doctor 09/29/21 [History Last Taken Unknown] sertraline 100 mg tablet 200 mg PO QHS Check with primary doctor 09/29/21 [History Last Taken Unknown] levothyroxine 75 mcg tablet 75 mcg PO DAILY Check with primary doctor 05/16/22 [History Last Taken Unknown] Allergy/AdvReac Type Severity Reaction Status Date / Time acetaminophen [From Tylenol] Allergy Unknown Verified 05/16/22 15:53 codeine Allergy Unknown Verified 05/16/22 15:53 progesterone Allergy Unknown Verified 05/16/22 15:53 trazodone Allergy Unknown Verified 05/16/22 15:53 atorvastatin AdvReac weakness Verified 05/16/22 15:53 Family History Mother CAD (coronary artery disease) CVA (cerebral vascular accident) Father , Age 44 COPD (chronic obstructive pulmonary disease) Surgical History H/O coronary artery bypass surgery (01/2010) History of appendectomy History of cholecystectomy History of coronary artery stent placement (01/15/19) History of hernia repair History of hysterectomy History of left heart catheterization (02/18/20) Social History Smoking Status: Former smoker pack-years: 10 how long ago did patient quit smokin years ago second hand exposure: No alcohol intake: never substance use type: does not use caffeine: Yes Type: carbonated beverages Number of servings: 2 what type of physical activity do you participate in: none ROS Constitutional Constitutional: Denies fever(s) or weight loss Eyes Eyes: Reports systems reviewed and no addt'l complaints, except as documented ENT HEENT: Reports systems reviewed and no addt'l complaints, except as documented Cardiovascular Cardiovascular: Reports chest pain at rest and dyspnea on exertion; Denies chest pain with activity, dyspnea at rest, edema, palpitations or paroxysmal nocturnal dyspnea Respiratory/Chest Respiratory/Chest: Reports dyspnea on exertion and shortness of breath with exertion; Denies productive cough or shortness of breath at rest Gastrointestinal Gastrointestinal: Denies change in bowel habits, nausea, vomiting or weight changes Genitourinary Genitourinary: Denies difficulty urinating Musculoskeletal Musculoskeletal: Denies joint stiffness or muscle weakness Integumentary Integumentary: Denies lesions Neurologic Neurologic: Denies dizziness or syncope Psychiatric Psychiatric: Denies anxiety Endocrine Endocrinology: Denies excessive sweating or fatigue Hematologic/Lymphatic Hematologic/Lymphatic: Denies anemia Allergic/Immunologic Allergic/Immunologic: Denies seasonal rhinorrhea Physical Exam Const alert, oriented x3 and no apparent distress General Appearance: cooperative HEENT hearing grossly normal bilaterally Head and Scalp: atraumatic Eyes EOMs intact bilaterally Neck General: normal visual inspection Chest inspection of chest normal and palpation of chest normal Resp normal respiratory effort Auscultation: clear to auscultation bilaterally Cardio regular rate, regular rhythm, S1 normal heart sound and S2 normal heart sound Jugular Venous Distention: JVD GI normal to inspection, nondistended, normoactive bowel sounds Extremity normal capillary refill and no pedal edema Peripheral Pulses: Yes pulses 2+ throughout and femoral pulses present Skin no rashes or lesions noted Neuro oriented x3 and CN's II-XII intact bilaterally Psych Appearance: grossly normal and appropriate Risk Stratification Risk Stratification Applicable: Yes Age >/= 65: Yes >/= 3 CAD Risk Factors (HTN, HLD, DM, family hx of CAD, or current smoker): Yes Aspirin Use in the Past 7 Days: Yes Severe Angina (>/= episodes in 24 hours): No EKG ST Changes >/= 0.5mm: No Positive Cardiac Marker: Yes SHENG Risk Stratification Score: 4 SHENG % Risk: 20% Risk Objective Data Vital Signs: Vital Signs Temp Pulse Resp BP Pulse Ox O2 Del Method O2 Flow Rate 98.3 F 51 L 16 104/49 L 99 Nasal Cannula 2 05/17/22 05:45 05/17/22 05:45 05/17/22 05:45 05/17/22 05:45 05/17/22 05:45 05/17/22 05:45 05/17/22 05:45 Oxygen Flow Rate (L/min) 2 Oxygen Delivery Method Nasal Cannula Weight: 151 lb 3.794 oz Body Mass Index (BMI) 29.1 Intake & Output: Intake and Output for Last 24 Hours 05/15/22 05/16/22 05/17/22 23:59 23:59 23:59 Intake Total 1240 / 1240 104.3 / 104.3 Balance 1240 / 1240 104.3 / 104.3 Lab / Micro Data Result Diagrams: 05/17/22 07:35 05/17/22 07:35 Labs: Laboratory Results - last 24 hr 05/16/22 15:30: PT 13.0, INR 1.0, APTT 32.7 05/16/22 15:50: WBC 6.8, RBC 5.74 H, Hgb 14.8, Hct 47.0, MCV 81.9, MCH 25.8 L, MCHC 31.5 L, RDW Std Deviation 49.1 H, RDW Coeff of [place]va 16.7 H, Plt Count 223, MPV 10.5, Immature Gran % (Auto) 0.100, Neut % (Auto) 72.8 H, Lymph % (Auto) 21.2, [place] % (Auto) 4.6, Eos % (Auto) 1.0, Baso % (Auto) 0.3, Absolute Neuts (auto) 5.0, Absolute Lymphs (auto) 1.44, Nucleated RBC % 0 05/16/22 15:50: Sodium 144, Potassium 4.4, Chloride 107, Carbon Dioxide 28.0, Anion Gap 9, BUN 21 H, Creatinine 1.02, Estim Creat Clear Calc 36.53, Est GFR (MDRD) Af Amer 68, Est GFR (MDRD) Non-Af 56 L, BUN/Creatinine Ratio 20.6 H, Glucose 109 H, Calcium 10.3 H, Troponin I High Sens 12 05/16/22 18:15: Troponin I High Sens 216 H* 05/16/22 21:37: Troponin I High Sens 652 H* 05/17/22 01:35: APTT 66.7 H Cardiology Labs/Tests 05/16/22 15:30: PT 13.0, INR 1.0, APTT 32.7 05/16/22 15:50: WBC 6.8, RBC 5.74 H, Hgb 14.8, Hct 47.0, MCV 81.9, MCH 25.8 L, MCHC 31.5 L, Plt Count 223, MPV 10.5, Immature Gran % (Auto) 0.100, Neut % (Auto) 72.8 H, Lymph % (Auto) 21.2, [place] % (Auto) 4.6, Eos % (Auto) 1.0, Baso % (Auto) 0.3, Absolute Neuts (auto) 5.0, Nucleated RBC % 0 05/16/22 15:50: Sodium 144, Potassium 4.4, Chloride 107, Carbon Dioxide 28.0, Anion Gap 9, BUN 21 H, Creatinine 1.02, Est GFR (MDRD) Af Amer 68, Est GFR (MDRD) Non-Af 56 L, BUN/Creatinine Ratio 20.6 H, Glucose 109 H, Calcium 10.3 H 05/17/22 01:35: APTT 66.7 H Rhythm: EKG: ECHO: Stress Test: Cardiac Cath: PCI: CT Surgery: Holter monitor: EPS: PPM: CXR: Chest CT Scan: Radiography Diagnostic Testing: Radiology Impression Chest X-Ray 05/16/22 16:15 IMPRESSION: No acute cardiopulmonary abnormality. Electronically Signed: Juan Alberto Thayer MD at 16:35 EST ,
[2022-05-17 07:56] LABS: Absolute Lymphocyte Count 1.72 X10^3/uL (0.83-4.51); Absolute Neutrophil Count 3.5 X10^3/uL (2.0-7.7); Basophil# 0.01 X10^3/uL; Basophil% 0.2 % (0-1); Eosinophil# 0.11 X10^3/uL; Eosinophils% 1.9 % (0-5); Hematocrit 37.3 % (37-47); Hemoglobin 11.4 g/dL (12.0-15.0); Lymphocyte # 1.72 X10^3/ul (0.83-4.51); Lymphocyte % 29.7 % (19-41); Mean Corp Hgb Conc 30.6 g/dL (32-36); Mean Corpuscular Hgb 25.3 pg (27.0-32.0); Mean Corpuscular Volume 82.9 fL (81-99); Mean Platelet Vol. 10.1 fl (6.2-12.0); Monocyte# 0.42 X10^3/uL; Monocyte% 7.2 % (0-10); NRBC Flagged by Analyzer 0 % (0-5); Neutrophil # 3.53 X10^3/uL (2.7-7.7); Neutrophil % 60.8 % (47-70); Platelet Count 155 K/mm3 (150-450); RBC Distribution Width CV 16.9 % (11.6-14.6); RBC Distribution Width SD 50.9 fl (35.1-43.9); White Blood Count 5.8 K/mm3 (4.4-11.0)
[2022-05-17] MEDS: 0.9% Normal Saline 1,000 ML 15 ML IV (08:00)
--- NOTE | 2022-05-17 08:00 | PCM.PN.HOSP ---
Subjective Subjective Mrs. Rodriguez is a 77-year-old white female who presented to emergency department [facility] on 05/16/2021 with a chief complaint of chest discomfort, nausea, and vomiting. She was noted to have abnormal cardiac enzymes on presentation. She has previous history of coronary disease with bypass surgery in 2009 at which time she had an SOARES to the LAD, SVG to the first diagonal and second obtuse marginal branches.? She also has a history of drug-eluting stent to her proximal 2nd RPL branch of RCA on 01/15/2019. Per documentation she presented again in 2019 when she underwent a repeat cardiac catheterization that demonstrated right dominant circulation, preserved ejection fraction of 55%, proximal LAD occluded, left circumflex artery with no significant disease, right coronary artery with previously placed stents patent, and the saphenous vein graft to the first diagonal branch as well as the second obtuse marginal branch which were patent. Medical therapy was recommended at that time. She evidently has been having some issues with shortness of breath and saw a market research specialist but still has no answers with regards to the etiology of her shortness of breath. EKG showed a right bundle branch block with no ST-T wave changes concerning for acute ischemia but her troponin was initially 12 on presentation but repeat elevated to 16 with a third troponin at 652. Cardiology has been consulted evaluated her this morning and is recommending left heart catheterization. Objective Data Objective Data Vital Signs: Vital Signs Temp Pulse Resp BP Pulse Ox O2 Del Method O2 Flow Rate 98.3 F 51 L 16 104/49 L 99 Nasal Cannula 2 05/17/22 05:45 05/17/22 05:45 05/17/22 05:45 05/17/22 05:45 05/17/22 05:45 05/17/22 05:45 05/17/22 05:45 Oxygen Flow Rate (L/min) 2 Oxygen Delivery Method Nasal Cannula Weight: 68.6 kg Body Mass Index (BMI) 29.1 Intake & Output: Intake and Output for Last 24 Hours 05/15/22 05/16/22 05/17/22 23:59 23:59 23:59 Intake Total 1240 / 1240 104.3 / 104.3 Balance 1240 / 1240 104.3 / 104.3 Lab / Micro Data Result Diagrams: 05/17/22 07:35 05/16/22 15:50 Labs: Laboratory Results - last 24 hr 05/16/22 15:30: PT 13.0, INR 1.0, APTT 32.7 05/16/22 15:50: WBC 6.8, RBC 5.74 H, Hgb 14.8, Hct 47.0, MCV 81.9, MCH 25.8 L, MCHC 31.5 L, RDW Std Deviation 49.1 H, RDW Coeff of [place] 16.7 H, Plt Count 223, MPV 10.5, Immature Gran % (Auto) 0.100, Neut % (Auto) 72.8 H, Lymph % (Auto) 21.2, [place] % (Auto) 4.6, Eos % (Auto) 1.0, Baso % (Auto) 0.3, Absolute Neuts (auto) 5.0, Absolute Lymphs (auto) 1.44, Nucleated RBC % 0 05/16/22 15:50: Sodium 144, Potassium 4.4, Chloride 107, Carbon Dioxide 28.0, Anion Gap 9, BUN 21 H, Creatinine 1.02, Estim Creat Clear Calc 36.53, Est GFR (MDRD) Af Amer 68, Est GFR (MDRD) Non-Af 56 L, BUN/Creatinine Ratio 20.6 H, Glucose 109 H, Calcium 10.3 H, Troponin I High Sens 12 05/16/22 18:15: Troponin I High Sens 216 H* 05/16/22 21:37: Troponin I High Sens 652 H* 05/17/22 01:35: APTT 66.7 H 05/17/22 07:35: WBC 5.8, RBC 4.50, Hgb 11.4 L, Hct 37.3, MCV 82.9, MCH 25.3 L, MCHC 30.6 L, RDW Std Deviation 50.9 H, RDW Coeff of [place]va 16.9 H, Plt Count 155, MPV 10.1, Immature Gran % (Auto) 0.200, Neut % (Auto) 60.8, Lymph % (Auto) 29.7, [place] % (Auto) 7.2, Eos % (Auto) 1.9, Baso % (Auto) 0.2, Absolute Neuts (auto) 3.5, Absolute Lymphs (auto) 1.72, Nucleated RBC % 0 Radiography Diagnostic Testing: Radiology Impression Chest X-Ray 05/16/22 16:15 IMPRESSION: No acute cardiopulmonary abnormality. Electronically Signed: Juan Alberto Thayer MD at 16:35 EST ,
[2022-05-17] MEDS: 0.9% Saline Lock 10 ML Syringe IV (08:03)
[2022-05-17] MEDS: Clopidogrel Bisulfate 75 MG Tablet PO (08:12)
[2022-05-17 08:16] LABS: Anion Gap 4 (5-15); BUN 17 mg/dL (7-18); BUN/Creat Ratio 21.5 RATIO (10-20); Calcium,Total 8.6 mg/dL (8.5-10.1); Chloride 112 mmol/L (98-107); Cholesterol 231 mg/dL (200); Creatinine, Serum 0.79 mg/dL (0.55-1.02); EST Glomerular Filtration Rate 75 mL/min (>60); Est Glom Filt Rate - Afr Amer 91 mL/min (>60); Estimated Creatinine Clearance 35.55 ml/min; Glucose 96 mg/dL (74-106); High Density Lipoprotein 46 mg/dL; Potassium 3.7 mmol/L (3.5-5.1); Sodium Level 145 mmol/L (136-145); Triglycerides 154 mg/dL; Very Low Density Lipoprotein 31 mg/dL (5-40)
--- NOTE | 2022-05-17 10:11 | CL.D_ITS ---
Patient Name: NERIS MCGOVERN Study Date: 05/17/2022 Performing: Nicholas Umana MD Ht: 62 inches 157.48 cm : 1945 Wt: 151.4 lbs 68.6 kg Age: 77 Gender: female BSA: 1.7 PROCEDURE(S) PERFORMED [id number])LHC/COR/LV CLINICAL PROFILE AND INDICATIONS Indications: Worsening Angina Heart Failure: None Stress/Imaging Stress/Image Study Performed: No CAD Presentations: Non-STEMI. Symptom onset Date/Time: 05/17/22 Time Not Available CONCLUSIONS Coronary disease status post coronary bypass surgery with patent bypass grafts and [place] vessel on the right with moderate disease. Preserved ejection fraction. RECOMMENDATIONS Medical therapy DESCRIPTION OF PROCEDURE The patient arrived to the procedure lab. The risks and benefits of the procedure as well as a full description of our services here and current unavailability of surgical backup were fully explained to the patient and/or their significant other prior to the catheterization. The Timeout was completed, verifying the correct patient and procedure. The patient's procedural site was prepped and draped in the usual fashion. Local anesthetic was given subcutaneously to left radial region with Lidocaine 2%. Local anesthetic was given subcutaneously to right groin region with Lidocaine 2%. Using a modified Seldinger technique, arterial access was obtained via the right femoral artery, a 5Fr sheath was inserted. Left Coronary Artery selective angiography was performed in multiple views using a 5 Fr. JL4 catheter. Right Coronary Artery selective angiography was then performed in multiple views using a 5 Fr. 3DRC ([place]) catheter. Saphenous Vein graft to the DIAG selective angiography was performed in multiple views using a 5 Fr. 3DRC ([place]) catheter. Saphenous Vein graft to the other DIAG selective angiography was performed in multiple views using a 5 Fr. 3DRC ([place]) catheter. Left Ventriculography was performed in SHAIKH projection using a 5 Fr. Pigtail catheter. LV to AO pullback pressures were then recorded.Contrast was injected through the sheath and the Right Iliac and Femoral artery were assessed for possible closure device.The arterial sheath was pulled and a Mynx closure device was deployed for hemostasis CORONARY ANGIOGRAPHY DOMINANCE: Right Dominant LEFT HEART ASSESSMENT Left Ventricular Ejection Fraction: by LV Gram 60 % Normal LV wall motion Normal Left Ventricular systolic function LEFT MAIN: Angiographically normal LEFT ANTERIOR DESCENDING ARTERY: Mid segment high-grade stenosis noted. CIRCUMFLEX ARTERY: Mild luminal irregularities RIGHT CORONARY ARTERY: Previously stented vessel was noted to be patent with mild diffuse disease the posterolateral vessel does not appear to have any high-grade stenosis and there is an ostial 50% stenosis of the posterior descending artery. GRAFTS: Saphenous Vein graft to the 1st Diagonal is patent Saphenous Vein graft to the 1st OM is patent SOARES graft to the Mid LAD is patent SOARES graft to the Mid LAD The sidebranch from this vessel was not clipped and supplies collaterals. COMPLICATIONS No Complications PROCEDURE MEDICATIONS Versed 1 mg IV Fentanyl 50 mcg IV Oxygen: 2 L/min via nasal cannula SUMMARY OF HEMODYNAMIC DATA Time AIR REST AO 116/42 (67) SA 09:42:07 LV 125/6, 19 09:51:17 LV 131/5, 20 09:51:25 LV 133/8, 22 09:52:03 LV 136/8, 24 09:52:12 LVp 139/6, 24 09:52:16 AOp 139/34 (78) 09:52:23 AIR REST 10:10:15 Signed By Nicholas Umana MD On 05/18/2022 08:29:12 Signed By Nicholas Umana MD On 05/17/2022 10:10:25 Nicholas Umana MD
--- NOTE | 2022-05-17 11:27 | PCM.DC.SUM ---
Providers Date of Admission: 05/16/22 Primary Care Physician: Dr. Olive Julien MD Consultations 05/16/22 20:30 Consult: Cardiology Routine Consulting Provider: Shannan Mancia Reason for Consult: Chest Pain EMERGENT Consult: No MD Notified: Yes Date Notified: 05/16/22 Time Notified: 19:32 Method of Notification: ED Physician Initiated Reason For Visit: NSTEMI Diagnosis Discharge Diagnosis (1) Acute non-ST elevation myocardial infarction (NSTEMI): Status: Acute Code(s): I21.4 - Non-ST elevation (NSTEMI) myocardial infarction (2) H/O coronary artery bypass surgery: Status: Chronic Code(s): Z95.1 - Presence of aortocoronary bypass graft (3) History of coronary artery stent placement: Status: Resolved Code(s): Z95.5 - Presence of coronary angioplasty implant and graft (4) Essential (primary) hypertension: Status: Chronic Code(s): I10 - Essential (primary) hypertension (5) Hyperlipidemia: Status: Chronic Code(s): E78.5 - Hyperlipidemia, unspecified Qualifiers: Hyperlipidemia type: pure hypercholesterolemia Qualified Code(s): E78.00 - Pure hypercholesterolemia, unspecified (6) Dyspnea on minimal exertion: Status: Acute Code(s): R06.00 - Dyspnea, unspecified Medications at Discharge Home Medications aspirin 81 mg tablet,delayed release (Adult Aspirin Regimen) 81 mg PO QDAY #90 tabs 02/14/19 zolpidem 6.25 mg tablet,extended release,multiphase (Ambien CR) 6.25 mg PO QHS Check with primary doctor 08/29/19 clopidogrel 75 mg tablet 75 mg PO DAILY #90 tabs 04/21/20 amlodipine 5 mg tablet See Rx Instructions .Route .COMPLEX #90 tabs 06/01/21 ergocalciferol (vitamin D2) 1,250 mcg (50,000 unit) capsule 1,250 mcg PO .2XWEEK Check with primary doctor 09/29/21 hydrochlorothiazide 12.5 mg capsule 12.5 mg PO DAILY Check with primary doctor 09/29/21 nitroglycerin 0.4 mg sublingual tablet 0.4 mg sublingual Q5-15M PRN chest pain #25 BOTTLES 09/29/21 pantoprazole 40 mg tablet,delayed release 40 mg PO DAILY Check with primary doctor 09/29/21 sertraline 100 mg tablet 200 mg PO QHS Check with primary doctor 09/29/21 levothyroxine 75 mcg tablet 75 mcg PO DAILY Check with primary doctor 05/16/22 isosorbide mononitrate 30 mg tablet,extended release 24 hr 30 mg PO DAILY #30 tabs 05/17/22 losartan 50 mg tablet 50 mg PO BID #60 tabs 05/17/22 rosuvastatin 10 mg tablet (Crestor) 10 mg PO DAILY #30 tabs 05/17/22 Hospital Course Operations None Procedures Cardiac catheterization and EKG Summary of Care Provided Minutes Spent on Discharge: 33 Hospital Course: Mrs. Rodriguez is a 77-year-old white female who presented to emergency department [facility] on 05/16/2021 with a chief complaint of chest discomfort, nausea, and vomiting. She was noted to have abnormal cardiac enzymes on presentation. She has previous history of coronary disease with bypass surgery in 2009 at which time she had an SOARES to the LAD, SVG to the first diagonal and second obtuse marginal branches.? She also has a history of drug-eluting stent to her proximal 2nd RPL branch of RCA on 01/15/2019. Per documentation she presented again in 2019 when she underwent a repeat cardiac catheterization that demonstrated right dominant circulation, preserved ejection fraction of 55%, proximal LAD occluded, left circumflex artery with no significant disease, right coronary artery with previously placed stents patent, and the saphenous vein graft to the first diagonal branch as well as the second obtuse marginal branch which were patent. Medical therapy was recommended at that time. She evidently has been having some issues with shortness of breath and saw a plastic surgery manager but still has no answers with regards to the etiology of her shortness of breath. EKG showed a right bundle branch block with no ST-T wave changes concerning for acute ischemia but her troponin was initially 12 on presentation but repeat elevated to 16 with a third troponin at 652. Cardiology is consulted and recommended cardiac catheterization which was performed on the a.m. of 05/17/2022. No significant obstructive lesions were identified and the patient had a preserved ejection fraction. I discussed the case with the molded rubber goods cutter, Dr. Umana, and he recommended continued medical management with the addition of isosorbide 30 mg and adding on a statin. It does appear she has a history of weakness with atorvastatin I will try low-dose Crestor at 10 mg as she does have a total cholesterol of 231/LDL of 154/HDL 46. The patient also indicated she needed a refill on her losartan which I did as well. Prescriptions for the isosorbide, Crestor, and losartan were faxed to her pharmacy. When she was recovered from her catheterization she was discharged home in stable condition on 05/17/2022. She is to follow-up with Dr. Umana within the next month and her primary care physician within the next 2 to 3 weeks. Discharge diagnoses: NSTEMI with enzyme elevation but no critical blockages on heart catheterization CAD Hypertension Hyperlipidemia Chronic dyspnea on exertion COPD Vitamin D deficiency Hypothyroidism GERD insomnia Anxiety/depression History of tobacco abuse Physical Exam Const alert, oriented x3 and no apparent distress Constitutional Narrative: Older, white female, lying in bed, sleepy from post cath, but awakens and appropriately interactive, at bedside, appears comfortable, nontoxic General Appearance: cooperative, comfortable, well kempt and well developed Orientation / Consciousness: awake, oriented to person, oriented to place and oriented to time Exam Limitations: no limitations Nutritional Appearance: overweight HEENT normocephalic, head/scalp atraumatic and moist oral mucous membranes Resp normal respiratory effort, no retractions, no use of accessory muscles and clear to auscultation bilaterally Resp Narrative: diminished but clear Auscultation: Negative for rales, rhonchi or wheezes Cardio regular rate, regular rhythm, S1 normal heart sound, S2 normal heart sound, no rub, no gallops and no clicks; Negative for no murmurs Cardio Narrative: 05/17 systolic murmur GI normal to inspection, nondistended, normoactive bowel sounds, soft to palpation and non-tender Extremity no clubbing, cyanosis or edema Neuro oriented x3, moves all extremities and no focal motor deficits Speech: speech normal Psych affect normal Weight / BMI Weight Weight: 68.6 kg Body Mass Index (BMI) 29.1 ABG / Lab / Microbiology Data Result Diagrams: 05/17/22 07:35 05/17/22 07:35 Laboratory: Laboratory Results - last 24 hr 05/16/22 15:30: PT 13.0, INR 1.0, APTT 32.7 05/16/22 15:50: WBC 6.8, RBC 5.74 H, Hgb 14.8, Hct 47.0, MCV 81.9, MCH 25.8 L, MCHC 31.5 L, RDW Std Deviation 49.1 H, RDW Coeff of Elva 16.7 H, Plt Count 223, MPV 10.5, Immature Gran % (Auto) 0.100, Neut % (Auto) 72.8 H, Lymph % (Auto) 21.2, [place] % (Auto) 4.6, Eos % (Auto) 1.0, Baso % (Auto) 0.3, Absolute Neuts (auto) 5.0, Absolute Lymphs (auto) 1.44, Nucleated RBC % 0 05/16/22 15:50: Sodium 144, Potassium 4.4, Chloride 107, Carbon Dioxide 28.0, Anion Gap 9, BUN 21 H, Creatinine 1.02, Estim Creat Clear Calc 36.53, Est GFR (MDRD) Af Amer 68, Est GFR (MDRD) Non-Af 56 L, BUN/Creatinine Ratio 20.6 H, Glucose 109 H, Calcium 10.3 H, Troponin I High Sens 12 05/16/22 18:15: Troponin I High Sens 216 H* 05/16/22 21:37: Troponin I High Sens 652 H* 05/17/22 01:35: APTT 66.7 H 05/17/22 07:35: WBC 5.8, RBC 4.50, Hgb 11.4 L, Hct 37.3, MCV 82.9, MCH 25.3 L, MCHC 30.6 L, RDW Std Deviation 50.9 H, RDW Coeff of Elva 16.9 H, Plt Count 155, MPV 10.1, Immature Gran % (Auto) 0.200, Neut % (Auto) 60.8, Lymph % (Auto) 29.7, [place] % (Auto) 7.2, Eos % (Auto) 1.9, Baso % (Auto) 0.2, Absolute Neuts (auto) 3.5, Absolute Lymphs (auto) 1.72, Nucleated RBC % 0 05/17/22 07:35: Sodium 145, Potassium 3.7, Chloride 112 H, Carbon Dioxide 29.0, Anion Gap 4 L, BUN 17, Creatinine 0.79, Estim Creat Clear Calc 35.55, Est GFR (MDRD) Af Amer 91, Est GFR (MDRD) Non-Af 75, BUN/Creatinine Ratio 21.5 H, Glucose 96, Calcium 8.6, Triglycerides 154, Cholesterol 231 H, LDL Cholesterol 154 H, VLDL Cholesterol 31, HDL Cholesterol 46 05/17/22 07:35: APTT 57.0 H Radiography Diagnostic Testing: Radiology Impression Chest X-Ray 05/16/22 16:15 IMPRESSION: No acute cardiopulmonary abnormality. Electronically Signed: Juan Alberto Thayer MD at 16:35 EST , D/C Instructions Discharge Diet: Low fat / Low cholesterol Discharge Activity: Return to Normal Activity Return to work on: 05/19/22 Lifting Restricted to (Lbs): 10 Lifting Restrictions: for 5 days Meaningful Use Info Meaningful Use Diagnoses (Choose all that apply): None applicable Discharge Plan Admission Admit Date/Time: 05/16/22 19:25 Primary Reason for Your Visit: Chest pain/nausea/vomiting Attending Provider: Anita Campbell Primary Care Provider: Olive Julien Consulting Providers: Shannan Mancia ; Kevin Turner Instructions Additional Instructions / Restrictions: 1. With your history of coronary disease we checked your cholesterol and it was noted to be markedly elevated above goal, we therefore started you on Crestor or rosuvastatin which is a cholesterol medication called a statin. You have previously been on atorvastatin or Lipitor and it is documented that it caused weakness. If you get muscle aches or weakness please notify Dr. Umana's office. Discharge Orders/Prescriptions Prescriptions: New isosorbide mononitrate 30 mg Tablet Extended Release 24 Hr 30 mg PO DAILY Qty: 30 1RF rosuvastatin [Crestor] 10 mg tablet 10 mg PO DAILY Qty: 30 0RF Continued aspirin [Adult Aspirin Regimen] 81 mg tablet,delayed release (DR/EC) 81 mg PO QDAY Qty: 90 5RF sertraline 100 mg tablet 200 mg PO QHS zolpidem [Ambien CR] 6.25 mg tablet,ext release multiphase 6.25 mg PO QHS pantoprazole 40 mg tablet,delayed release (DR/EC) 40 mg PO DAILY hydrochlorothiazide 12.5 mg capsule 12.5 mg PO DAILY Label Comments: take 1 capsule by mouth once daily ergocalciferol (vitamin D2) 1,250 mcg (50,000 unit) capsule 1,250 mcg PO .2XWEEK Rx Instructions: takes tuesday and fridays. nitroglycerin 0.4 mg tablet, sublingual 0.4 mg SL Q5-15M PRN (Reason: chest pain) Qty: 25 6RF Rx Instructions: as directed DO NOT EXCEED 3 TABLETS levothyroxine 75 mcg tablet 75 mcg PO DAILY losartan 50 mg tablet 50 mg PO BID Qty: 60 0RF clopidogrel 75 mg tablet 75 mg PO DAILY Qty: 90 3RF amlodipine 5 mg tablet See Rx Instructions .ROUTE .COMPLEX Qty: 90 3RF Dose Instruction: take 1 tablet by mouth once daily Rx Instructions: take 1 tablet by mouth once daily Referrals / Follow Up: Olive Julien MD [Primary Care Provider] - Within 2 Weeks Nicholas Umana MD [Med Staff - Active Staff] - Within 1 Month Disposition Disposition (needs filled in before D/C Order can be placed): Home, Self Care Charges/Coding Visit Charges Inpatient E&M: 25750 Disch Hosp
[2022-05-17] MEDS: hydroCHLOROthiazide 12.5mg 12.5 MG PO (11:35)
[2022-05-17] MEDS: amLODIPine 5 MG Tablet PO (11:35)
[2022-05-17] MEDS: Losartan Potassium 50 MG Tablet PO (11:35)
[2022-05-17] MEDS: Pantoprazole Sodium 40 MG Tablet PO (11:35)
--- NOTE | 2022-05-17 13:00 | CASEMGMT ---
RN FRANK Face to Face with patient for initial transition planning/care coordination assessment. RN CM introduced self and role at [facility]. Patient lying in bed, alert and oriented, at bedside. Patient willing to participate in assessment and is able to answer all questions appropriately. Care providers, pharmacy, and demographics verified. Patient wishes to discharge home, denies need for home health at this time. Patient states she has no further needs or concerns at this time. CM to follow for discharge planning needs that may arise. PCP: Wily Specialists: Dong, environmental test technician; Velia Freeman sr. manager marketing Preferred Pharmacy: [facility] Insurance: [facility], [employer] Prescription Benefit: yes Living Will/HPOA: yes, Mookie Rodriguez LNOK: Living Arrangements: Patient lives with in a raised [place] with stair lift to enter the home. Patient states she is independent at home. Transportation: self, DME/HHC: Patient states she has shower chair, raised toilet, cane, crutches, grab bars, and walker at home. No previous HHC or SNF. Disposition Plan: Patient to discharge home with family support and follow-up plans in place. Ashley ALBARRAN, RN, CM
--- NOTE | 2022-05-17 16:08 | PHA.DC.MC ---
Pharmacy Service has performed discharge medication reconciliation and counseling for this patient. 1. ISOSORBIDE MONONITRATE 30MG PO DAILY 2. ROSUVASTATIN 10MG PO DAILY The patient's discharge medication list was reviewed for discrepancies and discrepancies were resolved. Home Medications aspirin 81 mg tablet,delayed release (Adult Aspirin Regimen) 81 mg PO QDAY #90 tabs 02/14/19 zolpidem 6.25 mg tablet,extended release,multiphase (Ambien CR) 6.25 mg PO QHS Check with primary doctor 08/29/19 clopidogrel 75 mg tablet 75 mg PO DAILY #90 tabs 04/21/20 amlodipine 5 mg tablet See Rx Instructions .Route .COMPLEX #90 tabs 06/01/21 ergocalciferol (vitamin D2) 1,250 mcg (50,000 unit) capsule 1,250 mcg PO .2XWEEK Check with primary doctor 09/29/21 hydrochlorothiazide 12.5 mg capsule 12.5 mg PO DAILY Check with primary doctor 09/29/21 nitroglycerin 0.4 mg sublingual tablet 0.4 mg sublingual Q5-15M PRN chest pain #25 BOTTLES 09/29/21 pantoprazole 40 mg tablet,delayed release 40 mg PO DAILY Check with primary doctor 09/29/21 sertraline 100 mg tablet 200 mg PO QHS Check with primary doctor 09/29/21 levothyroxine 75 mcg tablet 75 mcg PO DAILY Check with primary doctor 05/16/22 isosorbide mononitrate 30 mg tablet,extended release 24 hr 30 mg PO DAILY #30 tabs 05/17/22 losartan 50 mg tablet 50 mg PO BID #60 tabs 05/17/22 rosuvastatin 10 mg tablet (Crestor) 10 mg PO DAILY #30 tabs 05/17/22 The patient was counseled on the following discharge medications and changes in medications for homegoing were reviewed. The Reason for Use, instructions for use, and potential side effects were reviewed for all new medications. The patient's questions regarding all of their medications were answered. The patient was able to verbally demonstrate an understanding of their discharge medications. Patient counseled by pharmacy technician assistantAtiya.
== END 2022-05-17 16:46 | disposition home or self-care (01) | DRG 282 ==
LOC: ED 19:11 → PCU 19:44
PROVIDERS: Physician Assistant; Emergency Provider Emergency Medicine; PCP Internal Medicine; Visit Provider Internal Medicine
DX: I21.4 Non-ST elevation (NSTEMI) myocardial infarction (principal); D64.9 Anemia, unspecified; Z95.1 Presence of aortocoronary bypass graft; J44.9 Chronic obstructive pulmonary disease, unspecified; I25.110 Atherosclerotic heart disease of native coronary artery with unstable angina pectoris; E03.9 Hypothyroidism, unspecified; I10 Essential (primary) hypertension; E55.9 Vitamin D deficiency, unspecified; F41.9 Anxiety disorder, unspecified; E78.00 Pure hypercholesterolemia, unspecified; I25.2 Old myocardial infarction; F32.A Depression, unspecified; Z95.5 Presence of coronary angioplasty implant and graft; Z79.02 Long term (current) use of antithrombotics/antiplatelets; Z79.82 Long term (current) use of aspirin; Z79.899 Other long term (current) drug therapy; Z86.16 Personal history of COVID-19; Z87.891 Personal history of nicotine dependence
CPT/HCPCS: 36415; 71045; 80048; 80061; 84484; 85025; 85610; 85730; 93005; 93306; 93458; 99152; 99153; 99285; C1760; J7030; A4216; C1769; C1894; J2405; Q9967

== ENCOUNTER 2023-10-29 12:52 | Emergency (ER) | payer MEDICARE, OTHER, SELFPAY ==
[2019-01-15 14:11] VITALS: BMI 32.3
[2023-10-29 12:53] VITALS: BP 102/70; PULSE 57; RESP 16; TEMP 36; O2SAT 99
[2023-10-29 13:02] VITALS: PULSE 56; RESP 18; O2SAT 97
--- NOTE | 2023-10-29 13:04 | CT_ITS ---
We are attempting to reach an attending provider to discuss findings. An addendum with communication details will be sent when the communication is complete. STUDY: CT BRAIN WITHOUT CONTRAST REASON FOR EXAM: Female, 78 years old. Fall RADIATION DOSAGE (If Supplied By Facility): CTDIvol = ( 44.99 ) mGy, DLP = ( 779.24 ) mGycm TECHNIQUE: Transaxial CT imaging of the brain was performed without administration of intravenous contrast material. Individualized dose optimization techniques were used for this CT. COMPARISON: Prior study dated: 12/09/2021 FINDINGS: PARENCHYMA: There are 2 intraparenchymal contusions in the left temporal lobe, measuring 1.8 x 0.6 cm (image 15 series 2) and 1.4 x 0.8 cm (image 19 series 2). There is adjacent subarachnoid blood noted in the left frontal and left temporal lobes. There is a 0.6 x 0.5 cm contusion in the right frontal lobe (image 22 series 2). There is no acute infarct. There are normal white matter tracts. VENTRICLES: There is no hydrocephalus. MASTOID AIR CELLS AND PARANASAL SINUSES: The visualized paranasal sinuses are clear. The mastoid air cells are clear. BONES: There is no skull fracture. SOFT TISSUES: The visualized soft tissues are within normal limits. CT/Brain/Head without Contrast IMPRESSION: 2 intraparenchymal contusions in the left temporal lobe, measuring 1.8 x 0.6 cm and 1.4 x 0.8 cm. Adjacent subarachnoid blood noted in the left frontal and left temporal lobes. 0.6 x 0.5 cm contusion in the right frontal lobe. Electronically Signed: Adrian Barbour MD at 14:20 EDT ,
--- NOTE | 2023-10-29 13:04 | EKG12_ITS ---
Test Reason : WEAKNESS Blood Pressure : / mmHG Vent. Rate : 051 BPM Atrial Rate : 051 BPM P-R Int : 276 ms QRS Dur : 088 ms QT Int : 486 ms P-R-T Axes : 029 040 101 degrees QTc Int : 447 ms Sinus bradycardia with 1st degree A-V block Nonspecific ST and T wave abnormality Abnormal ECG Confirmed by RAJESH THOMPSON, EVAN ([id number]), advertising editor CAIT MERIDA ([id number]) on 10/31/2023 11:01:20 AM Referred By: Confirmed By:EVAN MENA MD
--- NOTE | 2023-10-29 13:05 | EX.ED.DYSGE1 ---
HPI History of Present Illness Chief Complaint: Fall Detail of Chief Complaint: Fall and generalized weakness Informant: patient and spouse/S.O. Narrative Narrative: Patient presents to the emergency department after sustaining a fall this morning few hours ago. Patient was in the bathroom when she was just too weak to stand and fell and hit her head. No loss of consciousness. Her tried to help her up and she had a hard time bearing weight and standing. Patient is been weak and not feeling well for at least a month. She is currently seeing a neurologist who thinks she may have Parkinson's. Patient also has some sore lesions on her spleen and sees a general surgeon who is supposed to do biopsies of these lesions at some point. Patient states she has had nausea vomiting and diarrhea off and on for a month. She denies recent antibiotic usage. She denies fevers. Denies dysuria. Denies chest pain or shortness of breath. She denies neck pain PFSH PFSH Medical History Anxiety and depression Asthma Atherosclerotic heart disease of [place] coronary artery without angina pectoris Body mass index (BMI) of 32.0-32.9 in adult Carotid artery disease COPD (chronic obstructive pulmonary disease) Coronary artery disease COVID-19 (02/03/21) Depression LEOS (dyspnea on exertion) Dyspnea on minimal exertion Essential (primary) hypertension Former smoker GERD (gastroesophageal reflux disease) Hyperlipidemia Hypothyroidism Mass of soft tissue of neck Myocardial infarct Non-STEMI (non-ST elevated myocardial infarction) (01/14/19) Obesity (BMI 30.0-34.9) EARL (obstructive sleep apnea) Thrombocytopenia Home Medications ?Medication ?Instructions ?Recorded ?Last Taken ?Type aspirin 81 mg tablet,delayed 81 mg PO QDAY #90 tabs 02/14/19 02/18/20 Rx release (Adult Aspirin Regimen) zolpidem 6.25 mg tablet,extended 6.25 mg PO QHS Check with primary 08/29/19 Unknown History release,multiphase (Kateien CR) doctor ergocalciferol (vitamin D2) 1,250 1,250 mcg PO .2XWEEK Check with 09/29/21 05/14/22 History mcg (50,000 unit) capsule primary doctor nitroglycerin 0.4 mg sublingual 0.4 mg sublingual Q5-15M PRN chest 09/29/21 Unknown Rx tablet pain #25 BOTTLES sertraline 100 mg tablet 200 mg PO QHS Check with primary 09/29/21 Unknown History doctor levothyroxine 75 mcg tablet 75 mcg PO DAILY Check with primary 05/16/22 Unknown History doctor amlodipine 10 mg tablet 10 mg PO DAILY #90 tabs 05/23/23 Unknown Rx losartan 50 mg tablet 50 mg PO BID #180 tabs 05/26/23 Unknown Rx rosuvastatin 10 mg tablet (Crestor) 10 mg PO DAILY #90 tabs 05/26/23 Unknown Rx Allergy/AdvReac Type Severity Reaction Status Date / Time acetaminophen (From Tylenol) Allergy Unknown Verified 07/13/23 11:41 codeine Allergy Unknown Verified 07/13/23 11:41 progesterone Allergy Unknown Verified 07/13/23 11:41 trazodone Allergy Unknown Verified 07/13/23 11:41 atorvastatin AdvReac weakness Verified 07/13/23 11:41 Family History Mother CAD (coronary artery disease) CVA (cerebral vascular accident) Father , Age 44 COPD (chronic obstructive pulmonary disease) Surgical History H/O coronary artery bypass surgery (01/2010) History of appendectomy History of cholecystectomy History of coronary artery stent placement (01/15/19) History of hernia repair History of hysterectomy History of left heart catheterization (02/18/20) Social History Smoking Status: Former smoker pack-years: 10 how long ago did patient quit smokin years ago second hand exposure: No alcohol intake: never substance use type: does not use caffeine: Yes Type: carbonated beverages Number of servings: 2 what type of physical activity do you participate in: none ROS ROS ED Review of Systems ROS Unobtainable: other Constitutional Constitutional ED: Reports lethargy; Denies chills, fever(s), sweats or weight loss Eyes Eyes: Denies blurry vision, change in vision or diplopia ENT ENT ED: Reports other Details: Head injury ; Denies rhinorrhea or sore throat Cardiovascular Cardiovascular: Denies chest pain, orthopnea or racing heartbeat Respiratory/Chest Respiratory/Chest: Denies cough, dyspnea, dyspnea on exertion, orthopnea or sputum Gastrointestinal Gastrointestinal: Reports diarrhea, nausea and vomiting; Denies abdominal pain Genitourinary Genitourinary ED: Denies dysuria, hematuria or urinary frequency Musculoskeletal Musculoskeletal: Denies arthralgias, back pain, myalgias or neck pain Integumentary Denies abscess, Abrasions or rash Neurologic Neurologic: Reports weakness; Denies headache(s) Psychiatric Psychiatric: Denies anxiety, depression or suicidal thoughts Endocrine Endocrinology: Denies polydipsia, polyphagia or polyuria Hematologic/Lymphatic Hematologic/Lymphatic: Denies easy bleeding, easy bruising or lymphadenopathy Allergic/Immunologic Allergic/Immunologic ED: Denies mouth swelling, tongue swelling or urticaria EXAM Physical Exam Const Vital Signs: 10/29/23 12:53 10/29/23 13:00 10/29/23 13:02 Temperature 96.8 F L Temperature Source Tympanic Pulse Rate 57 L 56 L Respiratory Rate 16 18 Respiratory Effort Normal Respiratory Depth Normal Respiratory Pattern Normal Blood Pressure 102/70 Blood Pressure Mean 80 Pulse Ox 99 97 Oxygen Delivery Method Room Air 10/29/23 14:02 Temperature Temperature Source Pulse Rate 51 L Respiratory Rate 16 Respiratory Effort Respiratory Depth Respiratory Pattern Blood Pressure 121/51 H Blood Pressure Mean 74 Pulse Ox 99 Oxygen Delivery Method Room Air Positive well nourished and well developed General Appearance ED: well developed and NAD HEENT Reports TM's clear and moist mucous membranes HEENT Narrative: Patient has a 2.5 cm laceration over the right forehead that is well-approximated with no active bleeding. No bony step-offs or depressions normocephalic and atraumatic; Negative for trauma or tenderness Tympanic Membrane ED: Yes TM's clear Eyes PERRL and EOMs intact bilaterally General Eye ED: Negative for pale conjunctiva or scleral icterus Neck no lymphadenopathy, supple and no JVD General: Negative for tenderness Chest Wall inspection of chest normal and palpation of chest normal Chest: Negative for tenderness Resp normal respiratory effort and clear to auscultation bilaterally Effort and Inspection: Negative for respiratory distress or pain with movement Auscultation: Negative for rhonchi, wheezes or diminished lung sounds Cardio regular rate, regular rhythm, S1 normal heart sound, S2 normal heart sound and no murmurs Peripheral Pulses: pulses 2+ throughout GI normal to inspection, nondistended, normoactive bowel sounds, soft to palpation, non-tender, non-distended and no masses Back/Spine no CVA tenderness and no thoracic nor lumbar tenderness Extremity normal to inspection General Extremety ED: Negative for edema General Extremity: Negative for edema Neuro oriented x3, CN's II-XII intact bilaterally, no sensory deficits noted and gait normal Neuro Narrative: No focal weakness on exam. No dysarthria. No facial droop. Normal sensation in the upper and lower extremities as well as trunk. GCS is 15. Sensorium / Orientation: awake, alert, oriented to person, oriented to place and oriented to time Motor Exam: strength 5/5 throughout and strength abnormal Psych mental status grossly normal Skin no rashes or lesions noted and no wounds MDM MDM MDM Narrative Medical decision making narrative: Patient presents with generalized weakness for a month. Patient had a fall today with head injury. IV line established. CT scan of the brain without contrast obtained showed left frontal and temporal intraparenchymal contusions with a left subarachnoid hemorrhage. Patient now also has a small contusion right frontal lobe. Will order CT scan of the cervical spine as well. CBC with differential recommend 6.5 with hemoglobin 10.9 and platelet count of 163. Chemistries showed a sodium 04/11/1939 with potassium 3.3 and chloride of 103. BUN was 51 and creatinine 3.19. Patient also with elevated LFTs. Lipase was normal at 53. Patient had a small laceration to the right forehead for which I did use skin glue to approximate the wound edges and she tolerated this well. I discussed case with [facility] after discussing results with patient and her and they would like to go to [facility] where they have been before for care. Discussed case with Dr. Yip in the emergency department who accepted transfer of patient to their facility. Patient clinically looks well at this time and her GCS is 15. She is developing a little bit of a headache. Lab Data Attestation: I reviewed the patient's lab results. Labs: Laboratory Results - last 24 hr 10/29/23 13:16 WBC 6.5 RBC 3.94 L Hgb 10.9 L Hct 33.8 L MCV 85.8 MCH 27.7 MCHC 32.2 RDW Std Deviation 41.4 RDW Coeff of Elva 13.2 Plt Count 163 MPV 10.6 Immature Gran % (Auto) 0.300 Neut % (Auto) 79.3 H Lymph % (Auto) 11.9 L [place] % (Auto) 7.7 Eos % (Auto) 0.3 Baso % (Auto) 0.5 Absolute Neuts (auto) 5.1 Absolute Lymphs (auto) 0.77 L Nucleated RBC % 0 Sodium 140 Potassium 3.3 L Chloride 103 Carbon Dioxide 26.0 Anion Gap 11 BUN 51 H Creatinine 3.19 H Est GFR (MDRD) Af Amer 18 L Est GFR (MDRD) Non-Af 15 L BUN/Creatinine Ratio 16.0 Glucose 138 H Calcium 8.6 Total Bilirubin 0.70 AST 284 H ALT 117 H Alkaline Phosphatase 159 H Troponin I High Sens 22 Total Protein 6.8 Albumin 3.1 L Globulin 3.7 Albumin/Globulin Ratio 0.8 L Lipase 53 Radiography Diagnostic Testing: Clinical Impression(s) from Imaging Studies Brain CT 10/29/23 13:04 IMPRESSION: 2 intraparenchymal contusions in the left temporal lobe, measuring 1.8 x 0.6 cm and 1.4 x 0.8 cm. Adjacent subarachnoid blood noted in the left frontal and left temporal lobes. 0.6 x 0.5 cm contusion in the right frontal lobe. Electronically Signed: Adrian Barbour MD at 14:20 EDT , ADDENDUM: 10/29/23 1431 IMPRESSION: 2 intraparenchymal contusions in the left temporal lobe, measuring 1.8 x 0.6 cm and 1.4 x 0.8 cm. Adjacent subarachnoid blood noted in the left frontal and left temporal lobes. 0.6 x 0.5 cm contusion in the right frontal lobe. N.B. : The above Results were Read Back by Adrian Barbour MD to Zari Kline DC, and understanding confirmed on 10/29/2023 14:24:31 (ET). Electronically Signed: Adrian Barbour MD at 14:20 EDT , Chest X-Ray 10/29/23 13:25 IMPRESSION: No acute pulmonary process Electronically Signed: Gama Acosta MD at 13:35 EDT , 1 view chest x-ray obtained interpreted by myself as no evidence of infiltrate or pneumothorax or acute disease process. Radiology in agreement EKG Initial EKG: Attestation: I personally reviewed and interpreted this EKG as follows: Comments: Sinus bradycardia with first-degree AV block with ventricular rate of [address] changes Critical Care Time Critical care time (excluding procedures): 30-74 minutes, Including time spent:, Discussing w/Patient &/or Family/Technology Program Manager, Discussing w/Consultants, Arranging Admission or Transfer, Performing Direct Patient Care at Bedside and - (30 minutes) Discharge Plan Triage Chief Complaint: Fall ED Provider: Zari Hylton Dx/Rx/DC Orders Clinical Impression: Intracranial hemorrhage, Acute kidney injury, Fall, Generalized weakness Prescriptions: No Action aspirin [Adult Aspirin Regimen] 81 mg tablet,delayed release (DR/EC) 81 mg PO QDAY Qty: 90 5RF sertraline 100 mg tablet 200 mg PO QHS zolpidem [Ambien CR] 6.25 mg tablet,ext release multiphase 6.25 mg PO QHS ergocalciferol (vitamin D2) 1,250 mcg (50,000 unit) capsule 1,250 mcg PO .2XWEEK Rx Instructions: takes tuesday and fridays. nitroglycerin 0.4 mg tablet, sublingual 0.4 mg SL Q5-15M PRN (Reason: chest pain) Qty: 25 6RF Rx Instructions: as directed DO NOT EXCEED 3 TABLETS levothyroxine 75 mcg tablet 75 mcg PO DAILY amlodipine 10 mg tablet 10 mg PO DAILY Qty: 90 3RF rosuvastatin [Crestor] 10 mg tablet 10 mg PO DAILY Qty: 90 3RF losartan 50 mg tablet 50 mg PO BID Qty: 180 3RF Primary Care Provider: Olive Julien Referrals: Olive Julien MD [Primary Care Provider] - Print Language: French Disposition Disposition: DC/Tx to Another Type of HCF
[2023-10-29] MEDS: 0.9% Normal Saline (1000mL) 1,000 ML 150 ML IV (13:15)
[2023-10-29 13:22] LABS: Absolute Lymphocyte Count 0.77 X10^3/uL (0.83-4.51); Absolute Neutrophil Count 5.1 X10^3/uL (2.0-7.7); Basophil# 0.03 X10^3/uL; Basophil% 0.5 % (0-1); Eosinophil# 0.02 X10^3/uL; Eosinophils% 0.3 % (0-5); Hematocrit 33.8 % (37-47); Hemoglobin 10.9 g/dL (12.0-15.0); Lymphocyte # 0.77 X10^3/ul (0.83-4.51); Lymphocyte % 11.9 % (19-41); Mean Corp Hgb Conc 32.2 g/dL (32-36); Mean Corpuscular Hgb 27.7 pg (27.0-32.0); Mean Corpuscular Volume 85.8 fL (81-99); Mean Platelet Vol. 10.6 fl (6.2-12.0); Monocyte% 7.7 % (0-10); NRBC Flagged by Analyzer 0 % (0-5); Neutrophil # 5.14 X10^3/uL (2.7-7.7); Neutrophil % 79.3 % (47-70); Platelet Count 163 K/mm3 (150-450); RBC Distribution Width CV 13.2 % (11.6-14.6); RBC Distribution Width SD 41.4 fl (35.1-43.9); Red Blood Count 3.94 M/mm3 (4.2-5.4); White Blood Count 6.5 K/mm3 (4.4-11.0)
--- NOTE | 2023-10-29 13:25 | RAD_ITS ---
STUDY: X-RAY CHEST REASON FOR EXAM: Female, 78 years old. Weakness, fall TECHNIQUE: Single AP portable view of the chest. COMPARISON: 05/16/2022 FINDINGS: EKG leads overlie the chest The lungs are clear and expanded. There is no demonstrated pleural abnormality. Sternal cerclage wires and vascular clips are present from a prior sternotomy and coronary artery bypass graft procedure (CABG). Normal mediastinum and satya. Normal visualized pulmonary arteries. Normal visualized aortic arch and descending thoracic aorta. Normal visualized thoracic spine. Normal visualized ribs, clavicles, and shoulders. There is no demonstrated abnormality of the visualized soft tissue structures of the upper abdomen. RAD/Chest 1 View (Portable) IMPRESSION: No acute pulmonary process Electronically Signed: Gama Acosta MD at 13:35 EDT ,
[2023-10-29 14:01] LABS: ALB/GLOB Ratio 0.8 RATIO (0.9-2.4); AST(SGOT) 284 U/L (15-37); Alanine Aminotransfer ALT/SGPT 117 U/L (13-56); Albumin, Serum 3.1 g/dL (3.2-5.0); Alkaline Phosphatase 159 U/L (45-117); Anion Gap 11 (5-15); BUN 51 mg/dL (7-18); Calcium,Total 8.6 mg/dL (8.5-10.1); Chloride 103 mmol/L (98-107); Creatinine, Serum 3.19 mg/dL (0.55-1.02); EST Glomerular Filtration Rate 15 mL/min (>60); Est Glom Filt Rate - Afr Amer 18 mL/min (>60); Globulin 3.7 g/dL (2.2-4.2); Glucose 138 mg/dL (74-106); Lipase 53 U/L (13-75); Potassium 3.3 mmol/L (3.5-5.1); Protein, Total 6.8 g/dL (6.4-8.2); Sodium Level 140 mmol/L (136-145); Troponin-I HS 22 pg/mL (3.0-54.0)
[2023-10-29 14:02] VITALS: BP 121/51; PULSE 51; RESP 16; O2SAT 99
--- NOTE | 2023-10-29 14:31 | CT_ITS ---
STUDY: CT CERVICAL SPINE WITHOUT CONTRAST REASON FOR EXAM: Female, 78 years old. Fall RADIATION DOSAGE (If Supplied By Facility): CTDIvol = ( 11.96 ) mGy, DLP = ( 241.15 ) mGycm TECHNIQUE: High resolution transaxial imaging was performed without contrast material. Sagittal and coronal images were reconstructed. Individualized dose optimization techniques were used for this CT. COMPARISON: No relevant prior comparison study available FINDINGS: BONES: There is no fracture in the cervical spine. The dens is intact. The vertebral body heights are maintained. ALIGNMENT: There is no dislocation. Alignment is normal. DISC SPACES: There are mild degenerative changes. LUNG APICES: The visualized lung apices are clear. SOFT TISSUES: The visualized paraspinal soft tissues are within normal limits. CT/Spine Cervical without Contras IMPRESSION: No fracture or dislocation in the cervical spine. Normal alignment. Mild degenerative change. Electronically Signed: Adrian Barbour MD at 15:03 EDT ,
[2023-10-29 14:37] LABS: Mucous, Urine 0 SEEN /hpf (<or=2+); Red Blood Cells-Urine 0 SEEN /hpf (0-5)
[2023-10-29 14:39] LABS: Color, Urine Yellow (Yellow); Glucose, Dipstick Normal (Normal); Ketone-Dipstick Negative (Negative); Leukocyte Esterase-Dipstick 25 /ul (Negative); Nitrite-Dipstick Negative (Negative); Occult Blood-Urine 25 /ul (Negative); Protein-Dipstick 100 mg/dl (Negative); Specific Gravity, Urine 1.025 (1.002-1.030); Urine Bilirubin Dipstick Negative (Negative); Urine Clarity Sl. Cloudy (Clear); Urine Urobilinogen Normal (Normal)
[2023-10-29 14:45] LABS: Bacteria 3+ /hpf (None Seen)
[2023-10-29 14:46] LABS: Amorphous Sediment 1+; Renal Epithelial Cells 0-5 SEEN /hpf (0-5); Squamous Epithelial Cells - UA 0-5 SEEN /hpf (5-10); White Blood Cells 0-5 SEEN /hpf (0-5)
[2023-10-29 14:47] LABS: Hyaline Cast 0-5 SEEN /lpf (0-5)
[2023-10-29 15:00] VITALS: BP 124/59; PULSE 54; RESP 16; O2SAT 98
[2023-10-29 15:26] VITALS: BP 124/59; PULSE 54; RESP 16; TEMP 36; O2SAT 99
== END 2023-10-29 15:50 | disposition other institution (70) ==
PROVIDERS: Emergency Provider Emergency Medicine; PCP Internal Medicine; Visit Provider Emergency Medicine
DX: S06.30AA Unspecified focal traumatic brain injury with loss of consciousness status unknown, initial encounter (principal); J44.9 Chronic obstructive pulmonary disease, unspecified; N17.9 Acute kidney failure, unspecified; R53.1 Weakness; I25.10 Atherosclerotic heart disease of native coronary artery without angina pectoris; I25.2 Old myocardial infarction; G47.33 Obstructive sleep apnea (adult) (pediatric); Z86.16 Personal history of COVID-19; Z87.891 Personal history of nicotine dependence
CPT/HCPCS: 12011; 70450; 71045; 72125; 80053; 81001; 83690; 84484; 85025; 93005; 99285; J7030; A4216